=== PATIENT | female | born 1950 | race Caucasian/White ===

== ENCOUNTER 2016-07-03 | Inpatient (IN) | payer MEDICARE, BC, MEDICAID ==
[~2016-07-03] VITALS: Ht 162.6 cm; Wt 72.1 kg
[~2016-07-03] MED LIST: ACET160S PO; ALIS300T PO; ALPR0.5T PO; AMLO5TAB4 PO; BENZ1LOZ58 MM; DOCU-270 PO; ESCI20TA PO; FURO-144 PO; HEPA500013 SUBCUT; HYDR-552 PO; OLAN5TAB3 PO; ONDA4TAB5 IVP; PANT40TA2 PO; POTA20TA83 PO; TRAM50TA2 PO
[2016-07-05 07:45] VITALS: BP 144/66
--- NOTE | 2016-07-05 08:00 | NUR ---
Please see resident's previous account [id number] for all assessments and nurses notes. Originally admitted on 04/22/2015.
[2016-07-05] MEDS ORDERED: HYDROGEN PEROXIDE 480 ML BOTTLE TP PRN (08:38)
[2016-07-05] MEDS: POTASSIUM CHLORIDE 20 MEQ TAB.PRT.SR PO SCH (08:38)
[2016-07-05] MEDS: LIDOCAINE 5% (PATCH) 1 EA PATCH TP SCH (08:38)
[2016-07-05] MEDS ORDERED: ACETAMINOPHEN 650 MG/20 ML UDC- FOR SA PATIENTS ONLY PO PRN (08:38)
[2016-07-05] MEDS ORDERED: GUAIFENESIN/D-METHORPHAN HB 5 ML UDC PO PRN (08:38)
[2016-07-05] MEDS ORDERED: MENTHOL/CETYLPYRD (CEPACOL) 1 LOZ LOZENGE PO PRN (08:38)
[2016-07-05] MEDS: FUROSEMIDE 40 MG TABLET PO SCH (08:38)
[2016-07-05] MEDS ORDERED: IPRATROPIUM NEB FS 0.5 MG/2.5 ML AMPUL.NEB NEB PRN (08:38)
[2016-07-05] MEDS ORDERED: POLYETHYLENE GLYCOL 3350 17 GM POWD.PACK PO PRN (08:38)
[2016-07-05] MEDS ORDERED: TUBERCULIN,PURIF.PROT.DERIV. 5 TU/0.1 ML VIAL ID SCH (08:38)
[2016-07-05] MEDS ORDERED: NITROGLYCERIN 0.4 MG/TAB BOTTLE SL PRN (08:38)
[2016-07-05] MEDS ORDERED: ALBUTEROL FS 2.5 MG/3 ML VIAL.NEB NEB PRN (08:38)
[2016-07-05] MEDS: HYDROGEN PEROXIDE 480 ML BOTTLE TP SCH ×2 (09:00→21:48)
[2016-07-05] MEDS: LamoTRIgine 25 MG TABLET PO SCH (09:00)
[2016-07-05] MEDS: ALISKIREN HEMIFUMARATE 150 MG TABLET PO SCH (09:00)
[2016-07-05] MEDS: Z GUARD REMEDY 2 OZ OINT TP SCH ×2 (09:00→21:49)
[2016-07-05] MEDS: AMLODIPINE BESYLATE 5 MG TABLET PO SCH (09:00)
[2016-07-05] MEDS: SENNOSIDES 8.6 MG TABLET PO SCH (09:00)
[2016-07-05] MEDS: predniSONE 20 MG TABLET PO SCH (09:00)
[2016-07-05] MEDS: OLANZAPINE 2.5 MG TABLET PO SCH (09:00)
[2016-07-05] MEDS: NEOMY SULF/BACITRAC ZN/POLY 15 GM TUBE TP SCH ×2 (09:00→21:49)
--- NOTE | 2016-07-05 11:14 | NUR ---
Please see resident's previous account [id number] for Social Service assessments, evaluations and notes.
[2016-07-05] MEDS: ALBUTEROL FS 2.5 MG/3 ML VIAL.NEB NEB SCH ×2 (13:38→19:46)
[2016-07-05] MEDS: IPRATROPIUM NEB FS 0.5 MG/2.5 ML AMPUL.NEB NEB SCH ×2 (13:38→19:46)
[2016-07-05] MEDS: HYDROCODONE/APAP 5/325MG 1 EACH TABLET PO PRN (16:40)
[2016-07-05 19:53] VITALS: BP 130/74
[2016-07-05] MEDS: ZOLPIDEM TARTRATE 5 MG TABLET PO PRN (20:49)
[2016-07-05] MEDS: LORAZEPAM 0.5 MG TABLET PO PRN (20:49)
[2016-07-05] MEDS: TRAMADOL HCL 50 MG TABLET PO PRN (21:49)
[2016-07-06] MEDS: IPRATROPIUM NEB FS 0.5 MG/2.5 ML AMPUL.NEB NEB SCH ×4 (01:37→20:01)
[2016-07-06] MEDS: ALBUTEROL FS 2.5 MG/3 ML VIAL.NEB NEB SCH ×4 (01:37→20:01)
[2016-07-06] MEDS: PANTOPRAZOLE 40 MG/PACK PACK PO SCH (06:37)
[2016-07-06 07:58] VITALS: BP 127/74
[2016-07-06] MEDS: LIDOCAINE 5% (PATCH) 1 EA PATCH TP SCH ×2 (08:57→16:14)
[2016-07-06] MEDS: LamoTRIgine 25 MG TABLET PO SCH (09:02)
[2016-07-06] MEDS: predniSONE 20 MG TABLET PO SCH (09:03)
[2016-07-06] MEDS: SENNOSIDES 8.6 MG TABLET PO SCH (09:03)
[2016-07-06] MEDS: AMLODIPINE BESYLATE 5 MG TABLET PO SCH (09:03)
[2016-07-06] MEDS: ALISKIREN HEMIFUMARATE 150 MG TABLET PO SCH (09:04)
[2016-07-06] MEDS: NEOMY SULF/BACITRAC ZN/POLY 15 GM TUBE TP SCH (09:04)
[2016-07-06] MEDS: Z GUARD REMEDY 2 OZ OINT TP SCH ×2 (09:04→20:31)
[2016-07-06] MEDS: HYDROGEN PEROXIDE 480 ML BOTTLE TP SCH ×2 (09:04→20:31)
[2016-07-06] MEDS: OLANZAPINE 2.5 MG TABLET PO SCH (09:04)
[2016-07-06] MEDS: HYDROCODONE/APAP 5/325MG 1 EACH TABLET PO PRN ×3 (09:05→23:05)
[2016-07-06] MEDS: TRAMADOL HCL 50 MG TABLET PO PRN ×2 (12:12→21:16)
--- NOTE | 2016-07-06 15:44 | NUR ---
Resident spoke to social work lecturer and stated that she wanted to change code status to full code. Resident stated she wants maximum treatment and CPR if necessary. Resident signed Documentation of Preferred Intensity of Care and form was placed into the resident's chart. Charge nurse was informed.
[2016-07-06 20:00] VITALS: BP 140/75
[2016-07-06] MEDS: LORAZEPAM 0.5 MG TABLET PO PRN (20:31)
[2016-07-06] MEDS: ZOLPIDEM TARTRATE 5 MG TABLET PO PRN (21:17)
[2016-07-07] MEDS: IPRATROPIUM NEB FS 0.5 MG/2.5 ML AMPUL.NEB NEB SCH ×4 (02:12→19:50)
[2016-07-07] MEDS: ALBUTEROL FS 2.5 MG/3 ML VIAL.NEB NEB SCH ×4 (02:12→19:50)
[2016-07-07] MEDS: PANTOPRAZOLE 40 MG/PACK PACK PO SCH (05:23)
[2016-07-07] MEDS: TRAMADOL HCL 50 MG TABLET PO PRN ×3 (05:24→20:33)
[2016-07-07 07:57] VITALS: BP 147/77
[2016-07-07] MEDS: POTASSIUM CHLORIDE 20 MEQ TAB.PRT.SR PO SCH (08:02)
[2016-07-07] MEDS: predniSONE 20 MG TABLET PO SCH (08:02)
[2016-07-07] MEDS: LamoTRIgine 25 MG TABLET PO SCH (08:02)
[2016-07-07] MEDS: FUROSEMIDE 40 MG TABLET PO SCH (08:03)
[2016-07-07] MEDS: AMLODIPINE BESYLATE 5 MG TABLET PO SCH (08:03)
[2016-07-07] MEDS: ALISKIREN HEMIFUMARATE 150 MG TABLET PO SCH (08:04)
[2016-07-07] MEDS: OLANZAPINE 2.5 MG TABLET PO SCH (08:04)
[2016-07-07] MEDS: SENNOSIDES 8.6 MG TABLET PO SCH (08:04)
[2016-07-07] MEDS: HYDROGEN PEROXIDE 480 ML BOTTLE TP SCH ×2 (08:05→21:54)
[2016-07-07] MEDS: Z GUARD REMEDY 2 OZ OINT TP SCH ×2 (08:06→21:54)
[2016-07-07] MEDS: HYDROCODONE/APAP 5/325MG 1 EACH TABLET PO PRN ×3 (08:55→23:57)
--- NOTE | 2016-07-07 11:52 | NUR ---
Left a message to NARENDRA Sanchez regarding monthly trach change.
[2016-07-07] MEDS: LIDOCAINE 5% (PATCH) 1 EA PATCH TP SCH (17:35)
[2016-07-07] MEDS: LORAZEPAM 0.5 MG TABLET PO PRN (18:32)
[2016-07-07 20:15] VITALS: BP 130/91
--- NOTE | 2016-07-07 20:41 | NUR ---
Pt seen by Savi Nunez WINTERIZER,order psyche consult (Dr. Marino),she said she's will contact Dr. Marino.Pt aware of new order.
[2016-07-07] MEDS: ZOLPIDEM TARTRATE 5 MG TABLET PO PRN (21:54)
[2016-07-08] MEDS: ALBUTEROL FS 2.5 MG/3 ML VIAL.NEB NEB SCH ×4 (01:54→19:31)
[2016-07-08] MEDS: IPRATROPIUM NEB FS 0.5 MG/2.5 ML AMPUL.NEB NEB SCH ×4 (01:54→19:31)
[2016-07-08] MEDS: TRAMADOL HCL 50 MG TABLET PO PRN ×3 (02:48→21:45)
[2016-07-08] MEDS: PANTOPRAZOLE 40 MG/PACK PACK PO SCH (06:33)
[2016-07-08 07:52] VITALS: BP 130/74
[2016-07-08] MEDS: ALISKIREN HEMIFUMARATE 150 MG TABLET PO SCH (09:28)
[2016-07-08] MEDS: LamoTRIgine 25 MG TABLET PO SCH (09:28)
[2016-07-08] MEDS: SENNOSIDES 8.6 MG TABLET PO SCH (09:28)
[2016-07-08] MEDS: OLANZAPINE 2.5 MG TABLET PO SCH (09:28)
[2016-07-08] MEDS: AMLODIPINE BESYLATE 5 MG TABLET PO SCH (09:28)
[2016-07-08] MEDS: predniSONE 20 MG TABLET PO SCH (09:28)
[2016-07-08] MEDS: Z GUARD REMEDY 2 OZ OINT TP SCH ×2 (09:29→21:43)
[2016-07-08] MEDS: HYDROGEN PEROXIDE 480 ML BOTTLE TP SCH ×2 (09:29→21:42)
[2016-07-08] MEDS: HYDROCODONE/APAP 5/325MG 1 EACH TABLET PO PRN ×2 (09:30→15:26)
[2016-07-08] MEDS: LIDOCAINE 5% (PATCH) 1 EA PATCH TP SCH (16:56)
[2016-07-08 19:44] VITALS: BP 127/76
[2016-07-08] MEDS: LORAZEPAM 0.5 MG TABLET PO PRN (20:11)
[2016-07-08] MEDS: ZOLPIDEM TARTRATE 5 MG TABLET PO PRN (20:59)
[2016-07-09] MEDS: HYDROCODONE/APAP 5/325MG 1 EACH TABLET PO PRN ×4 (01:05→23:23)
[2016-07-09] MEDS: ALBUTEROL FS 2.5 MG/3 ML VIAL.NEB NEB SCH ×4 (02:07→19:28)
[2016-07-09] MEDS: IPRATROPIUM NEB FS 0.5 MG/2.5 ML AMPUL.NEB NEB SCH ×4 (02:07→19:28)
[2016-07-09] MEDS: PANTOPRAZOLE 40 MG/PACK PACK PO SCH (05:59)
[2016-07-09 07:57] VITALS: BP 152/80
[2016-07-09] MEDS: POTASSIUM CHLORIDE 20 MEQ TAB.PRT.SR PO SCH (09:12)
[2016-07-09] MEDS: FUROSEMIDE 40 MG TABLET PO SCH (09:12)
[2016-07-09] MEDS: predniSONE 20 MG TABLET PO SCH (09:13)
[2016-07-09] MEDS: ALISKIREN HEMIFUMARATE 150 MG TABLET PO SCH (09:13)
[2016-07-09] MEDS: SENNOSIDES 8.6 MG TABLET PO SCH (09:13)
[2016-07-09] MEDS: OLANZAPINE 2.5 MG TABLET PO SCH (09:13)
[2016-07-09] MEDS: AMLODIPINE BESYLATE 5 MG TABLET PO SCH (09:13)
[2016-07-09] MEDS: Z GUARD REMEDY 2 OZ OINT TP SCH ×2 (09:13→21:36)
[2016-07-09] MEDS: LamoTRIgine 25 MG TABLET PO SCH (09:13)
[2016-07-09] MEDS: HYDROGEN PEROXIDE 480 ML BOTTLE TP SCH ×2 (09:13→21:36)
[2016-07-09] MEDS: TRAMADOL HCL 50 MG TABLET PO PRN ×2 (11:58→21:37)
[2016-07-09] MEDS: LIDOCAINE 5% (PATCH) 1 EA PATCH TP SCH (16:49)
[2016-07-09 19:54] VITALS: BP 138/74
[2016-07-09] MEDS: LORAZEPAM 0.5 MG TABLET PO PRN (20:23)
[2016-07-09] MEDS: ZOLPIDEM TARTRATE 5 MG TABLET PO PRN (20:59)
[2016-07-10] MEDS: IPRATROPIUM NEB FS 0.5 MG/2.5 ML AMPUL.NEB NEB SCH ×4 (01:54→19:27)
[2016-07-10] MEDS: ALBUTEROL FS 2.5 MG/3 ML VIAL.NEB NEB SCH ×4 (01:54→19:27)
[2016-07-10] MEDS: PANTOPRAZOLE 40 MG/PACK PACK PO SCH (05:27)
[2016-07-10] MEDS: HYDROCODONE/APAP 5/325MG 1 EACH TABLET PO PRN ×3 (08:00→22:52)
--- NOTE | 2016-07-10 08:02 | NUR ---
RT PATIENT RECEIVED TRACHED ON COOL AEROSOL VIA TRACH MASK WENDY WELL. RESP TX'S GIVEN ORDERED WENDY WELL. TRACH SECURE AND IN PROPER POSITION. SX'D WITH MOD AMT PALE SEMITHICK SECRETIONS. B/S DIM. MONTHLY SCHEDULED TRACH CHANGE DONE WENDY WELL. PATIENT IN NO DISTRESS OR SOB AT THIS TIME. BACK UP TRACH AND AMBU BAG AT [facility]. CONTINUE CURRENT PLAN OF RESP CARE.
[2016-07-10 08:05] VITALS: BP 160/80
[2016-07-10] MEDS: LamoTRIgine 25 MG TABLET PO SCH (08:16)
[2016-07-10] MEDS: AMLODIPINE BESYLATE 5 MG TABLET PO SCH (08:16)
[2016-07-10] MEDS: SENNOSIDES 8.6 MG TABLET PO SCH (08:16)
[2016-07-10] MEDS: ALISKIREN HEMIFUMARATE 150 MG TABLET PO SCH (08:16)
[2016-07-10] MEDS: OLANZAPINE 2.5 MG TABLET PO SCH (08:16)
[2016-07-10] MEDS: predniSONE 20 MG TABLET PO SCH (08:16)
[2016-07-10] MEDS: HYDROGEN PEROXIDE 480 ML BOTTLE TP SCH ×2 (09:37→21:01)
[2016-07-10] MEDS: Z GUARD REMEDY 2 OZ OINT TP SCH ×2 (09:38→21:02)
[2016-07-10] MEDS: TRAMADOL HCL 50 MG TABLET PO PRN (12:04)
[2016-07-10] MEDS: LIDOCAINE 5% (PATCH) 1 EA PATCH TP SCH (17:09)
[2016-07-10] MEDS: LORAZEPAM 0.5 MG TABLET PO PRN ×2 (17:50→21:02)
[2016-07-10 20:00] VITALS: BP 128/78
[2016-07-10] MEDS: ZOLPIDEM TARTRATE 5 MG TABLET PO PRN (22:53)
[2016-07-11] MEDS: IPRATROPIUM NEB FS 0.5 MG/2.5 ML AMPUL.NEB NEB SCH ×4 (01:28→19:40)
[2016-07-11] MEDS: ALBUTEROL FS 2.5 MG/3 ML VIAL.NEB NEB SCH ×4 (01:28→19:40)
[2016-07-11] MEDS: PANTOPRAZOLE 40 MG/PACK PACK PO SCH (05:47)
[2016-07-11 08:07] VITALS: BP 141/89
--- NOTE | 2016-07-11 08:21 | NUR ---
RT PATIENT RECEIVED TRACHED ON COOL AEROSOL VIA TRACH MASK WENDY WELL. RESP TX'S GIVEN ORDERED WENDY WELL. TRACH SECURE AND IN PROPER POSITION. SX'D WITH MOD AMT PALE SEMITHICK SECRETIONS. B/S DIM. PATIENT IN NO DISTRESS OR SOB AT THIS TIME. BACK UP TRACH AND AMBU BAG AT [facility]. CONTINUE CURRENT PLAN OF RESP CARE.
[2016-07-11] MEDS: POTASSIUM CHLORIDE 20 MEQ TAB.PRT.SR PO SCH (08:52)
[2016-07-11] MEDS: FUROSEMIDE 40 MG TABLET PO SCH (08:53)
[2016-07-11] MEDS: LamoTRIgine 25 MG TABLET PO SCH (08:55)
[2016-07-11] MEDS: predniSONE 20 MG TABLET PO SCH (08:56)
[2016-07-11] MEDS: SENNOSIDES 8.6 MG TABLET PO SCH (08:56)
[2016-07-11] MEDS: AMLODIPINE BESYLATE 5 MG TABLET PO SCH (08:56)
[2016-07-11] MEDS: ALISKIREN HEMIFUMARATE 150 MG TABLET PO SCH (08:57)
[2016-07-11] MEDS: Z GUARD REMEDY 2 OZ OINT TP SCH ×2 (09:00→20:34)
[2016-07-11] MEDS: HYDROGEN PEROXIDE 480 ML BOTTLE TP SCH ×2 (09:00→20:34)
[2016-07-11] MEDS: OLANZAPINE 2.5 MG TABLET PO SCH (09:01)
[2016-07-11] MEDS: HYDROCODONE/APAP 5/325MG 1 EACH TABLET PO PRN ×3 (09:06→22:42)
[2016-07-11] MEDS: TRAMADOL HCL 50 MG TABLET PO PRN ×2 (14:10→21:13)
--- NOTE | 2016-07-11 16:11 | NUR ---
sent message to Dr. Marino asking when he can come and see the resident, as she is reporting that her current meds are making her nervous. Awaiting response.
--- NOTE | 2016-07-11 16:28 | NUR ---
Pt verbalized that Zyprexa and Lamictal make her nervous and she does not want to take them anymore. She requested for psychiatrist to see her to re-evaluate her medications. Notified social work manager Maude. She left a message for Dr. Marino.
[2016-07-11] MEDS: LIDOCAINE 5% (PATCH) 1 EA PATCH TP SCH (17:00)
[2016-07-11 20:21] VITALS: BP 131/84
[2016-07-11] MEDS: LORAZEPAM 0.5 MG TABLET PO PRN (20:34)
[2016-07-11] MEDS: ZOLPIDEM TARTRATE 5 MG TABLET PO PRN (21:13)
[2016-07-12] MEDS: IPRATROPIUM NEB FS 0.5 MG/2.5 ML AMPUL.NEB NEB SCH ×4 (01:01→19:30)
[2016-07-12] MEDS: ALBUTEROL FS 2.5 MG/3 ML VIAL.NEB NEB SCH ×4 (01:01→19:30)
--- NOTE | 2016-07-12 01:50 | NUR ---
Dr. Aldridge (assistant professor nurse education) came to see SW and stated that he was prepared to see the resident but resident refused to be seen today as it is her birthday. Dr. Aldridge stated that he will come again tomorrow to see resident. Addendum: 07/12/16 at 1405 by JEAN CARLOS LEBRON Note is for 1:50PM
[2016-07-12] MEDS: PANTOPRAZOLE 40 MG/PACK PACK PO SCH (05:45)
[2016-07-12 08:12] VITALS: BP 147/76
[2016-07-12] MEDS: Z GUARD REMEDY 2 OZ OINT TP SCH ×2 (09:00→21:05)
[2016-07-12] MEDS: HYDROGEN PEROXIDE 480 ML BOTTLE TP SCH ×2 (09:00→21:05)
[2016-07-12] MEDS: LamoTRIgine 25 MG TABLET PO SCH (09:29)
[2016-07-12] MEDS: AMLODIPINE BESYLATE 5 MG TABLET PO SCH (09:29)
[2016-07-12] MEDS: ALISKIREN HEMIFUMARATE 150 MG TABLET PO SCH (09:31)
[2016-07-12] MEDS: OLANZAPINE 2.5 MG TABLET PO SCH (09:32)
[2016-07-12] MEDS: SENNOSIDES 8.6 MG TABLET PO SCH (09:32)
[2016-07-12] MEDS: predniSONE 20 MG TABLET PO SCH (09:32)
[2016-07-12] MEDS: HYDROCODONE/APAP 5/325MG 1 EACH TABLET PO PRN ×2 (09:41→16:30)
--- NOTE | 2016-07-12 10:57 | NUR ---
Pt's left great toe is swollen, appears to have an ingrown toenail. Notified director social service Maude to have qa lead see pt.
--- NOTE | 2016-07-12 11:01 | NUR ---
SW informed by charge nurse that resident's left big toe is swollen. SW faxed employment training specialist referral to wound center so that Dr. Howard can come and see the patient. SW will follow up.
--- NOTE | 2016-07-12 11:03 | NUR ---
Called Dr. Marino cell phone and left vmail message indicating that resident is requesting to see him due to her medications making her more anxious. left contact information and asked for a call back to see when he can come and see resident. SW will follow up.
[2016-07-12] MEDS: TRAMADOL HCL 50 MG TABLET PO PRN (13:14)
[2016-07-12] MEDS: LIDOCAINE 5% (PATCH) 1 EA PATCH TP SCH (17:00)
--- NOTE | 2016-07-12 18:00 | NUR ---
Pt was seen by Dr. Marino. Received order to decrease Zyprexa to 1.25 mg po daily. Pt aware.
[2016-07-12 20:37] VITALS: BP 161/74
[2016-07-12] MEDS: LORAZEPAM 0.5 MG TABLET PO PRN (21:03)
[2016-07-12] MEDS: ZOLPIDEM TARTRATE 5 MG TABLET PO PRN (21:04)
[2016-07-13] MEDS: HYDROCODONE/APAP 5/325MG 1 EACH TABLET PO PRN ×4 (00:42→21:01)
[2016-07-13] MEDS: ALBUTEROL FS 2.5 MG/3 ML VIAL.NEB NEB SCH ×5 (01:10→20:09)
[2016-07-13] MEDS: IPRATROPIUM NEB FS 0.5 MG/2.5 ML AMPUL.NEB NEB SCH ×5 (01:10→20:09)
[2016-07-13] MEDS: PANTOPRAZOLE 40 MG/PACK PACK PO SCH (05:23)
[2016-07-13 07:33] VITALS: BP 130/73
[2016-07-13] MEDS: SENNOSIDES 8.6 MG TABLET PO SCH (09:28)
[2016-07-13] MEDS: POTASSIUM CHLORIDE 20 MEQ TAB.PRT.SR PO SCH (09:28)
[2016-07-13] MEDS: FUROSEMIDE 40 MG TABLET PO SCH (09:28)
[2016-07-13] MEDS: LamoTRIgine 25 MG TABLET PO SCH (09:28)
[2016-07-13] MEDS: AMLODIPINE BESYLATE 5 MG TABLET PO SCH (09:28)
[2016-07-13] MEDS: ALISKIREN HEMIFUMARATE 150 MG TABLET PO SCH (09:28)
[2016-07-13] MEDS: OLANZAPINE 2.5 MG TABLET PO SCH (09:28)
[2016-07-13] MEDS: predniSONE 20 MG TABLET PO SCH (09:28)
[2016-07-13] MEDS: Z GUARD REMEDY 2 OZ OINT TP SCH ×2 (09:29→21:03)
[2016-07-13] MEDS: HYDROGEN PEROXIDE 480 ML BOTTLE TP SCH ×2 (09:29→21:03)
[2016-07-13] MEDS: TRAMADOL HCL 50 MG TABLET PO PRN (12:04)
--- NOTE | 2016-07-13 12:30 | NUR ---
Dr. Gill, ENT came to do monthly trach change, assisted by RT. Patient tolerated procedure well.
--- NOTE | 2016-07-13 13:07 | NUR ---
RT NOTE: PATIENT IS ANXIOUS AND STATES THAT TRACH WAS NOT CHANGED 3 DAYS AGO. CHANGED TRACH PER PATIENT'S REQUEST. TOLERATED TRACH CHANGE WELL. NO BLEEDING NOTED. TRACH CARE WAS DONE. PATIENT IS NOW RESTING COMFORTABLY. CHARGE NURSE(JUAN LUIS) AWARE.
[2016-07-13] MEDS: LIDOCAINE 5% (PATCH) 1 EA PATCH TP SCH (17:00)
[2016-07-13 19:51] VITALS: BP 141/58
[2016-07-14] MEDS: ZOLPIDEM TARTRATE 5 MG TABLET PO PRN ×2 (00:18→22:19)
[2016-07-14] MEDS: LORAZEPAM 0.5 MG TABLET PO PRN ×2 (00:19→20:37)
[2016-07-14] MEDS: IPRATROPIUM NEB FS 0.5 MG/2.5 ML AMPUL.NEB NEB SCH ×4 (01:13→19:49)
[2016-07-14] MEDS: ALBUTEROL FS 2.5 MG/3 ML VIAL.NEB NEB SCH ×4 (01:13→19:49)
[2016-07-14] MEDS: PANTOPRAZOLE 40 MG/PACK PACK PO SCH (05:28)
[2016-07-14 07:46] VITALS: BP 147/78
[2016-07-14] MEDS: LamoTRIgine 25 MG TABLET PO SCH (09:50)
[2016-07-14] MEDS: SENNOSIDES 8.6 MG TABLET PO SCH (09:51)
[2016-07-14] MEDS: OLANZAPINE 2.5 MG TABLET PO SCH (09:51)
[2016-07-14] MEDS: HYDROGEN PEROXIDE 480 ML BOTTLE TP SCH ×2 (09:51→21:00)
[2016-07-14] MEDS: predniSONE 20 MG TABLET PO SCH (09:51)
[2016-07-14] MEDS: ALISKIREN HEMIFUMARATE 150 MG TABLET PO SCH (09:51)
[2016-07-14] MEDS: NEOMY SULF/BACITRAC ZN/POLY 15 GM TUBE TP SCH (09:51)
[2016-07-14] MEDS: AMLODIPINE BESYLATE 5 MG TABLET PO SCH (09:51)
[2016-07-14] MEDS: Z GUARD REMEDY 2 OZ OINT TP SCH ×2 (09:52→21:00)
[2016-07-14] MEDS: HYDROCODONE/APAP 5/325MG 1 EACH TABLET PO PRN ×3 (12:48→23:28)
[2016-07-14] MEDS: TRAMADOL HCL 50 MG TABLET PO PRN ×2 (14:18→21:03)
[2016-07-14] MEDS: LIDOCAINE 5% (PATCH) 1 EA PATCH TP SCH (16:56)
--- NOTE | 2016-07-14 17:02 | NUR ---
Risco 5/325 mg given at 0950 for lower back pain, then resident complained of back pain 8/10 pain scale at 1700. Risco 5/325 mg given at 1700.
[2016-07-14 19:58] VITALS: BP 141/81
[2016-07-15] MEDS: IPRATROPIUM NEB FS 0.5 MG/2.5 ML AMPUL.NEB NEB SCH ×4 (01:28→19:52)
[2016-07-15] MEDS: ALBUTEROL FS 2.5 MG/3 ML VIAL.NEB NEB SCH ×4 (01:28→19:52)
[2016-07-15] MEDS: PANTOPRAZOLE 40 MG/PACK PACK PO SCH (05:51)
[2016-07-15 07:46] VITALS: BP 127/59
--- NOTE | 2016-07-15 07:50 | NUR ---
RT PATIENT RECEIVED TRACHED ON COOL AEROSOL VIA TRACH MASK WENDY WELL. RESP TX'S GIVEN ORDERED WENDY WELL. TRACH SECURE AND IN PROPER POSITION. SX'D WITH SMALL AMT PALE SEMITHICK SECRETIONS. INNER CANNULA CHANGED PER PATIENT REQUEST. B/S DIM. PATIENT IN NO DISTRESS OR SOB AT THIS TIME. BACK UP TRACH AND AMBU BAG AT [facility]. CONTINUE CURRENT PLAN OF RESP CARE.
[2016-07-15] MEDS: POTASSIUM CHLORIDE 20 MEQ TAB.PRT.SR PO SCH (08:38)
[2016-07-15] MEDS: FUROSEMIDE 40 MG TABLET PO SCH (08:38)
[2016-07-15] MEDS: LamoTRIgine 25 MG TABLET PO SCH (09:58)
[2016-07-15] MEDS: OLANZAPINE 2.5 MG TABLET PO SCH (09:59)
[2016-07-15] MEDS: HYDROGEN PEROXIDE 480 ML BOTTLE TP SCH ×2 (09:59→21:44)
[2016-07-15] MEDS: Z GUARD REMEDY 2 OZ OINT TP SCH ×2 (09:59→21:44)
[2016-07-15] MEDS: ALISKIREN HEMIFUMARATE 150 MG TABLET PO SCH (09:59)
[2016-07-15] MEDS: AMLODIPINE BESYLATE 5 MG TABLET PO SCH (09:59)
[2016-07-15] MEDS: SENNOSIDES 8.6 MG TABLET PO SCH (09:59)
[2016-07-15] MEDS: NEOMY SULF/BACITRAC ZN/POLY 15 GM TUBE TP SCH (09:59)
[2016-07-15] MEDS: predniSONE 20 MG TABLET PO SCH (09:59)
[2016-07-15] MEDS: HYDROCODONE/APAP 5/325MG 1 EACH TABLET PO PRN ×2 (10:52→17:27)
[2016-07-15] MEDS: TRAMADOL HCL 50 MG TABLET PO PRN ×2 (13:30→21:43)
--- NOTE | 2016-07-15 14:15 | NUR ---
INTERDISCIPLINARY TEAM CONFERENCE (IDT) was held today. Resident's dtr lives in [place] and is unable to attend. Dr. Yen and the interdisciplinary team reviewed the current plan of care in detail. New orders were reviewed. No changes were noted and resident remains stable.
[2016-07-15] MEDS: LIDOCAINE 5% (PATCH) 1 EA PATCH TP SCH (16:13)
[2016-07-15 19:53] VITALS: BP 120/70
[2016-07-15] MEDS: ZOLPIDEM TARTRATE 5 MG TABLET PO PRN (20:59)
[2016-07-16] MEDS: IPRATROPIUM NEB FS 0.5 MG/2.5 ML AMPUL.NEB NEB SCH ×4 (02:22→19:19)
[2016-07-16] MEDS: ALBUTEROL FS 2.5 MG/3 ML VIAL.NEB NEB SCH ×4 (02:22→19:19)
[2016-07-16] MEDS: PANTOPRAZOLE 40 MG/PACK PACK PO SCH (06:14)
[2016-07-16 07:42] VITALS: BP 137/81
[2016-07-16] MEDS: predniSONE 20 MG TABLET PO SCH (09:46)
[2016-07-16] MEDS: LamoTRIgine 25 MG TABLET PO SCH (09:46)
[2016-07-16] MEDS: ALISKIREN HEMIFUMARATE 150 MG TABLET PO SCH (09:46)
[2016-07-16] MEDS: OLANZAPINE 2.5 MG TABLET PO SCH (09:46)
[2016-07-16] MEDS: SENNOSIDES 8.6 MG TABLET PO SCH (09:46)
[2016-07-16] MEDS: AMLODIPINE BESYLATE 5 MG TABLET PO SCH (09:46)
[2016-07-16] MEDS: HYDROGEN PEROXIDE 480 ML BOTTLE TP SCH ×2 (09:47→20:33)
[2016-07-16] MEDS: Z GUARD REMEDY 2 OZ OINT TP SCH ×2 (09:47→20:34)
[2016-07-16] MEDS: NEOMY SULF/BACITRAC ZN/POLY 15 GM TUBE TP SCH (09:47)
[2016-07-16] MEDS: HYDROCODONE/APAP 5/325MG 1 EACH TABLET PO PRN ×2 (10:23→16:35)
[2016-07-16] MEDS: TRAMADOL HCL 50 MG TABLET PO PRN ×2 (12:40→21:13)
[2016-07-16] MEDS: LIDOCAINE 5% (PATCH) 1 EA PATCH TP SCH (16:15)
[2016-07-16 19:41] VITALS: BP 132/70
[2016-07-16] MEDS: LORAZEPAM 0.5 MG TABLET PO PRN (20:34)
[2016-07-16] MEDS: ZOLPIDEM TARTRATE 5 MG TABLET PO PRN (21:13)
[2016-07-17] MEDS: HYDROCODONE/APAP 5/325MG 1 EACH TABLET PO PRN ×4 (00:13→22:35)
[2016-07-17] MEDS: IPRATROPIUM NEB FS 0.5 MG/2.5 ML AMPUL.NEB NEB SCH ×4 (01:19→19:08)
[2016-07-17] MEDS: ALBUTEROL FS 2.5 MG/3 ML VIAL.NEB NEB SCH ×4 (01:19→19:08)
[2016-07-17] MEDS: PANTOPRAZOLE 40 MG/PACK PACK PO SCH (05:22)
[2016-07-17 08:22] VITALS: BP 136/87
[2016-07-17] MEDS: POTASSIUM CHLORIDE 20 MEQ TAB.PRT.SR PO SCH (08:38)
[2016-07-17] MEDS: FUROSEMIDE 40 MG TABLET PO SCH (08:38)
[2016-07-17] MEDS: SENNOSIDES 8.6 MG TABLET PO SCH (09:00)
[2016-07-17] MEDS: Z GUARD REMEDY 2 OZ OINT TP SCH ×2 (09:00→20:26)
[2016-07-17] MEDS: LamoTRIgine 25 MG TABLET PO SCH (09:00)
[2016-07-17] MEDS: HYDROGEN PEROXIDE 480 ML BOTTLE TP SCH ×2 (09:00→20:26)
[2016-07-17] MEDS: OLANZAPINE 2.5 MG TABLET PO SCH (09:00)
[2016-07-17] MEDS: ALISKIREN HEMIFUMARATE 150 MG TABLET PO SCH (09:00)
[2016-07-17] MEDS: predniSONE 20 MG TABLET PO SCH (09:00)
[2016-07-17] MEDS: AMLODIPINE BESYLATE 5 MG TABLET PO SCH (09:00)
[2016-07-17] MEDS: NEOMY SULF/BACITRAC ZN/POLY 15 GM TUBE TP SCH (09:00)
[2016-07-17] MEDS: TRAMADOL HCL 50 MG TABLET PO PRN ×2 (12:14→21:00)
[2016-07-17] MEDS: LIDOCAINE 5% (PATCH) 1 EA PATCH TP SCH (16:21)
[2016-07-17 19:54] VITALS: BP 136/70
[2016-07-17] MEDS: LORAZEPAM 0.5 MG TABLET PO PRN (20:26)
[2016-07-17] MEDS: ZOLPIDEM TARTRATE 5 MG TABLET PO PRN (21:00)
[2016-07-18] MEDS: IPRATROPIUM NEB FS 0.5 MG/2.5 ML AMPUL.NEB NEB SCH ×4 (00:38→19:37)
[2016-07-18] MEDS: ALBUTEROL FS 2.5 MG/3 ML VIAL.NEB NEB SCH ×4 (00:38→19:37)
[2016-07-18] MEDS: PANTOPRAZOLE 40 MG/PACK PACK PO SCH (05:36)
[2016-07-18 07:45] VITALS: BP 141/76
--- NOTE | 2016-07-18 09:27 | NUR ---
Resident refused to be seen by Dr. Margoth BURGOS and stated that she is feeling sick and wants to reschedule the cleaning. SW will call dentist's office to reschedule for a later time.
[2016-07-18] MEDS: AMLODIPINE BESYLATE 5 MG TABLET PO SCH (09:29)
[2016-07-18] MEDS: predniSONE 20 MG TABLET PO SCH (09:37)
[2016-07-18] MEDS: OLANZAPINE 2.5 MG TABLET PO SCH (09:37)
[2016-07-18] MEDS: SENNOSIDES 8.6 MG TABLET PO SCH (09:37)
[2016-07-18] MEDS: ALISKIREN HEMIFUMARATE 150 MG TABLET PO SCH (09:37)
[2016-07-18] MEDS: HYDROCODONE/APAP 5/325MG 1 EACH TABLET PO PRN ×3 (09:37→23:36)
[2016-07-18] MEDS: LamoTRIgine 25 MG TABLET PO SCH (09:37)
[2016-07-18] MEDS: HYDROGEN PEROXIDE 480 ML BOTTLE TP SCH ×2 (09:38→20:39)
[2016-07-18] MEDS: NEOMY SULF/BACITRAC ZN/POLY 15 GM TUBE TP SCH (09:38)
[2016-07-18] MEDS: Z GUARD REMEDY 2 OZ OINT TP SCH ×2 (09:39→20:39)
[2016-07-18] MEDS: TRAMADOL HCL 50 MG TABLET PO PRN ×2 (12:03→21:42)
[2016-07-18] MEDS: LIDOCAINE 5% (PATCH) 1 EA PATCH TP SCH (16:20)
[2016-07-18 20:06] VITALS: BP 127/72
[2016-07-18] MEDS: LORAZEPAM 0.5 MG TABLET PO PRN (20:39)
[2016-07-18] MEDS: ZOLPIDEM TARTRATE 5 MG TABLET PO PRN (21:42)
[2016-07-19] MEDS: IPRATROPIUM NEB FS 0.5 MG/2.5 ML AMPUL.NEB NEB SCH ×4 (01:30→19:30)
[2016-07-19] MEDS: ALBUTEROL FS 2.5 MG/3 ML VIAL.NEB NEB SCH ×4 (01:30→19:30)
[2016-07-19] MEDS: PANTOPRAZOLE 40 MG/PACK PACK PO SCH (05:30)
[2016-07-19 08:09] VITALS: BP_SYST 103; BP_SYST 149; BP_DIAS 50; BP_DIAS 79
[2016-07-19] MEDS: NEOMY SULF/BACITRAC ZN/POLY 15 GM TUBE TP SCH (09:00)
[2016-07-19] MEDS: Z GUARD REMEDY 2 OZ OINT TP SCH ×2 (09:00→21:14)
[2016-07-19] MEDS: HYDROGEN PEROXIDE 480 ML BOTTLE TP SCH ×2 (09:00→21:14)
[2016-07-19] MEDS: AMLODIPINE BESYLATE 5 MG TABLET PO SCH (09:03)
[2016-07-19] MEDS: ALISKIREN HEMIFUMARATE 150 MG TABLET PO SCH (09:06)
[2016-07-19] MEDS: OLANZAPINE 2.5 MG TABLET PO SCH (09:06)
[2016-07-19] MEDS: predniSONE 20 MG TABLET PO SCH (09:06)
[2016-07-19] MEDS: POTASSIUM CHLORIDE 20 MEQ TAB.PRT.SR PO SCH (09:06)
[2016-07-19] MEDS: SENNOSIDES 8.6 MG TABLET PO SCH (09:06)
[2016-07-19] MEDS: LamoTRIgine 25 MG TABLET PO SCH (09:06)
[2016-07-19] MEDS: FUROSEMIDE 40 MG TABLET PO SCH (09:06)
[2016-07-19] MEDS: HYDROCODONE/APAP 5/325MG 1 EACH TABLET PO PRN ×3 (10:11→23:10)
[2016-07-19] MEDS: TRAMADOL HCL 50 MG TABLET PO PRN ×2 (12:51→21:15)
--- NOTE | 2016-07-19 16:00 | NUR ---
furniture lumber production worker introduced self to resident and her daughter Francine (who is visiting from [place]). furniture lumber production worker identified her role in the unit and in discharge planning. SW had a discussion with resident and her daughter about resident's discharge plans once she is ready to be decannulated. Resident stated that she was still unsure if she wanted to go live with her daughter in [place] or with her friends and stated that that is a conversation that she was going to have with her daughter. Daughter asked manager social responsibility questions pertaining to placements and manager social responsibility discussed fci facilities with her. SW stated that transition to a fci facility can help resident adapt once she no longer has the trach. Resident and daughter stated that they will think about it and let the manager social responsibility know if they have any questions.
[2016-07-19] MEDS: LIDOCAINE 5% (PATCH) 1 EA PATCH TP SCH (16:46)
[2016-07-19 19:43] VITALS: BP 149/87
[2016-07-19] MEDS: ZOLPIDEM TARTRATE 5 MG TABLET PO PRN (20:56)
[2016-07-19] MEDS: LORAZEPAM 0.5 MG TABLET PO PRN (20:56)
[2016-07-20] MEDS: IPRATROPIUM NEB FS 0.5 MG/2.5 ML AMPUL.NEB NEB SCH ×4 (00:41→19:30)
[2016-07-20] MEDS: ALBUTEROL FS 2.5 MG/3 ML VIAL.NEB NEB SCH ×4 (00:41→19:30)
[2016-07-20] MEDS: PANTOPRAZOLE 40 MG/PACK PACK PO SCH (05:34)
[2016-07-20] MEDS: TRAMADOL HCL 50 MG TABLET PO PRN ×2 (05:54→21:23)
[2016-07-20 07:43] VITALS: BP_SYST 133; BP_SYST 155; BP_DIAS 65; BP_DIAS 77
[2016-07-20] MEDS: predniSONE 20 MG TABLET PO SCH (09:17)
[2016-07-20] MEDS: ALISKIREN HEMIFUMARATE 150 MG TABLET PO SCH (09:17)
[2016-07-20] MEDS: SENNOSIDES 8.6 MG TABLET PO SCH (09:17)
[2016-07-20] MEDS: HYDROGEN PEROXIDE 480 ML BOTTLE TP SCH ×2 (09:17→20:26)
[2016-07-20] MEDS: OLANZAPINE 2.5 MG TABLET PO SCH (09:17)
[2016-07-20] MEDS: LamoTRIgine 25 MG TABLET PO SCH (09:17)
[2016-07-20] MEDS: AMLODIPINE BESYLATE 5 MG TABLET PO SCH (09:17)
[2016-07-20] MEDS: NEOMY SULF/BACITRAC ZN/POLY 15 GM TUBE TP SCH (09:18)
[2016-07-20] MEDS: Z GUARD REMEDY 2 OZ OINT TP SCH ×2 (09:18→20:26)
[2016-07-20] MEDS: HYDROCODONE/APAP 5/325MG 1 EACH TABLET PO PRN ×3 (09:24→22:59)
[2016-07-20] MEDS: LIDOCAINE 5% (PATCH) 1 EA PATCH TP SCH (17:28)
[2016-07-20 19:52] VITALS: BP 143/82
[2016-07-20] MEDS: LORAZEPAM 0.5 MG TABLET PO PRN (20:26)
[2016-07-20] MEDS: ZOLPIDEM TARTRATE 5 MG TABLET PO PRN (20:26)
[2016-07-21] MEDS: ALBUTEROL FS 2.5 MG/3 ML VIAL.NEB NEB SCH ×4 (01:53→19:44)
[2016-07-21] MEDS: IPRATROPIUM NEB FS 0.5 MG/2.5 ML AMPUL.NEB NEB SCH ×4 (01:53→19:44)
[2016-07-21] MEDS: PANTOPRAZOLE 40 MG/PACK PACK PO SCH (05:13)
[2016-07-21 07:42] VITALS: BP 127/73
[2016-07-21] MEDS: POTASSIUM CHLORIDE 20 MEQ TAB.PRT.SR PO SCH (08:38)
[2016-07-21] MEDS: FUROSEMIDE 40 MG TABLET PO SCH (08:38)
[2016-07-21] MEDS: OLANZAPINE 2.5 MG TABLET PO SCH (09:00)
[2016-07-21] MEDS: LamoTRIgine 25 MG TABLET PO SCH (09:00)
[2016-07-21] MEDS: Z GUARD REMEDY 2 OZ OINT TP SCH ×2 (09:00→20:46)
[2016-07-21] MEDS: predniSONE 20 MG TABLET PO SCH (09:00)
[2016-07-21] MEDS: ALISKIREN HEMIFUMARATE 150 MG TABLET PO SCH (09:00)
[2016-07-21] MEDS: SENNOSIDES 8.6 MG TABLET PO SCH (09:00)
[2016-07-21] MEDS: NEOMY SULF/BACITRAC ZN/POLY 15 GM TUBE TP SCH (09:00)
[2016-07-21] MEDS: HYDROGEN PEROXIDE 480 ML BOTTLE TP SCH ×2 (09:00→20:46)
[2016-07-21] MEDS: AMLODIPINE BESYLATE 5 MG TABLET PO SCH (09:00)
[2016-07-21] MEDS: HYDROCODONE/APAP 5/325MG 1 EACH TABLET PO PRN ×2 (10:48→19:18)
[2016-07-21] MEDS: TRAMADOL HCL 50 MG TABLET PO PRN (15:34)
--- NOTE | 2016-07-21 16:00 | NUR ---
Seen and examined by Savi Nunez NP, no new order given at this time. Resident verbalized to Savi Nunez that she would like to see the oncologist. Left a message to Dr. Morton, spoke with Jayla to relay patient's message wanting to speak to MD regarding her concern about lung CA. Awiting for MD to call back.
[2016-07-21] MEDS: LIDOCAINE 5% (PATCH) 1 EA PATCH TP SCH (16:35)
[2016-07-21 19:52] VITALS: BP 124/77
[2016-07-21] MEDS: LORAZEPAM 0.5 MG TABLET PO PRN (20:46)
[2016-07-21] MEDS: ZOLPIDEM TARTRATE 5 MG TABLET PO PRN (20:46)
[2016-07-22] MEDS: IPRATROPIUM NEB FS 0.5 MG/2.5 ML AMPUL.NEB NEB SCH ×4 (01:00→20:10)
[2016-07-22] MEDS: ALBUTEROL FS 2.5 MG/3 ML VIAL.NEB NEB SCH ×4 (01:00→20:10)
[2016-07-22] MEDS: PANTOPRAZOLE 40 MG/PACK PACK PO SCH (05:19)
[2016-07-22] MEDS: TRAMADOL HCL 50 MG TABLET PO PRN ×2 (06:32→16:14)
[2016-07-22 07:39] VITALS: BP 139/74
[2016-07-22] MEDS: LamoTRIgine 25 MG TABLET PO SCH (09:55)
[2016-07-22] MEDS: SENNOSIDES 8.6 MG TABLET PO SCH (09:56)
[2016-07-22] MEDS: Z GUARD REMEDY 2 OZ OINT TP SCH ×2 (09:56→20:32)
[2016-07-22] MEDS: AMLODIPINE BESYLATE 5 MG TABLET PO SCH (09:56)
[2016-07-22] MEDS: HYDROGEN PEROXIDE 480 ML BOTTLE TP SCH ×2 (09:56→20:32)
[2016-07-22] MEDS: predniSONE 20 MG TABLET PO SCH (09:56)
[2016-07-22] MEDS: ALISKIREN HEMIFUMARATE 150 MG TABLET PO SCH (09:56)
[2016-07-22] MEDS: OLANZAPINE 2.5 MG TABLET PO SCH (09:56)
[2016-07-22] MEDS: NEOMY SULF/BACITRAC ZN/POLY 15 GM TUBE TP SCH (09:56)
[2016-07-22] MEDS: HYDROCODONE/APAP 5/325MG 1 EACH TABLET PO PRN ×2 (12:17→18:27)
[2016-07-22] MEDS: LIDOCAINE 5% (PATCH) 1 EA PATCH TP SCH (16:22)
[2016-07-22 19:53] VITALS: BP 129/77
[2016-07-22] MEDS: LORAZEPAM 0.5 MG TABLET PO PRN (20:43)
[2016-07-22] MEDS: ZOLPIDEM TARTRATE 5 MG TABLET PO PRN (21:23)
[2016-07-23] MEDS: ALBUTEROL FS 2.5 MG/3 ML VIAL.NEB NEB SCH ×4 (01:11→20:02)
[2016-07-23] MEDS: IPRATROPIUM NEB FS 0.5 MG/2.5 ML AMPUL.NEB NEB SCH ×4 (01:11→20:02)
[2016-07-23] MEDS: TRAMADOL HCL 50 MG TABLET PO PRN ×3 (01:22→20:15)
[2016-07-23] MEDS: PANTOPRAZOLE 40 MG/PACK PACK PO SCH (05:10)
[2016-07-23 07:56] VITALS: BP 134/70
[2016-07-23] MEDS: POTASSIUM CHLORIDE 20 MEQ TAB.PRT.SR PO SCH (08:38)
[2016-07-23] MEDS: FUROSEMIDE 40 MG TABLET PO SCH (08:38)
[2016-07-23] MEDS: HYDROGEN PEROXIDE 480 ML BOTTLE TP SCH ×2 (09:00→20:30)
[2016-07-23] MEDS: NEOMY SULF/BACITRAC ZN/POLY 15 GM TUBE TP SCH (09:00)
[2016-07-23] MEDS: LamoTRIgine 25 MG TABLET PO SCH (09:00)
[2016-07-23] MEDS: AMLODIPINE BESYLATE 5 MG TABLET PO SCH (09:00)
[2016-07-23] MEDS: OLANZAPINE 2.5 MG TABLET PO SCH (09:00)
[2016-07-23] MEDS: SENNOSIDES 8.6 MG TABLET PO SCH (09:00)
[2016-07-23] MEDS: predniSONE 20 MG TABLET PO SCH (09:00)
[2016-07-23] MEDS: ALISKIREN HEMIFUMARATE 150 MG TABLET PO SCH (09:00)
[2016-07-23] MEDS: Z GUARD REMEDY 2 OZ OINT TP SCH ×2 (09:00→20:30)
[2016-07-23] MEDS: HYDROCODONE/APAP 5/325MG 1 EACH TABLET PO PRN ×2 (10:07→16:28)
[2016-07-23] MEDS: LIDOCAINE 5% (PATCH) 1 EA PATCH TP SCH (16:28)
[2016-07-23 20:05] VITALS: BP 136/68
[2016-07-23] MEDS: ZOLPIDEM TARTRATE 5 MG TABLET PO PRN (21:21)
[2016-07-23] MEDS: LORAZEPAM 0.5 MG TABLET PO PRN (21:21)
[2016-07-24] MEDS: IPRATROPIUM NEB FS 0.5 MG/2.5 ML AMPUL.NEB NEB SCH ×4 (02:27→20:04)
[2016-07-24] MEDS: ALBUTEROL FS 2.5 MG/3 ML VIAL.NEB NEB SCH ×4 (02:27→20:04)
[2016-07-24] MEDS: PANTOPRAZOLE 40 MG/PACK PACK PO SCH (05:18)
[2016-07-24 07:45] VITALS: BP 154/86
[2016-07-24] MEDS: predniSONE 20 MG TABLET PO SCH (08:46)
[2016-07-24] MEDS: LamoTRIgine 25 MG TABLET PO SCH (08:46)
[2016-07-24] MEDS: AMLODIPINE BESYLATE 5 MG TABLET PO SCH (08:46)
[2016-07-24] MEDS: ALISKIREN HEMIFUMARATE 150 MG TABLET PO SCH (08:47)
[2016-07-24] MEDS: SENNOSIDES 8.6 MG TABLET PO SCH (08:47)
[2016-07-24] MEDS: OLANZAPINE 2.5 MG TABLET PO SCH (08:47)
[2016-07-24] MEDS: HYDROGEN PEROXIDE 480 ML BOTTLE TP SCH ×2 (09:00→20:37)
[2016-07-24] MEDS: NEOMY SULF/BACITRAC ZN/POLY 15 GM TUBE TP SCH (09:00)
[2016-07-24] MEDS: Z GUARD REMEDY 2 OZ OINT TP SCH ×2 (09:00→20:37)
[2016-07-24] MEDS: HYDROCODONE/APAP 5/325MG 1 EACH TABLET PO PRN ×2 (09:22→16:33)
[2016-07-24] MEDS: TRAMADOL HCL 50 MG TABLET PO PRN ×2 (13:08→20:57)
[2016-07-24] MEDS: LIDOCAINE 5% (PATCH) 1 EA PATCH TP SCH (16:32)
[2016-07-24 20:30] VITALS: BP 136/85
[2016-07-24] MEDS: LORAZEPAM 0.5 MG TABLET PO PRN (20:37)
[2016-07-24] MEDS: ZOLPIDEM TARTRATE 5 MG TABLET PO PRN (20:37)
[2016-07-25] MEDS: IPRATROPIUM NEB FS 0.5 MG/2.5 ML AMPUL.NEB NEB SCH ×4 (01:45→20:16)
[2016-07-25] MEDS: ALBUTEROL FS 2.5 MG/3 ML VIAL.NEB NEB SCH ×4 (01:45→20:16)
[2016-07-25] MEDS: PANTOPRAZOLE 40 MG/PACK PACK PO SCH (05:42)
[2016-07-25 07:39] VITALS: BP 152/84
[2016-07-25] MEDS: POTASSIUM CHLORIDE 20 MEQ TAB.PRT.SR PO SCH (08:47)
[2016-07-25] MEDS: SENNOSIDES 8.6 MG TABLET PO SCH (08:48)
[2016-07-25] MEDS: ALISKIREN HEMIFUMARATE 150 MG TABLET PO SCH (08:48)
[2016-07-25] MEDS: FUROSEMIDE 40 MG TABLET PO SCH (08:48)
[2016-07-25] MEDS: OLANZAPINE 2.5 MG TABLET PO SCH (08:48)
[2016-07-25] MEDS: predniSONE 20 MG TABLET PO SCH (08:48)
[2016-07-25] MEDS: LamoTRIgine 25 MG TABLET PO SCH (08:48)
[2016-07-25] MEDS: AMLODIPINE BESYLATE 5 MG TABLET PO SCH (08:49)
[2016-07-25] MEDS: HYDROGEN PEROXIDE 480 ML BOTTLE TP SCH ×2 (08:50→20:32)
[2016-07-25] MEDS: NEOMY SULF/BACITRAC ZN/POLY 15 GM TUBE TP SCH ×2 (08:50→14:29)
[2016-07-25] MEDS: Z GUARD REMEDY 2 OZ OINT TP SCH ×2 (08:50→20:32)
[2016-07-25] MEDS: HYDROCODONE/APAP 5/325MG 1 EACH TABLET PO PRN ×3 (08:53→23:21)
[2016-07-25] MEDS ORDERED: LIDOCAINE /MPF 1% VIAL 5 ML VIAL IJ ONE (10:30)
--- NOTE | 2016-07-25 11:42 | NUR ---
Seen by Dr. Howard, did left great toe partial nail avulsion. Patient tolerated well, continue with ATB ointment to the L great toe nail daily x 7days. resident made aware. All orders noted and carried out.
--- NOTE | 2016-07-25 11:56 | NUR ---
Seen and examined by Dr. Yen, no new order given at this time. Resident verbalized that she wants to be seen by oncologist. Dr. Morton notified and will see patient, did not specify the date and time she will visit patient.
[2016-07-25] MEDS: TRAMADOL HCL 50 MG TABLET PO PRN ×2 (12:10→21:08)
[2016-07-25] MEDS: LIDOCAINE 5% (PATCH) 1 EA PATCH TP SCH (16:55)
--- NOTE | 2016-07-25 17:20 | NUR ---
Seen by Dr. Tompkins , she gave an order for CMP on 07/26/[address] of abdomen with and without contrast in Am.
[2016-07-25] MEDS: ZOLPIDEM TARTRATE 5 MG TABLET PO PRN (20:32)
[2016-07-25] MEDS: LORAZEPAM 0.5 MG TABLET PO PRN (20:32)
[2016-07-25 21:06] VITALS: BP 166/89
[2016-07-26] MEDS: IPRATROPIUM NEB FS 0.5 MG/2.5 ML AMPUL.NEB NEB SCH ×4 (02:25→19:51)
[2016-07-26] MEDS: ALBUTEROL FS 2.5 MG/3 ML VIAL.NEB NEB SCH ×4 (02:25→19:51)
[2016-07-26] MEDS: PANTOPRAZOLE 40 MG/PACK PACK PO SCH (05:50)
[2016-07-26 08:03] VITALS: BP 145/79
[2016-07-26 08:11] LABS: ALBUMIN 3.2 g/dL (3.4-5.0); BILIRUBIN,TOTAL 0.4 mg/dL (0.2-1.0); CALCIUM, SERUM 9.4 mg/dL (8.5-10.1); CREATININE 2.2 mg/dL (0.6-1.3); POTASSIUM 4.2 mmol/L (3.5-5.1); TOTAL PROTEIN, SERUM 7.5 g/dL (6.4-8.2)
[2016-07-26 08:38] LABS: BASOPHILS # (AUTO) 0.1 /CMM (0.0-0.2); BASOPHILS % (AUTO) 0.4 % (0.0-2.0); EOSINOPHILS # (AUTO) 0.3 /CMM (0.0-0.7); EOSINOPHILS % (AUTO) 1.4 % (0.0-6.0); HEMATOCRIT 34 % (33-45); LYMPHOCYTES # (AUTO) 3.3 /CMM (0.8-4.8); MEAN CORPUSCULAR HEMOGLOBIN 24 PG (26.0-33.0); MEAN CORPUSCULAR HGB CONC 32 g/dl (31.0-36.0); MEAN CORPUSCULAR VOLUME 75 fL (82-100); MONOCYTES # (AUTO) 1.4 /CMM (0.1-1.30); MONOCYTES % (AUTO) 7.7 % (2.0-12.0); NEUTROPHILS # (AUTO) 13.3 /CMM (1.8-8.9); NEUTROPHILS % (AUTO) 72.5 % (43.0-81.0); PLATELET COUNT (AUTO) 363 /CMM (150-450); RDW COEFFICIENT OF VARIATION 18.7 (11.5-15.0); RED BLOOD CELL COUNT(AUTO) 4.57 MIL/uL (4.0-5.2); WHITE BLOOD COUNT (AUTO) 18.3 K/uL (4.3-11.0)
[2016-07-26] MEDS: Z GUARD REMEDY 2 OZ OINT TP SCH ×2 (09:00→20:33)
[2016-07-26] MEDS: LamoTRIgine 25 MG TABLET PO SCH (09:00)
[2016-07-26] MEDS: OLANZAPINE 2.5 MG TABLET PO SCH (09:00)
[2016-07-26] MEDS: HYDROGEN PEROXIDE 480 ML BOTTLE TP SCH ×2 (09:00→20:33)
[2016-07-26] MEDS: SENNOSIDES 8.6 MG TABLET PO SCH (09:00)
[2016-07-26] MEDS: AMLODIPINE BESYLATE 5 MG TABLET PO SCH (09:00)
[2016-07-26] MEDS: ALISKIREN HEMIFUMARATE 150 MG TABLET PO SCH (09:00)
[2016-07-26] MEDS: predniSONE 20 MG TABLET PO SCH (09:00)
--- NOTE | 2016-07-26 09:23 | NUR ---
Called Radiology and spoke with Tristan to find out what time they will car pick up driver the pt for CT scan of abdomen and pelvis. Pt's Cr 2.2. According to Tristan, they will not be able to inject the contrast with a Cr of 2.2. Called Dr. Tompkins's office and left message with Mary Kay.
--- NOTE | 2016-07-26 10:00 | NUR ---
Dr. Tompkins ordered to cancel the CT scan of abdomen and pelvis with contrast. She said to do CT abdomen and pelvis without contrast. Notified pt.
[2016-07-26] MEDS: HYDROCODONE/APAP 5/325MG 1 EACH TABLET PO PRN ×2 (10:16→16:26)
[2016-07-26] MEDS: TRAMADOL HCL 50 MG TABLET PO PRN ×2 (12:27→21:27)
--- NOTE | 2016-07-26 14:28 | NUR ---
Seen by JRAEK Nunez. Pt's WBC 18.3. JAREK Nunez said it could be because pt is on Prednisone but she still wants to check if pt has any infection. Pt said she feels a bit congested. Pt afebrile. Received order to do CXR and UA today, CBC on 07/28/16. Left eye noted with redness. According to JAREK Nunez, it could have been caused by sneezing and it will go away. Pt aware of orders. Addendum: 07/26/16 at 1754 by SARAVANAN VAUGHN RN JAREK Nunez aware of CBC and BMP results.
[2016-07-26 16:21] LABS: APPEARANCE,URINE CLOUDY (CLEAR); BILIRUBIN,URINE NEGATIVE (NEGATIVE); BLOOD, URINE 1+ Ery/uL (NEGATIVE); COLOR,URINE YELLOW (YELLOW); KETONES,URINE NEGATIVE (NEGATIVE); LEUKOCYTE ESTERASE ,URINE 3+ (NEGATIVE); NITRITE, URINE NEGATIVE (NEGATIVE); PROTEIN,URINE NEGATIVE (NEGATIVE); UGLUCOSE NEGATIVE (NEGATIVE); UROBILINOGEN,URINE 0.2 EU/dL (0.2)
[2016-07-26] MEDS: LIDOCAINE 5% (PATCH) 1 EA PATCH TP SCH (16:32)
[2016-07-26 16:52] LABS: BACTERIA,URINE 2+ /HPF (None Seen); SQUAMOUS EPITHELIAL CELL,UR Few /HPF (None Seen); WBC,URINE 51-80 /HPF (0-3)
--- NOTE | 2016-07-26 16:59 | NUR ---
Relayed UA result to JAREK Nunez. She said to wait for urine culture result. No new order at this time.
[2016-07-26 19:47] VITALS: BP 139/79
[2016-07-26] MEDS: LORAZEPAM 0.5 MG TABLET PO PRN (20:33)
[2016-07-26] MEDS: ZOLPIDEM TARTRATE 5 MG TABLET PO PRN (20:33)
[2016-07-27] MEDS: HYDROCODONE/APAP 5/325MG 1 EACH TABLET PO PRN ×3 (00:14→22:13)
[2016-07-27] MEDS: ALBUTEROL FS 2.5 MG/3 ML VIAL.NEB NEB SCH ×4 (00:51→20:06)
[2016-07-27] MEDS: IPRATROPIUM NEB FS 0.5 MG/2.5 ML AMPUL.NEB NEB SCH ×4 (00:51→20:06)
[2016-07-27] MEDS: PANTOPRAZOLE 40 MG/PACK PACK PO SCH (06:04)
[2016-07-27 08:11] VITALS: BP 124/69
[2016-07-27] MEDS: ALISKIREN HEMIFUMARATE 150 MG TABLET PO SCH (09:23)
[2016-07-27] MEDS: predniSONE 20 MG TABLET PO SCH (09:23)
[2016-07-27] MEDS: Z GUARD REMEDY 2 OZ OINT TP SCH ×2 (09:23→20:49)
[2016-07-27] MEDS: LamoTRIgine 25 MG TABLET PO SCH (09:23)
[2016-07-27] MEDS: OLANZAPINE 2.5 MG TABLET PO SCH (09:23)
[2016-07-27] MEDS: FUROSEMIDE 40 MG TABLET PO SCH (09:23)
[2016-07-27] MEDS: POTASSIUM CHLORIDE 20 MEQ TAB.PRT.SR PO SCH (09:23)
[2016-07-27] MEDS: SENNOSIDES 8.6 MG TABLET PO SCH (09:23)
[2016-07-27] MEDS: HYDROGEN PEROXIDE 480 ML BOTTLE TP SCH ×2 (09:23→20:49)
[2016-07-27] MEDS: NEOMY SULF/BACITRAC ZN/POLY 15 GM TUBE TP SCH (09:23)
[2016-07-27] MEDS: AMLODIPINE BESYLATE 5 MG TABLET PO SCH (09:23)
--- NOTE | 2016-07-27 10:35 | NUR ---
Resident is requesting this nurse to speak with her daughter, Dr. Francine Hook . Placed a call to Dr. Escamilla but no response, left a message to return the call. Inform Mrs. Hook that will refer her to Dr. Morton if she wants to know some information regarding her medical condition especially pertaining to her lung CA. Resident verbalized understanding.
[2016-07-27] MEDS: TRAMADOL HCL 50 MG TABLET PO PRN ×2 (11:44→20:50)
--- NOTE | 2016-07-27 16:07 | NUR ---
Followed-up CT scan result with Radiology Department, according to staff it has not been read yet. Resident made aware.
[2016-07-27] MEDS: LIDOCAINE 5% (PATCH) 1 EA PATCH TP SCH (17:31)
[2016-07-27 19:55] VITALS: BP 136/81
[2016-07-27] MEDS: LORAZEPAM 0.5 MG TABLET PO PRN (20:50)
[2016-07-27] MEDS: ZOLPIDEM TARTRATE 5 MG TABLET PO PRN (20:51)
[2016-07-28] MEDS: IPRATROPIUM NEB FS 0.5 MG/2.5 ML AMPUL.NEB NEB SCH ×4 (01:06→19:53)
[2016-07-28] MEDS: ALBUTEROL FS 2.5 MG/3 ML VIAL.NEB NEB SCH ×4 (01:06→19:53)
[2016-07-28] MEDS: PANTOPRAZOLE 40 MG/PACK PACK PO SCH (05:51)
[2016-07-28 07:53] LABS: BASOPHILS % (AUTO) 0.2 % (0.0-2.0); EOSINOPHILS # (AUTO) 0.2 /CMM (0.0-0.7); EOSINOPHILS % (AUTO) 1.1 % (0.0-6.0); HEMATOCRIT 34 % (33-45); HEMOGLOBIN 10.8 g/dL (11.5-14.8); LYMPHOCYTES # (AUTO) 3.6 /CMM (0.8-4.8); MEAN CORPUSCULAR HEMOGLOBIN 24 PG (26.0-33.0); MEAN CORPUSCULAR HGB CONC 32 g/dl (31.0-36.0); MEAN CORPUSCULAR VOLUME 76 fL (82-100); MONOCYTES # (AUTO) 1.1 /CMM (0.1-1.30); MONOCYTES % (AUTO) 7.2 % (2.0-12.0); NEUTROPHILS # (AUTO) 10.7 /CMM (1.8-8.9); NEUTROPHILS % (AUTO) 68.5 % (43.0-81.0); PLATELET COUNT (AUTO) 432 /CMM (150-450); RDW COEFFICIENT OF VARIATION 18.5 (11.5-15.0); RED BLOOD CELL COUNT(AUTO) 4.42 MIL/uL (4.0-5.2); WHITE BLOOD COUNT (AUTO) 15.6 K/uL (4.3-11.0)
[2016-07-28] MEDS: LamoTRIgine 25 MG TABLET PO SCH (08:23)
[2016-07-28] MEDS: AMLODIPINE BESYLATE 5 MG TABLET PO SCH (08:23)
[2016-07-28] MEDS: predniSONE 20 MG TABLET PO SCH (08:23)
[2016-07-28] MEDS: Z GUARD REMEDY 2 OZ OINT TP SCH ×2 (08:24→21:43)
[2016-07-28] MEDS: ALISKIREN HEMIFUMARATE 150 MG TABLET PO SCH (08:24)
[2016-07-28] MEDS: OLANZAPINE 2.5 MG TABLET PO SCH (08:24)
[2016-07-28] MEDS: SENNOSIDES 8.6 MG TABLET PO SCH (08:24)
[2016-07-28] MEDS: NEOMY SULF/BACITRAC ZN/POLY 15 GM TUBE TP SCH (08:24)
[2016-07-28] MEDS: HYDROGEN PEROXIDE 480 ML BOTTLE TP SCH ×2 (08:24→21:43)
[2016-07-28] MEDS: HYDROCODONE/APAP 5/325MG 1 EACH TABLET PO PRN ×2 (08:26→15:29)
[2016-07-28 10:55] VITALS: BP 149/92
--- NOTE | 2016-07-28 11:00 | NUR ---
SW spoke with resident, as resident has been stating to her that she has high blood pressure and is concerned. SW provided support to resident while explaining to resident ways in which anxiety can contribute to high blood pressure. Resident stated that she worries because she always looks at the monitor and that the numbers always come out too high. SW informed resident that she is not a doctor but can relay her concerns to charge nurse. SW discussed anxiety and ways in which she can practice relaxation. die try out worker informed charge nurse of resident's concerns and she will address them with the doctor.
[2016-07-28] MEDS: TRAMADOL HCL 50 MG TABLET PO PRN ×2 (12:03→21:44)
--- NOTE | 2016-07-28 16:01 | NUR ---
Seen and examined by Savi Mcnulty NP , resident asked if she has seen the result of the CT scan, according to Savi no masses from what she can see, she also put patient on ATB Levaquin x 3 days for UTI. WBC 15. 6., Savi also reviewed current B/P medications, B/P has been running high which could be from patient's increase anxiety. New order given for Metoprolol 25 mg. daily and repeat CBC on 08/01/16. Orders noted and carried out.
[2016-07-28] MEDS ORDERED: LEVOFLOXACIN (500MG) 500 MG TABLET PO ONE (17:00)
[2016-07-28] MEDS: LIDOCAINE 5% (PATCH) 1 EA PATCH TP SCH (17:55)
[2016-07-28 20:28] VITALS: BP 124/76
[2016-07-28] MEDS: LORAZEPAM 0.5 MG TABLET PO PRN (20:35)
[2016-07-28] MEDS: ZOLPIDEM TARTRATE 5 MG TABLET PO PRN (22:22)
[2016-07-29] MEDS: HYDROCODONE/APAP 5/325MG 1 EACH TABLET PO PRN ×4 (00:11→21:08)
[2016-07-29] MEDS: IPRATROPIUM NEB FS 0.5 MG/2.5 ML AMPUL.NEB NEB SCH ×4 (00:54→19:42)
[2016-07-29] MEDS: ALBUTEROL FS 2.5 MG/3 ML VIAL.NEB NEB SCH ×4 (00:54→19:42)
[2016-07-29] MEDS: TRAMADOL HCL 50 MG TABLET PO PRN ×2 (05:13→12:07)
[2016-07-29] MEDS: PANTOPRAZOLE 40 MG/PACK PACK PO SCH (05:24)
[2016-07-29 08:06] VITALS: BP 138/80
[2016-07-29] MEDS: FUROSEMIDE 40 MG TABLET PO SCH (08:38)
[2016-07-29] MEDS: POTASSIUM CHLORIDE 20 MEQ TAB.PRT.SR PO SCH (08:38)
[2016-07-29] MEDS: METOPROLOL SUCCINATE 25 MG TAB.SR.24H PO SCH (09:00)
--- NOTE | 2016-07-29 09:20 | NUR ---
Placed a call to Dr. Soraya Mcqueen's office regarding renal consult ordered by Dr. Yen. Awaiting for MD to call back.
[2016-07-29] MEDS: SENNOSIDES 8.6 MG TABLET PO SCH (09:38)
[2016-07-29] MEDS: LamoTRIgine 25 MG TABLET PO SCH (09:38)
[2016-07-29] MEDS: predniSONE 20 MG TABLET PO SCH (09:38)
[2016-07-29] MEDS: AMLODIPINE BESYLATE 5 MG TABLET PO SCH (09:38)
[2016-07-29] MEDS: NEOMY SULF/BACITRAC ZN/POLY 15 GM TUBE TP SCH (09:39)
[2016-07-29] MEDS: ALISKIREN HEMIFUMARATE 150 MG TABLET PO SCH (09:39)
[2016-07-29] MEDS: OLANZAPINE 2.5 MG TABLET PO SCH (09:39)
[2016-07-29] MEDS: HYDROGEN PEROXIDE 480 ML BOTTLE TP SCH ×2 (09:39→20:26)
[2016-07-29] MEDS: Z GUARD REMEDY 2 OZ OINT TP SCH ×2 (09:39→20:26)
--- NOTE | 2016-07-29 10:28 | NUR ---
Place a call to Dr. Morton's office, spoke with Mary Kay informing that CT scan of the pelvis and abdomen without contrast is available for her review. Per Mary Kay, she will notify .
--- NOTE | 2016-07-29 12:00 | NUR ---
Dr Ammon Eisenberg came in for Dr. Soraya Mcqueen regarding renal consult. He stated that he will review her labs and will order labs if needed.
--- NOTE | 2016-07-29 16:30 | NUR ---
Dr Chris came to see and examined resident new order given to do CT of the chest. Resident is anxious to know when CT will be done. Explained to resident the process when ordering CT scan. A new account is requested and as soon as new account is available the order will be entered in the new account. CT can be done either today or tomorrow depending on the load CT department receives. After 5 minutes resident once again came to this nurse asking when the CT will be done. She also called Savi Nunez NP and community mental health social worker with the same question. Assured resident that she will be inform of the progress. Appreciated the info.
[2016-07-29] MEDS: LIDOCAINE 5% (PATCH) 1 EA PATCH TP SCH (17:00)
[2016-07-29] MEDS: LEVOFLOXACIN (250MG) 250 MG TABLET PO SCH (19:00)
[2016-07-29 19:48] VITALS: BP 120/77
[2016-07-29] MEDS: LORAZEPAM 0.5 MG TABLET PO PRN (22:03)
[2016-07-29] MEDS: ZOLPIDEM TARTRATE 5 MG TABLET PO PRN (22:04)
[2016-07-30] MEDS: ALBUTEROL FS 2.5 MG/3 ML VIAL.NEB NEB SCH ×4 (01:57→19:41)
[2016-07-30] MEDS: IPRATROPIUM NEB FS 0.5 MG/2.5 ML AMPUL.NEB NEB SCH ×4 (01:57→19:41)
[2016-07-30] MEDS: PANTOPRAZOLE 40 MG/PACK PACK PO SCH (05:40)
[2016-07-30 07:18] LABS: BASOPHILS # (AUTO) 0.1 /CMM (0.0-0.2); BASOPHILS % (AUTO) 0.4 % (0.0-2.0); EOSINOPHILS # (AUTO) 0.2 /CMM (0.0-0.7); EOSINOPHILS % (AUTO) 1.3 % (0.0-6.0); HEMATOCRIT 35 % (33-45); HEMOGLOBIN 11.4 g/dL (11.5-14.8); LYMPHOCYTES # (AUTO) 3.7 /CMM (0.8-4.8); LYMPHOCYTES % (AUTO) 24.6 % (20.0-44.0); MEAN CORPUSCULAR HEMOGLOBIN 25 PG (26.0-33.0); MEAN CORPUSCULAR HGB CONC 33 g/dl (31.0-36.0); MEAN CORPUSCULAR VOLUME 76 fL (82-100); MONOCYTES # (AUTO) 0.9 /CMM (0.1-1.30); MONOCYTES % (AUTO) 6.3 % (2.0-12.0); NEUTROPHILS # (AUTO) 10.2 /CMM (1.8-8.9); NEUTROPHILS % (AUTO) 67.4 % (43.0-81.0); PLATELET COUNT (AUTO) 424 /CMM (150-450); RDW COEFFICIENT OF VARIATION 18.5 (11.5-15.0); RED BLOOD CELL COUNT(AUTO) 4.56 MIL/uL (4.0-5.2); WHITE BLOOD COUNT (AUTO) 15.2 K/uL (4.3-11.0)
[2016-07-30 07:32] VITALS: BP 142/76
[2016-07-30 07:57] LABS: CALCIUM, SERUM 9.1 mg/dL (8.5-10.1); CREATININE 2.3 mg/dL (0.6-1.3); MAGNESIUM 1.8 mg/dL (1.8-2.4); PHOSPHORUS 3.3 mg/dL (2.5-4.9); POTASSIUM 4.1 mmol/L (3.5-5.1)
[2016-07-30] MEDS: predniSONE 20 MG TABLET PO SCH (09:55)
[2016-07-30] MEDS: LamoTRIgine 25 MG TABLET PO SCH (09:55)
[2016-07-30] MEDS: AMLODIPINE BESYLATE 5 MG TABLET PO SCH (09:55)
[2016-07-30] MEDS: SENNOSIDES 8.6 MG TABLET PO SCH (09:56)
[2016-07-30] MEDS: HYDROGEN PEROXIDE 480 ML BOTTLE TP SCH ×2 (09:57→20:19)
[2016-07-30] MEDS: Z GUARD REMEDY 2 OZ OINT TP SCH ×2 (09:57→20:19)
[2016-07-30] MEDS: OLANZAPINE 2.5 MG TABLET PO SCH (09:57)
[2016-07-30] MEDS: METOPROLOL SUCCINATE 25 MG TAB.SR.24H PO SCH (09:57)
[2016-07-30] MEDS: NEOMY SULF/BACITRAC ZN/POLY 15 GM TUBE TP SCH (09:57)
[2016-07-30] MEDS: HYDROCODONE/APAP 5/325MG 1 EACH TABLET PO PRN ×2 (12:20→18:59)
[2016-07-30] MEDS: TRAMADOL HCL 50 MG TABLET PO PRN ×2 (15:52→21:53)
--- NOTE | 2016-07-30 17:00 | NUR ---
Resident left and returned back from CT scan via wheelchair accompanied by voice intercept technician. condition stable. Spoke with Dr. Morton earlier today. Notified that CT was not done yesterday but it will be done today. Result might not be available soon unless it is ordered stat. She stated it is routine fine, no need to order stat.
[2016-07-30] MEDS: LIDOCAINE 5% (PATCH) 1 EA PATCH TP SCH (17:28)
[2016-07-30] MEDS: LEVOFLOXACIN (250MG) 250 MG TABLET PO SCH (17:28)
[2016-07-30 19:56] VITALS: BP 150/78
[2016-07-30] MEDS: LORAZEPAM 0.5 MG TABLET PO PRN (21:04)
[2016-07-30] MEDS: ZOLPIDEM TARTRATE 5 MG TABLET PO PRN (21:54)
[2016-07-31] MEDS: HYDROCODONE/APAP 5/325MG 1 EACH TABLET PO PRN ×3 (01:54→22:34)
[2016-07-31] MEDS: ALBUTEROL FS 2.5 MG/3 ML VIAL.NEB NEB SCH ×4 (02:09→19:36)
[2016-07-31] MEDS: IPRATROPIUM NEB FS 0.5 MG/2.5 ML AMPUL.NEB NEB SCH ×4 (02:09→19:36)
[2016-07-31] MEDS: PANTOPRAZOLE 40 MG/PACK PACK PO SCH (05:07)
[2016-07-31 08:21] VITALS: BP 189/89
[2016-07-31] MEDS: HYDROGEN PEROXIDE 480 ML BOTTLE TP SCH ×2 (09:00→20:28)
[2016-07-31] MEDS: Z GUARD REMEDY 2 OZ OINT TP SCH ×2 (09:00→20:28)
[2016-07-31] MEDS: predniSONE 20 MG TABLET PO SCH (09:00)
[2016-07-31] MEDS: AMLODIPINE BESYLATE 5 MG TABLET PO SCH (09:00)
[2016-07-31] MEDS: METOPROLOL SUCCINATE 25 MG TAB.SR.24H PO SCH (09:00)
[2016-07-31] MEDS: OLANZAPINE 2.5 MG TABLET PO SCH (09:00)
[2016-07-31] MEDS: SENNOSIDES 8.6 MG TABLET PO SCH (09:00)
[2016-07-31] MEDS: LamoTRIgine 25 MG TABLET PO SCH (09:00)
[2016-07-31] MEDS: NEOMY SULF/BACITRAC ZN/POLY 15 GM TUBE TP SCH (09:00)
--- NOTE | 2016-07-31 09:00 | NUR ---
Informed Dr. Eisenberg that labs he ordered yesterday, CBC, BMP, mg and Phos available for his review, he stated that he will check in [employer]. No other order given.
[2016-07-31] MEDS: TRAMADOL HCL 50 MG TABLET PO PRN ×2 (11:58→21:13)
[2016-07-31] MEDS: LIDOCAINE 5% (PATCH) 1 EA PATCH TP SCH (16:41)
[2016-07-31 19:51] VITALS: BP 117/87
[2016-07-31] MEDS: LORAZEPAM 0.5 MG TABLET PO PRN (20:28)
[2016-07-31] MEDS: ZOLPIDEM TARTRATE 5 MG TABLET PO PRN (21:14)
[2016-08-01] MEDS: ALBUTEROL FS 2.5 MG/3 ML VIAL.NEB NEB SCH ×4 (01:04→19:34)
[2016-08-01] MEDS: IPRATROPIUM NEB FS 0.5 MG/2.5 ML AMPUL.NEB NEB SCH ×4 (01:04→19:34)
[2016-08-01] MEDS: PANTOPRAZOLE 40 MG/PACK PACK PO SCH (06:12)
[2016-08-01 06:48] LABS: BASOPHILS % (AUTO) 0.2 % (0.0-2.0); EOSINOPHILS # (AUTO) 0.1 /CMM (0.0-0.7); EOSINOPHILS % (AUTO) 0.9 % (0.0-6.0); HEMATOCRIT 34 % (33-45); HEMOGLOBIN 10.8 g/dL (11.5-14.8); LYMPHOCYTES # (AUTO) 3.4 /CMM (0.8-4.8); LYMPHOCYTES % (AUTO) 21.4 % (20.0-44.0); MEAN CORPUSCULAR HEMOGLOBIN 24 PG (26.0-33.0); MEAN CORPUSCULAR HGB CONC 32 g/dl (31.0-36.0); MEAN CORPUSCULAR VOLUME 76 fL (82-100); MONOCYTES # (AUTO) 0.9 /CMM (0.1-1.30); MONOCYTES % (AUTO) 5.9 % (2.0-12.0); NEUTROPHILS # (AUTO) 11.3 /CMM (1.8-8.9); NEUTROPHILS % (AUTO) 71.6 % (43.0-81.0); PLATELET COUNT (AUTO) 412 /CMM (150-450); RED BLOOD CELL COUNT(AUTO) 4.47 MIL/uL (4.0-5.2); WHITE BLOOD COUNT (AUTO) 15.8 K/uL (4.3-11.0)
[2016-08-01 07:29] LABS: CALCIUM, SERUM 9.2 mg/dL (8.5-10.1); CREATININE 2.2 mg/dL (0.6-1.3); MAGNESIUM 1.9 mg/dL (1.8-2.4); PHOSPHORUS 3.4 mg/dL (2.5-4.9); POTASSIUM 3.9 mmol/L (3.5-5.1)
[2016-08-01 07:45] VITALS: BP 161/81
[2016-08-01] MEDS: HYDROCODONE/APAP 5/325MG 1 EACH TABLET PO PRN ×4 (07:50→22:34)
[2016-08-01] MEDS: AMLODIPINE BESYLATE 5 MG TABLET PO SCH (08:13)
[2016-08-01] MEDS: LamoTRIgine 25 MG TABLET PO SCH (08:13)
[2016-08-01] MEDS: predniSONE 20 MG TABLET PO SCH (08:13)
[2016-08-01] MEDS: SENNOSIDES 8.6 MG TABLET PO SCH (08:13)
[2016-08-01] MEDS: OLANZAPINE 2.5 MG TABLET PO SCH (08:14)
[2016-08-01] MEDS: METOPROLOL SUCCINATE 25 MG TAB.SR.24H PO SCH (08:14)
--- NOTE | 2016-08-01 10:30 | NUR ---
Seen by Dr. Yen. He read result of pt's CT scan of the abdomen. Dr. Yen discussed it with pt. No new order. Addendum: 08/01/16 at 1115 by SARAVANAN VAUGHN RN Dr. Yen also aware of CBC Chem 7 results.
--- NOTE | 2016-08-01 11:55 | NUR ---
Received order from Dr. Soraya Mcqueen to do urine creatinine, urine eosinophil, random urine sodium. Addendum: 08/01/16 at 1730 by SARAVANAN VAUGHN RN Pt aware of new orders.
--- NOTE | 2016-08-01 12:07 | NUR ---
Reassessment for [place] was entered at 0850, noted effective.
--- NOTE | 2016-08-01 14:00 | NUR ---
Notified Dr. Tompkins that result of pt's CT scan of chest is now available.
[2016-08-01] MEDS: NEOMY SULF/BACITRAC ZN/POLY 15 GM TUBE TP SCH (17:00)
[2016-08-01] MEDS: Z GUARD REMEDY 2 OZ OINT TP SCH ×2 (17:00→20:27)
[2016-08-01] MEDS: HYDROGEN PEROXIDE 480 ML BOTTLE TP SCH ×2 (17:00→20:27)
[2016-08-01] MEDS: LIDOCAINE 5% (PATCH) 1 EA PATCH TP SCH (17:16)
[2016-08-01 18:01] LABS: CREATININE, URINE 38.9 MG/DL (30.0-125.0)
[2016-08-01 20:03] VITALS: BP 169/90
[2016-08-01] MEDS: LORAZEPAM 0.5 MG TABLET PO PRN (20:27)
[2016-08-01] MEDS: ZOLPIDEM TARTRATE 5 MG TABLET PO PRN (21:13)
[2016-08-01] MEDS: TRAMADOL HCL 50 MG TABLET PO PRN (21:13)
[2016-08-01 21:25] VITALS: BP 145/69
[2016-08-02] MEDS: IPRATROPIUM NEB FS 0.5 MG/2.5 ML AMPUL.NEB NEB SCH ×4 (01:48→19:30)
[2016-08-02] MEDS: ALBUTEROL FS 2.5 MG/3 ML VIAL.NEB NEB SCH ×4 (01:48→19:30)
[2016-08-02] MEDS: PANTOPRAZOLE 40 MG/PACK PACK PO SCH (06:17)
[2016-08-02 07:45] VITALS: BP 166/82
[2016-08-02] MEDS: POTASSIUM CHLORIDE 20 MEQ TAB.PRT.SR PO SCH (08:12)
[2016-08-02] MEDS: FUROSEMIDE 40 MG TABLET PO SCH (08:12)
[2016-08-02] MEDS: LamoTRIgine 25 MG TABLET PO SCH (08:12)
[2016-08-02] MEDS: METOPROLOL SUCCINATE 25 MG TAB.SR.24H PO SCH (08:13)
[2016-08-02] MEDS: SENNOSIDES 8.6 MG TABLET PO SCH (08:13)
[2016-08-02] MEDS: AMLODIPINE BESYLATE 5 MG TABLET PO SCH (08:13)
[2016-08-02] MEDS: ALISKIREN HEMIFUMARATE 150 MG TABLET PO SCH (08:13)
[2016-08-02] MEDS: predniSONE 20 MG TABLET PO SCH (08:13)
[2016-08-02] MEDS: OLANZAPINE 2.5 MG TABLET PO SCH (08:14)
[2016-08-02] MEDS: HYDROGEN PEROXIDE 480 ML BOTTLE TP SCH ×2 (08:14→20:23)
[2016-08-02] MEDS: NEOMY SULF/BACITRAC ZN/POLY 15 GM TUBE TP SCH (08:14)
[2016-08-02] MEDS: HYDROCODONE/APAP 5/325MG 1 EACH TABLET PO PRN ×3 (08:15→23:04)
[2016-08-02] MEDS: Z GUARD REMEDY 2 OZ OINT TP SCH ×2 (10:00→20:23)
[2016-08-02] MEDS: TRAMADOL HCL 50 MG TABLET PO PRN ×2 (12:17→20:24)
[2016-08-02] MEDS: LIDOCAINE 5% (PATCH) 1 EA PATCH TP SCH (17:14)
--- NOTE | 2016-08-02 19:12 | NUR ---
Seen by Dr. Palacios. Received order to increase Norvasc to 10 mg po daily due to pt's SBP ranging from 140-150s. Pt aware.
[2016-08-02] MEDS: ZOLPIDEM TARTRATE 5 MG TABLET PO PRN (20:24)
[2016-08-02] MEDS: LORAZEPAM 0.5 MG TABLET PO PRN (20:24)
[2016-08-02 21:31] VITALS: BP 158/69
[2016-08-03] MEDS: ALBUTEROL FS 2.5 MG/3 ML VIAL.NEB NEB SCH ×4 (01:57→19:46)
[2016-08-03] MEDS: IPRATROPIUM NEB FS 0.5 MG/2.5 ML AMPUL.NEB NEB SCH ×4 (01:57→19:46)
[2016-08-03] MEDS: PANTOPRAZOLE 40 MG/PACK PACK PO SCH (05:56)
[2016-08-03 07:45] VITALS: BP 162/88
[2016-08-03] MEDS: HYDROCODONE/APAP 5/325MG 1 EACH TABLET PO PRN ×3 (09:00→23:02)
[2016-08-03] MEDS: SENNOSIDES 8.6 MG TABLET PO SCH (09:11)
[2016-08-03] MEDS: predniSONE 20 MG TABLET PO SCH (09:11)
[2016-08-03] MEDS: LamoTRIgine 25 MG TABLET PO SCH (09:11)
[2016-08-03] MEDS: AMLODIPINE BESYLATE 10 MG TABLET PO SCH (09:11)
[2016-08-03] MEDS: METOPROLOL SUCCINATE 25 MG TAB.SR.24H PO SCH (09:11)
[2016-08-03] MEDS: OLANZAPINE 2.5 MG TABLET PO SCH (09:11)
[2016-08-03] MEDS: ALISKIREN HEMIFUMARATE 150 MG TABLET PO SCH (09:11)
[2016-08-03] MEDS: HYDROGEN PEROXIDE 480 ML BOTTLE TP SCH ×2 (09:33→20:43)
[2016-08-03] MEDS: Z GUARD REMEDY 2 OZ OINT TP SCH ×2 (09:33→20:43)
[2016-08-03] MEDS: TRAMADOL HCL 50 MG TABLET PO PRN ×2 (12:00→20:44)
[2016-08-03] MEDS: LIDOCAINE 5% (PATCH) 1 EA PATCH TP SCH (16:50)
[2016-08-03 20:19] VITALS: BP 129/66
[2016-08-03] MEDS: LORAZEPAM 0.5 MG TABLET PO PRN (20:44)
[2016-08-03] MEDS: ZOLPIDEM TARTRATE 5 MG TABLET PO PRN (20:45)
[2016-08-04] MEDS: ALBUTEROL FS 2.5 MG/3 ML VIAL.NEB NEB SCH ×4 (01:51→19:48)
[2016-08-04] MEDS: IPRATROPIUM NEB FS 0.5 MG/2.5 ML AMPUL.NEB NEB SCH ×4 (01:51→19:48)
[2016-08-04] MEDS: PANTOPRAZOLE 40 MG/PACK PACK PO SCH (05:40)
[2016-08-04 07:48] VITALS: BP 147/76
[2016-08-04] MEDS: ALISKIREN HEMIFUMARATE 150 MG TABLET PO SCH (09:00)
[2016-08-04] MEDS: HYDROGEN PEROXIDE 480 ML BOTTLE TP SCH ×2 (09:00→21:16)
[2016-08-04] MEDS: SENNOSIDES 8.6 MG TABLET PO SCH (09:00)
[2016-08-04] MEDS: Z GUARD REMEDY 2 OZ OINT TP SCH ×2 (09:00→21:16)
[2016-08-04] MEDS: predniSONE 20 MG TABLET PO SCH (09:00)
[2016-08-04] MEDS: AMLODIPINE BESYLATE 10 MG TABLET PO SCH (09:00)
[2016-08-04] MEDS: POTASSIUM CHLORIDE 20 MEQ TAB.PRT.SR PO SCH (09:00)
[2016-08-04] MEDS: METOPROLOL SUCCINATE 25 MG TAB.SR.24H PO SCH (09:00)
[2016-08-04] MEDS: FUROSEMIDE 40 MG TABLET PO SCH (09:00)
[2016-08-04] MEDS: HYDROCODONE/APAP 5/325MG 1 EACH TABLET PO PRN ×5 (09:00→22:49)
[2016-08-04] MEDS: OLANZAPINE 2.5 MG TABLET PO SCH (09:00)
[2016-08-04] MEDS: LamoTRIgine 25 MG TABLET PO SCH (09:00)
[2016-08-04] MEDS: TRAMADOL HCL 50 MG TABLET PO PRN ×3 (12:23→21:32)
--- NOTE | 2016-08-04 13:00 | NUR ---
Pt was seen by JAREK Nunez. Pt verbalized she wants to change her diet from soft to regular. Received order from JAREK Nunez to have speech therapist evaluate pt.
[2016-08-04] MEDS: LIDOCAINE 5% (PATCH) 1 EA PATCH TP SCH (16:13)
[2016-08-04 19:47] VITALS: BP 138/81
[2016-08-04] MEDS: ZOLPIDEM TARTRATE 5 MG TABLET PO PRN (21:03)
[2016-08-05] MEDS: IPRATROPIUM NEB FS 0.5 MG/2.5 ML AMPUL.NEB NEB SCH ×4 (02:08→19:57)
[2016-08-05] MEDS: ALBUTEROL FS 2.5 MG/3 ML VIAL.NEB NEB SCH ×4 (02:08→19:57)
[2016-08-05] MEDS: PANTOPRAZOLE 40 MG/PACK PACK PO SCH (05:37)
[2016-08-05 07:59] VITALS: BP 156/100
[2016-08-05] MEDS: AMLODIPINE BESYLATE 10 MG TABLET PO SCH (08:32)
[2016-08-05] MEDS: LamoTRIgine 25 MG TABLET PO SCH (08:32)
[2016-08-05] MEDS: predniSONE 20 MG TABLET PO SCH (08:33)
[2016-08-05] MEDS: ALISKIREN HEMIFUMARATE 150 MG TABLET PO SCH (08:34)
[2016-08-05] MEDS: SENNOSIDES 8.6 MG TABLET PO SCH (08:34)
[2016-08-05] MEDS: METOPROLOL SUCCINATE 25 MG TAB.SR.24H PO SCH (08:35)
[2016-08-05] MEDS: OLANZAPINE 2.5 MG TABLET PO SCH (08:36)
[2016-08-05] MEDS: HYDROGEN PEROXIDE 480 ML BOTTLE TP SCH ×2 (08:37→21:18)
[2016-08-05] MEDS: Z GUARD REMEDY 2 OZ OINT TP SCH ×2 (08:37→21:18)
[2016-08-05] MEDS: HYDROCODONE/APAP 5/325MG 1 EACH TABLET PO PRN ×3 (08:49→21:56)
[2016-08-05] MEDS: TRAMADOL HCL 50 MG TABLET PO PRN (11:30)
[2016-08-05] MEDS: LIDOCAINE 5% (PATCH) 1 EA PATCH TP SCH (17:00)
[2016-08-05 20:03] VITALS: BP 127/73
[2016-08-05] MEDS: ZOLPIDEM TARTRATE 5 MG TABLET PO PRN (21:17)
[2016-08-05] MEDS: LORAZEPAM 0.5 MG TABLET PO PRN (21:17)
[2016-08-06] MEDS: IPRATROPIUM NEB FS 0.5 MG/2.5 ML AMPUL.NEB NEB SCH ×4 (01:26→20:25)
[2016-08-06] MEDS: ALBUTEROL FS 2.5 MG/3 ML VIAL.NEB NEB SCH ×4 (01:27→20:25)
[2016-08-06] MEDS: PANTOPRAZOLE 40 MG/PACK PACK PO SCH (05:58)
[2016-08-06 08:00] VITALS: BP 144/87
[2016-08-06] MEDS: Z GUARD REMEDY 2 OZ OINT TP SCH ×2 (09:00→21:00)
[2016-08-06] MEDS: FUROSEMIDE 40 MG TABLET PO SCH (09:21)
[2016-08-06] MEDS: LamoTRIgine 25 MG TABLET PO SCH (09:21)
[2016-08-06] MEDS: SENNOSIDES 8.6 MG TABLET PO SCH (09:21)
[2016-08-06] MEDS: predniSONE 20 MG TABLET PO SCH (09:21)
[2016-08-06] MEDS: ALISKIREN HEMIFUMARATE 150 MG TABLET PO SCH (09:21)
[2016-08-06] MEDS: AMLODIPINE BESYLATE 10 MG TABLET PO SCH (09:21)
[2016-08-06] MEDS: POTASSIUM CHLORIDE 20 MEQ TAB.PRT.SR PO SCH (09:21)
[2016-08-06] MEDS: OLANZAPINE 2.5 MG TABLET PO SCH (09:22)
[2016-08-06] MEDS: HYDROCODONE/APAP 5/325MG 1 EACH TABLET PO PRN ×3 (09:22→23:29)
[2016-08-06] MEDS: METOPROLOL SUCCINATE 25 MG TAB.SR.24H PO SCH (09:22)
[2016-08-06] MEDS: TRAMADOL HCL 50 MG TABLET PO PRN ×2 (11:23→22:40)
[2016-08-06] MEDS: LORAZEPAM 0.5 MG TABLET PO PRN ×2 (13:54→20:18)
[2016-08-06] MEDS: HYDROGEN PEROXIDE 480 ML BOTTLE TP SCH ×2 (17:03→21:00)
[2016-08-06] MEDS: LIDOCAINE 5% (PATCH) 1 EA PATCH TP SCH (17:03)
[2016-08-06 19:43] VITALS: BP 138/81
[2016-08-06] MEDS: ZOLPIDEM TARTRATE 5 MG TABLET PO PRN (22:59)
[2016-08-07] MEDS: ALBUTEROL FS 2.5 MG/3 ML VIAL.NEB NEB SCH ×4 (02:09→20:09)
[2016-08-07] MEDS: IPRATROPIUM NEB FS 0.5 MG/2.5 ML AMPUL.NEB NEB SCH ×4 (02:09→20:09)
[2016-08-07] MEDS: PANTOPRAZOLE 40 MG/PACK PACK PO SCH (06:00)
[2016-08-07 07:45] VITALS: BP 127/66
[2016-08-07] MEDS: METOPROLOL SUCCINATE 25 MG TAB.SR.24H PO SCH (09:00)
[2016-08-07] MEDS: predniSONE 20 MG TABLET PO SCH (09:00)
[2016-08-07] MEDS: LamoTRIgine 25 MG TABLET PO SCH (09:00)
[2016-08-07] MEDS: HYDROGEN PEROXIDE 480 ML BOTTLE TP SCH ×2 (09:00→21:31)
[2016-08-07] MEDS: AMLODIPINE BESYLATE 10 MG TABLET PO SCH (09:00)
[2016-08-07] MEDS: OLANZAPINE 2.5 MG TABLET PO SCH (09:00)
[2016-08-07] MEDS: ALISKIREN HEMIFUMARATE 150 MG TABLET PO SCH (09:00)
[2016-08-07] MEDS: Z GUARD REMEDY 2 OZ OINT TP SCH ×2 (09:00→21:31)
[2016-08-07] MEDS: SENNOSIDES 8.6 MG TABLET PO SCH (09:00)
[2016-08-07] MEDS: HYDROCODONE/APAP 5/325MG 1 EACH TABLET PO PRN ×2 (10:03→16:03)
[2016-08-07] MEDS: TRAMADOL HCL 50 MG TABLET PO PRN ×2 (11:51→21:42)
[2016-08-07] MEDS: LIDOCAINE 5% (PATCH) 1 EA PATCH TP SCH (16:27)
[2016-08-07 19:44] VITALS: BP 143/78
[2016-08-07] MEDS: ZOLPIDEM TARTRATE 5 MG TABLET PO PRN (21:32)
[2016-08-07] MEDS: LORAZEPAM 0.5 MG TABLET PO PRN (21:32)
[2016-08-08] MEDS: IPRATROPIUM NEB FS 0.5 MG/2.5 ML AMPUL.NEB NEB SCH ×4 (01:05→20:14)
[2016-08-08] MEDS: ALBUTEROL FS 2.5 MG/3 ML VIAL.NEB NEB SCH ×4 (01:06→20:14)
[2016-08-08] MEDS: PANTOPRAZOLE 40 MG/PACK PACK PO SCH (05:41)
[2016-08-08 07:41] VITALS: BP 148/85
[2016-08-08] MEDS: FUROSEMIDE 40 MG TABLET PO SCH (09:40)
[2016-08-08] MEDS: POTASSIUM CHLORIDE 20 MEQ TAB.PRT.SR PO SCH (09:40)
[2016-08-08] MEDS: predniSONE 20 MG TABLET PO SCH (09:40)
[2016-08-08] MEDS: AMLODIPINE BESYLATE 10 MG TABLET PO SCH (09:40)
[2016-08-08] MEDS: SENNOSIDES 8.6 MG TABLET PO SCH (09:40)
[2016-08-08] MEDS: ALISKIREN HEMIFUMARATE 150 MG TABLET PO SCH (09:40)
[2016-08-08] MEDS: LamoTRIgine 25 MG TABLET PO SCH (09:40)
[2016-08-08] MEDS: OLANZAPINE 2.5 MG TABLET PO SCH (09:41)
[2016-08-08] MEDS: METOPROLOL SUCCINATE 25 MG TAB.SR.24H PO SCH (09:41)
[2016-08-08] MEDS: HYDROCODONE/APAP 5/325MG 1 EACH TABLET PO PRN (09:51)
[2016-08-08] MEDS: TRAMADOL HCL 50 MG TABLET PO PRN (11:57)
[2016-08-08] MEDS: LORAZEPAM 0.5 MG TABLET PO PRN ×3 (12:51→21:58)
[2016-08-08] MEDS: Z GUARD REMEDY 2 OZ OINT TP SCH ×2 (16:00→21:57)
[2016-08-08] MEDS: HYDROGEN PEROXIDE 480 ML BOTTLE TP SCH ×2 (16:00→21:57)
[2016-08-08] MEDS: LIDOCAINE 5% (PATCH) 1 EA PATCH TP SCH (17:00)
[2016-08-08 19:52] VITALS: BP 146/81
[2016-08-08] MEDS: ZOLPIDEM TARTRATE 5 MG TABLET PO PRN (21:58)
[2016-08-09] MEDS: TRAMADOL HCL 50 MG TABLET PO PRN ×3 (00:19→23:09)
[2016-08-09] MEDS: ALBUTEROL FS 2.5 MG/3 ML VIAL.NEB NEB SCH ×4 (02:00→20:12)
[2016-08-09] MEDS: IPRATROPIUM NEB FS 0.5 MG/2.5 ML AMPUL.NEB NEB SCH ×4 (02:23→20:12)
[2016-08-09] MEDS: PANTOPRAZOLE 40 MG/PACK PACK PO SCH (05:24)
[2016-08-09 07:57] VITALS: BP 135/79
[2016-08-09] MEDS: LamoTRIgine 25 MG TABLET PO SCH (08:30)
[2016-08-09] MEDS: predniSONE 20 MG TABLET PO SCH (08:31)
[2016-08-09] MEDS: METOPROLOL SUCCINATE 25 MG TAB.SR.24H PO SCH (08:31)
[2016-08-09] MEDS: SENNOSIDES 8.6 MG TABLET PO SCH (08:31)
[2016-08-09] MEDS: AMLODIPINE BESYLATE 10 MG TABLET PO SCH (08:31)
[2016-08-09] MEDS: OLANZAPINE 2.5 MG TABLET PO SCH (08:31)
[2016-08-09] MEDS: ALISKIREN HEMIFUMARATE 150 MG TABLET PO SCH (08:31)
[2016-08-09] MEDS: Z GUARD REMEDY 2 OZ OINT TP SCH ×2 (10:30→21:47)
[2016-08-09] MEDS: HYDROGEN PEROXIDE 480 ML BOTTLE TP SCH ×2 (10:30→21:47)
--- NOTE | 2016-08-09 12:28 | NUR ---
Spoke to resident about applying for [facility] nursing facility/Acute hospital (/AH) Waiver. Stated that it is good to have waiver in preparation for discharge, even if it is months down the line. Explained to resident that /AH waiver can help pay for fpc care or an assisted living. Assured resident that applying for waiver does not mean that she will be discharged from sub-acute. Per resident, okay to apply in order to see if she will qualify. Left informational packet to resident.
[2016-08-09] MEDS: HYDROCODONE/APAP 5/325MG 1 EACH TABLET PO PRN (16:18)
[2016-08-09] MEDS: LIDOCAINE 5% (PATCH) 1 EA PATCH TP SCH (17:23)
[2016-08-09 19:47] VITALS: BP 143/89
[2016-08-09] MEDS: LORAZEPAM 0.5 MG TABLET PO PRN (21:48)
[2016-08-09] MEDS: ZOLPIDEM TARTRATE 5 MG TABLET PO PRN (21:48)
[2016-08-10] MEDS: ALBUTEROL FS 2.5 MG/3 ML VIAL.NEB NEB SCH ×4 (01:22→20:04)
[2016-08-10] MEDS: IPRATROPIUM NEB FS 0.5 MG/2.5 ML AMPUL.NEB NEB SCH ×4 (01:22→20:04)
[2016-08-10] MEDS: PANTOPRAZOLE 40 MG/PACK PACK PO SCH (05:44)
[2016-08-10 07:47] VITALS: BP 146/84
[2016-08-10] MEDS: SENNOSIDES 8.6 MG TABLET PO SCH (09:15)
[2016-08-10] MEDS: AMLODIPINE BESYLATE 10 MG TABLET PO SCH (09:15)
[2016-08-10] MEDS: FUROSEMIDE 40 MG TABLET PO SCH (09:15)
[2016-08-10] MEDS: LamoTRIgine 25 MG TABLET PO SCH (09:15)
[2016-08-10] MEDS: ALISKIREN HEMIFUMARATE 150 MG TABLET PO SCH (09:15)
[2016-08-10] MEDS: POTASSIUM CHLORIDE 20 MEQ TAB.PRT.SR PO SCH (09:15)
[2016-08-10] MEDS: predniSONE 20 MG TABLET PO SCH (09:15)
[2016-08-10] MEDS: METOPROLOL SUCCINATE 25 MG TAB.SR.24H PO SCH (09:16)
[2016-08-10] MEDS: Z GUARD REMEDY 2 OZ OINT TP SCH ×2 (09:16→20:40)
[2016-08-10] MEDS: OLANZAPINE 2.5 MG TABLET PO SCH (09:16)
[2016-08-10] MEDS: HYDROGEN PEROXIDE 480 ML BOTTLE TP SCH ×2 (09:16→20:39)
[2016-08-10] MEDS: HYDROCODONE/APAP 5/325MG 1 EACH TABLET PO PRN ×2 (09:17→16:03)
[2016-08-10] MEDS: TRAMADOL HCL 50 MG TABLET PO PRN ×2 (12:00→20:41)
--- NOTE | 2016-08-10 15:18 | NUR ---
Called Dr. Gill's office spoke to Celina and informing her regarding monthly trach change which is due on August 13, 2016 Per Celina she will relay the message to Dr. Gill. Endorsed accordingly.
[2016-08-10] MEDS: LIDOCAINE 5% (PATCH) 1 EA PATCH TP SCH (17:58)
[2016-08-10 19:52] VITALS: BP 140/83
[2016-08-10] MEDS: hydrALAZINE HCL 25 MG TABLET GT SCH (20:39)
[2016-08-10] MEDS: LORAZEPAM 0.5 MG TABLET PO PRN (20:40)
[2016-08-10] MEDS: ZOLPIDEM TARTRATE 5 MG TABLET PO PRN (21:35)
[2016-08-11] MEDS: ALBUTEROL FS 2.5 MG/3 ML VIAL.NEB NEB SCH ×4 (01:55→19:58)
[2016-08-11] MEDS: IPRATROPIUM NEB FS 0.5 MG/2.5 ML AMPUL.NEB NEB SCH ×4 (01:55→19:58)
[2016-08-11] MEDS: hydrALAZINE HCL 25 MG TABLET GT SCH ×2 (08:00→20:17)
[2016-08-11 08:14] VITALS: BP 130/73
[2016-08-11] MEDS: LamoTRIgine 25 MG TABLET PO SCH (09:39)
[2016-08-11] MEDS: ALISKIREN HEMIFUMARATE 150 MG TABLET PO SCH (09:39)
[2016-08-11] MEDS: predniSONE 20 MG TABLET PO SCH (09:39)
[2016-08-11] MEDS: SENNOSIDES 8.6 MG TABLET PO SCH (09:39)
[2016-08-11] MEDS: METOPROLOL SUCCINATE 25 MG TAB.SR.24H PO SCH (09:46)
[2016-08-11] MEDS: OLANZAPINE 2.5 MG TABLET PO SCH (09:46)
[2016-08-11] MEDS: Z GUARD REMEDY 2 OZ OINT TP SCH ×2 (09:47→20:17)
[2016-08-11] MEDS: HYDROGEN PEROXIDE 480 ML BOTTLE TP SCH ×2 (09:47→20:17)
[2016-08-11] MEDS: HYDROCODONE/APAP 5/325MG 1 EACH TABLET PO PRN ×2 (09:55→21:33)
--- NOTE | 2016-08-11 12:00 | NUR ---
Dr. Demario Gill came, changed monthly tracheostomy tube, patient tolerated well. No bleeding noted from site. No sign and symptoms of complications noted. Will continue to monitor
[2016-08-11] MEDS: TRAMADOL HCL 50 MG TABLET PO PRN (12:01)
--- NOTE | 2016-08-11 15:05 | NUR ---
Seen and examined by JAREK Nunez with new order to D/C Potassium Chloride 20meq tab PO every other day noted and carried out.
[2016-08-11] MEDS: LIDOCAINE 5% (PATCH) 1 EA PATCH TP SCH (16:23)
[2016-08-11 19:50] VITALS: BP 137/74
[2016-08-11] MEDS: LORAZEPAM 0.5 MG TABLET PO PRN (20:36)
[2016-08-11] MEDS: ZOLPIDEM TARTRATE 5 MG TABLET PO PRN (23:03)
[2016-08-12] MEDS: ALBUTEROL FS 2.5 MG/3 ML VIAL.NEB NEB SCH ×4 (01:30→20:12)
[2016-08-12] MEDS: IPRATROPIUM NEB FS 0.5 MG/2.5 ML AMPUL.NEB NEB SCH ×4 (01:30→20:12)
[2016-08-12] MEDS: TRAMADOL HCL 50 MG TABLET PO PRN ×3 (02:56→21:24)
[2016-08-12 07:57] VITALS: BP 136/77
[2016-08-12] MEDS: hydrALAZINE HCL 25 MG TABLET GT SCH ×2 (08:00→20:34)
[2016-08-12] MEDS: predniSONE 20 MG TABLET PO SCH (09:19)
[2016-08-12] MEDS: SENNOSIDES 8.6 MG TABLET PO SCH (09:19)
[2016-08-12] MEDS: OLANZAPINE 2.5 MG TABLET PO SCH (09:19)
[2016-08-12] MEDS: ALISKIREN HEMIFUMARATE 150 MG TABLET PO SCH (09:19)
[2016-08-12] MEDS: METOPROLOL SUCCINATE 25 MG TAB.SR.24H PO SCH (09:19)
[2016-08-12] MEDS: LamoTRIgine 25 MG TABLET PO SCH (09:19)
[2016-08-12] MEDS: HYDROGEN PEROXIDE 480 ML BOTTLE TP SCH ×2 (09:20→20:34)
[2016-08-12] MEDS: Z GUARD REMEDY 2 OZ OINT TP SCH ×2 (09:21→20:34)
[2016-08-12] MEDS: HYDROCODONE/APAP 5/325MG 1 EACH TABLET PO PRN ×2 (09:33→15:42)
--- NOTE | 2016-08-12 14:11 | NUR ---
IDT meeting held, reviewed current medication and treatment orders. Resident invited by SSD but did not attend. It was mentioned that resident being followed by babcock tester and oncologist. Blood pressure medications reviewed by Dr. Mcqueen, babcock tester on 08/10, changes have been made.
[2016-08-12] MEDS: LIDOCAINE 5% (PATCH) 1 EA PATCH TP SCH (17:00)
--- NOTE | 2016-08-12 18:08 | NUR ---
Resident inform this nurse that she does not want to take the medications that Ned Rosenbaum, psychiatrist ordered. Resident claims that dose should have been reduced in half. Informed resident that there are no changes in her antipsychotic medications lately other than the order written on 07/12/16 from which Zyprexa dose was cut in half. She insist that she has the right to refuse her medications despite explanations that this medication helps her calm down. Two minutes later she bangs the table again insisting that she will not take her medication, however she wants to keep her Ativan and Ambien. Endorsed to incoming nurse.
[2016-08-12 19:37] VITALS: BP 124/71
[2016-08-12] MEDS: LORAZEPAM 0.5 MG TABLET PO PRN (20:35)
[2016-08-12] MEDS: ZOLPIDEM TARTRATE 5 MG TABLET PO PRN (20:35)
[2016-08-13] MEDS: HYDROCODONE/APAP 5/325MG 1 EACH TABLET PO PRN ×2 (00:10→21:03)
[2016-08-13] MEDS: IPRATROPIUM NEB FS 0.5 MG/2.5 ML AMPUL.NEB NEB SCH ×4 (00:38→19:51)
[2016-08-13] MEDS: ALBUTEROL FS 2.5 MG/3 ML VIAL.NEB NEB SCH ×4 (00:38→19:51)
[2016-08-13 07:48] VITALS: BP 155/79
[2016-08-13] MEDS: hydrALAZINE HCL 25 MG TABLET GT SCH ×2 (08:22→20:31)
[2016-08-13] MEDS: LamoTRIgine 25 MG TABLET PO SCH (08:22)
[2016-08-13] MEDS: OLANZAPINE 2.5 MG TABLET PO SCH (08:22)
[2016-08-13] MEDS: predniSONE 20 MG TABLET PO SCH (08:22)
[2016-08-13] MEDS: ALISKIREN HEMIFUMARATE 150 MG TABLET PO SCH (08:22)
[2016-08-13] MEDS: SENNOSIDES 8.6 MG TABLET PO SCH (08:22)
[2016-08-13] MEDS: METOPROLOL SUCCINATE 25 MG TAB.SR.24H PO SCH (08:22)
[2016-08-13] MEDS: Z GUARD REMEDY 2 OZ OINT TP SCH ×2 (11:00→20:32)
[2016-08-13] MEDS: HYDROGEN PEROXIDE 480 ML BOTTLE TP SCH ×2 (11:00→20:31)
[2016-08-13] MEDS: TRAMADOL HCL 50 MG TABLET PO PRN ×2 (12:31→23:24)
[2016-08-13] MEDS: LORAZEPAM 0.5 MG TABLET PO PRN ×2 (15:51→21:30)
[2016-08-13] MEDS: LIDOCAINE 5% (PATCH) 1 EA PATCH TP SCH (16:55)
--- NOTE | 2016-08-13 16:59 | NUR ---
Dr Marino notified of patient's refusal to take her psyche medications claiming that it increases her HR and it makes her more anxious. MD stated that he will see patient on Monday. Resident made aware.
[2016-08-13 19:46] VITALS: BP 127/71
[2016-08-13] MEDS: ZOLPIDEM TARTRATE 5 MG TABLET PO PRN (20:32)
[2016-08-14] MEDS: ALBUTEROL FS 2.5 MG/3 ML VIAL.NEB NEB SCH ×4 (01:40→19:26)
[2016-08-14] MEDS: IPRATROPIUM NEB FS 0.5 MG/2.5 ML AMPUL.NEB NEB SCH ×4 (01:40→19:26)
[2016-08-14] MEDS: hydrALAZINE HCL 25 MG TABLET GT SCH ×2 (08:00→20:00)
[2016-08-14 08:12] VITALS: BP 142/61
[2016-08-14] MEDS: HYDROCODONE/APAP 5/325MG 1 EACH TABLET PO PRN (09:00)
[2016-08-14] MEDS: LamoTRIgine 25 MG TABLET PO SCH (09:38)
[2016-08-14] MEDS: predniSONE 20 MG TABLET PO SCH (09:38)
[2016-08-14] MEDS: SENNOSIDES 8.6 MG TABLET PO SCH (09:39)
[2016-08-14] MEDS: METOPROLOL SUCCINATE 25 MG TAB.SR.24H PO SCH (09:39)
[2016-08-14] MEDS: OLANZAPINE 2.5 MG TABLET PO SCH (09:39)
[2016-08-14] MEDS: ALISKIREN HEMIFUMARATE 150 MG TABLET PO SCH (09:39)
[2016-08-14] MEDS: HYDROGEN PEROXIDE 480 ML BOTTLE TP SCH ×2 (09:39→21:25)
[2016-08-14] MEDS: Z GUARD REMEDY 2 OZ OINT TP SCH ×2 (09:39→21:25)
[2016-08-14] MEDS: TRAMADOL HCL 50 MG TABLET PO PRN ×3 (12:07→23:08)
[2016-08-14] MEDS: LIDOCAINE 5% (PATCH) 1 EA PATCH TP SCH (17:41)
[2016-08-14] MEDS: LORAZEPAM 0.5 MG TABLET PO PRN ×2 (17:42→21:25)
[2016-08-14 19:44] VITALS: BP 156/81
[2016-08-14] MEDS: ZOLPIDEM TARTRATE 5 MG TABLET PO PRN (21:25)
[2016-08-15] MEDS: ALBUTEROL FS 2.5 MG/3 ML VIAL.NEB NEB SCH ×4 (01:34→19:41)
[2016-08-15] MEDS: IPRATROPIUM NEB FS 0.5 MG/2.5 ML AMPUL.NEB NEB SCH ×4 (01:34→19:41)
[2016-08-15 07:54] VITALS: BP 113/67
[2016-08-15] MEDS: hydrALAZINE HCL 25 MG TABLET GT SCH ×2 (07:57→20:00)
[2016-08-15] MEDS: HYDROCODONE/APAP 5/325MG 1 EACH TABLET PO PRN ×2 (08:00→17:33)
[2016-08-15] MEDS: SENNOSIDES 8.6 MG TABLET PO SCH (08:00)
[2016-08-15] MEDS: predniSONE 20 MG TABLET PO SCH (08:00)
[2016-08-15] MEDS: METOPROLOL SUCCINATE 25 MG TAB.SR.24H PO SCH (08:00)
[2016-08-15] MEDS: ALISKIREN HEMIFUMARATE 150 MG TABLET PO SCH (08:00)
[2016-08-15] MEDS: LamoTRIgine 25 MG TABLET PO SCH (08:00)
[2016-08-15] MEDS: OLANZAPINE 2.5 MG TABLET PO SCH (08:00)
[2016-08-15 08:49] LABS: CALCIUM, SERUM 9.2 mg/dL (8.5-10.1); CREATININE 1.9 mg/dL (0.6-1.3); POTASSIUM 4.6 mmol/L (3.5-5.1)
[2016-08-15] MEDS: TRAMADOL HCL 50 MG TABLET PO PRN ×2 (11:36→21:19)
[2016-08-15] MEDS: HYDROGEN PEROXIDE 480 ML BOTTLE TP SCH ×2 (15:00→21:04)
[2016-08-15] MEDS: Z GUARD REMEDY 2 OZ OINT TP SCH ×2 (15:00→21:05)
[2016-08-15] MEDS: LIDOCAINE 5% (PATCH) 1 EA PATCH TP SCH (17:32)
[2016-08-15 20:05] VITALS: BP 122/69
[2016-08-15] MEDS: ZOLPIDEM TARTRATE 5 MG TABLET PO PRN (21:05)
[2016-08-15] MEDS: LORAZEPAM 0.5 MG TABLET PO PRN (21:05)
[2016-08-16] MEDS: IPRATROPIUM NEB FS 0.5 MG/2.5 ML AMPUL.NEB NEB SCH ×4 (01:34→20:03)
[2016-08-16] MEDS: ALBUTEROL FS 2.5 MG/3 ML VIAL.NEB NEB SCH ×4 (01:34→20:03)
[2016-08-16 08:11] VITALS: BP 164/79
[2016-08-16] MEDS: HYDROCODONE/APAP 5/325MG 1 EACH TABLET PO PRN ×3 (08:21→16:01)
[2016-08-16] MEDS: LamoTRIgine 25 MG TABLET PO SCH (08:36)
[2016-08-16] MEDS: predniSONE 20 MG TABLET PO SCH (08:36)
[2016-08-16] MEDS: SENNOSIDES 8.6 MG TABLET PO SCH (08:36)
[2016-08-16] MEDS: ALISKIREN HEMIFUMARATE 150 MG TABLET PO SCH (08:36)
[2016-08-16] MEDS: METOPROLOL SUCCINATE 25 MG TAB.SR.24H PO SCH (08:36)
[2016-08-16] MEDS: hydrALAZINE HCL 25 MG TABLET GT SCH ×2 (08:36→20:00)
[2016-08-16] MEDS: OLANZAPINE 2.5 MG TABLET PO SCH (08:36)
[2016-08-16] MEDS: HYDROGEN PEROXIDE 480 ML BOTTLE TP SCH ×2 (11:00→21:18)
[2016-08-16] MEDS: Z GUARD REMEDY 2 OZ OINT TP SCH ×2 (11:00→21:14)
--- NOTE | 2016-08-16 11:12 | NUR ---
Late entry for 08/15/[address] Mcqueen. She is aware of lab results. No new order. Pt was also seen by JAREK Nunez. Pt verbalized that she wants her trach to be eventually removed. JAREK Nunez told her that she has to stay longer on the PMV, then she has to be red capped. Pt said she will let her know when she is ready.
[2016-08-16] MEDS: TRAMADOL HCL 50 MG TABLET PO PRN ×2 (12:00→21:46)
--- NOTE | 2016-08-16 12:30 | NUR ---
Notified Dr. Marino that resident has been refusing to take her psych meds and reminded him to come see patient. He acknowledged and stated that he will come and see resident but did not specify when. Charge nurse informed.
[2016-08-16] MEDS: LIDOCAINE 5% (PATCH) 1 EA PATCH TP SCH (17:05)
[2016-08-16 20:04] VITALS: BP_SYST 120; BP_SYST 144; BP_DIAS 74; BP_DIAS 91
[2016-08-16] MEDS: ZOLPIDEM TARTRATE 5 MG TABLET PO PRN (21:14)
[2016-08-16] MEDS: LORAZEPAM 0.5 MG TABLET PO PRN (21:14)
[2016-08-17] MEDS: IPRATROPIUM NEB FS 0.5 MG/2.5 ML AMPUL.NEB NEB SCH ×4 (01:01→20:09)
[2016-08-17] MEDS: ALBUTEROL FS 2.5 MG/3 ML VIAL.NEB NEB SCH ×4 (01:01→20:09)
[2016-08-17 08:18] VITALS: BP 140/78
[2016-08-17] MEDS: ALISKIREN HEMIFUMARATE 150 MG TABLET PO SCH (08:29)
[2016-08-17] MEDS: predniSONE 20 MG TABLET PO SCH (08:29)
[2016-08-17] MEDS: hydrALAZINE HCL 25 MG TABLET GT SCH ×2 (08:29→20:41)
[2016-08-17] MEDS: METOPROLOL SUCCINATE 25 MG TAB.SR.24H PO SCH (08:29)
[2016-08-17] MEDS: SENNOSIDES 8.6 MG TABLET PO SCH (08:29)
[2016-08-17] MEDS: OLANZAPINE 2.5 MG TABLET PO SCH (08:29)
[2016-08-17] MEDS: LamoTRIgine 25 MG TABLET PO SCH (08:29)
[2016-08-17] MEDS: HYDROCODONE/APAP 5/325MG 1 EACH TABLET PO PRN ×3 (09:00→22:37)
[2016-08-17] MEDS: Z GUARD REMEDY 2 OZ OINT TP SCH ×2 (09:39→20:41)
[2016-08-17] MEDS: HYDROGEN PEROXIDE 480 ML BOTTLE TP SCH ×2 (09:39→20:41)
[2016-08-17] MEDS: TRAMADOL HCL 50 MG TABLET PO PRN (12:38)
[2016-08-17] MEDS: LIDOCAINE 5% (PATCH) 1 EA PATCH TP SCH (17:44)
[2016-08-17 20:07] VITALS: BP 136/75
[2016-08-17] MEDS: ZOLPIDEM TARTRATE 5 MG TABLET PO PRN (20:41)
[2016-08-18] MEDS: ALBUTEROL FS 2.5 MG/3 ML VIAL.NEB NEB SCH ×4 (00:51→19:55)
[2016-08-18] MEDS: IPRATROPIUM NEB FS 0.5 MG/2.5 ML AMPUL.NEB NEB SCH ×4 (00:51→19:55)
[2016-08-18] MEDS: TRAMADOL HCL 50 MG TABLET PO PRN ×2 (01:27→11:53)
[2016-08-18] MEDS: hydrALAZINE HCL 25 MG TABLET GT SCH ×2 (08:38→20:38)
[2016-08-18] MEDS: predniSONE 20 MG TABLET PO SCH (08:39)
[2016-08-18] MEDS: ALISKIREN HEMIFUMARATE 150 MG TABLET PO SCH (08:39)
[2016-08-18] MEDS: SENNOSIDES 8.6 MG TABLET PO SCH (08:39)
[2016-08-18] MEDS: LamoTRIgine 25 MG TABLET PO SCH (08:39)
[2016-08-18] MEDS: METOPROLOL SUCCINATE 25 MG TAB.SR.24H PO SCH (08:40)
[2016-08-18] MEDS: Z GUARD REMEDY 2 OZ OINT TP SCH ×2 (08:42→20:38)
[2016-08-18] MEDS: OLANZAPINE 2.5 MG TABLET PO SCH (08:42)
[2016-08-18] MEDS: HYDROGEN PEROXIDE 480 ML BOTTLE TP SCH ×2 (08:42→20:38)
[2016-08-18] MEDS: HYDROCODONE/APAP 5/325MG 1 EACH TABLET PO PRN ×3 (08:43→22:00)
--- NOTE | 2016-08-18 16:09 | NUR ---
Seen and examined by Savi Nunez NP no new order given. Reported to Savi that resident is refusing to take her psyche medications. She explained to resident that psyche meds cannot be discontinued abruptly. She told Savi that she becomes more nervous and anxious when she is on those medications. Savi said to continually offer the medication.
[2016-08-18] MEDS: LIDOCAINE 5% (PATCH) 1 EA PATCH TP SCH (17:00)
[2016-08-18 19:43] VITALS: BP 134/78
[2016-08-18] MEDS: LORAZEPAM 0.5 MG TABLET PO PRN (20:38)
[2016-08-18] MEDS: ZOLPIDEM TARTRATE 5 MG TABLET PO PRN (23:42)
[2016-08-19] MEDS: TRAMADOL HCL 50 MG TABLET PO PRN ×3 (00:16→23:29)
[2016-08-19] MEDS: ALBUTEROL FS 2.5 MG/3 ML VIAL.NEB NEB SCH ×4 (01:27→20:02)
[2016-08-19] MEDS: IPRATROPIUM NEB FS 0.5 MG/2.5 ML AMPUL.NEB NEB SCH ×4 (01:27→20:02)
[2016-08-19 07:34] VITALS: BP 145/78
[2016-08-19] MEDS: SENNOSIDES 8.6 MG TABLET PO SCH (08:13)
[2016-08-19] MEDS: hydrALAZINE HCL 25 MG TABLET GT SCH ×2 (08:13→20:05)
[2016-08-19] MEDS: predniSONE 20 MG TABLET PO SCH (08:13)
[2016-08-19] MEDS: LamoTRIgine 25 MG TABLET PO SCH (08:13)
[2016-08-19] MEDS: ALISKIREN HEMIFUMARATE 150 MG TABLET PO SCH (08:14)
[2016-08-19] MEDS: METOPROLOL SUCCINATE 25 MG TAB.SR.24H PO SCH (08:14)
[2016-08-19] MEDS: Z GUARD REMEDY 2 OZ OINT TP SCH ×2 (08:15→20:06)
[2016-08-19] MEDS: HYDROGEN PEROXIDE 480 ML BOTTLE TP SCH ×2 (08:15→20:06)
[2016-08-19] MEDS: OLANZAPINE 2.5 MG TABLET PO SCH (08:15)
[2016-08-19] MEDS: HYDROCODONE/APAP 5/325MG 1 EACH TABLET PO PRN ×3 (08:23→21:01)
--- NOTE | 2016-08-19 12:44 | NUR ---
Seen by Dr. Marino, psychiatrist and talked to resident regarding refusal of psychiatric medications, according to MD, resident did not want to take Zyprexia and will continue Lamictal. MD did not adjust the dose of Lamictal according MD, resident does not want to increase or decrease the dose.
[2016-08-19] MEDS: LIDOCAINE 5% (PATCH) 1 EA PATCH TP SCH (17:55)
[2016-08-19 19:42] VITALS: BP 154/79
[2016-08-19] MEDS: ZOLPIDEM TARTRATE 5 MG TABLET PO PRN (21:00)
[2016-08-19] MEDS: LORAZEPAM 0.5 MG TABLET PO PRN (21:00)
[2016-08-20] MEDS: IPRATROPIUM NEB FS 0.5 MG/2.5 ML AMPUL.NEB NEB SCH ×4 (01:54→19:52)
[2016-08-20] MEDS: ALBUTEROL FS 2.5 MG/3 ML VIAL.NEB NEB SCH ×4 (01:54→19:52)
[2016-08-20 07:50] VITALS: BP 136/79
[2016-08-20] MEDS: hydrALAZINE HCL 25 MG TABLET GT SCH ×2 (08:00→19:56)
[2016-08-20] MEDS: predniSONE 20 MG TABLET PO SCH (09:02)
[2016-08-20] MEDS: ALISKIREN HEMIFUMARATE 150 MG TABLET PO SCH (09:02)
[2016-08-20] MEDS: METOPROLOL SUCCINATE 25 MG TAB.SR.24H PO SCH (09:02)
[2016-08-20] MEDS: HYDROGEN PEROXIDE 480 ML BOTTLE TP SCH ×2 (09:02→20:22)
[2016-08-20] MEDS: LamoTRIgine 25 MG TABLET PO SCH (09:02)
[2016-08-20] MEDS: SENNOSIDES 8.6 MG TABLET PO SCH (09:02)
[2016-08-20] MEDS: HYDROCODONE/APAP 5/325MG 1 EACH TABLET PO PRN ×2 (09:03→15:51)
[2016-08-20] MEDS: Z GUARD REMEDY 2 OZ OINT TP SCH ×2 (09:03→20:22)
[2016-08-20] MEDS: TRAMADOL HCL 50 MG TABLET PO PRN ×2 (12:05→19:57)
[2016-08-20] MEDS: LIDOCAINE 5% (PATCH) 1 EA PATCH TP SCH (17:40)
[2016-08-20 20:10] VITALS: BP 124/84
[2016-08-20] MEDS: LORAZEPAM 0.5 MG TABLET PO PRN (20:46)
[2016-08-20] MEDS: ZOLPIDEM TARTRATE 5 MG TABLET PO PRN (21:37)
[2016-08-21] MEDS: IPRATROPIUM NEB FS 0.5 MG/2.5 ML AMPUL.NEB NEB SCH ×4 (01:10→19:34)
[2016-08-21] MEDS: ALBUTEROL FS 2.5 MG/3 ML VIAL.NEB NEB SCH ×4 (01:10→19:34)
[2016-08-21] MEDS: HYDROCODONE/APAP 5/325MG 1 EACH TABLET PO PRN ×3 (04:20→23:30)
[2016-08-21 07:47] VITALS: BP 126/67
[2016-08-21] MEDS: hydrALAZINE HCL 25 MG TABLET GT SCH ×2 (08:00→20:08)
[2016-08-21] MEDS: ALISKIREN HEMIFUMARATE 150 MG TABLET PO SCH (09:21)
[2016-08-21] MEDS: SENNOSIDES 8.6 MG TABLET PO SCH (09:21)
[2016-08-21] MEDS: predniSONE 20 MG TABLET PO SCH (09:21)
[2016-08-21] MEDS: LamoTRIgine 25 MG TABLET PO SCH (09:21)
[2016-08-21] MEDS: METOPROLOL SUCCINATE 25 MG TAB.SR.24H PO SCH (09:22)
[2016-08-21] MEDS: HYDROGEN PEROXIDE 480 ML BOTTLE TP SCH ×2 (09:22→20:09)
[2016-08-21] MEDS: Z GUARD REMEDY 2 OZ OINT TP SCH ×2 (09:22→20:09)
[2016-08-21] MEDS: TRAMADOL HCL 50 MG TABLET PO PRN (09:23)
[2016-08-21] MEDS: LIDOCAINE 5% (PATCH) 1 EA PATCH TP SCH (17:06)
[2016-08-21 19:40] VITALS: BP 139/76
[2016-08-21] MEDS: LORAZEPAM 0.5 MG TABLET PO PRN (21:10)
[2016-08-21] MEDS: ZOLPIDEM TARTRATE 5 MG TABLET PO PRN (21:47)
[2016-08-22] MEDS: IPRATROPIUM NEB FS 0.5 MG/2.5 ML AMPUL.NEB NEB SCH ×4 (01:25→19:27)
[2016-08-22] MEDS: ALBUTEROL FS 2.5 MG/3 ML VIAL.NEB NEB SCH ×4 (01:25→19:27)
[2016-08-22] MEDS: TRAMADOL HCL 50 MG TABLET PO PRN ×2 (02:04→13:39)
[2016-08-22] MEDS ORDERED: LORAZEPAM 1 MG TABLET PO PRN (02:30)
[2016-08-22] MEDS ORDERED: LORAZEPAM 1 MG TABLET PO ONE (02:30)
[2016-08-22] MEDS ORDERED: LORAZEPAM 0.5 MG TABLET PO ONE (02:30)
[2016-08-22 07:14] LABS: CALCIUM, SERUM 9.1 mg/dL (8.5-10.1); POTASSIUM 4.7 mmol/L (3.5-5.1)
[2016-08-22 07:31] VITALS: BP 152/81
[2016-08-22] MEDS: hydrALAZINE HCL 25 MG TABLET GT SCH ×2 (08:00→20:29)
[2016-08-22] MEDS: SENNOSIDES 8.6 MG TABLET PO SCH (09:16)
[2016-08-22] MEDS: LamoTRIgine 25 MG TABLET PO SCH (09:16)
[2016-08-22] MEDS: predniSONE 20 MG TABLET PO SCH (09:16)
[2016-08-22] MEDS: HYDROGEN PEROXIDE 480 ML BOTTLE TP SCH ×2 (09:17→20:29)
[2016-08-22] MEDS: Z GUARD REMEDY 2 OZ OINT TP SCH ×2 (09:17→20:29)
[2016-08-22] MEDS: ALISKIREN HEMIFUMARATE 150 MG TABLET PO SCH (09:17)
[2016-08-22] MEDS: METOPROLOL SUCCINATE 25 MG TAB.SR.24H PO SCH (09:17)
[2016-08-22] MEDS: HYDROCODONE/APAP 5/325MG 1 EACH TABLET PO PRN ×2 (10:30→21:27)
--- NOTE | 2016-08-22 16:00 | NUR ---
According to salma Mendez, he pulled out 2 tablets of Ativan 0.5 mg from the Pyxis for the one time order of Ativan 1 mg last night. Ativan 1 mg tablet was not taken from the Pyxis. He also said that cnc set up operator charge nurse from registry overrode the Ativan 0.5 mg order to be able to take the 2nd tablet from the same order.
[2016-08-22] MEDS: LIDOCAINE 5% (PATCH) 1 EA PATCH TP SCH (17:55)
--- NOTE | 2016-08-22 18:25 | NUR ---
Seen by JAREK Nunez. Relayed lab results to her. No new order.
[2016-08-22 19:44] VITALS: BP 125/80
[2016-08-22] MEDS: ZOLPIDEM TARTRATE 5 MG TABLET PO PRN (20:29)
[2016-08-22] MEDS: LORAZEPAM 0.5 MG TABLET PO PRN (20:29)
[2016-08-23] MEDS: TRAMADOL HCL 50 MG TABLET PO PRN ×3 (00:04→23:58)
[2016-08-23] MEDS: IPRATROPIUM NEB FS 0.5 MG/2.5 ML AMPUL.NEB NEB SCH ×4 (01:23→20:11)
[2016-08-23] MEDS: ALBUTEROL FS 2.5 MG/3 ML VIAL.NEB NEB SCH ×4 (01:23→20:11)
[2016-08-23 07:43] VITALS: BP 160/84
[2016-08-23] MEDS: HYDROCODONE/APAP 5/325MG 1 EACH TABLET PO PRN ×2 (07:54→21:26)
[2016-08-23] MEDS: ALISKIREN HEMIFUMARATE 150 MG TABLET PO SCH (07:54)
[2016-08-23] MEDS: hydrALAZINE HCL 25 MG TABLET GT SCH ×2 (07:55→20:05)
[2016-08-23] MEDS: METOPROLOL SUCCINATE 25 MG TAB.SR.24H PO SCH (07:55)
[2016-08-23] MEDS: predniSONE 20 MG TABLET PO SCH (07:55)
[2016-08-23] MEDS: LamoTRIgine 25 MG TABLET PO SCH (07:56)
[2016-08-23] MEDS: Z GUARD REMEDY 2 OZ OINT TP SCH ×2 (08:01→20:05)
[2016-08-23] MEDS: HYDROGEN PEROXIDE 480 ML BOTTLE TP SCH ×2 (08:03→20:05)
[2016-08-23] MEDS: SENNOSIDES 8.6 MG TABLET PO SCH (08:04)
--- NOTE | 2016-08-23 10:07 | NUR ---
Seen by Dr Yen with no new order.
[2016-08-23] MEDS: LIDOCAINE 5% (PATCH) 1 EA PATCH TP SCH (16:46)
[2016-08-23 20:02] VITALS: BP 151/81
[2016-08-23] MEDS: LORAZEPAM 0.5 MG TABLET PO PRN (20:37)
[2016-08-23] MEDS: ZOLPIDEM TARTRATE 5 MG TABLET PO PRN (20:37)
[2016-08-24] MEDS: IPRATROPIUM NEB FS 0.5 MG/2.5 ML AMPUL.NEB NEB SCH ×4 (01:14→19:56)
[2016-08-24] MEDS: ALBUTEROL FS 2.5 MG/3 ML VIAL.NEB NEB SCH ×4 (01:14→19:56)
[2016-08-24 07:50] VITALS: BP 152/86
[2016-08-24] MEDS: hydrALAZINE HCL 25 MG TABLET GT SCH ×2 (07:52→20:38)
[2016-08-24] MEDS: HYDROCODONE/APAP 5/325MG 1 EACH TABLET PO PRN ×2 (07:53→20:54)
[2016-08-24] MEDS: ALISKIREN HEMIFUMARATE 150 MG TABLET PO SCH (08:03)
[2016-08-24] MEDS: predniSONE 20 MG TABLET PO SCH (08:03)
[2016-08-24] MEDS: SENNOSIDES 8.6 MG TABLET PO SCH (08:03)
[2016-08-24] MEDS: LamoTRIgine 25 MG TABLET PO SCH (08:03)
[2016-08-24] MEDS: METOPROLOL SUCCINATE 25 MG TAB.SR.24H PO SCH (08:04)
--- NOTE | 2016-08-24 08:30 | NUR ---
Informed by charge nurse that resident was asking if her friend can bring his pet dog to visit her. SW informed her that if it is not a therapy dog, it cannot come to the hospital as we don't know if it has fleas, etc. BERNARDINO spoke to Henna, hospital volunteer, that knows the person that brings the therapy dog on . She stated that she will make a note the next time he comes to go and see resident in her room.
[2016-08-24] MEDS: Z GUARD REMEDY 2 OZ OINT TP SCH ×2 (09:00→20:38)
[2016-08-24] MEDS: HYDROGEN PEROXIDE 480 ML BOTTLE TP SCH ×2 (09:00→20:38)
--- NOTE | 2016-08-24 09:33 | NUR ---
Social Service section of [facility] (2nd Quarter) was completed. Resident is alert and was able to answer all questions asked. Resident has a trach and is alert and oriented x4. She is able to make decisions on her behalf. She has a three month discharge plan and would eventually like to be discharged to her friend's home.
--- NOTE | 2016-08-24 09:37 | NUR ---
Seen and examined by Dr Soraya Mcqueen, dry house worker, reviewed current medications and labs, with new order given. Resident informed of new order and agreed with the changes.
[2016-08-24] MEDS: ERGOCALCIFEROL (VITAMIN D 2) 50,000 UNIT CAPSULE PO SCH (10:00)
[2016-08-24 11:18] LABS: CALCITRIOL VIT D,1, 25 DIHYDRO 14.9 pg/mL (19.9-79.3)
[2016-08-24] MEDS: TRAMADOL HCL 50 MG TABLET PO PRN (12:58)
[2016-08-24] MEDS: LIDOCAINE 5% (PATCH) 1 EA PATCH TP SCH (16:57)
[2016-08-24 20:21] VITALS: BP 156/88
[2016-08-24] MEDS: LORAZEPAM 0.5 MG TABLET PO PRN (20:38)
[2016-08-24] MEDS: ZOLPIDEM TARTRATE 5 MG TABLET PO PRN (20:38)
[2016-08-25] MEDS: ALBUTEROL FS 2.5 MG/3 ML VIAL.NEB NEB SCH ×4 (02:16→20:10)
[2016-08-25] MEDS: IPRATROPIUM NEB FS 0.5 MG/2.5 ML AMPUL.NEB NEB SCH ×4 (02:16→20:10)
[2016-08-25 07:37] VITALS: BP 168/96
[2016-08-25] MEDS: predniSONE 20 MG TABLET PO SCH (08:15)
[2016-08-25] MEDS: hydrALAZINE HCL 25 MG TABLET GT SCH ×2 (08:15→20:07)
[2016-08-25] MEDS: ALISKIREN HEMIFUMARATE 150 MG TABLET PO SCH (08:15)
[2016-08-25] MEDS: SENNOSIDES 8.6 MG TABLET PO SCH (08:15)
[2016-08-25] MEDS: METOPROLOL SUCCINATE 25 MG TAB.SR.24H PO SCH (08:15)
[2016-08-25] MEDS: LamoTRIgine 25 MG TABLET PO SCH (08:15)
[2016-08-25] MEDS: HYDROGEN PEROXIDE 480 ML BOTTLE TP SCH ×2 (09:00→20:07)
[2016-08-25] MEDS: Z GUARD REMEDY 2 OZ OINT TP SCH ×2 (09:00→20:07)
[2016-08-25] MEDS: ONDANSETRON 4 MG TAB.RAPDIS PO PRN (11:28)
[2016-08-25] MEDS: HYDROCODONE/APAP 5/325MG 1 EACH TABLET PO PRN ×2 (11:28→20:08)
--- NOTE | 2016-08-25 13:30 | NUR ---
Seen by Savi Nunez FITTING SUPERVISOR with order for UA due to abdominal discomfort order noted and carried out.Resident abdomen soft non-distended (+) bowel sounds on all quadrants,no N/V.Resident made aware.
[2016-08-25] MEDS: TRAMADOL HCL 50 MG TABLET PO PRN (14:22)
[2016-08-25] MEDS: LIDOCAINE 5% (PATCH) 1 EA PATCH TP SCH (17:36)
[2016-08-25 18:06] LABS: BILIRUBIN,URINE NEGATIVE (NEGATIVE); BLOOD, URINE NEGATIVE Ery/uL (NEGATIVE); COLOR,URINE YELLOW (YELLOW); KETONES,URINE NEGATIVE (NEGATIVE); LEUKOCYTE ESTERASE ,URINE 1+ (NEGATIVE); NITRITE, URINE NEGATIVE (NEGATIVE); PH,URINE 5.5 (5.0-8.0); PROTEIN,URINE NEGATIVE (NEGATIVE); UGLUCOSE NEGATIVE (NEGATIVE); UROBILINOGEN,URINE 0.2 EU/dL (0.2)
[2016-08-25 18:07] LABS: APPEARANCE,URINE SLIGHTLY HAZY (CLEAR)
[2016-08-25 18:15] LABS: RBC,URINE 0-2 /HPF (0-2)
[2016-08-25 18:16] LABS: BACTERIA,URINE Few /HPF (None Seen); SQUAMOUS EPITHELIAL CELL,UR Few /HPF (None Seen)
--- NOTE | 2016-08-25 18:59 | NUR ---
Relayed UA result to JAREK Nunez.
[2016-08-25 20:11] VITALS: BP 121/71
[2016-08-25] MEDS: LORAZEPAM 0.5 MG TABLET PO PRN (20:22)
--- NOTE | 2016-08-25 20:37 | NUR ---
DIRECTOR OF EARLY CHILDHOOD EDUCATION Savi Nunez aware of UA result ,wait for the culture.
[2016-08-25] MEDS: ZOLPIDEM TARTRATE 5 MG TABLET PO PRN (21:27)
[2016-08-26] MEDS: IPRATROPIUM NEB FS 0.5 MG/2.5 ML AMPUL.NEB NEB SCH ×4 (01:15→20:07)
[2016-08-26] MEDS: ALBUTEROL FS 2.5 MG/3 ML VIAL.NEB NEB SCH ×4 (01:16→20:07)
[2016-08-26] MEDS: TRAMADOL HCL 50 MG TABLET PO PRN ×2 (01:58→12:39)
[2016-08-26 07:45] VITALS: BP 137/76
[2016-08-26] MEDS: predniSONE 20 MG TABLET PO SCH (08:06)
[2016-08-26] MEDS: hydrALAZINE HCL 25 MG TABLET GT SCH ×2 (08:06→20:25)
[2016-08-26] MEDS: LamoTRIgine 25 MG TABLET PO SCH (08:06)
[2016-08-26] MEDS: METOPROLOL SUCCINATE 25 MG TAB.SR.24H PO SCH (08:06)
[2016-08-26] MEDS: SENNOSIDES 8.6 MG TABLET PO SCH (08:06)
[2016-08-26] MEDS: ALISKIREN HEMIFUMARATE 150 MG TABLET PO SCH (08:06)
[2016-08-26] MEDS: HYDROCODONE/APAP 5/325MG 1 EACH TABLET PO PRN ×2 (08:07→20:11)
[2016-08-26] MEDS: Z GUARD REMEDY 2 OZ OINT TP SCH ×2 (08:07→20:25)
[2016-08-26] MEDS: HYDROGEN PEROXIDE 480 ML BOTTLE TP SCH ×2 (08:07→20:25)
[2016-08-26] MEDS: ONDANSETRON 4 MG TAB.RAPDIS PO PRN (10:03)
--- NOTE | 2016-08-26 10:55 | NUR ---
Seen and examined by Dr. Palacios, NNO given.
--- NOTE | 2016-08-26 11:40 | NUR ---
Resident complaining of abdominal pain. According to her, she was given Zofran yesterday and it helped with the pain. She denies any chest pain. Resident given Zofran for her complain which is effective.
[2016-08-26] MEDS: LIDOCAINE 5% (PATCH) 1 EA PATCH TP SCH (16:52)
[2016-08-26 20:06] VITALS: BP 120/70
[2016-08-26] MEDS: ZOLPIDEM TARTRATE 5 MG TABLET PO PRN (21:02)
[2016-08-27] MEDS: ALBUTEROL FS 2.5 MG/3 ML VIAL.NEB NEB SCH ×4 (02:21→18:58)
[2016-08-27] MEDS: IPRATROPIUM NEB FS 0.5 MG/2.5 ML AMPUL.NEB NEB SCH ×4 (02:21→18:58)
[2016-08-27 08:03] VITALS: BP 131/80
[2016-08-27] MEDS: METOPROLOL SUCCINATE 25 MG TAB.SR.24H PO SCH (08:22)
[2016-08-27] MEDS: ALISKIREN HEMIFUMARATE 150 MG TABLET PO SCH (08:22)
[2016-08-27] MEDS: hydrALAZINE HCL 25 MG TABLET GT SCH ×2 (08:22→20:10)
[2016-08-27] MEDS: SENNOSIDES 8.6 MG TABLET PO SCH (08:22)
[2016-08-27] MEDS: Z GUARD REMEDY 2 OZ OINT TP SCH ×2 (08:22→20:10)
[2016-08-27] MEDS: LamoTRIgine 25 MG TABLET PO SCH (08:22)
[2016-08-27] MEDS: predniSONE 20 MG TABLET PO SCH (08:22)
[2016-08-27] MEDS: HYDROGEN PEROXIDE 480 ML BOTTLE TP SCH ×2 (08:22→20:10)
[2016-08-27] MEDS: HYDROCODONE/APAP 5/325MG 1 EACH TABLET PO PRN ×2 (08:23→20:22)
[2016-08-27] MEDS: ONDANSETRON 4 MG TAB.RAPDIS PO PRN (15:58)
[2016-08-27] MEDS: LIDOCAINE 5% (PATCH) 1 EA PATCH TP SCH (16:42)
[2016-08-27] MEDS: TRAMADOL HCL 50 MG TABLET PO PRN (18:05)
[2016-08-27 20:07] VITALS: BP 125/75
[2016-08-27] MEDS: LORAZEPAM 0.5 MG TABLET PO PRN (20:11)
[2016-08-27] MEDS: ZOLPIDEM TARTRATE 5 MG TABLET PO PRN (21:36)
[2016-08-28] MEDS: ALBUTEROL FS 2.5 MG/3 ML VIAL.NEB NEB SCH ×4 (01:36→19:41)
[2016-08-28] MEDS: IPRATROPIUM NEB FS 0.5 MG/2.5 ML AMPUL.NEB NEB SCH ×4 (01:36→19:41)
[2016-08-28 08:05] VITALS: BP 134/74
[2016-08-28] MEDS: Z GUARD REMEDY 2 OZ OINT TP SCH ×2 (09:00→20:08)
[2016-08-28] MEDS: ALISKIREN HEMIFUMARATE 150 MG TABLET PO SCH (09:00)
[2016-08-28] MEDS: SENNOSIDES 8.6 MG TABLET PO SCH (09:00)
[2016-08-28] MEDS: predniSONE 20 MG TABLET PO SCH (09:00)
[2016-08-28] MEDS: METOPROLOL SUCCINATE 25 MG TAB.SR.24H PO SCH (09:00)
[2016-08-28] MEDS: LamoTRIgine 25 MG TABLET PO SCH (09:00)
[2016-08-28] MEDS: hydrALAZINE HCL 25 MG TABLET GT SCH ×2 (09:00→20:07)
[2016-08-28] MEDS: HYDROGEN PEROXIDE 480 ML BOTTLE TP SCH ×2 (09:00→20:08)
[2016-08-28] MEDS: HYDROCODONE/APAP 5/325MG 1 EACH TABLET PO PRN ×2 (11:41→20:30)
[2016-08-28] MEDS: TRAMADOL HCL 50 MG TABLET PO PRN (14:16)
[2016-08-28] MEDS: ONDANSETRON 4 MG TAB.RAPDIS PO PRN ×3 (16:15→17:44)
--- NOTE | 2016-08-28 17:23 | NUR ---
Resident refusing Lamictal. She claims that she does not feel good. Explored what she meant by not feeling good. She stated that she has abdominal pain which is relieved by PRN pain medication. Later on she stated that a nurse made a comment to her " I heard that you are going home soon", she asked this nurse if this is true. Informed resident that there is a discharge planning in which the social service is working on. She stated that she is not ready and she is not feeling well. Informed her that V/S are within normal limits in which there is no significant physical symptoms that would warrant a transfer to acute hospital. Explained to resident that her medication (Lamictal) cannot be discontinued abruptly and may develop withdrawal symptoms if she continue to refuse. She insist that it causes her to be more anxious and increases her HR. According to Mrs. Hook there is a plan for her to go home in 90 days. She will stay with her friend Daylin in [place]. Therefore, encouraged her to plan ahead, set a goal and to look forward living with her friend. She insist she is not ready and constantly focusing her inability to go back to the community. Reminded resident that she had come a long way. She is now using the restroom for bowel and bladder elimination. She can independently feed herself, minimal assistance in bathing, ambulating with supervision only. She admits that she does not want to stay and be in the type of environment forever, but she is fearful of the future. Verbalized understanding but still refuses to take her medications. Endorsed to incoming shift to notify attending MD, social service and psychiatrist in AM.
[2016-08-28] MEDS: LIDOCAINE 5% (PATCH) 1 EA PATCH TP SCH (17:43)
[2016-08-28 20:10] VITALS: BP 124/79
[2016-08-28] MEDS: LORAZEPAM 0.5 MG TABLET PO PRN (21:09)
[2016-08-28] MEDS: ZOLPIDEM TARTRATE 5 MG TABLET PO PRN (21:20)
[2016-08-29] MEDS: IPRATROPIUM NEB FS 0.5 MG/2.5 ML AMPUL.NEB NEB SCH ×4 (02:23→19:20)
[2016-08-29] MEDS: ALBUTEROL FS 2.5 MG/3 ML VIAL.NEB NEB SCH ×4 (02:23→19:20)
[2016-08-29] MEDS: TRAMADOL HCL 50 MG TABLET PO PRN ×2 (03:31→12:07)
[2016-08-29 07:45] VITALS: BP 140/77
--- NOTE | 2016-08-29 08:20 | NUR ---
Spoke with resident about her concerns about being discharged. She stated that staff was asking her about her discharge plans and she stated she became worried because she felt like she was being kicked out of the hospital. Assured resident that she was not being kicked out and stated that resident herself had mentioned her discharge plan to other staff members. Stated to resident that she gave herself a three month discharge plan but that she needs to feel physically and emotionally ready when the time comes. She stated she was not there yet and social work faculty member reported to her that this was fine. Resident more calm now, as social work faculty member discussed the process and assistance that she will receive in terms of discharge planning.
[2016-08-29 08:23] LABS: POTASSIUM 3.9 mmol/L (3.5-5.1)
[2016-08-29] MEDS: ALISKIREN HEMIFUMARATE 150 MG TABLET PO SCH (08:25)
[2016-08-29] MEDS: predniSONE 20 MG TABLET PO SCH (08:26)
[2016-08-29] MEDS: METOPROLOL SUCCINATE 25 MG TAB.SR.24H PO SCH (08:26)
[2016-08-29] MEDS: Z GUARD REMEDY 2 OZ OINT TP SCH ×2 (08:27→20:48)
[2016-08-29] MEDS: HYDROGEN PEROXIDE 480 ML BOTTLE TP SCH ×2 (08:27→20:48)
[2016-08-29] MEDS: hydrALAZINE HCL 25 MG TABLET GT SCH ×2 (08:27→20:48)
[2016-08-29] MEDS: HYDROCODONE/APAP 5/325MG 1 EACH TABLET PO PRN ×2 (08:27→21:10)
[2016-08-29] MEDS: LamoTRIgine 25 MG TABLET PO SCH (08:28)
[2016-08-29] MEDS: SENNOSIDES 8.6 MG TABLET PO SCH (08:29)
--- NOTE | 2016-08-29 08:30 | NUR ---
Informed Dr. Marino that resident has been refusing her Lamictal and states that the medication makes her heart race faster. Inquired if he can come and see her but did not receive a response. SW will follow up.
--- NOTE | 2016-08-29 09:30 | NUR ---
Notified family welfare social work professor Maude that pt has been refusing Lamictal, if she can have Dr. Marino see the pt.
--- NOTE | 2016-08-29 10:12 | NUR ---
Seen by Dr. Mcqueen. Relayed BMP result to her. Received order to resume Lasix 40 mg po every other day. Asked her if she wanted to also resume pt's Potassium Chloride. She said no but to recheck BMP on Monday08/31/16.
--- NOTE | 2016-08-29 10:21 | NUR ---
Notified social media analyst Maude that according to endorsement, pt verbalized feeling worried about being discharged. Maude said she already talked with the pt about it this morning.
[2016-08-29] MEDS: FUROSEMIDE 40 MG TABLET PO SCH (12:33)
--- NOTE | 2016-08-29 13:45 | NUR ---
Seen by SALESFORCE ADMINISTRATOR Savi Nunez. Received order to apply Econazole 1% cream to the rashes on the abdominal area BID for 2 weeks. Pt aware. Pt denied itching on the area.
[2016-08-29] MEDS: ECONAZOLE NITRATE 15 GM TUBE TP SCH (16:39)
[2016-08-29] MEDS: LIDOCAINE 5% (PATCH) 1 EA PATCH TP SCH (16:39)
[2016-08-29] MEDS: LORAZEPAM 0.5 MG TABLET PO PRN (17:26)
--- NOTE | 2016-08-29 19:30 | NUR ---
RN NOTES Seen and examined by Dr. Marino and discussed about issues with her medication. Pt verbalized Lamictal makes her heart race and she no longer wishes to take medication. Dr. Marino discussed to use of Zoloft and risks and benefits. Pt agreed to take this medication instead of Lamictal. Received new order noted and carried out.
[2016-08-29 20:00] VITALS: BP 132/74
[2016-08-29 21:09] LABS: APPEARANCE,URINE CLEAR (CLEAR); BILIRUBIN,URINE NEGATIVE (NEGATIVE); BLOOD, URINE NEGATIVE Ery/uL (NEGATIVE); COLOR,URINE YELLOW (YELLOW); KETONES,URINE NEGATIVE (NEGATIVE); LEUKOCYTE ESTERASE ,URINE 1+ (NEGATIVE); NITRITE, URINE NEGATIVE (NEGATIVE); PH,URINE 5.5 (5.0-8.0); PROTEIN,URINE NEGATIVE (NEGATIVE); UGLUCOSE NEGATIVE (NEGATIVE); UROBILINOGEN,URINE 0.2 EU/dL (0.2)
[2016-08-29 21:48] LABS: BACTERIA,URINE Rare /HPF (None Seen); RBC,URINE 0-2 /HPF (0-2); SQUAMOUS EPITHELIAL CELL,UR Few /HPF (None Seen)
[2016-08-30] MEDS: ALBUTEROL FS 2.5 MG/3 ML VIAL.NEB NEB SCH ×4 (01:20→19:15)
[2016-08-30] MEDS: IPRATROPIUM NEB FS 0.5 MG/2.5 ML AMPUL.NEB NEB SCH ×4 (01:20→19:15)
[2016-08-30] MEDS: TRAMADOL HCL 50 MG TABLET PO PRN ×2 (05:09→14:23)
[2016-08-30 07:48] VITALS: BP 126/72
[2016-08-30] MEDS: METOPROLOL SUCCINATE 25 MG TAB.SR.24H PO SCH (08:12)
[2016-08-30] MEDS: predniSONE 20 MG TABLET PO SCH (08:13)
[2016-08-30] MEDS: ALISKIREN HEMIFUMARATE 150 MG TABLET PO SCH (08:13)
[2016-08-30] MEDS: hydrALAZINE HCL 25 MG TABLET GT SCH ×2 (08:13→20:53)
[2016-08-30] MEDS: SERTRALINE HCL 25 MG TABLET PO SCH (08:13)
[2016-08-30] MEDS: SENNOSIDES 8.6 MG TABLET PO SCH (08:13)
[2016-08-30] MEDS: HYDROGEN PEROXIDE 480 ML BOTTLE TP SCH ×2 (08:14→20:53)
[2016-08-30] MEDS: ECONAZOLE NITRATE 15 GM TUBE TP SCH ×2 (08:14→16:54)
[2016-08-30] MEDS: Z GUARD REMEDY 2 OZ OINT TP SCH ×2 (08:14→20:53)
[2016-08-30] MEDS: HYDROCODONE/APAP 5/325MG 1 EACH TABLET PO PRN ×2 (08:18→21:21)
--- NOTE | 2016-08-30 09:40 | NUR ---
Seen by Dr. Yen. Pt told Dr. Yen she feels lightheaded and Dr. Yen told her to lie down in bed. No new orders. Addendum: 08/30/16 at 1737 by SARAVANAN VAUGHN RN Dr. Yen aware of UA result. No new order.
--- NOTE | 2016-08-30 10:30 | NUR ---
Pt verbalized she feels dizzy/lightheaded. BP 112/67 HR 91, afebrile. Pt asked for her CHAIN SPLITTER because she wanted to be cleaned. Charge nurse asked her if she would feel fine being moved around when getting cleaned and she said yes. Pt said she wants to be cleaned in the bathroom and then go to sit in the activity room. Charge nurse advised her to stay in bed since she said she feels dizzy and if she wants, the CHAIN SPLITTER can give her a bed bath instead of her walking to the bathroom. Pt refused to be given a bed bath and insisted on walking to the bathroom. Pt got up quickly to use the bathroom, put on her slippers and walked to the bathroom, she said she will not fall. CHAIN SPLITTER Demario walked with her to the bathroom and back to bed. Charge nurse emphasized to pt that she should not be walking around if she feels dizzy to prevent any falls/injuries.
--- NOTE | 2016-08-30 13:25 | NUR ---
Pt complaining of stomachache. Abdomen soft and pt had a bowel movement today. She pointed to her abdominal area that bulges when she coughs. Notified Dr. Szymanski. He said it is a hernia and no new orders. Notified pt of what Dr. Szymanski said. Pt also said she does not feel dizzy anymore and wanted to be cleaned by the MIDDLE SCHOOL PRINCIPAL in the bathroom. When MIDDLE SCHOOL PRINCIPAL came to clean her, she said she feels dizzy. Pt again refused to be cleaned in bed. Pt told charge nurse to notify Dr. Yen of her hernia. Addendum: 08/30/16 at 1409 by SARAVANAN VAUGHN RN Also notified Dr. Szymanski that pt was complaining of dizziness/lightheadedness earlier, vital signs stable.
--- NOTE | 2016-08-30 13:50 | NUR ---
Notified Dr. Yen of pt's complaint of pain in the abdominal area that bulges when she coughs. Charge nurse explained what a hernia is to her since pt was feeling anxious about it. Dr. Yen said it sounds like a central hernia and no orders are necessary. Informed pt.
--- NOTE | 2016-08-30 15:58 | NUR ---
Resident briefly talked to the SW about the fears that she has in being discharged. She was able to explore these fears with licensed master social worker and stated that she would like to meet with SW on a regular basis in order to begin talking more about her feelings and what to expect once discharged. Resident asked SW to check in with her tomorrow.
[2016-08-30] MEDS: LIDOCAINE 5% (PATCH) 1 EA PATCH TP SCH (16:54)
[2016-08-30 20:23] VITALS: BP 130/73
[2016-08-30] MEDS: LORAZEPAM 0.5 MG TABLET PO PRN (20:53)
[2016-08-30] MEDS: ZOLPIDEM TARTRATE 5 MG TABLET PO PRN (20:54)
[2016-08-31] MEDS: ALBUTEROL FS 2.5 MG/3 ML VIAL.NEB NEB SCH ×4 (00:54→19:50)
[2016-08-31] MEDS: IPRATROPIUM NEB FS 0.5 MG/2.5 ML AMPUL.NEB NEB SCH ×4 (00:54→19:50)
[2016-08-31 06:51] LABS: CALCIUM, SERUM 9.4 mg/dL (8.5-10.1); CREATININE 2.1 mg/dL (0.6-1.3); POTASSIUM 4.2 mmol/L (3.5-5.1)
[2016-08-31] MEDS: hydrALAZINE HCL 25 MG TABLET GT SCH (08:26)
[2016-08-31] MEDS: ALISKIREN HEMIFUMARATE 150 MG TABLET PO SCH (08:26)
[2016-08-31] MEDS: SENNOSIDES 8.6 MG TABLET PO SCH (08:26)
[2016-08-31] MEDS: predniSONE 20 MG TABLET PO SCH (08:26)
[2016-08-31] MEDS: FUROSEMIDE 40 MG TABLET PO SCH (08:26)
[2016-08-31] MEDS: METOPROLOL SUCCINATE 25 MG TAB.SR.24H PO SCH (08:27)
[2016-08-31] MEDS: SERTRALINE HCL 25 MG TABLET PO SCH (08:27)
[2016-08-31] MEDS: HYDROCODONE/APAP 5/325MG 1 EACH TABLET PO PRN ×2 (08:27→21:09)
[2016-08-31] MEDS: ECONAZOLE NITRATE 15 GM TUBE TP SCH ×2 (09:00→17:00)
[2016-08-31] MEDS: ERGOCALCIFEROL (VITAMIN D 2) 50,000 UNIT CAPSULE PO SCH (10:00)
--- NOTE | 2016-08-31 14:05 | NUR ---
Seen by Dr Palacios with no new order.
[2016-08-31] MEDS: LORAZEPAM 0.5 MG TABLET PO PRN ×2 (14:06→20:45)
--- NOTE | 2016-08-31 15:15 | NUR ---
SW came to speak to resident. However, resident's friend showed up and resident stated to socially responsible investment adviser to please come back later or tomorrow.
--- NOTE | 2016-08-31 16:50 | NUR ---
Order for Prednisone clarified noted and carried out.
[2016-08-31] MEDS: Z GUARD REMEDY 2 OZ OINT TP SCH ×2 (16:53→20:44)
[2016-08-31] MEDS: LIDOCAINE 5% (PATCH) 1 EA PATCH TP SCH (16:53)
[2016-08-31] MEDS: HYDROGEN PEROXIDE 480 ML BOTTLE TP SCH ×2 (16:53→20:44)
[2016-08-31] MEDS: TRAMADOL HCL 50 MG TABLET PO PRN (16:54)
--- NOTE | 2016-08-31 17:30 | NUR ---
Seen by Savi Nunez NP with no new order.
[2016-08-31 19:57] VITALS: BP 146/77
[2016-08-31] MEDS: ZOLPIDEM TARTRATE 5 MG TABLET PO PRN (20:44)
[2016-08-31] MEDS: hydrALAZINE HCL 25 MG TABLET PO SCH (20:44)
[2016-09-01] MEDS: IPRATROPIUM NEB FS 0.5 MG/2.5 ML AMPUL.NEB NEB SCH ×4 (01:30→19:13)
[2016-09-01] MEDS: ALBUTEROL FS 2.5 MG/3 ML VIAL.NEB NEB SCH ×4 (01:30→19:13)
[2016-09-01 07:25] VITALS: BP 158/80
--- NOTE | 2016-09-01 08:05 | NUR ---
Patient was seen by community resource consultant Dr. Cam Howard on 08/31/2016.
[2016-09-01] MEDS: predniSONE 20 MG TABLET PO SCH (08:07)
[2016-09-01] MEDS: SENNOSIDES 8.6 MG TABLET PO SCH (08:07)
[2016-09-01] MEDS: hydrALAZINE HCL 25 MG TABLET PO SCH ×2 (08:07→20:33)
[2016-09-01] MEDS: ALISKIREN HEMIFUMARATE 150 MG TABLET PO SCH (08:07)
[2016-09-01] MEDS: SERTRALINE HCL 25 MG TABLET PO SCH (08:07)
[2016-09-01] MEDS: METOPROLOL SUCCINATE 25 MG TAB.SR.24H PO SCH (08:07)
[2016-09-01] MEDS: HYDROCODONE/APAP 5/325MG 1 EACH TABLET PO PRN ×2 (08:09→20:34)
[2016-09-01] MEDS: ECONAZOLE NITRATE 15 GM TUBE TP SCH ×2 (09:00→17:00)
[2016-09-01] MEDS: HYDROGEN PEROXIDE 480 ML BOTTLE TP SCH ×2 (09:00→20:33)
[2016-09-01] MEDS: Z GUARD REMEDY 2 OZ OINT TP SCH ×2 (09:00→20:33)
[2016-09-01] MEDS: TRAMADOL HCL 50 MG TABLET PO PRN (13:44)
--- NOTE | 2016-09-01 15:54 | NUR ---
Resident visiting with friend and unable to speak with resident. Will try again at a later time.
[2016-09-01] MEDS: LORAZEPAM 0.5 MG TABLET PO PRN (16:07)
[2016-09-01] MEDS: LIDOCAINE 5% (PATCH) 1 EA PATCH TP SCH (17:00)
[2016-09-01 19:42] VITALS: BP 130/86
[2016-09-01] MEDS: ZOLPIDEM TARTRATE 5 MG TABLET PO PRN (21:32)
--- NOTE | 2016-09-01 23:20 | NUR ---
Upon returning from the bathroom, Patient stated her trach is out. Called respiratory to re insert the trach. Patient currently stable with no complain of distress or discomfort. trach in place and secure, charge nurse aware. will monitor.
[2016-09-02] MEDS: IPRATROPIUM NEB FS 0.5 MG/2.5 ML AMPUL.NEB NEB SCH ×4 (01:23→19:44)
[2016-09-02] MEDS: ALBUTEROL FS 2.5 MG/3 ML VIAL.NEB NEB SCH ×4 (01:23→19:44)
[2016-09-02] MEDS: LORAZEPAM 0.5 MG TABLET PO PRN (01:36)
[2016-09-02] MEDS: HYDROCODONE/APAP 5/325MG 1 EACH TABLET PO PRN (07:55)
[2016-09-02] MEDS: METOPROLOL SUCCINATE 25 MG TAB.SR.24H PO SCH (08:04)
[2016-09-02] MEDS: predniSONE 20 MG TABLET PO SCH (08:04)
[2016-09-02] MEDS: SENNOSIDES 8.6 MG TABLET PO SCH (08:04)
[2016-09-02] MEDS: ALISKIREN HEMIFUMARATE 150 MG TABLET PO SCH (08:04)
[2016-09-02] MEDS: hydrALAZINE HCL 25 MG TABLET PO SCH ×2 (08:04→20:15)
[2016-09-02] MEDS: FUROSEMIDE 40 MG TABLET PO SCH (08:04)
[2016-09-02] MEDS: Z GUARD REMEDY 2 OZ OINT TP SCH ×2 (08:05→20:15)
[2016-09-02] MEDS: HYDROGEN PEROXIDE 480 ML BOTTLE TP SCH ×2 (08:05→20:15)
[2016-09-02] MEDS: SERTRALINE HCL 25 MG TABLET PO SCH (08:05)
[2016-09-02] MEDS: ECONAZOLE NITRATE 15 GM TUBE TP SCH ×2 (08:05→17:14)
[2016-09-02 08:10] VITALS: BP 149/90
--- NOTE | 2016-09-02 11:30 | NUR ---
Left a message to Dr. Gill's office regarding monthly trach change.
[2016-09-02] MEDS: TRAMADOL HCL 50 MG TABLET PO PRN (12:51)
--- NOTE | 2016-09-02 14:14 | NUR ---
IDT meeting held, IDT team reviewed current medications, treatment, labs and new orders. It was mentioned in the meeting that resident very anxious about the possibility of discharge. SSD will speak with resident. New order given to discontinue Robitussin due to non usage. Orders noted and carried out.
--- NOTE | 2016-09-02 16:03 | NUR ---
Spoke to resident and assisted her in creating a daily goal checklist. Stated that she will feel it will help her to keep track of her goals and feel ready for discharge.
[2016-09-02] MEDS ORDERED: GUAIFENESIN/D-METHORPHAN HB 5 ML UDC PO PRN (16:30)
[2016-09-02] MEDS: LIDOCAINE 5% (PATCH) 1 EA PATCH TP SCH (17:14)
[2016-09-02 20:28] VITALS: BP 136/87
[2016-09-03] MEDS: IPRATROPIUM NEB FS 0.5 MG/2.5 ML AMPUL.NEB NEB SCH ×4 (02:01→19:33)
[2016-09-03] MEDS: ALBUTEROL FS 2.5 MG/3 ML VIAL.NEB NEB SCH ×4 (02:01→19:33)
[2016-09-03 07:47] VITALS: BP 148/83
[2016-09-03] MEDS: predniSONE 20 MG TABLET PO SCH (09:34)
[2016-09-03] MEDS: hydrALAZINE HCL 25 MG TABLET PO SCH ×2 (09:34→20:26)
[2016-09-03] MEDS: ECONAZOLE NITRATE 15 GM TUBE TP SCH ×2 (09:35→17:51)
[2016-09-03] MEDS: SENNOSIDES 8.6 MG TABLET PO SCH (09:35)
[2016-09-03] MEDS: Z GUARD REMEDY 2 OZ OINT TP SCH ×2 (09:35→21:34)
[2016-09-03] MEDS: ALISKIREN HEMIFUMARATE 150 MG TABLET PO SCH (09:35)
[2016-09-03] MEDS: METOPROLOL SUCCINATE 25 MG TAB.SR.24H PO SCH (09:35)
[2016-09-03] MEDS: SERTRALINE HCL 25 MG TABLET PO SCH (09:35)
[2016-09-03] MEDS: HYDROGEN PEROXIDE 480 ML BOTTLE TP SCH ×2 (09:35→21:35)
[2016-09-03] MEDS: HYDROCODONE/APAP 5/325MG 1 EACH TABLET PO PRN ×2 (09:36→21:33)
--- NOTE | 2016-09-03 11:40 | NUR ---
Seen by Dr. Howard, automotive engineer from which resident complain to him that her L great toe hurts. Dr. Howard explained that he may have cut the nail too short but will order triple ATB to be applied X 7 days. Order noted and carried out.
[2016-09-03] MEDS: TRAMADOL HCL 50 MG TABLET PO PRN ×2 (12:16→23:57)
[2016-09-03] MEDS: LIDOCAINE 5% (PATCH) 1 EA PATCH TP SCH (17:51)
[2016-09-03 19:59] VITALS: BP 120/77
[2016-09-03] MEDS: LORAZEPAM 0.5 MG TABLET PO PRN (20:23)
[2016-09-03] MEDS: NEOMY SULF/BACITRAC ZN/POLY 15 GM TUBE TP SCH (21:34)
[2016-09-03] MEDS: ZOLPIDEM TARTRATE 5 MG TABLET PO PRN (22:20)
[2016-09-04] MEDS: IPRATROPIUM NEB FS 0.5 MG/2.5 ML AMPUL.NEB NEB SCH ×4 (01:39→19:23)
[2016-09-04] MEDS: ALBUTEROL FS 2.5 MG/3 ML VIAL.NEB NEB SCH ×4 (01:39→19:23)
[2016-09-04 08:13] VITALS: BP 133/69
[2016-09-04] MEDS: FUROSEMIDE 40 MG TABLET PO SCH (08:27)
[2016-09-04] MEDS: predniSONE 20 MG TABLET PO SCH (08:27)
[2016-09-04] MEDS: ALISKIREN HEMIFUMARATE 150 MG TABLET PO SCH (08:27)
[2016-09-04] MEDS: hydrALAZINE HCL 25 MG TABLET PO SCH ×2 (08:27→21:22)
[2016-09-04] MEDS: SERTRALINE HCL 25 MG TABLET PO SCH (08:27)
[2016-09-04] MEDS: SENNOSIDES 8.6 MG TABLET PO SCH (08:27)
[2016-09-04] MEDS: METOPROLOL SUCCINATE 25 MG TAB.SR.24H PO SCH (08:29)
[2016-09-04] MEDS: ECONAZOLE NITRATE 15 GM TUBE TP SCH ×2 (09:00→16:44)
[2016-09-04] MEDS: Z GUARD REMEDY 2 OZ OINT TP SCH ×2 (09:00→21:22)
[2016-09-04] MEDS: NEOMY SULF/BACITRAC ZN/POLY 15 GM TUBE TP SCH ×2 (09:00→21:22)
[2016-09-04] MEDS: HYDROGEN PEROXIDE 480 ML BOTTLE TP SCH ×2 (09:00→21:22)
[2016-09-04] MEDS: TRAMADOL HCL 50 MG TABLET PO PRN ×2 (15:00→21:44)
[2016-09-04] MEDS: LIDOCAINE 5% (PATCH) 1 EA PATCH TP SCH (16:24)
[2016-09-04 19:35] VITALS: BP 141/76
[2016-09-04] MEDS: ZOLPIDEM TARTRATE 5 MG TABLET PO PRN (21:22)
[2016-09-04] MEDS: LORAZEPAM 0.5 MG TABLET PO PRN (21:22)
[2016-09-05] MEDS: IPRATROPIUM NEB FS 0.5 MG/2.5 ML AMPUL.NEB NEB SCH ×4 (02:03→20:20)
[2016-09-05] MEDS: ALBUTEROL FS 2.5 MG/3 ML VIAL.NEB NEB SCH ×4 (02:03→20:20)
[2016-09-05 07:44] VITALS: BP 144/85
[2016-09-05] MEDS: METOPROLOL SUCCINATE 25 MG TAB.SR.24H PO SCH (08:18)
[2016-09-05] MEDS: ALISKIREN HEMIFUMARATE 150 MG TABLET PO SCH (08:18)
[2016-09-05] MEDS: hydrALAZINE HCL 25 MG TABLET PO SCH ×2 (08:18→20:31)
[2016-09-05] MEDS: SERTRALINE HCL 25 MG TABLET PO SCH (08:18)
[2016-09-05] MEDS: SENNOSIDES 8.6 MG TABLET PO SCH (08:18)
[2016-09-05] MEDS: predniSONE 20 MG TABLET PO SCH (08:18)
[2016-09-05] MEDS: HYDROCODONE/APAP 5/325MG 1 EACH TABLET PO PRN (08:19)
[2016-09-05] MEDS: TRAMADOL HCL 50 MG TABLET PO PRN ×2 (12:35→21:41)
[2016-09-05] MEDS: Z GUARD REMEDY 2 OZ OINT TP SCH ×2 (16:00→20:31)
[2016-09-05] MEDS: ECONAZOLE NITRATE 15 GM TUBE TP SCH ×2 (16:00→17:00)
[2016-09-05] MEDS: HYDROGEN PEROXIDE 480 ML BOTTLE TP SCH ×2 (16:00→20:31)
[2016-09-05] MEDS: NEOMY SULF/BACITRAC ZN/POLY 15 GM TUBE TP SCH ×2 (16:00→20:31)
[2016-09-05] MEDS: LIDOCAINE 5% (PATCH) 1 EA PATCH TP SCH (17:00)
[2016-09-05 20:05] VITALS: BP 145/88
[2016-09-05] MEDS: ZOLPIDEM TARTRATE 5 MG TABLET PO PRN (20:31)
[2016-09-05] MEDS: LORAZEPAM 0.5 MG TABLET PO PRN (20:31)
[2016-09-06] MEDS: HYDROCODONE/APAP 5/325MG 1 EACH TABLET PO PRN ×2 (00:10→08:06)
[2016-09-06] MEDS: IPRATROPIUM NEB FS 0.5 MG/2.5 ML AMPUL.NEB NEB SCH ×4 (01:17→20:07)
[2016-09-06] MEDS: ALBUTEROL FS 2.5 MG/3 ML VIAL.NEB NEB SCH ×4 (01:17→20:07)
[2016-09-06] MEDS: SENNOSIDES 8.6 MG TABLET PO SCH (08:04)
[2016-09-06] MEDS: predniSONE 20 MG TABLET PO SCH (08:04)
[2016-09-06] MEDS: hydrALAZINE HCL 25 MG TABLET PO SCH ×2 (08:04→21:03)
[2016-09-06] MEDS: FUROSEMIDE 40 MG TABLET PO SCH (08:04)
[2016-09-06] MEDS: METOPROLOL SUCCINATE 25 MG TAB.SR.24H PO SCH (08:04)
[2016-09-06] MEDS: ALISKIREN HEMIFUMARATE 150 MG TABLET PO SCH (08:04)
[2016-09-06] MEDS: SERTRALINE HCL 25 MG TABLET PO SCH (08:05)
--- NOTE | 2016-09-06 09:30 | NUR ---
Seen by Dr Yen with no new order.
[2016-09-06 12:23] VITALS: BP 156/60
[2016-09-06] MEDS: TRAMADOL HCL 50 MG TABLET PO PRN ×2 (12:40→23:38)
--- NOTE | 2016-09-06 15:08 | NUR ---
Talked with resident about her anxiety and positive coping mechanisms. Also helped her identify negative thought processes contributing to her anxiety related to discharge.
[2016-09-06] MEDS: Z GUARD REMEDY 2 OZ OINT TP SCH ×2 (15:30→21:04)
[2016-09-06] MEDS: NEOMY SULF/BACITRAC ZN/POLY 15 GM TUBE TP SCH ×2 (15:30→21:04)
[2016-09-06] MEDS: HYDROGEN PEROXIDE 480 ML BOTTLE TP SCH ×2 (15:30→21:04)
[2016-09-06] MEDS: ECONAZOLE NITRATE 15 GM TUBE TP SCH ×2 (15:30→17:50)
[2016-09-06] MEDS: LIDOCAINE 5% (PATCH) 1 EA PATCH TP SCH (17:50)
[2016-09-06 20:04] VITALS: BP 130/77
[2016-09-06] MEDS: LORAZEPAM 0.5 MG TABLET PO PRN (21:04)
[2016-09-06] MEDS: ZOLPIDEM TARTRATE 5 MG TABLET PO PRN (21:04)
[2016-09-07] MEDS: IPRATROPIUM NEB FS 0.5 MG/2.5 ML AMPUL.NEB NEB SCH ×4 (01:51→20:09)
[2016-09-07] MEDS: ALBUTEROL FS 2.5 MG/3 ML VIAL.NEB NEB SCH ×4 (01:51→20:09)
[2016-09-07 07:51] VITALS: BP 114/76
[2016-09-07] MEDS: predniSONE 20 MG TABLET PO SCH (08:06)
[2016-09-07] MEDS: METOPROLOL SUCCINATE 25 MG TAB.SR.24H PO SCH (08:06)
[2016-09-07] MEDS: SERTRALINE HCL 25 MG TABLET PO SCH (08:06)
[2016-09-07] MEDS: hydrALAZINE HCL 25 MG TABLET PO SCH ×2 (08:06→20:20)
[2016-09-07] MEDS: SENNOSIDES 8.6 MG TABLET PO SCH (08:06)
[2016-09-07] MEDS: ALISKIREN HEMIFUMARATE 150 MG TABLET PO SCH (08:06)
[2016-09-07] MEDS: Z GUARD REMEDY 2 OZ OINT TP SCH ×2 (08:07→20:24)
[2016-09-07] MEDS: ECONAZOLE NITRATE 15 GM TUBE TP SCH ×2 (08:07→17:00)
[2016-09-07] MEDS: HYDROGEN PEROXIDE 480 ML BOTTLE TP SCH ×2 (08:07→20:24)
[2016-09-07] MEDS: NEOMY SULF/BACITRAC ZN/POLY 15 GM TUBE TP SCH ×2 (08:07→20:24)
[2016-09-07] MEDS: HYDROCODONE/APAP 5/325MG 1 EACH TABLET PO PRN ×2 (08:09→21:20)
[2016-09-07] MEDS: ERGOCALCIFEROL (VITAMIN D 2) 50,000 UNIT CAPSULE PO SCH (10:00)
[2016-09-07] MEDS: TRAMADOL HCL 50 MG TABLET PO PRN (12:29)
[2016-09-07] MEDS: LIDOCAINE 5% (PATCH) 1 EA PATCH TP SCH (17:00)
[2016-09-07 19:35] VITALS: BP 119/67
[2016-09-07] MEDS: ZOLPIDEM TARTRATE 5 MG TABLET PO PRN (20:21)
[2016-09-07] MEDS: ONDANSETRON 4 MG TAB.RAPDIS PO PRN (20:21)
[2016-09-07] MEDS: LORAZEPAM 0.5 MG TABLET PO PRN (20:21)
[2016-09-08] MEDS: IPRATROPIUM NEB FS 0.5 MG/2.5 ML AMPUL.NEB NEB SCH ×4 (01:22→20:04)
[2016-09-08] MEDS: ALBUTEROL FS 2.5 MG/3 ML VIAL.NEB NEB SCH ×4 (01:22→20:04)
[2016-09-08] MEDS: TRAMADOL HCL 50 MG TABLET PO PRN ×2 (02:20→11:35)
[2016-09-08 07:59] VITALS: BP 129/73
[2016-09-08] MEDS: FUROSEMIDE 40 MG TABLET PO SCH (08:15)
[2016-09-08] MEDS: ALISKIREN HEMIFUMARATE 150 MG TABLET PO SCH (08:15)
[2016-09-08] MEDS: predniSONE 20 MG TABLET PO SCH (08:15)
[2016-09-08] MEDS: SENNOSIDES 8.6 MG TABLET PO SCH (08:15)
[2016-09-08] MEDS: hydrALAZINE HCL 25 MG TABLET PO SCH ×2 (08:15→20:41)
[2016-09-08] MEDS: HYDROGEN PEROXIDE 480 ML BOTTLE TP SCH ×2 (08:16→21:57)
[2016-09-08] MEDS: SERTRALINE HCL 25 MG TABLET PO SCH (08:16)
[2016-09-08] MEDS: METOPROLOL SUCCINATE 25 MG TAB.SR.24H PO SCH (08:16)
[2016-09-08] MEDS: NEOMY SULF/BACITRAC ZN/POLY 15 GM TUBE TP SCH ×2 (08:17→21:57)
[2016-09-08] MEDS: Z GUARD REMEDY 2 OZ OINT TP SCH ×2 (08:17→21:57)
[2016-09-08] MEDS: ECONAZOLE NITRATE 15 GM TUBE TP SCH ×2 (08:17→16:33)
[2016-09-08] MEDS: HYDROCODONE/APAP 5/325MG 1 EACH TABLET PO PRN ×2 (08:18→21:56)
[2016-09-08] MEDS: ONDANSETRON 4 MG TAB.RAPDIS PO PRN (12:18)
[2016-09-08] MEDS: LORAZEPAM 0.5 MG TABLET PO PRN ×2 (12:18→20:39)
[2016-09-08] MEDS: LIDOCAINE 5% (PATCH) 1 EA PATCH TP SCH (16:31)
[2016-09-08 20:24] VITALS: BP 124/71
[2016-09-08] MEDS: ZOLPIDEM TARTRATE 5 MG TABLET PO PRN (22:56)
[2016-09-09] MEDS: TRAMADOL HCL 50 MG TABLET PO PRN ×2 (00:31→13:23)
[2016-09-09] MEDS: ALBUTEROL FS 2.5 MG/3 ML VIAL.NEB NEB SCH ×4 (00:49→20:04)
[2016-09-09] MEDS: IPRATROPIUM NEB FS 0.5 MG/2.5 ML AMPUL.NEB NEB SCH ×4 (00:49→20:04)
[2016-09-09 07:45] VITALS: BP 121/65
--- NOTE | 2016-09-09 08:23 | NUR ---
Sent a message to Dr. Mairno regarding resident's refusal of taking Zoloft. Resident had stated that it makes her feel "weird," cloudy/foggy, and nervous. Awaiting response from Dr. Marino. Addendum: 09/09/16 at 1041 [address]OS LEBRON [address] Marino confirmed that he received the message and will come and see the resident.
[2016-09-09] MEDS: hydrALAZINE HCL 25 MG TABLET PO SCH ×2 (08:38→20:31)
[2016-09-09] MEDS: predniSONE 20 MG TABLET PO SCH (08:39)
[2016-09-09] MEDS: ALISKIREN HEMIFUMARATE 150 MG TABLET PO SCH (08:39)
[2016-09-09] MEDS: SENNOSIDES 8.6 MG TABLET PO SCH (08:39)
[2016-09-09] MEDS: METOPROLOL SUCCINATE 25 MG TAB.SR.24H PO SCH (08:39)
[2016-09-09] MEDS: NEOMY SULF/BACITRAC ZN/POLY 15 GM TUBE TP SCH ×2 (08:40→20:31)
[2016-09-09] MEDS: Z GUARD REMEDY 2 OZ OINT TP SCH ×2 (08:40→20:31)
[2016-09-09] MEDS: HYDROGEN PEROXIDE 480 ML BOTTLE TP SCH ×2 (08:40→20:31)
[2016-09-09] MEDS: ECONAZOLE NITRATE 15 GM TUBE TP SCH ×2 (08:40→17:58)
[2016-09-09] MEDS: SERTRALINE HCL 25 MG TABLET PO SCH (08:40)
[2016-09-09] MEDS: HYDROCODONE/APAP 5/325MG 1 EACH TABLET PO PRN ×2 (12:04→19:47)
[2016-09-09] MEDS: LIDOCAINE 5% (PATCH) 1 EA PATCH TP SCH (17:58)
--- NOTE | 2016-09-09 18:15 | NUR ---
Seen and examined by Dr. Palacios no new order given at this time, but he was notified that resident is refusing her medication Zoloft. Dr. Marino saw her which he discontinue the medication.
[2016-09-09 19:35] VITALS: BP 127/77
[2016-09-09] MEDS: LORAZEPAM 0.5 MG TABLET PO PRN (20:44)
[2016-09-09] MEDS: ZOLPIDEM TARTRATE 5 MG TABLET PO PRN (21:15)
[2016-09-10] MEDS: ALBUTEROL FS 2.5 MG/3 ML VIAL.NEB NEB SCH ×4 (01:56→19:30)
[2016-09-10] MEDS: IPRATROPIUM NEB FS 0.5 MG/2.5 ML AMPUL.NEB NEB SCH ×4 (01:56→19:30)
[2016-09-10 07:32] VITALS: BP 133/80
[2016-09-10] MEDS: ALISKIREN HEMIFUMARATE 150 MG TABLET PO SCH (08:38)
[2016-09-10] MEDS: METOPROLOL SUCCINATE 25 MG TAB.SR.24H PO SCH (08:38)
[2016-09-10] MEDS: FUROSEMIDE 40 MG TABLET PO SCH (08:38)
[2016-09-10] MEDS: hydrALAZINE HCL 25 MG TABLET PO SCH ×2 (08:38→20:34)
[2016-09-10] MEDS: predniSONE 20 MG TABLET PO SCH (08:38)
[2016-09-10] MEDS: SENNOSIDES 8.6 MG TABLET PO SCH (08:38)
[2016-09-10] MEDS: NEOMY SULF/BACITRAC ZN/POLY 15 GM TUBE TP SCH (09:00)
[2016-09-10] MEDS: ECONAZOLE NITRATE 15 GM TUBE TP SCH ×2 (09:00→17:08)
[2016-09-10] MEDS: HYDROGEN PEROXIDE 480 ML BOTTLE TP SCH ×2 (09:00→20:34)
[2016-09-10] MEDS: Z GUARD REMEDY 2 OZ OINT TP SCH ×2 (09:00→20:34)
[2016-09-10] MEDS: HYDROCODONE/APAP 5/325MG 1 EACH TABLET PO PRN ×2 (09:03→19:26)
[2016-09-10] MEDS: TRAMADOL HCL 50 MG TABLET PO PRN ×2 (11:56→23:59)
[2016-09-10] MEDS: LIDOCAINE 5% (PATCH) 1 EA PATCH TP SCH (17:08)
[2016-09-10 19:44] VITALS: BP 149/75
[2016-09-10] MEDS: LORAZEPAM 0.5 MG TABLET PO PRN (21:19)
[2016-09-10] MEDS: ZOLPIDEM TARTRATE 5 MG TABLET PO PRN (22:36)
[2016-09-11] MEDS: ALBUTEROL FS 2.5 MG/3 ML VIAL.NEB NEB SCH ×4 (01:30→19:15)
[2016-09-11] MEDS: IPRATROPIUM NEB FS 0.5 MG/2.5 ML AMPUL.NEB NEB SCH ×4 (01:30→19:15)
[2016-09-11] MEDS: METOPROLOL SUCCINATE 25 MG TAB.SR.24H PO SCH (08:12)
[2016-09-11] MEDS: ALISKIREN HEMIFUMARATE 150 MG TABLET PO SCH (08:12)
[2016-09-11] MEDS: predniSONE 20 MG TABLET PO SCH (08:12)
[2016-09-11] MEDS: hydrALAZINE HCL 25 MG TABLET PO SCH ×2 (08:12→20:32)
[2016-09-11] MEDS: SENNOSIDES 8.6 MG TABLET PO SCH (08:12)
[2016-09-11] MEDS: HYDROGEN PEROXIDE 480 ML BOTTLE TP SCH ×2 (08:13→20:32)
[2016-09-11] MEDS: ECONAZOLE NITRATE 15 GM TUBE TP SCH ×2 (08:13→17:00)
[2016-09-11] MEDS: Z GUARD REMEDY 2 OZ OINT TP SCH ×2 (08:13→20:32)
[2016-09-11 08:19] VITALS: BP 131/73
[2016-09-11] MEDS: HYDROCODONE/APAP 5/325MG 1 EACH TABLET PO PRN ×2 (11:19→20:55)
[2016-09-11] MEDS: TRAMADOL HCL 50 MG TABLET PO PRN (12:45)
[2016-09-11] MEDS: LIDOCAINE 5% (PATCH) 1 EA PATCH TP SCH (17:00)
[2016-09-11 19:42] VITALS: BP 147/79
[2016-09-11] MEDS: LORAZEPAM 0.5 MG TABLET PO PRN (20:33)
[2016-09-11] MEDS: ZOLPIDEM TARTRATE 5 MG TABLET PO PRN (23:13)
[2016-09-12] MEDS: ALBUTEROL FS 2.5 MG/3 ML VIAL.NEB NEB SCH ×4 (01:02→19:37)
[2016-09-12] MEDS: IPRATROPIUM NEB FS 0.5 MG/2.5 ML AMPUL.NEB NEB SCH ×4 (01:02→19:37)
[2016-09-12 07:45] VITALS: BP 148/78
[2016-09-12] MEDS: HYDROCODONE/APAP 5/325MG 1 EACH TABLET PO PRN ×4 (08:10→20:54)
[2016-09-12] MEDS: ECONAZOLE NITRATE 15 GM TUBE TP SCH (09:00)
[2016-09-12] MEDS: Z GUARD REMEDY 2 OZ OINT TP SCH ×2 (09:00→20:53)
[2016-09-12] MEDS: HYDROGEN PEROXIDE 480 ML BOTTLE TP SCH ×2 (09:00→20:53)
[2016-09-12] MEDS: hydrALAZINE HCL 25 MG TABLET PO SCH ×2 (09:23→20:53)
[2016-09-12] MEDS: predniSONE 20 MG TABLET PO SCH (09:23)
[2016-09-12] MEDS: FUROSEMIDE 40 MG TABLET PO SCH (09:23)
[2016-09-12] MEDS: METOPROLOL SUCCINATE 25 MG TAB.SR.24H PO SCH (09:24)
[2016-09-12] MEDS: SENNOSIDES 8.6 MG TABLET PO SCH (09:24)
[2016-09-12] MEDS: ALISKIREN HEMIFUMARATE 150 MG TABLET PO SCH (09:24)
--- NOTE | 2016-09-12 09:25 | NUR ---
Dental cleaning was completed by Dr. Margoth BURGOS.
[2016-09-12] MEDS: TRAMADOL HCL 50 MG TABLET PO PRN (12:13)
[2016-09-12] MEDS: LIDOCAINE 5% (PATCH) 1 EA PATCH TP SCH (17:53)
[2016-09-12 19:52] VITALS: BP 128/75
[2016-09-12] MEDS: LORAZEPAM 0.5 MG TABLET PO PRN (20:53)
[2016-09-12] MEDS: ZOLPIDEM TARTRATE 5 MG TABLET PO PRN (20:54)
[2016-09-13] MEDS: ALBUTEROL FS 2.5 MG/3 ML VIAL.NEB NEB SCH ×4 (02:22→19:30)
[2016-09-13] MEDS: IPRATROPIUM NEB FS 0.5 MG/2.5 ML AMPUL.NEB NEB SCH ×4 (02:22→19:30)
[2016-09-13 07:45] VITALS: BP_SYST 126; BP_SYST 139; BP_DIAS 73; BP_DIAS 80
[2016-09-13] MEDS: Z GUARD REMEDY 2 OZ OINT TP SCH ×2 (09:50→20:35)
[2016-09-13] MEDS: ALISKIREN HEMIFUMARATE 150 MG TABLET PO SCH (09:50)
[2016-09-13] MEDS: SENNOSIDES 8.6 MG TABLET PO SCH (09:50)
[2016-09-13] MEDS: hydrALAZINE HCL 25 MG TABLET PO SCH ×2 (09:50→20:34)
[2016-09-13] MEDS: predniSONE 20 MG TABLET PO SCH (09:50)
[2016-09-13] MEDS: METOPROLOL SUCCINATE 25 MG TAB.SR.24H PO SCH (09:50)
[2016-09-13] MEDS: HYDROGEN PEROXIDE 480 ML BOTTLE TP SCH ×2 (09:50→20:35)
[2016-09-13] MEDS: HYDROCODONE/APAP 5/325MG 1 EACH TABLET PO PRN (10:08)
[2016-09-13] MEDS: LORAZEPAM 0.5 MG TABLET PO PRN ×2 (14:43→21:23)
[2016-09-13] MEDS: LIDOCAINE 5% (PATCH) 1 EA PATCH TP SCH (16:02)
[2016-09-13 20:06] VITALS: BP 124/68
[2016-09-13] MEDS: TRAMADOL HCL 50 MG TABLET PO PRN (23:08)
[2016-09-14] MEDS: ALBUTEROL FS 2.5 MG/3 ML VIAL.NEB NEB SCH ×4 (01:30→20:16)
[2016-09-14] MEDS: IPRATROPIUM NEB FS 0.5 MG/2.5 ML AMPUL.NEB NEB SCH ×4 (01:30→20:15)
[2016-09-14 07:37] VITALS: BP 149/82
[2016-09-14] MEDS: ALISKIREN HEMIFUMARATE 150 MG TABLET PO SCH (08:17)
[2016-09-14] MEDS: predniSONE 20 MG TABLET PO SCH (08:17)
[2016-09-14] MEDS: hydrALAZINE HCL 25 MG TABLET PO SCH ×2 (08:17→20:40)
[2016-09-14] MEDS: FUROSEMIDE 40 MG TABLET PO SCH (08:17)
[2016-09-14] MEDS: SENNOSIDES 8.6 MG TABLET PO SCH (08:17)
[2016-09-14] MEDS: HYDROGEN PEROXIDE 480 ML BOTTLE TP SCH ×2 (08:17→20:40)
[2016-09-14] MEDS: METOPROLOL SUCCINATE 25 MG TAB.SR.24H PO SCH (08:17)
[2016-09-14] MEDS: Z GUARD REMEDY 2 OZ OINT TP SCH ×2 (08:18→20:40)
[2016-09-14] MEDS: HYDROCODONE/APAP 5/325MG 1 EACH TABLET PO PRN ×2 (08:18→20:41)
[2016-09-14] MEDS: ERGOCALCIFEROL (VITAMIN D 2) 50,000 UNIT CAPSULE PO SCH (10:00)
[2016-09-14] MEDS: TRAMADOL HCL 50 MG TABLET PO PRN (13:13)
[2016-09-14] MEDS: LIDOCAINE 5% (PATCH) 1 EA PATCH TP SCH (16:05)
[2016-09-14 19:55] VITALS: BP 136/73
[2016-09-14] MEDS: ZOLPIDEM TARTRATE 5 MG TABLET PO PRN (20:41)
[2016-09-14] MEDS: LORAZEPAM 0.5 MG TABLET PO PRN (20:41)
[2016-09-15] MEDS: TRAMADOL HCL 50 MG TABLET PO PRN ×2 (01:22→14:22)
[2016-09-15] MEDS: ALBUTEROL FS 2.5 MG/3 ML VIAL.NEB NEB SCH ×4 (02:13→20:04)
[2016-09-15] MEDS: IPRATROPIUM NEB FS 0.5 MG/2.5 ML AMPUL.NEB NEB SCH ×4 (02:13→20:04)
[2016-09-15 08:13] VITALS: BP 118/69
[2016-09-15] MEDS: ALISKIREN HEMIFUMARATE 150 MG TABLET PO SCH (09:28)
[2016-09-15] MEDS: HYDROGEN PEROXIDE 480 ML BOTTLE TP SCH ×2 (09:28→21:00)
[2016-09-15] MEDS: predniSONE 20 MG TABLET PO SCH (09:28)
[2016-09-15] MEDS: SENNOSIDES 8.6 MG TABLET PO SCH (09:28)
[2016-09-15] MEDS: METOPROLOL SUCCINATE 25 MG TAB.SR.24H PO SCH (09:28)
[2016-09-15] MEDS: hydrALAZINE HCL 25 MG TABLET PO SCH ×2 (09:28→20:26)
[2016-09-15] MEDS: Z GUARD REMEDY 2 OZ OINT TP SCH ×2 (09:29→21:00)
[2016-09-15] MEDS: HYDROCODONE/APAP 5/325MG 1 EACH TABLET PO PRN ×2 (10:18→21:21)
[2016-09-15] MEDS: LIDOCAINE 5% (PATCH) 1 EA PATCH TP SCH (16:36)
[2016-09-15] MEDS: ONDANSETRON 4 MG TAB.RAPDIS PO PRN (18:13)
[2016-09-15] MEDS: LORAZEPAM 0.5 MG TABLET PO PRN (20:26)
[2016-09-16] MEDS: ZOLPIDEM TARTRATE 5 MG TABLET PO PRN ×2 (00:29→20:37)
[2016-09-16] MEDS: ALBUTEROL FS 2.5 MG/3 ML VIAL.NEB NEB SCH ×4 (02:11→19:48)
[2016-09-16] MEDS: IPRATROPIUM NEB FS 0.5 MG/2.5 ML AMPUL.NEB NEB SCH ×4 (02:11→19:48)
[2016-09-16 08:01] VITALS: BP 139/64
[2016-09-16] MEDS: ALISKIREN HEMIFUMARATE 150 MG TABLET PO SCH (09:00)
[2016-09-16] MEDS: hydrALAZINE HCL 25 MG TABLET PO SCH ×2 (09:00→20:36)
[2016-09-16] MEDS: predniSONE 20 MG TABLET PO SCH (09:00)
[2016-09-16] MEDS: FUROSEMIDE 40 MG TABLET PO SCH (09:00)
[2016-09-16] MEDS: SENNOSIDES 8.6 MG TABLET PO SCH (09:00)
[2016-09-16] MEDS: Z GUARD REMEDY 2 OZ OINT TP SCH ×2 (09:01→20:36)
[2016-09-16] MEDS: METOPROLOL SUCCINATE 25 MG TAB.SR.24H PO SCH (09:01)
[2016-09-16] MEDS: HYDROGEN PEROXIDE 480 ML BOTTLE TP SCH ×2 (09:01→20:36)
[2016-09-16] MEDS: HYDROCODONE/APAP 5/325MG 1 EACH TABLET PO PRN ×2 (09:21→21:35)
[2016-09-16] MEDS: TRAMADOL HCL 50 MG TABLET PO PRN (12:02)
[2016-09-16] MEDS: LIDOCAINE 5% (PATCH) 1 EA PATCH TP SCH (16:54)
--- NOTE | 2016-09-16 18:00 | NUR ---
Resident heard banging the table asking to go to the bathroom. Went into the patient's room informing her that when staff cannot immediately come to attend her needs, she can go to the restroom alone. She stated she cannot go to the bathroom alone and cannot disconnect herself from O2. Inform her that she is capable of removing the trach mask over her head. Observed her demonstrate removing trach mask from cool aerosol and ambulate to the bathroom without difficulty with steady gait. Reminded resident to always wash hands after using the bathroom. Resident needs assistance putting back her trach mask, so staff did this task for her. She asked this nurse, "Are you kicking me out here?". Explained that we are not kicking her out but eventually the goal is for her to go to a lower level of care like staying with her friends and family or to a jail. Patient insisted that she is not ready. Reiterated that discharge is not anywhere soon but will take a process to get there. SSD is talking to her regularly regarding discharge plan. Subacute is a temporary placement and admitted that she wanted to stay with her friends but she should have her trach removed first. Further explained to Mrs. Hook that in order to remove the trach the doctor will make sure she is tolerating PMV then trach capping for long time. Resident set a goal for herself which she said she will keep. Endorsed to incoming shift supervise toileting use and assist only as needed to promote independence.
[2016-09-16 19:46] VITALS: BP 137/77
[2016-09-16] MEDS: LORAZEPAM 0.5 MG TABLET PO PRN (20:37)
[2016-09-17] MEDS: ALBUTEROL FS 2.5 MG/3 ML VIAL.NEB NEB SCH ×4 (00:33→19:37)
[2016-09-17] MEDS: IPRATROPIUM NEB FS 0.5 MG/2.5 ML AMPUL.NEB NEB SCH ×4 (00:33→19:37)
[2016-09-17] MEDS: TRAMADOL HCL 50 MG TABLET PO PRN ×2 (00:50→12:02)
[2016-09-17 08:01] VITALS: BP 101/64
[2016-09-17] MEDS: SENNOSIDES 8.6 MG TABLET PO SCH (09:00)
[2016-09-17] MEDS: ALISKIREN HEMIFUMARATE 150 MG TABLET PO SCH (09:00)
[2016-09-17] MEDS: METOPROLOL SUCCINATE 25 MG TAB.SR.24H PO SCH (09:00)
[2016-09-17] MEDS: predniSONE 20 MG TABLET PO SCH (09:00)
[2016-09-17] MEDS: HYDROGEN PEROXIDE 480 ML BOTTLE TP SCH ×2 (09:00→20:34)
[2016-09-17] MEDS: hydrALAZINE HCL 25 MG TABLET PO SCH ×2 (09:00→20:34)
[2016-09-17] MEDS: Z GUARD REMEDY 2 OZ OINT TP SCH ×2 (09:00→20:35)
[2016-09-17] MEDS: HYDROCODONE/APAP 5/325MG 1 EACH TABLET PO PRN ×2 (10:06→21:11)
[2016-09-17] MEDS: LIDOCAINE 5% (PATCH) 1 EA PATCH TP SCH (16:07)
[2016-09-17] MEDS: ONDANSETRON 4 MG TAB.RAPDIS PO PRN (16:45)
--- NOTE | 2016-09-17 17:00 | NUR ---
Resident continue to use the bathroom independently with supervision and assistance only to put her O2 back. She felt a sense of independence and pride that she accomplished a goal and able to overcome her fear. Will continue to encourage resident to do as much independence as possible based on her ability.
[2016-09-17 19:42] VITALS: BP 129/64
[2016-09-17] MEDS: LORAZEPAM 0.5 MG TABLET PO PRN (20:35)
[2016-09-17] MEDS: ZOLPIDEM TARTRATE 5 MG TABLET PO PRN (22:24)
[2016-09-18] MEDS: IPRATROPIUM NEB FS 0.5 MG/2.5 ML AMPUL.NEB NEB SCH ×4 (01:37→19:35)
[2016-09-18] MEDS: ALBUTEROL FS 2.5 MG/3 ML VIAL.NEB NEB SCH ×4 (01:37→19:35)
--- NOTE | 2016-09-18 07:11 | NUR ---
Patient ambulate going to the bathroom with supervision throughout the night and able to remove trach collar and ask primary nurse to put it back on. No sign of distress or discomfort during ambulation.
[2016-09-18 07:46] VITALS: BP 136/86
[2016-09-18] MEDS: HYDROCODONE/APAP 5/325MG 1 EACH TABLET PO PRN ×2 (08:30→21:20)
[2016-09-18] MEDS: HYDROGEN PEROXIDE 480 ML BOTTLE TP SCH ×2 (09:00→20:53)
[2016-09-18] MEDS: Z GUARD REMEDY 2 OZ OINT TP SCH ×2 (09:00→20:53)
[2016-09-18] MEDS: FUROSEMIDE 40 MG TABLET PO SCH (09:04)
[2016-09-18] MEDS: hydrALAZINE HCL 25 MG TABLET PO SCH ×2 (09:04→20:53)
[2016-09-18] MEDS: SENNOSIDES 8.6 MG TABLET PO SCH (09:04)
[2016-09-18] MEDS: predniSONE 20 MG TABLET PO SCH (09:04)
[2016-09-18] MEDS: METOPROLOL SUCCINATE 25 MG TAB.SR.24H PO SCH (09:05)
[2016-09-18] MEDS: ALISKIREN HEMIFUMARATE 150 MG TABLET PO SCH (09:05)
[2016-09-18] MEDS: TRAMADOL HCL 50 MG TABLET PO PRN ×2 (11:56→23:19)
[2016-09-18] MEDS: LIDOCAINE 5% (PATCH) 1 EA PATCH TP SCH (17:36)
[2016-09-18] MEDS: ZOLPIDEM TARTRATE 5 MG TABLET PO PRN (20:54)
[2016-09-18] MEDS: LORAZEPAM 0.5 MG TABLET PO PRN (20:54)
[2016-09-18 21:33] VITALS: BP 122/70
[2016-09-19] MEDS: ALBUTEROL FS 2.5 MG/3 ML VIAL.NEB NEB SCH ×4 (00:41→19:38)
[2016-09-19] MEDS: IPRATROPIUM NEB FS 0.5 MG/2.5 ML AMPUL.NEB NEB SCH ×4 (00:41→19:38)
[2016-09-19 07:25] LABS: CALCIUM, SERUM 8.9 mg/dL (8.5-10.1); CREATININE 2.3 mg/dL (0.6-1.3); POTASSIUM 4.1 mmol/L (3.5-5.1)
[2016-09-19 07:46] VITALS: BP 121/73
[2016-09-19] MEDS: hydrALAZINE HCL 25 MG TABLET PO SCH ×2 (09:43→21:15)
[2016-09-19] MEDS: predniSONE 20 MG TABLET PO SCH (09:43)
[2016-09-19] MEDS: METOPROLOL SUCCINATE 25 MG TAB.SR.24H PO SCH (09:44)
[2016-09-19] MEDS: HYDROGEN PEROXIDE 480 ML BOTTLE TP SCH ×2 (09:44→21:15)
[2016-09-19] MEDS: Z GUARD REMEDY 2 OZ OINT TP SCH ×2 (09:44→21:15)
[2016-09-19] MEDS: SENNOSIDES 8.6 MG TABLET PO SCH (09:44)
[2016-09-19] MEDS: ALISKIREN HEMIFUMARATE 150 MG TABLET PO SCH (09:44)
[2016-09-19] MEDS: HYDROCODONE/APAP 5/325MG 1 EACH TABLET PO PRN ×2 (09:46→21:26)
[2016-09-19] MEDS: TRAMADOL HCL 50 MG TABLET PO PRN (12:11)
--- NOTE | 2016-09-19 14:25 | NUR ---
Seen by Dr. Mcqueen today. She saw pt's BMP result, BUN 43 Cr 2.3. Received order to DC Lasix and do BMP again on 09/26/16. Notified pt.
[2016-09-19] MEDS: LIDOCAINE 5% (PATCH) 1 EA PATCH TP SCH (16:15)
[2016-09-19] MEDS: ONDANSETRON 4 MG TAB.RAPDIS PO PRN (18:16)
[2016-09-19 19:55] VITALS: BP 125/70
[2016-09-19] MEDS: LORAZEPAM 0.5 MG TABLET PO PRN (21:15)
[2016-09-19] MEDS: ZOLPIDEM TARTRATE 5 MG TABLET PO PRN (21:15)
[2016-09-20] MEDS: ALBUTEROL FS 2.5 MG/3 ML VIAL.NEB NEB SCH ×4 (01:13→20:15)
[2016-09-20] MEDS: IPRATROPIUM NEB FS 0.5 MG/2.5 ML AMPUL.NEB NEB SCH ×4 (01:13→20:15)
[2016-09-20 07:48] VITALS: BP 138/77
[2016-09-20] MEDS: hydrALAZINE HCL 25 MG TABLET PO SCH ×2 (08:40→21:00)
[2016-09-20] MEDS: ALISKIREN HEMIFUMARATE 150 MG TABLET PO SCH (08:41)
[2016-09-20] MEDS: METOPROLOL SUCCINATE 25 MG TAB.SR.24H PO SCH (08:41)
[2016-09-20] MEDS: predniSONE 20 MG TABLET PO SCH (08:41)
[2016-09-20] MEDS: SENNOSIDES 8.6 MG TABLET PO SCH (08:41)
[2016-09-20] MEDS: HYDROCODONE/APAP 5/325MG 1 EACH TABLET PO PRN ×2 (08:42→21:27)
[2016-09-20] MEDS: Z GUARD REMEDY 2 OZ OINT TP SCH ×2 (10:30→21:14)
[2016-09-20] MEDS: HYDROGEN PEROXIDE 480 ML BOTTLE TP SCH ×2 (10:30→21:14)
[2016-09-20] MEDS: TRAMADOL HCL 50 MG TABLET PO PRN (12:25)
--- NOTE | 2016-09-20 15:11 | NUR ---
Spoke to resident to alleviate fears about discharge plan.
--- NOTE | 2016-09-20 15:35 | NUR ---
Pt ambulating to her own bathroom with a steady gait, staff assists her when placing the trach mask back on. Pt able to remove the trach mask on her own. Pt is using the PMV according to her planned number of hours of PMV use per day. Dr. Yen aware.
[2016-09-20] MEDS: LIDOCAINE 5% (PATCH) 1 EA PATCH TP SCH (17:42)
[2016-09-20 19:50] VITALS: BP 135/70
[2016-09-20] MEDS: ZOLPIDEM TARTRATE 5 MG TABLET PO PRN (21:14)
[2016-09-20] MEDS: LORAZEPAM 0.5 MG TABLET PO PRN (21:14)
[2016-09-21] MEDS: TRAMADOL HCL 50 MG TABLET PO PRN ×2 (01:22→11:46)
[2016-09-21] MEDS: IPRATROPIUM NEB FS 0.5 MG/2.5 ML AMPUL.NEB NEB SCH ×5 (01:28→19:49)
[2016-09-21] MEDS: ALBUTEROL FS 2.5 MG/3 ML VIAL.NEB NEB SCH ×5 (01:29→19:49)
[2016-09-21 07:57] VITALS: BP 142/78
[2016-09-21] MEDS: METOPROLOL SUCCINATE 25 MG TAB.SR.24H PO SCH (08:23)
[2016-09-21] MEDS: HYDROGEN PEROXIDE 480 ML BOTTLE TP SCH ×2 (08:23→20:39)
[2016-09-21] MEDS: ALISKIREN HEMIFUMARATE 150 MG TABLET PO SCH (08:23)
[2016-09-21] MEDS: SENNOSIDES 8.6 MG TABLET PO SCH (08:23)
[2016-09-21] MEDS: hydrALAZINE HCL 25 MG TABLET PO SCH ×2 (08:23→20:39)
[2016-09-21] MEDS: predniSONE 20 MG TABLET PO SCH (08:23)
[2016-09-21] MEDS: Z GUARD REMEDY 2 OZ OINT TP SCH ×2 (08:24→20:39)
[2016-09-21] MEDS: HYDROCODONE/APAP 5/325MG 1 EACH TABLET PO PRN ×2 (08:38→21:12)
[2016-09-21] MEDS: ERGOCALCIFEROL (VITAMIN D 2) 50,000 UNIT CAPSULE PO SCH (10:00)
[2016-09-21] MEDS: LIDOCAINE 5% (PATCH) 1 EA PATCH TP SCH (17:38)
[2016-09-21 20:00] VITALS: BP 129/73
[2016-09-21] MEDS: ZOLPIDEM TARTRATE 5 MG TABLET PO PRN (20:40)
[2016-09-21] MEDS: LORAZEPAM 0.5 MG TABLET PO PRN (20:40)
[2016-09-22] MEDS: TRAMADOL HCL 50 MG TABLET PO PRN ×2 (01:58→12:22)
[2016-09-22] MEDS: ALBUTEROL FS 2.5 MG/3 ML VIAL.NEB NEB SCH ×4 (02:12→20:18)
[2016-09-22] MEDS: IPRATROPIUM NEB FS 0.5 MG/2.5 ML AMPUL.NEB NEB SCH ×4 (02:12→20:18)
[2016-09-22 07:45] VITALS: BP 140/75
[2016-09-22] MEDS: hydrALAZINE HCL 25 MG TABLET PO SCH ×2 (09:45→20:34)
[2016-09-22] MEDS: ALISKIREN HEMIFUMARATE 150 MG TABLET PO SCH (09:45)
[2016-09-22] MEDS: HYDROGEN PEROXIDE 480 ML BOTTLE TP SCH ×2 (09:45→20:34)
[2016-09-22] MEDS: predniSONE 20 MG TABLET PO SCH (09:45)
[2016-09-22] MEDS: Z GUARD REMEDY 2 OZ OINT TP SCH ×2 (09:45→20:34)
[2016-09-22] MEDS: SENNOSIDES 8.6 MG TABLET PO SCH (09:45)
[2016-09-22] MEDS: METOPROLOL SUCCINATE 25 MG TAB.SR.24H PO SCH (09:45)
[2016-09-22] MEDS: HYDROCODONE/APAP 5/325MG 1 EACH TABLET PO PRN ×2 (09:46→22:13)
--- NOTE | 2016-09-22 16:00 | NUR ---
Met with resident to alleviate concerns about discharge plan.
[2016-09-22] MEDS: LIDOCAINE 5% (PATCH) 1 EA PATCH TP SCH (16:10)
--- NOTE | 2016-09-22 16:23 | NUR ---
RT NOTE: PT. DID NOT TAKE 1330 TX UNTIL GIVEN AROUND 1530 PER HER REQUEST. NO ADVERSE REACTION OR DISTRESS NOTED T/O SHIFT REMAIN ON COOL AEROSOL.
[2016-09-22 19:41] VITALS: BP 127/69
[2016-09-22] MEDS: LORAZEPAM 0.5 MG TABLET PO PRN (20:35)
[2016-09-22] MEDS: ZOLPIDEM TARTRATE 5 MG TABLET PO PRN (23:52)
[2016-09-23] MEDS: TRAMADOL HCL 50 MG TABLET PO PRN ×2 (00:32→12:32)
[2016-09-23] MEDS: ALBUTEROL FS 2.5 MG/3 ML VIAL.NEB NEB SCH ×4 (00:56→19:21)
[2016-09-23] MEDS: IPRATROPIUM NEB FS 0.5 MG/2.5 ML AMPUL.NEB NEB SCH ×4 (00:56→19:21)
[2016-09-23 07:59] VITALS: BP 137/84
[2016-09-23] MEDS: ALISKIREN HEMIFUMARATE 150 MG TABLET PO SCH (09:19)
[2016-09-23] MEDS: hydrALAZINE HCL 25 MG TABLET PO SCH ×2 (09:19→20:39)
[2016-09-23] MEDS: METOPROLOL SUCCINATE 25 MG TAB.SR.24H PO SCH (09:19)
[2016-09-23] MEDS: predniSONE 20 MG TABLET PO SCH (09:19)
[2016-09-23] MEDS: SENNOSIDES 8.6 MG TABLET PO SCH (09:19)
[2016-09-23] MEDS: HYDROGEN PEROXIDE 480 ML BOTTLE TP SCH ×2 (09:20→20:40)
[2016-09-23] MEDS: Z GUARD REMEDY 2 OZ OINT TP SCH ×2 (09:20→20:40)
[2016-09-23] MEDS: HYDROCODONE/APAP 5/325MG 1 EACH TABLET PO PRN ×2 (09:29→20:59)
[2016-09-23] MEDS: LIDOCAINE 5% (PATCH) 1 EA PATCH TP SCH (16:31)
[2016-09-23 19:52] VITALS: BP 141/89
[2016-09-23] MEDS: ZOLPIDEM TARTRATE 5 MG TABLET PO PRN (20:40)
[2016-09-23] MEDS: LORAZEPAM 0.5 MG TABLET PO PRN (20:40)
[2016-09-24] MEDS: TRAMADOL HCL 50 MG TABLET PO PRN ×2 (00:48→11:27)
[2016-09-24] MEDS: ALBUTEROL FS 2.5 MG/3 ML VIAL.NEB NEB SCH ×4 (01:51→19:58)
[2016-09-24] MEDS: IPRATROPIUM NEB FS 0.5 MG/2.5 ML AMPUL.NEB NEB SCH ×4 (01:51→19:58)
[2016-09-24] MEDS: SENNOSIDES 8.6 MG TABLET PO SCH (09:44)
[2016-09-24] MEDS: predniSONE 20 MG TABLET PO SCH (09:44)
[2016-09-24] MEDS: hydrALAZINE HCL 25 MG TABLET PO SCH ×2 (09:44→20:34)
[2016-09-24] MEDS: ALISKIREN HEMIFUMARATE 150 MG TABLET PO SCH (09:44)
[2016-09-24] MEDS: Z GUARD REMEDY 2 OZ OINT TP SCH ×2 (09:45→20:34)
[2016-09-24] MEDS: HYDROGEN PEROXIDE 480 ML BOTTLE TP SCH ×2 (09:45→20:34)
[2016-09-24] MEDS: METOPROLOL SUCCINATE 25 MG TAB.SR.24H PO SCH (09:45)
[2016-09-24] MEDS: HYDROCODONE/APAP 5/325MG 1 EACH TABLET PO PRN ×2 (09:46→21:49)
[2016-09-24] MEDS: LIDOCAINE 5% (PATCH) 1 EA PATCH TP SCH (16:39)
[2016-09-24 20:00] VITALS: BP 127/65
[2016-09-24] MEDS: LORAZEPAM 0.5 MG TABLET PO PRN (20:33)
[2016-09-24] MEDS: ZOLPIDEM TARTRATE 5 MG TABLET PO PRN (23:00)
[2016-09-25] MEDS: IPRATROPIUM NEB FS 0.5 MG/2.5 ML AMPUL.NEB NEB SCH ×4 (02:02→19:37)
[2016-09-25] MEDS: ALBUTEROL FS 2.5 MG/3 ML VIAL.NEB NEB SCH ×4 (02:02→19:37)
[2016-09-25 07:58] VITALS: BP 127/82
[2016-09-25] MEDS: HYDROCODONE/APAP 5/325MG 1 EACH TABLET PO PRN (08:15)
[2016-09-25] MEDS: hydrALAZINE HCL 25 MG TABLET PO SCH ×2 (08:55→21:18)
[2016-09-25] MEDS: ALISKIREN HEMIFUMARATE 150 MG TABLET PO SCH (08:55)
[2016-09-25] MEDS: METOPROLOL SUCCINATE 25 MG TAB.SR.24H PO SCH (08:55)
[2016-09-25] MEDS: predniSONE 20 MG TABLET PO SCH (08:55)
[2016-09-25] MEDS: SENNOSIDES 8.6 MG TABLET PO SCH (08:55)
[2016-09-25] MEDS: HYDROGEN PEROXIDE 480 ML BOTTLE TP SCH ×2 (09:00→21:18)
[2016-09-25] MEDS: Z GUARD REMEDY 2 OZ OINT TP SCH ×2 (09:00→21:18)
[2016-09-25] MEDS: TRAMADOL HCL 50 MG TABLET PO PRN ×2 (13:17→21:49)
[2016-09-25] MEDS: LIDOCAINE 5% (PATCH) 1 EA PATCH TP SCH (17:32)
[2016-09-25 20:01] VITALS: BP_SYST 144; BP_SYST 92; BP_DIAS 56; BP_DIAS 79
[2016-09-25] MEDS: LORAZEPAM 0.5 MG TABLET PO PRN (21:18)
[2016-09-25] MEDS: ZOLPIDEM TARTRATE 5 MG TABLET PO PRN (21:19)
[2016-09-26] MEDS: IPRATROPIUM NEB FS 0.5 MG/2.5 ML AMPUL.NEB NEB SCH ×4 (01:03→20:18)
[2016-09-26] MEDS: ALBUTEROL FS 2.5 MG/3 ML VIAL.NEB NEB SCH ×4 (01:03→20:18)
[2016-09-26 07:05] LABS: CALCIUM, SERUM 8.7 mg/dL (8.5-10.1); CREATININE 1.8 mg/dL (0.6-1.3); POTASSIUM 4.1 mmol/L (3.5-5.1)
[2016-09-26] MEDS: predniSONE 20 MG TABLET PO SCH (08:05)
[2016-09-26] MEDS: SENNOSIDES 8.6 MG TABLET PO SCH (08:05)
[2016-09-26] MEDS: hydrALAZINE HCL 25 MG TABLET PO SCH ×2 (08:05→20:51)
[2016-09-26] MEDS: ALISKIREN HEMIFUMARATE 150 MG TABLET PO SCH (08:05)
[2016-09-26] MEDS: METOPROLOL SUCCINATE 25 MG TAB.SR.24H PO SCH (08:05)
[2016-09-26 08:26] VITALS: BP 145/85
[2016-09-26] MEDS: Z GUARD REMEDY 2 OZ OINT TP SCH ×2 (10:15→20:52)
[2016-09-26] MEDS: HYDROGEN PEROXIDE 480 ML BOTTLE TP SCH ×2 (10:15→20:51)
[2016-09-26] MEDS: TRAMADOL HCL 50 MG TABLET PO PRN (12:36)
--- NOTE | 2016-09-26 14:17 | NUR ---
TRACH CARE DONE WITH NO PROBLEM. INNER TRACH CANNULA CHANGED.
--- NOTE | 2016-09-26 15:40 | NUR ---
Called the in-home operations branch ([phone]) to follow up on the status of resident's NF/AH waiver application. was forwarded to the voicemail of Junie Vazquez and left contact information for call back. BERNARDINO will follow up. Addendum: 09/28/16 at 1439 by JEAN CARLOS LEBRON re-faxed waiver to [phone]
[2016-09-26] MEDS: LIDOCAINE 5% (PATCH) 1 EA PATCH TP SCH (17:33)
--- NOTE | 2016-09-26 19:06 | NUR ---
Seen by PULP MIXER Savi Nunez. Relayed BMP result to her. No new order.
[2016-09-26 19:45] VITALS: BP 147/71
[2016-09-26] MEDS: LORAZEPAM 0.5 MG TABLET PO PRN (20:52)
[2016-09-26] MEDS: ZOLPIDEM TARTRATE 5 MG TABLET PO PRN (20:52)
[2016-09-27] MEDS: IPRATROPIUM NEB FS 0.5 MG/2.5 ML AMPUL.NEB NEB SCH ×4 (00:33→19:30)
[2016-09-27] MEDS: ALBUTEROL FS 2.5 MG/3 ML VIAL.NEB NEB SCH ×4 (00:33→19:30)
[2016-09-27 08:00] VITALS: BP 140/83
[2016-09-27] MEDS: HYDROCODONE/APAP 5/325MG 1 EACH TABLET PO PRN ×2 (08:00→08:21)
[2016-09-27] MEDS: predniSONE 20 MG TABLET PO SCH (08:20)
[2016-09-27] MEDS: ALISKIREN HEMIFUMARATE 150 MG TABLET PO SCH (08:20)
[2016-09-27] MEDS: hydrALAZINE HCL 25 MG TABLET PO SCH ×2 (08:20→20:53)
[2016-09-27] MEDS: SENNOSIDES 8.6 MG TABLET PO SCH (08:20)
[2016-09-27] MEDS: METOPROLOL SUCCINATE 25 MG TAB.SR.24H PO SCH (08:21)
--- NOTE | 2016-09-27 09:00 | NUR ---
Seen and examined by Dr Yen with no new order
[2016-09-27] MEDS: Z GUARD REMEDY 2 OZ OINT TP SCH ×2 (10:30→20:53)
[2016-09-27] MEDS: HYDROGEN PEROXIDE 480 ML BOTTLE TP SCH ×2 (10:30→20:53)
[2016-09-27] MEDS: TRAMADOL HCL 50 MG TABLET PO PRN (12:29)
--- NOTE | 2016-09-27 16:04 | NUR ---
Met with resident to alleviate concerns about discharge plan.
[2016-09-27] MEDS: LIDOCAINE 5% (PATCH) 1 EA PATCH TP SCH (16:39)
[2016-09-27] MEDS: ONDANSETRON 4 MG TAB.RAPDIS PO PRN (18:47)
[2016-09-27 19:52] VITALS: BP 142/66
[2016-09-27] MEDS: LORAZEPAM 0.5 MG TABLET PO PRN (20:53)
[2016-09-27] MEDS: ZOLPIDEM TARTRATE 5 MG TABLET PO PRN (20:53)
[2016-09-28] MEDS: TRAMADOL HCL 50 MG TABLET PO PRN ×3 (00:13→23:59)
[2016-09-28] MEDS: IPRATROPIUM NEB FS 0.5 MG/2.5 ML AMPUL.NEB NEB SCH ×4 (02:28→19:47)
[2016-09-28] MEDS: ALBUTEROL FS 2.5 MG/3 ML VIAL.NEB NEB SCH ×4 (02:28→19:47)
[2016-09-28 08:04] VITALS: BP 153/86
[2016-09-28] MEDS: predniSONE 20 MG TABLET PO SCH (08:16)
[2016-09-28] MEDS: ALISKIREN HEMIFUMARATE 150 MG TABLET PO SCH (08:16)
[2016-09-28] MEDS: hydrALAZINE HCL 25 MG TABLET PO SCH ×2 (08:16→20:37)
[2016-09-28] MEDS: SENNOSIDES 8.6 MG TABLET PO SCH (08:16)
[2016-09-28] MEDS: Z GUARD REMEDY 2 OZ OINT TP SCH ×2 (08:17→20:37)
[2016-09-28] MEDS: HYDROGEN PEROXIDE 480 ML BOTTLE TP SCH ×2 (08:17→20:37)
[2016-09-28] MEDS: METOPROLOL SUCCINATE 25 MG TAB.SR.24H PO SCH (08:17)
[2016-09-28] MEDS: HYDROCODONE/APAP 5/325MG 1 EACH TABLET PO PRN ×2 (08:18→21:30)
[2016-09-28] MEDS: ERGOCALCIFEROL (VITAMIN D 2) 50,000 UNIT CAPSULE PO SCH (10:32)
[2016-09-28] MEDS: LIDOCAINE 5% (PATCH) 1 EA PATCH TP SCH (17:54)
[2016-09-28 20:00] VITALS: BP 145/83
[2016-09-28] MEDS: ZOLPIDEM TARTRATE 5 MG TABLET PO PRN (20:37)
[2016-09-28] MEDS: LORAZEPAM 0.5 MG TABLET PO PRN (20:37)
[2016-09-29] MEDS: IPRATROPIUM NEB FS 0.5 MG/2.5 ML AMPUL.NEB NEB SCH ×4 (00:51→20:08)
[2016-09-29] MEDS: ALBUTEROL FS 2.5 MG/3 ML VIAL.NEB NEB SCH ×4 (00:51→20:08)
[2016-09-29 07:00] LABS: BASOPHILS % (AUTO) 0.3 % (0.0-2.0); EOSINOPHILS # (AUTO) 0.1 /CMM (0.0-0.7); EOSINOPHILS % (AUTO) 0.9 % (0.0-6.0); HEMATOCRIT 36 % (33-45); HEMOGLOBIN 11.9 g/dL (11.5-14.8); LYMPHOCYTES # (AUTO) 3.4 /CMM (0.8-4.8); MEAN CORPUSCULAR HEMOGLOBIN 26 PG (26.0-33.0); MEAN CORPUSCULAR HGB CONC 33 g/dl (31.0-36.0); MEAN CORPUSCULAR VOLUME 80 fL (82-100); MONOCYTES # (AUTO) 0.8 /CMM (0.1-1.30); MONOCYTES % (AUTO) 6.5 % (2.0-12.0); NEUTROPHILS # (AUTO) 7.5 /CMM (1.8-8.9); NEUTROPHILS % (AUTO) 63.3 % (43.0-81.0); PLATELET COUNT (AUTO) 259 /CMM (150-450); RDW COEFFICIENT OF VARIATION 17.8 (11.5-15.0); RED BLOOD CELL COUNT(AUTO) 4.51 MIL/uL (4.0-5.2); WHITE BLOOD COUNT (AUTO) 11.8 K/uL (4.3-11.0)
[2016-09-29 07:40] VITALS: BP 128/75
[2016-09-29] MEDS: SENNOSIDES 8.6 MG TABLET PO SCH (09:00)
[2016-09-29] MEDS: HYDROGEN PEROXIDE 480 ML BOTTLE TP SCH ×2 (09:00→20:34)
[2016-09-29] MEDS: predniSONE 20 MG TABLET PO SCH (09:00)
[2016-09-29] MEDS: ALISKIREN HEMIFUMARATE 150 MG TABLET PO SCH (09:00)
[2016-09-29] MEDS: hydrALAZINE HCL 25 MG TABLET PO SCH ×2 (09:00→20:34)
[2016-09-29] MEDS: METOPROLOL SUCCINATE 25 MG TAB.SR.24H PO SCH (09:00)
[2016-09-29] MEDS: Z GUARD REMEDY 2 OZ OINT TP SCH ×2 (09:00→20:34)
[2016-09-29] MEDS: HYDROCODONE/APAP 5/325MG 1 EACH TABLET PO PRN ×2 (10:16→21:00)
[2016-09-29] MEDS: TRAMADOL HCL 50 MG TABLET PO PRN (12:31)
--- NOTE | 2016-09-29 12:31 | NUR ---
CBC result relayed to Dr. Palacios. No new order.
[2016-09-29] MEDS: LIDOCAINE 5% (PATCH) 1 EA PATCH TP SCH (16:07)
[2016-09-29 19:43] VITALS: BP 124/71
[2016-09-29] MEDS: ZOLPIDEM TARTRATE 5 MG TABLET PO PRN (20:34)
[2016-09-29] MEDS: LORAZEPAM 0.5 MG TABLET PO PRN (20:34)
[2016-09-30] MEDS: ALBUTEROL FS 2.5 MG/3 ML VIAL.NEB NEB SCH ×4 (01:36→20:08)
[2016-09-30] MEDS: IPRATROPIUM NEB FS 0.5 MG/2.5 ML AMPUL.NEB NEB SCH ×4 (01:36→20:08)
[2016-09-30] MEDS: TRAMADOL HCL 50 MG TABLET PO PRN ×2 (03:04→12:37)
[2016-09-30 07:34] VITALS: BP 156/81
[2016-09-30] MEDS: HYDROCODONE/APAP 5/325MG 1 EACH TABLET PO PRN ×3 (09:10→21:10)
[2016-09-30] MEDS: hydrALAZINE HCL 25 MG TABLET PO SCH ×2 (09:16→20:28)
[2016-09-30] MEDS: HYDROGEN PEROXIDE 480 ML BOTTLE TP SCH ×2 (09:17→20:28)
[2016-09-30] MEDS: METOPROLOL SUCCINATE 25 MG TAB.SR.24H PO SCH (09:17)
[2016-09-30] MEDS: ALISKIREN HEMIFUMARATE 150 MG TABLET PO SCH (09:17)
[2016-09-30] MEDS: SENNOSIDES 8.6 MG TABLET PO SCH (09:17)
[2016-09-30] MEDS: Z GUARD REMEDY 2 OZ OINT TP SCH ×2 (09:17→20:28)
[2016-09-30] MEDS: predniSONE 20 MG TABLET PO SCH (09:17)
[2016-09-30] MEDS: LIDOCAINE 5% (PATCH) 1 EA PATCH TP SCH (16:30)
[2016-09-30 19:36] VITALS: BP 141/70
[2016-09-30] MEDS: LORAZEPAM 0.5 MG TABLET PO PRN (20:29)
[2016-09-30] MEDS: ZOLPIDEM TARTRATE 5 MG TABLET PO PRN (20:29)
[2016-10-01] MEDS: IPRATROPIUM NEB FS 0.5 MG/2.5 ML AMPUL.NEB NEB SCH ×4 (00:36→19:59)
[2016-10-01] MEDS: ALBUTEROL FS 2.5 MG/3 ML VIAL.NEB NEB SCH ×4 (00:37→19:59)
[2016-10-01] MEDS: predniSONE 20 MG TABLET PO SCH (09:50)
[2016-10-01] MEDS: SENNOSIDES 8.6 MG TABLET PO SCH (09:50)
[2016-10-01] MEDS: ALISKIREN HEMIFUMARATE 150 MG TABLET PO SCH (09:50)
[2016-10-01] MEDS: hydrALAZINE HCL 25 MG TABLET PO SCH ×2 (09:50→20:04)
[2016-10-01] MEDS: METOPROLOL SUCCINATE 25 MG TAB.SR.24H PO SCH (09:51)
[2016-10-01] MEDS: HYDROGEN PEROXIDE 480 ML BOTTLE TP SCH ×2 (09:51→20:04)
[2016-10-01] MEDS: Z GUARD REMEDY 2 OZ OINT TP SCH ×2 (09:51→20:04)
[2016-10-01] MEDS: HYDROCODONE/APAP 5/325MG 1 EACH TABLET PO PRN ×2 (09:52→21:09)
[2016-10-01] MEDS: TRAMADOL HCL 50 MG TABLET PO PRN (12:10)
[2016-10-01] MEDS: LIDOCAINE 5% (PATCH) 1 EA PATCH TP SCH (17:51)
[2016-10-01 19:57] VITALS: BP 136/72
[2016-10-01] MEDS: LORAZEPAM 0.5 MG TABLET PO PRN (20:36)
[2016-10-01] MEDS: ZOLPIDEM TARTRATE 5 MG TABLET PO PRN (21:09)
[2016-10-02] MEDS: TRAMADOL HCL 50 MG TABLET PO PRN ×2 (00:38→12:30)
[2016-10-02] MEDS: ALBUTEROL FS 2.5 MG/3 ML VIAL.NEB NEB SCH ×4 (02:21→20:15)
[2016-10-02] MEDS: IPRATROPIUM NEB FS 0.5 MG/2.5 ML AMPUL.NEB NEB SCH ×4 (02:21→20:15)
[2016-10-02 07:35] VITALS: BP 130/71
[2016-10-02] MEDS: METOPROLOL SUCCINATE 25 MG TAB.SR.24H PO SCH (09:33)
[2016-10-02] MEDS: Z GUARD REMEDY 2 OZ OINT TP SCH ×2 (09:33→20:35)
[2016-10-02] MEDS: predniSONE 20 MG TABLET PO SCH (09:33)
[2016-10-02] MEDS: ALISKIREN HEMIFUMARATE 150 MG TABLET PO SCH (09:33)
[2016-10-02] MEDS: SENNOSIDES 8.6 MG TABLET PO SCH (09:33)
[2016-10-02] MEDS: HYDROGEN PEROXIDE 480 ML BOTTLE TP SCH ×2 (09:33→20:35)
[2016-10-02] MEDS: hydrALAZINE HCL 25 MG TABLET PO SCH ×2 (09:33→20:34)
[2016-10-02] MEDS: HYDROCODONE/APAP 5/325MG 1 EACH TABLET PO PRN ×2 (09:34→21:33)
[2016-10-02] MEDS: LIDOCAINE 5% (PATCH) 1 EA PATCH TP SCH (16:57)
[2016-10-02 19:42] VITALS: BP 129/71
[2016-10-02] MEDS: LORAZEPAM 0.5 MG TABLET PO PRN (20:28)
[2016-10-02] MEDS: ZOLPIDEM TARTRATE 5 MG TABLET PO PRN (20:28)
[2016-10-03] MEDS: TRAMADOL HCL 50 MG TABLET PO PRN ×2 (01:16→12:49)
[2016-10-03] MEDS: ALBUTEROL FS 2.5 MG/3 ML VIAL.NEB NEB SCH ×4 (01:25→20:10)
[2016-10-03] MEDS: IPRATROPIUM NEB FS 0.5 MG/2.5 ML AMPUL.NEB NEB SCH ×4 (01:25→20:10)
[2016-10-03 08:06] VITALS: BP 154/85
[2016-10-03] MEDS: predniSONE 20 MG TABLET PO SCH (09:51)
[2016-10-03] MEDS: hydrALAZINE HCL 25 MG TABLET PO SCH ×2 (09:51→20:29)
[2016-10-03] MEDS: ALISKIREN HEMIFUMARATE 150 MG TABLET PO SCH (09:52)
[2016-10-03] MEDS: HYDROGEN PEROXIDE 480 ML BOTTLE TP SCH ×2 (09:52→20:29)
[2016-10-03] MEDS: SENNOSIDES 8.6 MG TABLET PO SCH (09:52)
[2016-10-03] MEDS: Z GUARD REMEDY 2 OZ OINT TP SCH ×2 (09:52→20:29)
[2016-10-03] MEDS: METOPROLOL SUCCINATE 25 MG TAB.SR.24H PO SCH (09:52)
[2016-10-03] MEDS: LIDOCAINE 5% (PATCH) 1 EA PATCH TP SCH (17:00)
--- NOTE | 2016-10-03 18:09 | NUR ---
Seen by JAREK Nunez. Pt verbalized that she sometimes experiences lower back pain, she is thinking it is caused by her previous fracture. JAREK Nunez explained to her that she is not ordering more pain medications for her to keep her kidneys from getting damaged. JAREK Hou told her she will order physical therapy to see her, maybe they can give her exercises for her lower back pain. Pt agreed.
[2016-10-03 19:43] VITALS: BP 152/71
[2016-10-03] MEDS: LORAZEPAM 0.5 MG TABLET PO PRN (21:07)
[2016-10-03] MEDS: ZOLPIDEM TARTRATE 5 MG TABLET PO PRN (21:07)
[2016-10-03] MEDS: HYDROCODONE/APAP 5/325MG 1 EACH TABLET PO PRN (21:07)
[2016-10-04] MEDS: TRAMADOL HCL 50 MG TABLET PO PRN ×2 (00:01→13:01)
[2016-10-04] MEDS: IPRATROPIUM NEB FS 0.5 MG/2.5 ML AMPUL.NEB NEB SCH ×4 (02:15→19:30)
[2016-10-04] MEDS: ALBUTEROL FS 2.5 MG/3 ML VIAL.NEB NEB SCH ×4 (02:15→19:30)
[2016-10-04 08:06] VITALS: BP 112/78
[2016-10-04] MEDS: HYDROCODONE/APAP 5/325MG 1 EACH TABLET PO PRN (09:00)
[2016-10-04] MEDS: Z GUARD REMEDY 2 OZ OINT TP SCH ×2 (10:00→20:28)
[2016-10-04] MEDS: predniSONE 20 MG TABLET PO SCH (10:00)
[2016-10-04] MEDS: hydrALAZINE HCL 25 MG TABLET PO SCH ×2 (10:00→20:23)
[2016-10-04] MEDS: METOPROLOL SUCCINATE 25 MG TAB.SR.24H PO SCH (10:00)
[2016-10-04] MEDS: ALISKIREN HEMIFUMARATE 150 MG TABLET PO SCH (10:00)
[2016-10-04] MEDS: HYDROGEN PEROXIDE 480 ML BOTTLE TP SCH ×2 (10:00→20:28)
[2016-10-04] MEDS: SENNOSIDES 8.6 MG TABLET PO SCH (10:00)
--- NOTE | 2016-10-04 10:05 | NUR ---
Seen and examined by Dr Yen with no new order
[2016-10-04] MEDS: LIDOCAINE 5% (PATCH) 1 EA PATCH TP SCH (17:48)
[2016-10-04 20:04] VITALS: BP 124/78
[2016-10-04] MEDS: ZOLPIDEM TARTRATE 5 MG TABLET PO PRN (20:22)
[2016-10-04] MEDS: LORAZEPAM 0.5 MG TABLET PO PRN (20:22)
[2016-10-05] MEDS: IPRATROPIUM NEB FS 0.5 MG/2.5 ML AMPUL.NEB NEB SCH ×4 (02:22→19:25)
[2016-10-05] MEDS: ALBUTEROL FS 2.5 MG/3 ML VIAL.NEB NEB SCH ×4 (02:22→19:25)
[2016-10-05 08:10] VITALS: BP 121/71
[2016-10-05] MEDS: ALISKIREN HEMIFUMARATE 150 MG TABLET PO SCH (09:22)
[2016-10-05] MEDS: hydrALAZINE HCL 25 MG TABLET PO SCH ×2 (09:22→21:21)
[2016-10-05] MEDS: predniSONE 20 MG TABLET PO SCH (09:22)
[2016-10-05] MEDS: SENNOSIDES 8.6 MG TABLET PO SCH (09:22)
[2016-10-05] MEDS: METOPROLOL SUCCINATE 25 MG TAB.SR.24H PO SCH (09:23)
[2016-10-05] MEDS: Z GUARD REMEDY 2 OZ OINT TP SCH ×2 (09:23→21:23)
[2016-10-05] MEDS: HYDROGEN PEROXIDE 480 ML BOTTLE TP SCH ×2 (09:23→21:21)
[2016-10-05] MEDS: HYDROCODONE/APAP 5/325MG 1 EACH TABLET PO PRN ×2 (09:25→21:22)
[2016-10-05] MEDS: ERGOCALCIFEROL (VITAMIN D 2) 50,000 UNIT CAPSULE PO SCH (10:00)
[2016-10-05] MEDS: LIDOCAINE 5% (PATCH) 1 EA PATCH TP SCH (17:16)
--- NOTE | 2016-10-05 18:49 | NUR ---
Obtain an order from Dr. Palacios for anti-diarrhea medication, Imodium because patient claims that she has gone 5x and is watery. Orders noted and carried out.
[2016-10-05] MEDS ORDERED: LOPERAMIDE HCL (2 MG CAP) 2 MG CAPSULE PO PRN (19:00)
[2016-10-05] MEDS ORDERED: LOPERAMIDE HCL (2 MG CAP) 2 MG CAPSULE PO ONE (19:00)
[2016-10-05 20:03] VITALS: BP 133/76
[2016-10-05] MEDS: LORAZEPAM 0.5 MG TABLET PO PRN (20:16)
[2016-10-05] MEDS: ZOLPIDEM TARTRATE 5 MG TABLET PO PRN (20:37)
[2016-10-05] MEDS: TRAMADOL HCL 50 MG TABLET PO PRN (23:09)
[2016-10-06] MEDS: ALBUTEROL FS 2.5 MG/3 ML VIAL.NEB NEB SCH ×5 (01:35→19:27)
[2016-10-06] MEDS: IPRATROPIUM NEB FS 0.5 MG/2.5 ML AMPUL.NEB NEB SCH ×5 (01:35→19:27)
[2016-10-06 07:46] VITALS: BP 141/80
[2016-10-06] MEDS: hydrALAZINE HCL 25 MG TABLET PO SCH ×2 (09:49→21:13)
[2016-10-06] MEDS: ALISKIREN HEMIFUMARATE 150 MG TABLET PO SCH (09:51)
[2016-10-06] MEDS: predniSONE 20 MG TABLET PO SCH (09:51)
[2016-10-06] MEDS: HYDROGEN PEROXIDE 480 ML BOTTLE TP SCH ×2 (09:51→21:14)
[2016-10-06] MEDS: Z GUARD REMEDY 2 OZ OINT TP SCH ×2 (09:51→21:14)
[2016-10-06] MEDS: METOPROLOL SUCCINATE 25 MG TAB.SR.24H PO SCH (09:51)
[2016-10-06] MEDS: SENNOSIDES 8.6 MG TABLET PO SCH (09:51)
[2016-10-06] MEDS: HYDROCODONE/APAP 5/325MG 1 EACH TABLET PO PRN ×2 (09:52→22:03)
[2016-10-06] MEDS: LIDOCAINE 5% (PATCH) 1 EA PATCH TP SCH (17:38)
[2016-10-06 20:00] VITALS: BP 127/76
[2016-10-06] MEDS: ZOLPIDEM TARTRATE 5 MG TABLET PO PRN (21:14)
[2016-10-06] MEDS: LORAZEPAM 0.5 MG TABLET PO PRN (21:30)
[2016-10-07] MEDS: ALBUTEROL FS 2.5 MG/3 ML VIAL.NEB NEB SCH ×4 (01:39→19:59)
[2016-10-07] MEDS: IPRATROPIUM NEB FS 0.5 MG/2.5 ML AMPUL.NEB NEB SCH ×4 (01:39→19:59)
[2016-10-07 02:31] VITALS: BP 139/76
[2016-10-07 07:47] VITALS: BP 153/80
[2016-10-07] MEDS: hydrALAZINE HCL 25 MG TABLET PO SCH ×2 (08:25→20:50)
[2016-10-07] MEDS: HYDROCODONE/APAP 5/325MG 1 EACH TABLET PO PRN ×3 (08:25→21:46)
[2016-10-07] MEDS: SENNOSIDES 8.6 MG TABLET PO SCH (08:25)
[2016-10-07] MEDS: ALISKIREN HEMIFUMARATE 150 MG TABLET PO SCH (08:25)
[2016-10-07] MEDS: predniSONE 20 MG TABLET PO SCH (08:25)
[2016-10-07] MEDS: METOPROLOL SUCCINATE 25 MG TAB.SR.24H PO SCH (08:26)
[2016-10-07] MEDS: Z GUARD REMEDY 2 OZ OINT TP SCH ×2 (10:30→20:50)
[2016-10-07] MEDS: HYDROGEN PEROXIDE 480 ML BOTTLE TP SCH ×2 (10:30→20:50)
[2016-10-07] MEDS: LIDOCAINE 5% (PATCH) 1 EA PATCH TP SCH (17:00)
[2016-10-07 19:30] VITALS: BP 133/75
[2016-10-07] MEDS: LORAZEPAM 0.5 MG TABLET PO PRN (20:05)
[2016-10-07] MEDS: ZOLPIDEM TARTRATE 5 MG TABLET PO PRN (20:51)
[2016-10-07] MEDS: TRAMADOL HCL 50 MG TABLET PO PRN (23:38)
[2016-10-08] MEDS: IPRATROPIUM NEB FS 0.5 MG/2.5 ML AMPUL.NEB NEB SCH ×4 (01:56→19:52)
[2016-10-08] MEDS: ALBUTEROL FS 2.5 MG/3 ML VIAL.NEB NEB SCH ×4 (01:56→19:52)
[2016-10-08 07:53] VITALS: BP 147/80
[2016-10-08] MEDS: predniSONE 20 MG TABLET PO SCH (08:51)
[2016-10-08] MEDS: SENNOSIDES 8.6 MG TABLET PO SCH (08:51)
[2016-10-08] MEDS: hydrALAZINE HCL 25 MG TABLET PO SCH ×2 (08:51→20:02)
[2016-10-08] MEDS: HYDROCODONE/APAP 5/325MG 1 EACH TABLET PO PRN ×2 (08:51→20:03)
[2016-10-08] MEDS: ALISKIREN HEMIFUMARATE 150 MG TABLET PO SCH (08:51)
[2016-10-08] MEDS: METOPROLOL SUCCINATE 25 MG TAB.SR.24H PO SCH (08:52)
[2016-10-08] MEDS: Z GUARD REMEDY 2 OZ OINT TP SCH ×2 (10:45→20:03)
[2016-10-08] MEDS: HYDROGEN PEROXIDE 480 ML BOTTLE TP SCH ×2 (10:45→20:03)
[2016-10-08] MEDS: LIDOCAINE 5% (PATCH) 1 EA PATCH TP SCH (16:57)
[2016-10-08 19:47] VITALS: BP 148/85
[2016-10-08] MEDS: ZOLPIDEM TARTRATE 5 MG TABLET PO PRN (20:35)
[2016-10-08] MEDS: LORAZEPAM 0.5 MG TABLET PO PRN (21:08)
[2016-10-09] MEDS: ALBUTEROL FS 2.5 MG/3 ML VIAL.NEB NEB SCH ×5 (01:52→19:56)
[2016-10-09] MEDS: IPRATROPIUM NEB FS 0.5 MG/2.5 ML AMPUL.NEB NEB SCH ×5 (01:52→19:56)
[2016-10-09 07:33] VITALS: BP 154/75
[2016-10-09] MEDS: predniSONE 20 MG TABLET PO SCH (09:29)
[2016-10-09] MEDS: hydrALAZINE HCL 25 MG TABLET PO SCH ×2 (09:29→20:01)
[2016-10-09] MEDS: ALISKIREN HEMIFUMARATE 150 MG TABLET PO SCH (09:29)
[2016-10-09] MEDS: METOPROLOL SUCCINATE 25 MG TAB.SR.24H PO SCH (09:29)
[2016-10-09] MEDS: SENNOSIDES 8.6 MG TABLET PO SCH (09:29)
[2016-10-09] MEDS: HYDROCODONE/APAP 5/325MG 1 EACH TABLET PO PRN ×2 (09:30→21:22)
[2016-10-09] MEDS: Z GUARD REMEDY 2 OZ OINT TP SCH ×2 (09:30→20:01)
[2016-10-09] MEDS: HYDROGEN PEROXIDE 480 ML BOTTLE TP SCH ×2 (09:30→20:01)
[2016-10-09] MEDS: LIDOCAINE 5% (PATCH) 1 EA PATCH TP SCH (17:34)
[2016-10-09 20:10] VITALS: BP 164/92
[2016-10-09] MEDS: LORAZEPAM 0.5 MG TABLET PO PRN (20:39)
[2016-10-09] MEDS: ZOLPIDEM TARTRATE 5 MG TABLET PO PRN (21:22)
[2016-10-10] MEDS: IPRATROPIUM NEB FS 0.5 MG/2.5 ML AMPUL.NEB NEB SCH ×4 (00:49→19:32)
[2016-10-10] MEDS: ALBUTEROL FS 2.5 MG/3 ML VIAL.NEB NEB SCH ×4 (00:50→19:32)
[2016-10-10] MEDS: TRAMADOL HCL 50 MG TABLET PO PRN (01:23)
[2016-10-10 07:36] LABS: CALCIUM, SERUM 8.8 mg/dL (8.5-10.1); CREATININE 1.9 mg/dL (0.6-1.3); POTASSIUM 3.9 mmol/L (3.5-5.1)
[2016-10-10 08:19] VITALS: BP 132/71
[2016-10-10] MEDS: METOPROLOL SUCCINATE 25 MG TAB.SR.24H PO SCH (09:33)
[2016-10-10] MEDS: Z GUARD REMEDY 2 OZ OINT TP SCH ×2 (09:33→21:30)
[2016-10-10] MEDS: HYDROGEN PEROXIDE 480 ML BOTTLE TP SCH ×2 (09:33→21:30)
[2016-10-10] MEDS: ALISKIREN HEMIFUMARATE 150 MG TABLET PO SCH (09:33)
[2016-10-10] MEDS: SENNOSIDES 8.6 MG TABLET PO SCH (09:33)
[2016-10-10] MEDS: predniSONE 20 MG TABLET PO SCH (09:33)
[2016-10-10] MEDS: hydrALAZINE HCL 25 MG TABLET PO SCH ×2 (09:33→20:57)
[2016-10-10] MEDS: HYDROCODONE/APAP 5/325MG 1 EACH TABLET PO PRN ×2 (10:00→21:30)
[2016-10-10] MEDS: LIDOCAINE 5% (PATCH) 1 EA PATCH TP SCH (17:51)
[2016-10-10 20:23] VITALS: BP 147/80
[2016-10-10] MEDS: LORAZEPAM 0.5 MG TABLET PO PRN ×2 (20:30→20:59)
[2016-10-10] MEDS: ZOLPIDEM TARTRATE 5 MG TABLET PO PRN (20:58)
[2016-10-11] MEDS: ALBUTEROL FS 2.5 MG/3 ML VIAL.NEB NEB SCH ×4 (01:41→19:40)
[2016-10-11] MEDS: IPRATROPIUM NEB FS 0.5 MG/2.5 ML AMPUL.NEB NEB SCH ×4 (01:41→19:40)
[2016-10-11 07:47] VITALS: BP 127/71
[2016-10-11] MEDS: hydrALAZINE HCL 25 MG TABLET PO SCH ×2 (08:59→20:26)
[2016-10-11] MEDS: predniSONE 20 MG TABLET PO SCH (08:59)
[2016-10-11] MEDS: ALISKIREN HEMIFUMARATE 150 MG TABLET PO SCH (09:00)
[2016-10-11] MEDS: SENNOSIDES 8.6 MG TABLET PO SCH (09:00)
[2016-10-11] MEDS: HYDROGEN PEROXIDE 480 ML BOTTLE TP SCH ×2 (09:00→20:26)
[2016-10-11] MEDS: METOPROLOL SUCCINATE 25 MG TAB.SR.24H PO SCH (09:00)
[2016-10-11] MEDS: Z GUARD REMEDY 2 OZ OINT TP SCH ×2 (09:00→20:26)
[2016-10-11] MEDS: HYDROCODONE/APAP 5/325MG 1 EACH TABLET PO PRN ×2 (09:59→20:26)
--- NOTE | 2016-10-11 10:00 | NUR ---
Seen by Dr. Yen. No new order.
--- NOTE | 2016-10-11 10:30 | NUR ---
Seen by Dr. Palacios. No new order.
--- NOTE | 2016-10-11 12:00 | NUR ---
Pt complained of pain in the upper abdomen extending to the back especially when she is coughing. She said the pain started yesterday when she was doing the exercises with the RNA. Pt was seen earlier by Dr. Yen and Dr. Palacios, but she did not mention anything to them nor to the charge nurse. According to NAVJOT Richardson, pt wanted to continue doing the exercises even when she complained of pain. NAVJOT Richardson told her he will stop doing the exercises with her, but pt continued doing them, NAVJOT Richardson emphasized to her that they have to stop the exercises. Charge nurse advised pt that if she has any pain while doing the exercises, she should not force herself to do them. Pt currently sitting in the activity room. Charge nurse asked pt to go back to her room so charge nurse can take a look at her abdomen and back, but pt refused. Charge nurse explained to her that she has to provide her with some privacy, pt still refused so charge nurse closed the door of the activity room and examined the pt's abdomen and back. No redness, no swelling noted on the areas. Pt wanted to know if an x-ray should be done. Notified Dr. Yen and received order to do CXR. Notified pt.
[2016-10-11] MEDS: LIDOCAINE 5% (PATCH) 1 EA PATCH TP SCH (17:17)
[2016-10-11 20:04] VITALS: BP 129/78
[2016-10-11] MEDS: LORAZEPAM 0.5 MG TABLET PO PRN (20:26)
[2016-10-11] MEDS: ZOLPIDEM TARTRATE 5 MG TABLET PO PRN ×2 (20:27→21:37)
[2016-10-12] MEDS: IPRATROPIUM NEB FS 0.5 MG/2.5 ML AMPUL.NEB NEB SCH ×4 (00:47→20:07)
[2016-10-12] MEDS: ALBUTEROL FS 2.5 MG/3 ML VIAL.NEB NEB SCH ×4 (00:47→20:07)
[2016-10-12 07:51] VITALS: BP 130/89
[2016-10-12] MEDS: predniSONE 20 MG TABLET PO SCH (09:35)
[2016-10-12] MEDS: hydrALAZINE HCL 25 MG TABLET PO SCH ×2 (09:35→20:48)
[2016-10-12] MEDS: METOPROLOL SUCCINATE 25 MG TAB.SR.24H PO SCH (09:36)
[2016-10-12] MEDS: ALISKIREN HEMIFUMARATE 150 MG TABLET PO SCH (09:36)
[2016-10-12] MEDS: Z GUARD REMEDY 2 OZ OINT TP SCH ×2 (09:36→20:48)
[2016-10-12] MEDS: HYDROGEN PEROXIDE 480 ML BOTTLE TP SCH ×2 (09:36→20:48)
[2016-10-12] MEDS: SENNOSIDES 8.6 MG TABLET PO SCH (09:36)
[2016-10-12] MEDS: TRAMADOL HCL 50 MG TABLET PO PRN (15:04)
[2016-10-12] MEDS: LIDOCAINE 5% (PATCH) 1 EA PATCH TP SCH (17:54)
[2016-10-12] MEDS: HYDROCODONE/APAP 5/325MG 1 EACH TABLET PO PRN (19:28)
--- NOTE | 2016-10-12 19:48 | NUR ---
Dr. Gill came and did monthly trach care changed no bleeding noted no s/sx of complications noted. Pt. tolerated well. Will continue to endorse.
[2016-10-12 20:19] VITALS: BP 146/80
[2016-10-12] MEDS: LORAZEPAM 0.5 MG TABLET PO PRN (20:48)
[2016-10-12] MEDS: ZOLPIDEM TARTRATE 5 MG TABLET PO PRN (20:48)
[2016-10-13] MEDS: IPRATROPIUM NEB FS 0.5 MG/2.5 ML AMPUL.NEB NEB SCH ×4 (02:02→19:26)
[2016-10-13] MEDS: ALBUTEROL FS 2.5 MG/3 ML VIAL.NEB NEB SCH ×4 (02:02→19:26)
[2016-10-13 08:00] VITALS: BP 147/83
[2016-10-13] MEDS: Z GUARD REMEDY 2 OZ OINT TP SCH ×2 (09:40→20:30)
[2016-10-13] MEDS: METOPROLOL SUCCINATE 25 MG TAB.SR.24H PO SCH (09:40)
[2016-10-13] MEDS: ALISKIREN HEMIFUMARATE 150 MG TABLET PO SCH (09:40)
[2016-10-13] MEDS: predniSONE 20 MG TABLET PO SCH (09:40)
[2016-10-13] MEDS: SENNOSIDES 8.6 MG TABLET PO SCH (09:40)
[2016-10-13] MEDS: hydrALAZINE HCL 25 MG TABLET PO SCH ×2 (09:40→20:30)
[2016-10-13] MEDS: HYDROGEN PEROXIDE 480 ML BOTTLE TP SCH ×2 (09:40→20:30)
[2016-10-13] MEDS: HYDROCODONE/APAP 5/325MG 1 EACH TABLET PO PRN ×2 (09:42→16:08)
[2016-10-13] MEDS: TRAMADOL HCL 50 MG TABLET PO PRN ×2 (12:14→20:31)
[2016-10-13] MEDS: LIDOCAINE 5% (PATCH) 1 EA PATCH TP SCH (17:27)
--- NOTE | 2016-10-13 18:58 | NUR ---
Pt complaining of lower back pain. Per patient, pain is caused by gentle back exercise/ stretching. Patient given pain medicine PRN earlier which patient stated that it was effective. Pt seen and examined by OPTICAL STORE MANAGER Savi Nunez. Savi offered cold compress to patient but she refused. Order obtained to hold gentle back exercise until Monday. Order noted and carried out. Pt aware.
[2016-10-13 21:23] VITALS: BP 138/82
[2016-10-13] MEDS: LORAZEPAM 0.5 MG TABLET PO PRN (21:26)
[2016-10-13] MEDS: ZOLPIDEM TARTRATE 5 MG TABLET PO PRN (21:26)
[2016-10-14] MEDS: ALBUTEROL FS 2.5 MG/3 ML VIAL.NEB NEB SCH ×4 (00:57→19:33)
[2016-10-14] MEDS: IPRATROPIUM NEB FS 0.5 MG/2.5 ML AMPUL.NEB NEB SCH ×4 (00:57→19:33)
[2016-10-14 07:56] VITALS: BP 120/62
[2016-10-14] MEDS: predniSONE 20 MG TABLET PO SCH (09:37)
[2016-10-14] MEDS: SENNOSIDES 8.6 MG TABLET PO SCH (09:37)
[2016-10-14] MEDS: ALISKIREN HEMIFUMARATE 150 MG TABLET PO SCH (09:37)
[2016-10-14] MEDS: METOPROLOL SUCCINATE 25 MG TAB.SR.24H PO SCH (09:37)
[2016-10-14] MEDS: HYDROGEN PEROXIDE 480 ML BOTTLE TP SCH ×2 (09:37→20:25)
[2016-10-14] MEDS: hydrALAZINE HCL 25 MG TABLET PO SCH ×2 (09:37→20:25)
[2016-10-14] MEDS: Z GUARD REMEDY 2 OZ OINT TP SCH ×2 (09:37→20:25)
[2016-10-14] MEDS: HYDROCODONE/APAP 5/325MG 1 EACH TABLET PO PRN ×2 (09:40→19:58)
--- NOTE | 2016-10-14 14:03 | NUR ---
IDT meeting was held. Dr. Yen ordered to check Vitamin D level on 10/17/16 per pharmacist's recommendation.
[2016-10-14] MEDS: TRAMADOL HCL 50 MG TABLET PO PRN (14:11)
[2016-10-14] MEDS: LIDOCAINE 5% (PATCH) 1 EA PATCH TP SCH (17:00)
[2016-10-14 21:07] VITALS: BP 123/70
[2016-10-14] MEDS: LORAZEPAM 0.5 MG TABLET PO PRN (21:07)
[2016-10-14] MEDS: ZOLPIDEM TARTRATE 5 MG TABLET PO PRN (21:07)
[2016-10-15] MEDS: IPRATROPIUM NEB FS 0.5 MG/2.5 ML AMPUL.NEB NEB SCH ×4 (02:04→20:29)
[2016-10-15] MEDS: ALBUTEROL FS 2.5 MG/3 ML VIAL.NEB NEB SCH ×4 (02:04→20:29)
[2016-10-15 08:00] VITALS: BP 153/86
[2016-10-15] MEDS: predniSONE 20 MG TABLET PO SCH (08:07)
[2016-10-15] MEDS: SENNOSIDES 8.6 MG TABLET PO SCH (08:07)
[2016-10-15] MEDS: hydrALAZINE HCL 25 MG TABLET PO SCH ×2 (08:07→20:00)
[2016-10-15] MEDS: METOPROLOL SUCCINATE 25 MG TAB.SR.24H PO SCH (08:07)
[2016-10-15] MEDS: ALISKIREN HEMIFUMARATE 150 MG TABLET PO SCH (08:07)
[2016-10-15] MEDS: HYDROCODONE/APAP 5/325MG 1 EACH TABLET PO PRN ×2 (08:10→20:01)
[2016-10-15] MEDS: HYDROGEN PEROXIDE 480 ML BOTTLE TP SCH ×2 (08:15→20:00)
[2016-10-15] MEDS: Z GUARD REMEDY 2 OZ OINT TP SCH ×2 (08:15→20:01)
[2016-10-15] MEDS: LIDOCAINE 5% (PATCH) 1 EA PATCH TP SCH (17:17)
[2016-10-15 19:47] VITALS: BP 148/83
[2016-10-15] MEDS: ZOLPIDEM TARTRATE 5 MG TABLET PO PRN (21:05)
[2016-10-15] MEDS: TRAMADOL HCL 50 MG TABLET PO PRN (23:46)
[2016-10-16] MEDS: IPRATROPIUM NEB FS 0.5 MG/2.5 ML AMPUL.NEB NEB SCH ×4 (01:30→19:47)
[2016-10-16] MEDS: ALBUTEROL FS 2.5 MG/3 ML VIAL.NEB NEB SCH ×4 (01:30→19:47)
[2016-10-16 08:07] VITALS: BP 134/76
[2016-10-16] MEDS: HYDROCODONE/APAP 5/325MG 1 EACH TABLET PO PRN ×2 (09:00→21:16)
[2016-10-16] MEDS: predniSONE 20 MG TABLET PO SCH (09:37)
[2016-10-16] MEDS: METOPROLOL SUCCINATE 25 MG TAB.SR.24H PO SCH (09:37)
[2016-10-16] MEDS: hydrALAZINE HCL 25 MG TABLET PO SCH ×2 (09:37→20:50)
[2016-10-16] MEDS: SENNOSIDES 8.6 MG TABLET PO SCH (09:37)
[2016-10-16] MEDS: ALISKIREN HEMIFUMARATE 150 MG TABLET PO SCH (09:37)
[2016-10-16] MEDS: HYDROGEN PEROXIDE 480 ML BOTTLE TP SCH ×2 (09:38→20:50)
[2016-10-16] MEDS: Z GUARD REMEDY 2 OZ OINT TP SCH ×2 (09:38→20:50)
[2016-10-16] MEDS: LIDOCAINE 5% (PATCH) 1 EA PATCH TP SCH (17:41)
[2016-10-16 19:45] VITALS: BP 145/74
[2016-10-16] MEDS: ZOLPIDEM TARTRATE 5 MG TABLET PO PRN (20:51)
[2016-10-16] MEDS: LORAZEPAM 0.5 MG TABLET PO PRN (20:51)
[2016-10-17] MEDS: IPRATROPIUM NEB FS 0.5 MG/2.5 ML AMPUL.NEB NEB SCH ×4 (00:48→19:48)
[2016-10-17] MEDS: ALBUTEROL FS 2.5 MG/3 ML VIAL.NEB NEB SCH ×4 (00:48→19:48)
[2016-10-17 08:06] VITALS: BP 122/65
[2016-10-17] MEDS: hydrALAZINE HCL 25 MG TABLET PO SCH ×2 (08:14→21:10)
[2016-10-17] MEDS: predniSONE 20 MG TABLET PO SCH (08:14)
[2016-10-17] MEDS: METOPROLOL SUCCINATE 25 MG TAB.SR.24H PO SCH (08:14)
[2016-10-17] MEDS: ALISKIREN HEMIFUMARATE 150 MG TABLET PO SCH (08:14)
[2016-10-17] MEDS: SENNOSIDES 8.6 MG TABLET PO SCH (08:14)
[2016-10-17] MEDS: HYDROCODONE/APAP 5/325MG 1 EACH TABLET PO PRN ×2 (08:15→20:23)
[2016-10-17] MEDS: Z GUARD REMEDY 2 OZ OINT TP SCH ×2 (15:45→21:10)
[2016-10-17] MEDS: HYDROGEN PEROXIDE 480 ML BOTTLE TP SCH ×2 (15:45→21:10)
[2016-10-17] MEDS: LIDOCAINE 5% (PATCH) 1 EA PATCH TP SCH (16:32)
--- NOTE | 2016-10-17 18:49 | NUR ---
Pt asked charge nurse earlier to wash her PMV. Charge nurse washed the PMV and after a few minutes, pt said that she needs a new one because it was not working. Pt was speaking loud and clear with the PMV. Pt insisted that it is not working because she cannot breathe. Pt was eating and walking around without any SOB. Charge nurse took off the PMV and assessed the pt, gave her oxygen via trach mask since pt took off her trach mask and was walking around. O2 sat 92-95% HR 124. Charge nurse advised pt to sit down, calm down, and take deep breaths, since pt was getting upset because charge nurse did not change the PMV right away. Charge nurse explained to pt that since she was complaining that she cannot breathe, charge nurse has to assess her and make sure her airway is clear, she is getting her oxygen, and that she is able to breathe better first. When pt calmed down, HR 108, O2 sat 95-96, charge nurse replaced the pt's PMV with a new one. Pt was seen by HOUSEKEEPING CLEANER Savi Nunez and she is aware of pt's complaint regarding PMV and difficulty breathing.
[2016-10-17 19:41] VITALS: BP 136/83
[2016-10-17] MEDS: ZOLPIDEM TARTRATE 5 MG TABLET PO PRN (21:10)
[2016-10-17] MEDS: LORAZEPAM 0.5 MG TABLET PO PRN (21:10)
[2016-10-17] MEDS: TRAMADOL HCL 50 MG TABLET PO PRN (23:00)
[2016-10-18] MEDS: IPRATROPIUM NEB FS 0.5 MG/2.5 ML AMPUL.NEB NEB SCH ×4 (02:10→20:33)
[2016-10-18] MEDS: ALBUTEROL FS 2.5 MG/3 ML VIAL.NEB NEB SCH ×4 (02:10→20:33)
[2016-10-18] MEDS: METOPROLOL SUCCINATE 25 MG TAB.SR.24H PO SCH (08:12)
[2016-10-18] MEDS: ALISKIREN HEMIFUMARATE 150 MG TABLET PO SCH (08:12)
[2016-10-18] MEDS: SENNOSIDES 8.6 MG TABLET PO SCH (08:12)
[2016-10-18] MEDS: predniSONE 20 MG TABLET PO SCH (08:12)
[2016-10-18] MEDS: hydrALAZINE HCL 25 MG TABLET PO SCH ×2 (08:12→21:17)
[2016-10-18] MEDS: HYDROCODONE/APAP 5/325MG 1 EACH TABLET PO PRN (08:13)
[2016-10-18 08:21] VITALS: BP 127/70
[2016-10-18] MEDS: HYDROGEN PEROXIDE 480 ML BOTTLE TP SCH ×2 (10:15→21:17)
[2016-10-18] MEDS: Z GUARD REMEDY 2 OZ OINT TP SCH ×2 (10:15→21:17)
[2016-10-18] MEDS: LIDOCAINE 5% (PATCH) 1 EA PATCH TP SCH (17:00)
[2016-10-18 19:56] VITALS: BP 148/72
[2016-10-18] MEDS: TRAMADOL HCL 50 MG TABLET PO PRN (22:15)
[2016-10-19] MEDS: IPRATROPIUM NEB FS 0.5 MG/2.5 ML AMPUL.NEB NEB SCH ×4 (01:58→20:00)
[2016-10-19] MEDS: ALBUTEROL FS 2.5 MG/3 ML VIAL.NEB NEB SCH ×4 (01:58→20:00)
[2016-10-19] MEDS: HYDROCODONE/APAP 5/325MG 1 EACH TABLET PO PRN ×3 (04:20→20:03)
--- NOTE | 2016-10-19 04:22 | NUR ---
finger waver/notes c/o lower back pain after ambulating to the bathroom 02/09 , 1 norco tablet given as ordered per pt requested. safety precaution implemented and observed. kept her warm and comfortable at all times. will continue to monitor.
[2016-10-19 08:08] VITALS: BP 141/86
[2016-10-19] MEDS: predniSONE 20 MG TABLET PO SCH (09:25)
--- NOTE | 2016-10-19 09:25 | NUR ---
Was informed by resident that the back exercises that PT Alissa recommended are making her back hurt. SW spoke with Alissa from PT who stated that if they are causing discomfort to stop the exercises. Informed charge nurse, resident, and NAVJOT Richardson. Informed charge nurse that PT asked to discharge the order. Addendum: 10/19/16 at 0931 by JEAN CARLOS LEBRON Spoke with PT Alissa who stated that she spoke to charge nurse and dc'd the order.
[2016-10-19] MEDS: ALISKIREN HEMIFUMARATE 150 MG TABLET PO SCH (09:26)
[2016-10-19] MEDS: hydrALAZINE HCL 25 MG TABLET PO SCH ×2 (09:28→20:02)
[2016-10-19] MEDS: SENNOSIDES 8.6 MG TABLET PO SCH (09:29)
[2016-10-19] MEDS: METOPROLOL SUCCINATE 25 MG TAB.SR.24H PO SCH (09:29)
[2016-10-19] MEDS: TRAMADOL HCL 50 MG TABLET PO PRN (09:34)
[2016-10-19] MEDS: HYDROGEN PEROXIDE 480 ML BOTTLE TP SCH ×2 (09:35→20:02)
[2016-10-19] MEDS: Z GUARD REMEDY 2 OZ OINT TP SCH ×2 (09:35→20:02)
--- NOTE | 2016-10-19 10:00 | NUR ---
Notified Dr. Yen that resident does not want to do her back exercises and causing her more discomfort from doing so, PT aware and in agreement to dc back exercises per patient's request. Resident is ambulating daily 5x per week with RNA and independently ambulating to and from the bathroom without any complain of pain.
--- NOTE | 2016-10-19 14:18 | NUR ---
Called the Dept of health care services ([place] office- [phone]) to inquire about status of resident's NF/AH waiver and spoke to Ashu. Ashu stated that application is now in their system and SW inquired about how long it would take to hear back for a qualification evaluation. Ashu stated that there is currently a wait list and shortest waiting time can be 2 years to longest time of 4 years. Ashu stated that the resident will be placed on the wait list and that at least the ball is rolling on the resident's application. SW to inform the resident.
[2016-10-19] MEDS: LIDOCAINE 5% (PATCH) 1 EA PATCH TP SCH (17:23)
[2016-10-19 19:45] VITALS: BP 158/98
[2016-10-19] MEDS: LORAZEPAM 0.5 MG TABLET PO PRN (21:23)
[2016-10-19] MEDS: ZOLPIDEM TARTRATE 5 MG TABLET PO PRN (21:23)
[2016-10-20] MEDS: TRAMADOL HCL 50 MG TABLET PO PRN ×3 (00:39→18:51)
[2016-10-20] MEDS: IPRATROPIUM NEB FS 0.5 MG/2.5 ML AMPUL.NEB NEB SCH ×4 (01:47→20:01)
[2016-10-20] MEDS: ALBUTEROL FS 2.5 MG/3 ML VIAL.NEB NEB SCH ×4 (01:47→20:01)
[2016-10-20 07:33] VITALS: BP_SYST 135; BP_SYST 143; BP_DIAS 67; BP_DIAS 96
[2016-10-20] MEDS: hydrALAZINE HCL 25 MG TABLET PO SCH ×2 (09:05→21:08)
[2016-10-20] MEDS: ALISKIREN HEMIFUMARATE 150 MG TABLET PO SCH (09:05)
[2016-10-20] MEDS: predniSONE 20 MG TABLET PO SCH (09:05)
[2016-10-20] MEDS: SENNOSIDES 8.6 MG TABLET PO SCH (09:05)
[2016-10-20] MEDS: METOPROLOL SUCCINATE 25 MG TAB.SR.24H PO SCH (09:06)
[2016-10-20] MEDS: Z GUARD REMEDY 2 OZ OINT TP SCH ×2 (09:06→21:11)
[2016-10-20] MEDS: HYDROGEN PEROXIDE 480 ML BOTTLE TP SCH ×2 (09:06→21:11)
[2016-10-20] MEDS: HYDROCODONE/APAP 5/325MG 1 EACH TABLET PO PRN ×3 (09:07→23:36)
--- NOTE | 2016-10-20 11:00 | NUR ---
Pt complaining of lower back pain 04/11. Pt was given [place] 5/325mg at 9am after ambulating with RNA. Per pt, no pain/ discomfort noted/ felt during ambulation. Per pt, she has been having on and off lower back pain since last week. Pt also stated that walking or sitting for long periods of time does not aggravate or cause pain. Per pt, Welaka ineffective. Tramadol PRN given as well at 10am but pt still complained of pain. Dr. Palacios notified and order obtained for xray of lower back. Order noted and carried out. Pt notified of order.
--- NOTE | 2016-10-20 16:30 | NUR ---
Follow-up done with radiology dept regarding time of xray. Per radiology dept, they are busy at this time but will do xray for patient tonight. Pt notified. Per pt, pain still present on lower back but less pain noted. Continuing to give pt [place] and Tramadol PRN for pain as ordered.
[2016-10-20] MEDS: LIDOCAINE 5% (PATCH) 1 EA PATCH TP SCH (16:34)
--- NOTE | 2016-10-20 18:51 | NUR ---
Pt seen by JAREK Nunez with order for Tramadol 50mg PO q 12 hrs x 7 days routinely for lower back pain. Order noted and carried out. Patient notified. Addendum: 10/20/16 at 1906 by NESTOR WEBBER RN Order also obtained to increase [place] to 7.5/325mg q 6 hrs PRN severe pain
[2016-10-20 19:45] VITALS: BP 136/81
[2016-10-20] MEDS: TRAMADOL HCL 50 MG TABLET PO SCH (21:11)
[2016-10-20] MEDS: LORAZEPAM 0.5 MG TABLET PO PRN (21:12)
[2016-10-20] MEDS: ZOLPIDEM TARTRATE 5 MG TABLET PO PRN (21:12)
[2016-10-21] MEDS: IPRATROPIUM NEB FS 0.5 MG/2.5 ML AMPUL.NEB NEB SCH ×4 (01:24→20:04)
[2016-10-21] MEDS: ALBUTEROL FS 2.5 MG/3 ML VIAL.NEB NEB SCH ×4 (01:24→20:04)
[2016-10-21] MEDS: TRAMADOL HCL 50 MG TABLET PO PRN ×2 (04:12→13:52)
[2016-10-21 08:45] VITALS: BP 158/86
[2016-10-21] MEDS: METOPROLOL SUCCINATE 25 MG TAB.SR.24H PO SCH (08:49)
[2016-10-21] MEDS: predniSONE 20 MG TABLET PO SCH (08:50)
[2016-10-21] MEDS: hydrALAZINE HCL 25 MG TABLET PO SCH ×2 (08:50→20:08)
[2016-10-21] MEDS: SENNOSIDES 8.6 MG TABLET PO SCH (08:51)
[2016-10-21] MEDS: TRAMADOL HCL 50 MG TABLET PO SCH ×2 (08:51→20:09)
[2016-10-21] MEDS: HYDROCODONE/APAP 5/325MG 1 EACH TABLET PO PRN ×2 (08:51→21:24)
[2016-10-21] MEDS: HYDROGEN PEROXIDE 480 ML BOTTLE TP SCH ×2 (08:52→20:10)
[2016-10-21] MEDS: Z GUARD REMEDY 2 OZ OINT TP SCH ×2 (08:52→20:10)
[2016-10-21] MEDS: ALISKIREN HEMIFUMARATE 150 MG TABLET PO SCH (08:59)
--- NOTE | 2016-10-21 15:18 | NUR ---
Left a message to Dr. Palacios regarding result of the lumbar xray with moderate compression deformity of 5 vertebral body involving superior endplate no significant change as compared to previous CT. Resident up and ambulate to and from the bathroom, spend most of her time in the activity room watching TV, patient stated that she does not have pain during ambulation, but she has pain when sitting and laying in bed. Medicated with pain medication PRN.
[2016-10-21] MEDS: LIDOCAINE 5% (PATCH) 1 EA PATCH TP SCH (17:07)
[2016-10-21 19:54] VITALS: BP 142/77
[2016-10-21] MEDS: LORAZEPAM 0.5 MG TABLET PO PRN (20:52)
[2016-10-21] MEDS: ZOLPIDEM TARTRATE 5 MG TABLET PO PRN (20:52)
[2016-10-22] MEDS: IPRATROPIUM NEB FS 0.5 MG/2.5 ML AMPUL.NEB NEB SCH ×4 (01:26→19:47)
[2016-10-22] MEDS: ALBUTEROL FS 2.5 MG/3 ML VIAL.NEB NEB SCH ×4 (01:27→19:47)
[2016-10-22] MEDS: TRAMADOL HCL 50 MG TABLET PO PRN ×2 (04:14→15:51)
[2016-10-22 07:33] VITALS: BP 131/72
[2016-10-22] MEDS: HYDROCODONE/APAP 5/325MG 1 EACH TABLET PO PRN ×2 (07:50→23:44)
[2016-10-22] MEDS: hydrALAZINE HCL 25 MG TABLET PO SCH ×2 (09:00→20:43)
[2016-10-22] MEDS: HYDROGEN PEROXIDE 480 ML BOTTLE TP SCH ×2 (09:00→20:45)
[2016-10-22] MEDS: METOPROLOL SUCCINATE 25 MG TAB.SR.24H PO SCH (09:00)
[2016-10-22] MEDS: Z GUARD REMEDY 2 OZ OINT TP SCH ×2 (09:00→20:45)
[2016-10-22] MEDS: SENNOSIDES 8.6 MG TABLET PO SCH (09:00)
[2016-10-22] MEDS: predniSONE 20 MG TABLET PO SCH (09:00)
[2016-10-22] MEDS: ALISKIREN HEMIFUMARATE 150 MG TABLET PO SCH (09:00)
[2016-10-22] MEDS: TRAMADOL HCL 50 MG TABLET PO SCH ×2 (09:00→20:44)
--- NOTE | 2016-10-22 14:19 | NUR ---
Seen and examined by Dr. Palacios, reported result of lumbar spine xray. Resident up in chair in the activity room, she complain to the physician regarding her back pain. Dr. Palacios ordered to give Flexiril 10 mg Q 8 hours. notified that [place] 7.5/325 mg. is not in [facility] formulary, asked if he would like to increase it to 10/325mg. Dr. Palacios d/maikol [place] 7.5/325 mg. resumed [place] 5/325mg plus muscle relaxant for management of her back pain. Per pharmacy, Flexiril has drug interaction with Tramadol, order was changed to Baclofen instead.
[2016-10-22] MEDS: LIDOCAINE 5% (PATCH) 1 EA PATCH TP SCH (16:39)
[2016-10-22 19:37] VITALS: BP 133/63
[2016-10-22] MEDS: ZOLPIDEM TARTRATE 5 MG TABLET PO PRN (20:42)
[2016-10-22] MEDS: LORAZEPAM 0.5 MG TABLET PO PRN (20:43)
[2016-10-22] MEDS: BACLOFEN (10 MG) 10 MG TABLET PO SCH (20:43)
[2016-10-23] MEDS: ALBUTEROL FS 2.5 MG/3 ML VIAL.NEB NEB SCH ×4 (01:20→19:43)
[2016-10-23] MEDS: IPRATROPIUM NEB FS 0.5 MG/2.5 ML AMPUL.NEB NEB SCH ×4 (01:20→19:43)
[2016-10-23] MEDS: BACLOFEN (10 MG) 10 MG TABLET PO SCH ×3 (05:34→21:17)
[2016-10-23 08:28] VITALS: BP 139/84
[2016-10-23] MEDS: hydrALAZINE HCL 25 MG TABLET PO SCH ×2 (09:40→21:17)
[2016-10-23] MEDS: SENNOSIDES 8.6 MG TABLET PO SCH (09:41)
[2016-10-23] MEDS: predniSONE 20 MG TABLET PO SCH (09:41)
[2016-10-23] MEDS: ALISKIREN HEMIFUMARATE 150 MG TABLET PO SCH (09:41)
[2016-10-23] MEDS: METOPROLOL SUCCINATE 25 MG TAB.SR.24H PO SCH (09:42)
[2016-10-23] MEDS: Z GUARD REMEDY 2 OZ OINT TP SCH ×2 (09:43→21:18)
[2016-10-23] MEDS: HYDROGEN PEROXIDE 480 ML BOTTLE TP SCH ×2 (09:43→21:18)
[2016-10-23] MEDS: TRAMADOL HCL 50 MG TABLET PO SCH ×2 (09:43→21:18)
[2016-10-23] MEDS: LIDOCAINE 5% (PATCH) 1 EA PATCH TP SCH (17:08)
--- NOTE | 2016-10-23 17:43 | NUR ---
Resident PEDRO LUIS, in the activity but only stayed for about 2 hours. She was observed to be falling asleep in the activity room while watching TV. She was escorted back to her room to rest. noted to be very sleepy but stable. When asked if new medication Baclofen is helping, she stated "yes, a little bit". Allow patient to rest and frequent visual rounds rendered.
[2016-10-23 19:31] VITALS: BP 130/70
[2016-10-24] MEDS: ALBUTEROL FS 2.5 MG/3 ML VIAL.NEB NEB SCH ×4 (01:43→20:04)
[2016-10-24] MEDS: IPRATROPIUM NEB FS 0.5 MG/2.5 ML AMPUL.NEB NEB SCH ×4 (01:43→20:04)
[2016-10-24] MEDS: BACLOFEN (10 MG) 10 MG TABLET PO SCH ×3 (05:36→21:27)
[2016-10-24 07:15] LABS: CALCIUM, SERUM 9.4 mg/dL (8.5-10.1); CREATININE 1.8 mg/dL (0.6-1.3); PHOSPHORUS 3.7 mg/dL (2.5-4.9)
[2016-10-24] MEDS: METOPROLOL SUCCINATE 25 MG TAB.SR.24H PO SCH (08:08)
[2016-10-24] MEDS: ALISKIREN HEMIFUMARATE 150 MG TABLET PO SCH (08:08)
[2016-10-24] MEDS: predniSONE 20 MG TABLET PO SCH (08:08)
[2016-10-24] MEDS: hydrALAZINE HCL 25 MG TABLET PO SCH ×2 (08:08→21:27)
[2016-10-24] MEDS: SENNOSIDES 8.6 MG TABLET PO SCH (08:08)
[2016-10-24] MEDS: TRAMADOL HCL 50 MG TABLET PO SCH ×2 (08:09→21:27)
[2016-10-24 08:32] VITALS: BP 141/85
--- NOTE | 2016-10-24 09:18 | NUR ---
BERNARDINO was informed by nursing director that resident's medi-shantanu lapsed 09/30/2016 and therefore resident's daily bed rate is not being paid. tool crib manager stated that daughter has to send updated information regarding resident's finances to the [facility] office. SW was informed that [facility] office has been trying to reach resident's dtr to no success, as dtr often claims that she is busy and has her own veterinary practice. Resident's dtr has communicated with SW via text in the past so SW sent dtr text message stating if she can please contact [facility] business office and connect with [facility] office to send updated documents regarding resident's income. SW will follow up. Addendum: 10/24/16 at 1450 by JEAN CARLOS LEBRON BERNARDINO was contacted by resident's dtr via text message and stated that Sofie from the [facility] office had previously stated to her that she (Sofie) will contact [facility] person in charge of resident's case and will then call her back to notify her. However, dtr stated that she never received a call back nor an email from Sofie, as they were also previously communicating via email. She stated that she expects Sofie from [facility] to reply to her email so that they can set up a time to talk. tool crib manager was informed and stated that she will relay the messages to Raymond, watch supervisor, who has been trying to follow up with resident's daughter regarding this insurance/payment issue.
--- NOTE | 2016-10-24 09:20 | NUR ---
Pt was seen by Dr. Mcqueen. Relayed lab results to Dr. Mcqueen. No new order.
[2016-10-24] MEDS: HYDROCODONE/APAP 5/325MG 1 EACH TABLET PO PRN (12:44)
--- NOTE | 2016-10-24 13:52 | NUR ---
Seen by JAREK Nunez. Notified her that according to night charge nurse's endorsement, pt verbalized she has not been feeling well. Pt notified JAREK Nunez that her stomach hurts. JAREK Nunez examined her and said she has a lot of gas. JAREK Nunez ordered to give Mylanta 10 mL po q6 PRN for gas pain. Pt aware of it.
--- NOTE | 2016-10-24 14:02 | NUR ---
Received order from JAREK Nunez to do tap water enema and upper abdominal ultrasound if there is no improvement in pt's stomach pain.
--- NOTE | 2016-10-24 14:03 | NUR ---
Pharmacy recommended to change Mylanta to Maalox since Mylanta is not available. Notified SUPERVISOR COATING Savi Nunez.
[2016-10-24] MEDS: HYDROGEN PEROXIDE 480 ML BOTTLE TP SCH ×2 (14:30→21:27)
[2016-10-24] MEDS: Z GUARD REMEDY 2 OZ OINT TP SCH ×2 (14:30→21:27)
--- NOTE | 2016-10-24 15:02 | NUR ---
Charge nurse asked how pt is doing. Pt said she feels better and she had a bowel movement.
[2016-10-24] MEDS: LIDOCAINE 5% (PATCH) 1 EA PATCH TP SCH (16:42)
--- NOTE | 2016-10-24 17:03 | NUR ---
Charge nurse saw pt's trach mask on the pt's pillow, pt seemed asleep. Charge nurse placed the trach mask over pt's trach and pt woke up. Pt asked if her friend came and charge nurse said no. Pt said she is expecting her friend Minoo. Charge nurse asked if she wanted to call Minoo, if she has her friend's number. Pt nodded. Charge nurse tried to help her call Minoo. Pt said the number is [phone]... she repeated [phone] several times and when asked to say the phone number over again, pt just kept saying [phone] and then several different numbers that does not seem to make up a phone number. Charge nurse tried to dial the numbers that pt was saying but it just gave a busy tone. Charge nurse informed pt it was a busy tone. Charge nurse asked pt how she feels and pt said she is okay. After a few minutes since charge nurse stepped out of pt's room, pt was calling for help. Charge nurse went into the room and saw pt holding her eyeglasses and saying help. Charge nurse helped her put on the eyeglasses, but pt took it off and was giving it to her saying, "wear it." Charge nurse told her that it is her eyeglasses and helped her put it back on. Pt thanked charge nurse. Pt said thank you several times. Charge nurse asked pt if she remembers her name, and pt said "Johanna." TUNNEL ELASTIC OPERATOR LOCKSTITCHVictoria Spencer walked into the pt's room. Pt does not seem to remember the charge nurse's name and also the MOLD CHIPPER's name (Haven) who also walked into the room. Pt usually knows the staff's names and calls them by name whenever she sees them. Pt repeated "Johanna" several times, as well as the words "thank you." Charge nurse also noticed that pt has removed her trach mask several times which is unusual for the pt since she is always anxious about getting enough oxygen. Notified JAREK Nunez. Received orders to do CBC, UA, ABG. JAREK Nunez said that if WBC is high, do a CXR.
[2016-10-24 17:48] LABS: BASOPHILS # (AUTO) 0.1 /CMM (0.0-0.2); BASOPHILS % (AUTO) 0.3 % (0.0-2.0); EOSINOPHILS % (AUTO) 0.1 % (0.0-6.0); HEMATOCRIT 40 % (33-45); HEMOGLOBIN 12.9 g/dL (11.5-14.8); LYMPHOCYTES # (AUTO) 2.3 /CMM (0.8-4.8); LYMPHOCYTES % (AUTO) 13.9 % (20.0-44.0); MEAN CORPUSCULAR HEMOGLOBIN 27 PG (26.0-33.0); MEAN CORPUSCULAR HGB CONC 33 g/dl (31.0-36.0); MEAN CORPUSCULAR VOLUME 82 fL (82-100); MONOCYTES # (AUTO) 0.6 /CMM (0.1-1.30); MONOCYTES % (AUTO) 3.4 % (2.0-12.0); NEUTROPHILS # (AUTO) 13.8 /CMM (1.8-8.9); NEUTROPHILS % (AUTO) 82.3 % (43.0-81.0); PLATELET COUNT (AUTO) 316 /CMM (150-450); RED BLOOD CELL COUNT(AUTO) 4.85 MIL/uL (4.0-5.2); WHITE BLOOD COUNT (AUTO) 16.8 K/uL (4.3-11.0)
[2016-10-24 17:55] LABS: ABG BASE EXCESS -1.2 mmol/L; ABG OXYGEN SATURATION 98.2 % (92.0-98.5); ABG PH 7.428 (7.350-7.450); ABG PO2 124.2 mmHg (75.0-100.0); AaDO2 34.1 mmHg; COHb 1.1 % (0.5-1.5); MetHb 0.3 % (0.0-1.5); O2Hb 96.8 % (94.0-97.0); SITE, ABG Left Radial; VENT MODE, BG C/A 28% 5L
--- NOTE | 2016-10-24 18:00 | NUR ---
Called and left message to voice mail of patients' daughter Francine regarding change of condition of her mom. V/S 149/67, HR 90, RR 20, TEMP. 99.2.
--- NOTE | 2016-10-24 18:10 | NUR ---
According to RT Cramer, he relayed the ABG result to Dr. Yen. Relayed ABG and CBC results to JAREK Nunez. WBC 16. Addendum: 10/24/16 at 1829 by SARAVANAN VAUGHN RN WBC 16.8
--- NOTE | 2016-10-24 18:38 | NUR ---
Charge nurse came to see pt and asked her how she is doing. Pt smiled and said she is okay. Charge nurse asked her if she remembers her name now, and pt said the correct name of the charge nurse. Charge nurse asked her if she knows where she is and the pt replied she is in a hospital. However, when she was asked if she knows what is today's date, pt said "Monday" and was not able to say the date. Charge nurse reoriented her that it is MondayOctober 24. When asked if she knows the year, pt said "24" every time the charge nurse repeated the question. Charge nurse told her it is 2016. Pt nodded. Pt was able to say her daughters' names after repeating the question to her a few times, but was not able to say the correct place where her daughters currently live. Pt repeatedly waved her hand to the charge nurse and also repeatedly said "thank you."
--- NOTE | 2016-10-24 19:20 | NUR ---
Relayed CXR result to JAREK Nunez.
[2016-10-24 20:07] VITALS: BP 147/82
[2016-10-25] MEDS: ALBUTEROL FS 2.5 MG/3 ML VIAL.NEB NEB SCH ×4 (01:58→19:30)
[2016-10-25] MEDS: IPRATROPIUM NEB FS 0.5 MG/2.5 ML AMPUL.NEB NEB SCH ×4 (01:58→19:30)
[2016-10-25] MEDS: BACLOFEN (10 MG) 10 MG TABLET PO SCH (05:09)
[2016-10-25 08:04] VITALS: BP 151/52
[2016-10-25] MEDS: SENNOSIDES 8.6 MG TABLET PO SCH (08:28)
[2016-10-25] MEDS: predniSONE 20 MG TABLET PO SCH (08:28)
[2016-10-25] MEDS: ALISKIREN HEMIFUMARATE 150 MG TABLET PO SCH (08:28)
[2016-10-25] MEDS: hydrALAZINE HCL 25 MG TABLET PO SCH ×2 (08:28→20:41)
[2016-10-25] MEDS: METOPROLOL SUCCINATE 25 MG TAB.SR.24H PO SCH (08:28)
[2016-10-25] MEDS: TRAMADOL HCL 50 MG TABLET PO SCH ×2 (08:28→20:41)
--- NOTE | 2016-10-25 08:58 | NUR ---
Notified Dr. Szymanski that pt is confused, labs were done yesterday and WBC 16.8. Also notified him that according to night charge nurse's endorsement, pt verbalized that she has been feeling very tired since she started on Baclofen. Yesterday pt started getting confused. No new order.
--- NOTE | 2016-10-25 09:55 | NUR ---
Pt was seen by Dr. Yen. Notified him that pt has been confused. He said DYNAMIC ETCHING PROCESSOR Savi Nunez informed him about the pt's confusion. Pt was crying when Dr. Yen saw her. Pt was saying that somebody and for Dr. Yen not to lie to her. Pt has been crying a few minutes before Dr. Yen came to see her. She said she feels terrible because some people , she saw it on the news. She also said she could see people running around while pointing to the empty hallway. Charge nurse kept pt company. Charge nurse mentioned to Dr. Yen that pt said she felt very tired on Monday after she started on Baclofen, pt slept most of Monday according to endorsement, and yesterday pt started getting confused. Dr. Yen said he will review her medications. Dr. Yen ordered psych consult and DC Baclofen. Notified renal social worker Maude.
--- NOTE | 2016-10-25 09:57 | NUR ---
Informed by charge nurse Ruthann that there is an order for a psych consult, if possible to be done today. Notified Dr. Marino, resident's psychiatrist, for the STAT psychiatry consult. He stated that he understands and will try to come today. SW informed him that resident is altered (keeps repeating things, making statements that do not make sense, etc). Charge nurse informed.
--- NOTE | 2016-10-25 10:50 | NUR ---
Called pt's daughter Francine to update her regarding pt's confusion and new orders. Left message via voicemail.
--- NOTE | 2016-10-25 11:00 | NUR ---
Pt refused blood draw. She told the beading installer that she is going to hurt her. Charge nurse explained to her that Dr. Yen ordered the blood draw to check her for any infections, charge nurse offered to stay with her during blood draw to calm her down. Pt still refused. Pt seemed upset with any staff who comes to see her.
--- NOTE | 2016-10-25 11:35 | NUR ---
Notified Dr. Yen pt refused blood draw and that urine still has not been collected. Pt voiding in her diaper and not cooperative at this time.
--- NOTE | 2016-10-25 12:17 | NUR ---
Pt pushed her table twice, her lunch fell on the floor. Ordered another lunch tray.
--- NOTE | 2016-10-25 12:50 | NUR ---
SW added $78.00 to the patient's money envelope. Patient was unable to sign and therefore SW counted money in front her (the patient) and nursing clerk Sindhu Monaco as a witness. Resident stated that she wants to speak to her daughter Francine Hook. Informed by charge nurse that they have attempted to contact resident's daughter but have been unsuccessful. Texted dtr Francine stating there has been a change in mental status and to please call the subacute to receive a report.
[2016-10-25] MEDS: HYDROGEN PEROXIDE 480 ML BOTTLE TP SCH ×2 (15:00→20:41)
[2016-10-25] MEDS: Z GUARD REMEDY 2 OZ OINT TP SCH ×2 (15:00→20:42)
[2016-10-25] MEDS: HYDROCODONE/APAP 5/325MG 1 EACH TABLET PO PRN ×2 (16:30→23:32)
[2016-10-25] MEDS: LIDOCAINE 5% (PATCH) 1 EA PATCH TP SCH (16:30)
--- NOTE | 2016-10-25 18:30 | NUR ---
Pt's daughter called earlier and Dr. Marino came to see pt. Notified daughter that Dr. Marino is here to see her mother and charge nurse will call her back. Dr. Marino saw pt and explained to her that she is confused, he also convinced the pt to get her blood drawn to find out if she has an infection that could be causing her confusion. Dr. Marino ordered to give Zyprexa 1.25 mg po at bedtime for 7 days. Notified pt's daughter. Pt seems to realize that her "head is playing games" with her, according to her. She is saying that she knows she has not been herself and she was saying and doing things that she would not normally do.
[2016-10-25 18:48] LABS: APPEARANCE,URINE CLEAR (CLEAR); BILIRUBIN,URINE NEGATIVE (NEGATIVE); BLOOD, URINE NEGATIVE Ery/uL (NEGATIVE); COLOR,URINE YELLOW (YELLOW); KETONES,URINE NEGATIVE (NEGATIVE); LEUKOCYTE ESTERASE ,URINE NEGATIVE (NEGATIVE); NITRITE, URINE NEGATIVE (NEGATIVE); PROTEIN,URINE NEGATIVE (NEGATIVE); UGLUCOSE NEGATIVE (NEGATIVE); UROBILINOGEN,URINE 0.2 EU/dL (0.2)
--- NOTE | 2016-10-25 20:00 | NUR ---
RN NOTES Pt does not give consent for use of Zyprexa. Pt stated she will not take medication. Noted pt agitated and with paranoid thoughts of people talking about her. Explained and reassured people/staff is not talking about her but pt becomes more agitated and restless. Encouraged pt to stay calm and to try and get some rest. Pt stated she knows her medication Baclofen is making her feel and act weird. Explain to pt that medication has been discontinued and pt acknowledged explanation. Pt in bed laying down and appears to be calming down. Will continue to monitor.
[2016-10-25 20:05] VITALS: BP 150/74
--- NOTE | 2016-10-25 21:30 | NUR ---
RN NOTES Pt continues with confusion. Pt is getting out of bed wandering and asking staff why people are talking about her. Pt was brought back to room and placed back in bed several times. Pt up out of bed once more and went into room 268 following PERSONAL FINANCIAL PLANNER to ask why he is talking about her. Reoriented pt and reassured once again nobody is talking about her and walked her back to room and back in bed. Encouraged pt to use call light and ask for assistance. Pt agreed to stay in bed and agreed to use call light. Will continue to monitor.
[2016-10-25] MEDS: OLANZAPINE 2.5 MG TABLET PO SCH (22:00)
--- NOTE | 2016-10-25 22:00 | NUR ---
RN NOTES Pt still awake and is constantly banging on table. No c/o pain or discomfort. Pt asked to go to bathroom and then changes mind she does not have to go any more. Repeated requests to go to bathroom 3xs changing her mind stating she no longer has to go. Pt very confused. Pt oriented to reality. Will continue to monitor.
[2016-10-26] MEDS: ALBUTEROL FS 2.5 MG/3 ML VIAL.NEB NEB SCH ×4 (01:47→20:00)
[2016-10-26] MEDS: IPRATROPIUM NEB FS 0.5 MG/2.5 ML AMPUL.NEB NEB SCH ×4 (01:47→20:00)
[2016-10-26] MEDS: HYDROCODONE/APAP 5/325MG 1 EACH TABLET PO PRN ×2 (05:48→14:45)
[2016-10-26 07:49] VITALS: BP 156/86
[2016-10-26 08:11] LABS: BASOPHILS # (AUTO) 0.1 /CMM (0.0-0.2); BASOPHILS % (AUTO) 0.4 % (0.0-2.0); EOSINOPHILS # (AUTO) 0.1 /CMM (0.0-0.7); EOSINOPHILS % (AUTO) 0.9 % (0.0-6.0); HEMATOCRIT 42 % (33-45); HEMOGLOBIN 13.7 g/dL (11.5-14.8); LYMPHOCYTES # (AUTO) 3.1 /CMM (0.8-4.8); LYMPHOCYTES % (AUTO) 18.5 % (20.0-44.0); MEAN CORPUSCULAR HEMOGLOBIN 27 PG (26.0-33.0); MEAN CORPUSCULAR HGB CONC 33 g/dl (31.0-36.0); MEAN CORPUSCULAR VOLUME 82 fL (82-100); MONOCYTES # (AUTO) 1.3 /CMM (0.1-1.30); MONOCYTES % (AUTO) 7.9 % (2.0-12.0); NEUTROPHILS # (AUTO) 12.3 /CMM (1.8-8.9); NEUTROPHILS % (AUTO) 72.3 % (43.0-81.0); PLATELET COUNT (AUTO) 334 /CMM (150-450); RED BLOOD CELL COUNT(AUTO) 5.17 MIL/uL (4.0-5.2)
--- NOTE | 2016-10-26 08:45 | NUR ---
Informed Dr. Marino that resident is refusing her Zyprexa. He stated that there is nothing that we can do except to encourage her to be compliant with labs and medications. He noted that if she becomes agitated, we can use a one time order which does not require consent. However, he would like to keep the current order for a couple of days. Charge nurse Tania informed.
[2016-10-26] MEDS: hydrALAZINE HCL 25 MG TABLET PO SCH ×2 (09:12→21:25)
[2016-10-26] MEDS: predniSONE 20 MG TABLET PO SCH (09:13)
[2016-10-26] MEDS: METOPROLOL SUCCINATE 25 MG TAB.SR.24H PO SCH (09:14)
[2016-10-26] MEDS: ALISKIREN HEMIFUMARATE 150 MG TABLET PO SCH (09:14)
[2016-10-26] MEDS: SENNOSIDES 8.6 MG TABLET PO SCH (09:14)
[2016-10-26] MEDS: TRAMADOL HCL 50 MG TABLET PO SCH ×2 (09:16→21:26)
--- NOTE | 2016-10-26 15:03 | NUR ---
Resident up ambulate with RNA, stated she feels better. Stayed in activity room watching TV and interacting with staff. With episodes of confusion. Assisted to the bathroom for safety. According to resident, her back pain is better and admits she became confused with the new medication. Asked resident again if she will give the consent for Zyprexia, she said no. Resident refused to sign consent for Zyprexia, stated "I took that before" and shook her head.
[2016-10-26] MEDS: LIDOCAINE 5% (PATCH) 1 EA PATCH TP SCH (17:00)
[2016-10-26] MEDS: Z GUARD REMEDY 2 OZ OINT TP SCH ×2 (18:22→21:26)
[2016-10-26] MEDS: HYDROGEN PEROXIDE 480 ML BOTTLE TP SCH ×2 (18:22→21:26)
[2016-10-26] MEDS: TRAMADOL HCL 50 MG TABLET PO PRN (18:24)
[2016-10-26] MEDS: LORAZEPAM 0.5 MG TABLET PO PRN (20:36)
[2016-10-26] MEDS: ZOLPIDEM TARTRATE 5 MG TABLET PO PRN (21:27)
[2016-10-26] MEDS: OLANZAPINE 2.5 MG TABLET PO SCH (22:00)
[2016-10-26 22:23] VITALS: BP 129/72
[2016-10-27] MEDS: IPRATROPIUM NEB FS 0.5 MG/2.5 ML AMPUL.NEB NEB SCH ×4 (01:50→20:19)
[2016-10-27] MEDS: ALBUTEROL FS 2.5 MG/3 ML VIAL.NEB NEB SCH ×4 (01:50→20:19)
[2016-10-27] MEDS: TRAMADOL HCL 50 MG TABLET PO PRN (05:20)
--- NOTE | 2016-10-27 06:51 | NUR ---
Pt slept good last night,no episodes of agitation noted.Per patient her moods improved.Will continue to monitor.
[2016-10-27 08:00] VITALS: BP 141/76
[2016-10-27] MEDS: hydrALAZINE HCL 25 MG TABLET PO SCH ×2 (08:33→20:30)
[2016-10-27] MEDS: predniSONE 20 MG TABLET PO SCH (08:33)
[2016-10-27] MEDS: SENNOSIDES 8.6 MG TABLET PO SCH (08:33)
[2016-10-27] MEDS: ALISKIREN HEMIFUMARATE 150 MG TABLET PO SCH (08:33)
[2016-10-27] MEDS: METOPROLOL SUCCINATE 25 MG TAB.SR.24H PO SCH (08:34)
[2016-10-27] MEDS: TRAMADOL HCL 50 MG TABLET PO SCH (08:34)
--- NOTE | 2016-10-27 10:22 | NUR ---
Reported lab result CBC and urinalysis dated 10/26/16 to Jenniffer TILLEY with no new order. Resident afebrile and stated she feels much better today.
[2016-10-27] MEDS: Z GUARD REMEDY 2 OZ OINT TP SCH ×2 (11:00→20:30)
[2016-10-27] MEDS: HYDROGEN PEROXIDE 480 ML BOTTLE TP SCH ×2 (11:00→20:30)
--- NOTE | 2016-10-27 15:00 | NUR ---
Seen by Savi Nunez NP with no new order.
[2016-10-27] MEDS: HYDROCODONE/APAP 5/325MG 1 EACH TABLET PO PRN ×2 (15:27→22:02)
--- NOTE | 2016-10-27 15:30 | NUR ---
Spoke to resident today. She stated that she was thinking about terminating her daughter as DPOA. She stated that her daughter takes too long to get things done. In addition to this, she stated that they have not spoken and are in an argument. When asked to elaborate, she stated that she does not want to talk about it. She stated that her friend has copies of her latest tax return and can bring them in to her the next time that she visits.
[2016-10-27] MEDS: LIDOCAINE 5% (PATCH) 1 EA PATCH TP SCH (16:37)
[2016-10-27 19:27] VITALS: BP 129/87
[2016-10-27] MEDS: LORAZEPAM 0.5 MG TABLET PO PRN (20:31)
[2016-10-27] MEDS: ZOLPIDEM TARTRATE 5 MG TABLET PO PRN (20:31)
[2016-10-27] MEDS: OLANZAPINE 2.5 MG TABLET PO SCH (22:00)
[2016-10-28] MEDS: ALBUTEROL FS 2.5 MG/3 ML VIAL.NEB NEB SCH ×4 (02:03→20:13)
[2016-10-28] MEDS: IPRATROPIUM NEB FS 0.5 MG/2.5 ML AMPUL.NEB NEB SCH ×4 (02:03→20:13)
--- NOTE | 2016-10-28 06:33 | NUR ---
Pt in the good mood during the night,no agitation or change of behavior.Slept well.All needs attended.
[2016-10-28] MEDS: HYDROGEN PEROXIDE 480 ML BOTTLE TP SCH ×2 (09:00→20:51)
[2016-10-28] MEDS: Z GUARD REMEDY 2 OZ OINT TP SCH ×2 (09:00→20:51)
[2016-10-28] MEDS: hydrALAZINE HCL 25 MG TABLET PO SCH ×2 (09:27→20:51)
[2016-10-28] MEDS: predniSONE 20 MG TABLET PO SCH (09:27)
[2016-10-28] MEDS: SENNOSIDES 8.6 MG TABLET PO SCH (09:28)
[2016-10-28] MEDS: METOPROLOL SUCCINATE 25 MG TAB.SR.24H PO SCH (09:28)
[2016-10-28] MEDS: ALISKIREN HEMIFUMARATE 150 MG TABLET PO SCH (09:28)
[2016-10-28] MEDS: HYDROCODONE/APAP 5/325MG 1 EACH TABLET PO PRN ×2 (09:37→21:21)
--- NOTE | 2016-10-28 11:43 | NUR ---
Notified Dr. Marino, psychiatrist that patient did not sign consent and refusing to take medication. Resident claims she feels much better stated " Thanks God, I feel much better". She's OOB & ambulated to activity room with O2, with steady gait.
[2016-10-28] MEDS: CHOLECALCIFEROL 1,000 UNIT TABLET (VIT D3) PO SCH ×2 (12:00→12:25)
[2016-10-28 14:00] VITALS: BP 154/85
[2016-10-28] MEDS: TRAMADOL HCL 50 MG TABLET PO PRN (14:56)
[2016-10-28] MEDS: LIDOCAINE 5% (PATCH) 1 EA PATCH TP SCH (16:47)
[2016-10-28 19:26] VITALS: BP 143/86
[2016-10-28] MEDS: ZOLPIDEM TARTRATE 5 MG TABLET PO PRN (20:51)
[2016-10-28] MEDS: LORAZEPAM 0.5 MG TABLET PO PRN (20:51)
[2016-10-29] MEDS: IPRATROPIUM NEB FS 0.5 MG/2.5 ML AMPUL.NEB NEB SCH ×4 (01:48→19:28)
[2016-10-29] MEDS: ALBUTEROL FS 2.5 MG/3 ML VIAL.NEB NEB SCH ×4 (01:48→19:28)
[2016-10-29 08:00] VITALS: BP 146/91
[2016-10-29] MEDS: CHOLECALCIFEROL 1,000 UNIT TABLET (VIT D3) PO SCH (09:00)
[2016-10-29] MEDS: SENNOSIDES 8.6 MG TABLET PO SCH (09:15)
[2016-10-29] MEDS: ALISKIREN HEMIFUMARATE 150 MG TABLET PO SCH (09:15)
[2016-10-29] MEDS: predniSONE 20 MG TABLET PO SCH (09:15)
[2016-10-29] MEDS: hydrALAZINE HCL 25 MG TABLET PO SCH ×2 (09:15→20:38)
[2016-10-29] MEDS: HYDROGEN PEROXIDE 480 ML BOTTLE TP SCH ×2 (09:16→20:38)
[2016-10-29] MEDS: Z GUARD REMEDY 2 OZ OINT TP SCH ×2 (09:16→20:38)
[2016-10-29] MEDS: METOPROLOL SUCCINATE 25 MG TAB.SR.24H PO SCH (09:16)
[2016-10-29] MEDS: HYDROCODONE/APAP 5/325MG 1 EACH TABLET PO PRN ×2 (09:16→21:28)
[2016-10-29] MEDS: TRAMADOL HCL 50 MG TABLET PO PRN (12:15)
[2016-10-29] MEDS: ONDANSETRON 4 MG TAB.RAPDIS PO PRN (14:46)
[2016-10-29] MEDS: LIDOCAINE 5% (PATCH) 1 EA PATCH TP SCH (16:53)
[2016-10-29 19:40] VITALS: BP 132/81
[2016-10-29] MEDS: LORAZEPAM 0.5 MG TABLET PO PRN (22:45)
[2016-10-29] MEDS: ZOLPIDEM TARTRATE 5 MG TABLET PO PRN (22:45)
[2016-10-30] MEDS: IPRATROPIUM NEB FS 0.5 MG/2.5 ML AMPUL.NEB NEB SCH ×4 (01:05→19:30)
[2016-10-30] MEDS: ALBUTEROL FS 2.5 MG/3 ML VIAL.NEB NEB SCH ×4 (01:05→19:30)
[2016-10-30] MEDS: TRAMADOL HCL 50 MG TABLET PO PRN ×2 (01:30→15:56)
[2016-10-30 08:26] VITALS: BP 144/78
[2016-10-30] MEDS: HYDROGEN PEROXIDE 480 ML BOTTLE TP SCH ×2 (09:00→21:00)
[2016-10-30] MEDS: Z GUARD REMEDY 2 OZ OINT TP SCH ×2 (09:00→21:01)
[2016-10-30] MEDS: SENNOSIDES 8.6 MG TABLET PO SCH (09:00)
[2016-10-30] MEDS: METOPROLOL SUCCINATE 25 MG TAB.SR.24H PO SCH (09:00)
[2016-10-30] MEDS: predniSONE 20 MG TABLET PO SCH (09:00)
[2016-10-30] MEDS: CHOLECALCIFEROL 1,000 UNIT TABLET (VIT D3) PO SCH (09:00)
[2016-10-30] MEDS: hydrALAZINE HCL 25 MG TABLET PO SCH ×2 (09:00→21:00)
[2016-10-30] MEDS: ALISKIREN HEMIFUMARATE 150 MG TABLET PO SCH (09:00)
[2016-10-30] MEDS: HYDROCODONE/APAP 5/325MG 1 EACH TABLET PO PRN ×2 (09:22→21:29)
[2016-10-30] MEDS: LIDOCAINE 5% (PATCH) 1 EA PATCH TP SCH (17:19)
[2016-10-30 20:12] VITALS: BP 141/79
[2016-10-30] MEDS: LORAZEPAM 0.5 MG TABLET PO PRN (21:01)
[2016-10-30] MEDS: ZOLPIDEM TARTRATE 5 MG TABLET PO PRN (21:01)
[2016-10-31] MEDS: TRAMADOL HCL 50 MG TABLET PO PRN ×3 (00:34→23:53)
[2016-10-31] MEDS: IPRATROPIUM NEB FS 0.5 MG/2.5 ML AMPUL.NEB NEB SCH ×4 (02:06→19:52)
[2016-10-31] MEDS: ALBUTEROL FS 2.5 MG/3 ML VIAL.NEB NEB SCH ×4 (02:07→19:52)
[2016-10-31] MEDS: hydrALAZINE HCL 25 MG TABLET PO SCH ×2 (08:09→20:33)
[2016-10-31] MEDS: SENNOSIDES 8.6 MG TABLET PO SCH (08:09)
[2016-10-31] MEDS: predniSONE 20 MG TABLET PO SCH (08:09)
[2016-10-31] MEDS: ALISKIREN HEMIFUMARATE 150 MG TABLET PO SCH (08:09)
[2016-10-31] MEDS: METOPROLOL SUCCINATE 25 MG TAB.SR.24H PO SCH (08:10)
[2016-10-31] MEDS: CHOLECALCIFEROL 1,000 UNIT TABLET (VIT D3) PO SCH (08:10)
[2016-10-31] MEDS: HYDROCODONE/APAP 5/325MG 1 EACH TABLET PO PRN ×3 (08:11→22:35)
[2016-10-31 08:40] VITALS: BP 167/85
[2016-10-31] MEDS: Z GUARD REMEDY 2 OZ OINT TP SCH ×2 (11:00→20:33)
[2016-10-31] MEDS: HYDROGEN PEROXIDE 480 ML BOTTLE TP SCH ×2 (11:00→20:32)
--- NOTE | 2016-10-31 12:51 | NUR ---
Resident asked to speak to director social welfare. She stated that her daughter Francine Hook was no longer her DPOA and that she had her friend Cristopher mail her the legal paperwork. She stated that her friend Cristopher will bring a copy of that paperwork (along with 2016 income information per Sofie's request- [facility]) to the . SW had discussion about whether resident felt like she was ready to take over her financial responsibilities and she stated yes. She gave her personal cell phone number to give to farm supervisor and Sofie. Will provide them with the information.
[2016-10-31] MEDS: LIDOCAINE 5% (PATCH) 1 EA PATCH TP SCH (16:55)
[2016-10-31 20:21] VITALS: BP 141/85
[2016-10-31] MEDS: LORAZEPAM 0.5 MG TABLET PO PRN (20:34)
[2016-10-31] MEDS: ZOLPIDEM TARTRATE 5 MG TABLET PO PRN (20:55)
[2016-11-01] MEDS: ALBUTEROL FS 2.5 MG/3 ML VIAL.NEB NEB SCH ×4 (01:15→21:07)
[2016-11-01] MEDS: IPRATROPIUM NEB FS 0.5 MG/2.5 ML AMPUL.NEB NEB SCH ×4 (01:15→21:07)
[2016-11-01 07:49] VITALS: BP 145/73
[2016-11-01] MEDS: HYDROCODONE/APAP 5/325MG 1 EACH TABLET PO PRN ×2 (09:18→21:30)
[2016-11-01] MEDS: SENNOSIDES 8.6 MG TABLET PO SCH (09:19)
[2016-11-01] MEDS: hydrALAZINE HCL 25 MG TABLET PO SCH ×2 (09:19→21:09)
[2016-11-01] MEDS: predniSONE 20 MG TABLET PO SCH (09:19)
[2016-11-01] MEDS: ALISKIREN HEMIFUMARATE 150 MG TABLET PO SCH (09:19)
[2016-11-01] MEDS: Z GUARD REMEDY 2 OZ OINT TP SCH ×2 (09:20→21:10)
[2016-11-01] MEDS: HYDROGEN PEROXIDE 480 ML BOTTLE TP SCH ×2 (09:20→21:10)
[2016-11-01] MEDS: CHOLECALCIFEROL 1,000 UNIT TABLET (VIT D3) PO SCH (09:20)
[2016-11-01] MEDS: METOPROLOL SUCCINATE 25 MG TAB.SR.24H PO SCH (09:20)
--- NOTE | 2016-11-01 09:40 | NUR ---
Seen by Dr Yen with no new order.
[2016-11-01] MEDS: TRAMADOL HCL 50 MG TABLET PO PRN ×2 (12:08→23:49)
[2016-11-01] MEDS: ONDANSETRON 4 MG TAB.RAPDIS PO PRN (12:36)
--- NOTE | 2016-11-01 13:34 | NUR ---
Resident's friend Veronica Gibbs provided the social science manager with copies of resident's 2016 tax return and power of sports attorney revocation form that is signed by a notary. SW asked resident about the date of the revocation, as date is showing it was signed on December 12, 2015. Resident became agitated/upset and SW stated that she just wants to clarify the date since she has not provided a copy to her in the past. Resident stated that she had this form completed and held onto it for a little less than a year "since it has not been a problem before." Resident stated that she had her friend mail it out to her daughter yesterday. Resident placed a copy of the power of sports attorney revocation form in the resident's chart and notified clinical nursing assistant and charge nurse. BERNARDINO provided Sofie, [facility] appliance service representative, with a copy of resident's tax return as she needs income information for resident and resident agreed to provide this information. Addendum: 11/01/16 at 1351 by JEAN CARLOS LEBRON Sofie [facility] Rep stated that she will send income information to [facility] office. She also stated that resident's dtr emailed her back and notified her that she will no longer be taking care of resident's financials.
--- NOTE | 2016-11-01 15:00 | NUR ---
Order for code status changed from Full Code to DNR Jenniffer TILLEY made aware order noted and carried out.Resident request to be DNR and any emergency situation and information per resident to call only Soy and Daylin (friends) and resident doesn't want the daughter Francine to be the [facility] social work coordinator aware.
--- NOTE | 2016-11-01 15:02 | NUR ---
Resident disclosed she wants to change code status to DNR. SW had resident complete Documentation of Preferred Intensity of Care form. SW placed updated copy in the resident's chart. It was explained to the resident what a DNR status means and charge nurse Mica Toscano was present as a witness. Charge nurse will update it on the system. Resident also disclosed that she does not want her daughter Francine Hook to be contacted whatsoever and wants her friends Soy and Daylin Winters to be her contact persons ([phone]) in case of an emergency. SW will have admitting update resident's facesheet. Advanced healthcare directive contact will remain as Jaun Calhoun ([phone]) per resident's request and this is documented in resident's advanced healthcare directive.
[2016-11-01] MEDS: MAG HYDROX/AL HYDROX/SIMETH 30 ML UDC PO PRN (16:50)
[2016-11-01] MEDS: LIDOCAINE 5% (PATCH) 1 EA PATCH TP SCH (17:41)
--- NOTE | 2016-11-01 18:15 | NUR ---
Resident with c/o of dizziness and stomach ache,no chestpain,abdomen soft and non distended with positive bowel sounds on all quadrant.No nausea and vomiting noted. Reminded to move slowly and to stay in bed and to call for assistance when needed.Resident given maalox as ordered.Will continue to monitor.Will notify MD.
[2016-11-01 20:00] VITALS: BP 137/78
[2016-11-01] MEDS: ZOLPIDEM TARTRATE 5 MG TABLET PO PRN (21:10)
[2016-11-01] MEDS: LORAZEPAM 0.5 MG TABLET PO PRN (21:10)
[2016-11-02] MEDS: ALBUTEROL FS 2.5 MG/3 ML VIAL.NEB NEB SCH ×4 (01:46→19:56)
[2016-11-02] MEDS: IPRATROPIUM NEB FS 0.5 MG/2.5 ML AMPUL.NEB NEB SCH ×4 (01:46→19:56)
[2016-11-02] MEDS: HYDROCODONE/APAP 5/325MG 1 EACH TABLET PO PRN ×2 (07:59→21:26)
[2016-11-02 08:13] VITALS: BP_SYST 107; BP_SYST 130; BP_DIAS 52; BP_DIAS 70
[2016-11-02] MEDS: predniSONE 20 MG TABLET PO SCH (08:58)
[2016-11-02] MEDS: hydrALAZINE HCL 25 MG TABLET PO SCH ×2 (08:58→20:35)
[2016-11-02] MEDS: ALISKIREN HEMIFUMARATE 150 MG TABLET PO SCH (08:59)
[2016-11-02] MEDS: SENNOSIDES 8.6 MG TABLET PO SCH (08:59)
[2016-11-02] MEDS: CHOLECALCIFEROL 1,000 UNIT TABLET (VIT D3) PO SCH (09:00)
[2016-11-02] MEDS: Z GUARD REMEDY 2 OZ OINT TP SCH ×2 (09:00→20:35)
[2016-11-02] MEDS: METOPROLOL SUCCINATE 25 MG TAB.SR.24H PO SCH (09:00)
[2016-11-02] MEDS: HYDROGEN PEROXIDE 480 ML BOTTLE TP SCH ×2 (09:00→20:35)
[2016-11-02] MEDS: TRAMADOL HCL 50 MG TABLET PO PRN (12:04)
--- NOTE | 2016-11-02 12:10 | NUR ---
Resident attended family support group today and concerns related to care were explored. Resident was vocal and participated during the group meeting. She reported that she was happy about participating today.
[2016-11-02] MEDS: LIDOCAINE 5% (PATCH) 1 EA PATCH TP SCH (17:31)
--- NOTE | 2016-11-02 17:58 | NUR ---
Seen and examined by Savi Nunez NP for Dr. Yen, steam table associate, NNO given.
[2016-11-02 20:06] VITALS: BP 136/75
[2016-11-02] MEDS: LORAZEPAM 0.5 MG TABLET PO PRN (20:36)
[2016-11-02] MEDS: ZOLPIDEM TARTRATE 5 MG TABLET PO PRN (20:36)
[2016-11-03] MEDS: TRAMADOL HCL 50 MG TABLET PO PRN ×2 (00:54→12:07)
[2016-11-03] MEDS: ALBUTEROL FS 2.5 MG/3 ML VIAL.NEB NEB SCH ×4 (00:55→20:07)
[2016-11-03] MEDS: IPRATROPIUM NEB FS 0.5 MG/2.5 ML AMPUL.NEB NEB SCH ×4 (00:55→20:07)
[2016-11-03] MEDS: predniSONE 20 MG TABLET PO SCH (08:10)
[2016-11-03] MEDS: SENNOSIDES 8.6 MG TABLET PO SCH (08:10)
[2016-11-03] MEDS: hydrALAZINE HCL 25 MG TABLET PO SCH ×2 (08:10→20:56)
[2016-11-03] MEDS: ALISKIREN HEMIFUMARATE 150 MG TABLET PO SCH (08:10)
[2016-11-03] MEDS: CHOLECALCIFEROL 1,000 UNIT TABLET (VIT D3) PO SCH (08:11)
[2016-11-03] MEDS: METOPROLOL SUCCINATE 25 MG TAB.SR.24H PO SCH (08:11)
[2016-11-03] MEDS: HYDROCODONE/APAP 5/325MG 1 EACH TABLET PO PRN ×2 (08:11→21:41)
[2016-11-03] MEDS: HYDROGEN PEROXIDE 480 ML BOTTLE TP SCH ×2 (12:00→20:57)
[2016-11-03] MEDS: Z GUARD REMEDY 2 OZ OINT TP SCH ×2 (12:00→20:57)
[2016-11-03] MEDS: LIDOCAINE 5% (PATCH) 1 EA PATCH TP SCH (16:58)
--- NOTE | 2016-11-03 18:12 | NUR ---
Seen and examined by Dr. Palacios with NNO
[2016-11-03 19:43] VITALS: BP 129/72
[2016-11-03] MEDS: LORAZEPAM 0.5 MG TABLET PO PRN (20:56)
[2016-11-03] MEDS: ZOLPIDEM TARTRATE 5 MG TABLET PO PRN (20:56)
[2016-11-04] MEDS: IPRATROPIUM NEB FS 0.5 MG/2.5 ML AMPUL.NEB NEB SCH ×4 (01:24→19:46)
[2016-11-04] MEDS: ALBUTEROL FS 2.5 MG/3 ML VIAL.NEB NEB SCH ×4 (01:24→19:46)
[2016-11-04] MEDS: TRAMADOL HCL 50 MG TABLET PO PRN (01:32)
[2016-11-04 07:55] VITALS: BP 126/87
[2016-11-04 07:58] VITALS: BP 155/81
[2016-11-04] MEDS: predniSONE 20 MG TABLET PO SCH (08:52)
[2016-11-04] MEDS: hydrALAZINE HCL 25 MG TABLET PO SCH ×2 (08:52→20:33)
[2016-11-04] MEDS: SENNOSIDES 8.6 MG TABLET PO SCH (08:52)
[2016-11-04] MEDS: ALISKIREN HEMIFUMARATE 150 MG TABLET PO SCH (08:53)
[2016-11-04] MEDS: CHOLECALCIFEROL 1,000 UNIT TABLET (VIT D3) PO SCH (08:53)
[2016-11-04] MEDS: METOPROLOL SUCCINATE 25 MG TAB.SR.24H PO SCH (08:53)
[2016-11-04] MEDS: HYDROCODONE/APAP 5/325MG 1 EACH TABLET PO PRN ×2 (08:54→22:39)
[2016-11-04] MEDS: HYDROGEN PEROXIDE 480 ML BOTTLE TP SCH ×2 (12:03→20:33)
[2016-11-04] MEDS: Z GUARD REMEDY 2 OZ OINT TP SCH ×2 (12:03→20:33)
[2016-11-04] MEDS: LORAZEPAM 0.5 MG TABLET PO PRN ×2 (12:04→21:43)
--- NOTE | 2016-11-04 13:54 | NUR ---
IDT meeting held, reviewed new orders, medications and labs. New order to DC Imodium secondary to non-usage. Resident made aware.
[2016-11-04] MEDS: LIDOCAINE 5% (PATCH) 1 EA PATCH TP SCH (17:12)
[2016-11-04 19:36] VITALS: BP 140/78
[2016-11-04] MEDS: ZOLPIDEM TARTRATE 5 MG TABLET PO PRN (21:42)
[2016-11-05] MEDS: ALBUTEROL FS 2.5 MG/3 ML VIAL.NEB NEB SCH ×4 (00:55→19:11)
[2016-11-05] MEDS: IPRATROPIUM NEB FS 0.5 MG/2.5 ML AMPUL.NEB NEB SCH ×4 (00:55→19:11)
[2016-11-05 08:00] VITALS: BP 135/70
[2016-11-05] MEDS: hydrALAZINE HCL 25 MG TABLET PO SCH ×2 (08:13→21:13)
[2016-11-05] MEDS: CHOLECALCIFEROL 1,000 UNIT TABLET (VIT D3) PO SCH (08:13)
[2016-11-05] MEDS: METOPROLOL SUCCINATE 25 MG TAB.SR.24H PO SCH (08:13)
[2016-11-05] MEDS: predniSONE 20 MG TABLET PO SCH (08:13)
[2016-11-05] MEDS: ALISKIREN HEMIFUMARATE 150 MG TABLET PO SCH (08:13)
[2016-11-05] MEDS: SENNOSIDES 8.6 MG TABLET PO SCH (08:13)
[2016-11-05] MEDS: HYDROCODONE/APAP 5/325MG 1 EACH TABLET PO PRN ×2 (08:14→21:12)
[2016-11-05] MEDS: TRAMADOL HCL 50 MG TABLET PO PRN (12:13)
[2016-11-05] MEDS: Z GUARD REMEDY 2 OZ OINT TP SCH ×2 (17:21→21:00)
[2016-11-05] MEDS: HYDROGEN PEROXIDE 480 ML BOTTLE TP SCH ×2 (17:21→21:00)
[2016-11-05] MEDS: LIDOCAINE 5% (PATCH) 1 EA PATCH TP SCH (17:22)
[2016-11-05 19:33] VITALS: BP 129/74
[2016-11-05] MEDS: ZOLPIDEM TARTRATE 5 MG TABLET PO PRN (22:31)
[2016-11-06] MEDS: TRAMADOL HCL 50 MG TABLET PO PRN ×3 (00:32→13:01)
[2016-11-06] MEDS: IPRATROPIUM NEB FS 0.5 MG/2.5 ML AMPUL.NEB NEB SCH ×4 (01:17→19:27)
[2016-11-06] MEDS: ALBUTEROL FS 2.5 MG/3 ML VIAL.NEB NEB SCH ×4 (01:17→19:27)
[2016-11-06] MEDS: LORAZEPAM 0.5 MG TABLET PO PRN ×2 (02:04→21:15)
[2016-11-06] MEDS: HYDROCODONE/APAP 5/325MG 1 EACH TABLET PO PRN ×2 (08:30→21:53)
--- NOTE | 2016-11-06 08:30 | NUR ---
Patient complained of headache and sore throat. Further assessment made V/S noted BP123/72, Pulse 86, R 20 Temp 98.0 O2 saturation 100% no SOB noted, Repositioned for comfort, Provided with calm and quiet environment. Suctioned secretions and obtained whitish tracheal secretions in small amount no foul odor noted. Bowel sound present in all 4 quadrants had BM yesterday. HOB elevated for aspiration precautions. Patient complained of back pain on a scale of 0-10 and 10 is the worst pain imaginable. Patient rates 7/10 [place] was given as ordered and effective after one hour of administration. No complained of pain at this time. Dr. Yen is in notified finding assessment to patient with no new order given. Resident is made aware. Will continue to monitor.
[2016-11-06] MEDS: hydrALAZINE HCL 25 MG TABLET PO SCH ×2 (08:40→21:14)
[2016-11-06] MEDS: predniSONE 20 MG TABLET PO SCH (08:40)
[2016-11-06] MEDS: SENNOSIDES 8.6 MG TABLET PO SCH (08:40)
[2016-11-06] MEDS: ALISKIREN HEMIFUMARATE 150 MG TABLET PO SCH (08:40)
[2016-11-06] MEDS: METOPROLOL SUCCINATE 25 MG TAB.SR.24H PO SCH (08:41)
[2016-11-06] MEDS: CHOLECALCIFEROL 1,000 UNIT TABLET (VIT D3) PO SCH (08:41)
[2016-11-06] MEDS: HYDROGEN PEROXIDE 480 ML BOTTLE TP SCH ×2 (09:00→21:14)
[2016-11-06] MEDS: Z GUARD REMEDY 2 OZ OINT TP SCH ×2 (09:00→21:14)
[2016-11-06 13:25] VITALS: BP 98/60
[2016-11-06] MEDS: LIDOCAINE 5% (PATCH) 1 EA PATCH TP SCH (16:35)
[2016-11-06 20:15] VITALS: BP 140/62
[2016-11-06] MEDS: ZOLPIDEM TARTRATE 5 MG TABLET PO PRN (21:15)
[2016-11-07] MEDS: IPRATROPIUM NEB FS 0.5 MG/2.5 ML AMPUL.NEB NEB SCH ×4 (01:40→20:24)
[2016-11-07] MEDS: ALBUTEROL FS 2.5 MG/3 ML VIAL.NEB NEB SCH ×4 (01:40→20:25)
[2016-11-07 08:11] VITALS: BP 153/93
[2016-11-07] MEDS: ALISKIREN HEMIFUMARATE 150 MG TABLET PO SCH (08:54)
[2016-11-07] MEDS: SENNOSIDES 8.6 MG TABLET PO SCH (08:54)
[2016-11-07] MEDS: hydrALAZINE HCL 25 MG TABLET PO SCH ×2 (08:54→21:25)
[2016-11-07] MEDS: predniSONE 20 MG TABLET PO SCH (08:54)
[2016-11-07] MEDS: METOPROLOL SUCCINATE 25 MG TAB.SR.24H PO SCH (08:55)
[2016-11-07] MEDS: CHOLECALCIFEROL 1,000 UNIT TABLET (VIT D3) PO SCH (08:55)
[2016-11-07] MEDS: Z GUARD REMEDY 2 OZ OINT TP SCH ×2 (14:00→21:25)
[2016-11-07] MEDS: HYDROGEN PEROXIDE 480 ML BOTTLE TP SCH ×2 (14:00→21:25)
[2016-11-07] MEDS: LIDOCAINE 5% (PATCH) 1 EA PATCH TP SCH (17:00)
[2016-11-07 20:10] VITALS: BP 135/83
[2016-11-07] MEDS: ZOLPIDEM TARTRATE 5 MG TABLET PO PRN (21:26)
[2016-11-07] MEDS: LORAZEPAM 0.5 MG TABLET PO PRN (21:26)
[2016-11-07] MEDS: HYDROCODONE/APAP 5/325MG 1 EACH TABLET PO PRN (21:48)
[2016-11-08] MEDS: ALBUTEROL FS 2.5 MG/3 ML VIAL.NEB NEB SCH ×4 (02:23→20:05)
[2016-11-08] MEDS: IPRATROPIUM NEB FS 0.5 MG/2.5 ML AMPUL.NEB NEB SCH ×4 (02:23→20:05)
[2016-11-08 08:06] VITALS: BP 135/71
[2016-11-08] MEDS: ALISKIREN HEMIFUMARATE 150 MG TABLET PO SCH (08:13)
[2016-11-08] MEDS: hydrALAZINE HCL 25 MG TABLET PO SCH ×2 (08:13→21:16)
[2016-11-08] MEDS: SENNOSIDES 8.6 MG TABLET PO SCH (08:13)
[2016-11-08] MEDS: predniSONE 20 MG TABLET PO SCH (08:13)
[2016-11-08] MEDS: HYDROCODONE/APAP 5/325MG 1 EACH TABLET PO PRN ×2 (08:14→21:28)
[2016-11-08] MEDS: CHOLECALCIFEROL 1,000 UNIT TABLET (VIT D3) PO SCH (08:14)
[2016-11-08] MEDS: METOPROLOL SUCCINATE 25 MG TAB.SR.24H PO SCH (08:14)
--- NOTE | 2016-11-08 10:10 | NUR ---
Seen and examined by Dr Yen with no new order.
[2016-11-08] MEDS: HYDROGEN PEROXIDE 480 ML BOTTLE TP SCH ×2 (11:00→21:16)
[2016-11-08] MEDS: Z GUARD REMEDY 2 OZ OINT TP SCH ×2 (11:00→21:16)
[2016-11-08] MEDS: TRAMADOL HCL 50 MG TABLET PO PRN (13:15)
[2016-11-08] MEDS: LIDOCAINE 5% (PATCH) 1 EA PATCH TP SCH (16:59)
[2016-11-08 20:00] VITALS: BP 144/77
[2016-11-08] MEDS: LORAZEPAM 0.5 MG TABLET PO PRN (21:17)
[2016-11-08] MEDS: ZOLPIDEM TARTRATE 5 MG TABLET PO PRN (21:17)
[2016-11-09] MEDS: ALBUTEROL FS 2.5 MG/3 ML VIAL.NEB NEB SCH ×4 (01:30→20:05)
[2016-11-09] MEDS: IPRATROPIUM NEB FS 0.5 MG/2.5 ML AMPUL.NEB NEB SCH ×4 (01:30→20:04)
[2016-11-09 08:07] VITALS: BP 164/80
[2016-11-09] MEDS: SENNOSIDES 8.6 MG TABLET PO SCH (08:59)
[2016-11-09] MEDS: hydrALAZINE HCL 25 MG TABLET PO SCH ×2 (08:59→21:02)
[2016-11-09] MEDS: METOPROLOL SUCCINATE 25 MG TAB.SR.24H PO SCH (08:59)
[2016-11-09] MEDS: predniSONE 20 MG TABLET PO SCH (08:59)
[2016-11-09] MEDS: ALISKIREN HEMIFUMARATE 150 MG TABLET PO SCH (08:59)
[2016-11-09] MEDS: CHOLECALCIFEROL 1,000 UNIT TABLET (VIT D3) PO SCH (08:59)
[2016-11-09] MEDS: HYDROCODONE/APAP 5/325MG 1 EACH TABLET PO PRN ×2 (09:00→22:19)
--- NOTE | 2016-11-09 10:00 | NUR ---
Reminded Dr. Aldridge that resident wants her nails cut.
[2016-11-09] MEDS: TRAMADOL HCL 50 MG TABLET PO PRN ×2 (12:30→23:39)
[2016-11-09] MEDS: Z GUARD REMEDY 2 OZ OINT TP SCH ×2 (17:00→21:03)
[2016-11-09] MEDS: HYDROGEN PEROXIDE 480 ML BOTTLE TP SCH ×2 (17:00→21:03)
[2016-11-09] MEDS: LIDOCAINE 5% (PATCH) 1 EA PATCH TP SCH (17:47)
[2016-11-09] MEDS: LORAZEPAM 0.5 MG TABLET PO PRN (19:45)
[2016-11-09 20:12] VITALS: BP 145/68
[2016-11-09] MEDS: ZOLPIDEM TARTRATE 5 MG TABLET PO PRN (21:03)
[2016-11-10] MEDS: ALBUTEROL FS 2.5 MG/3 ML VIAL.NEB NEB SCH ×5 (01:30→20:01)
[2016-11-10] MEDS: IPRATROPIUM NEB FS 0.5 MG/2.5 ML AMPUL.NEB NEB SCH ×5 (01:30→20:01)
[2016-11-10 07:44] VITALS: BP 125/78
[2016-11-10] MEDS: CHOLECALCIFEROL 1,000 UNIT TABLET (VIT D3) PO SCH (08:30)
[2016-11-10] MEDS: ALISKIREN HEMIFUMARATE 150 MG TABLET PO SCH (08:30)
[2016-11-10] MEDS: predniSONE 20 MG TABLET PO SCH (08:30)
[2016-11-10] MEDS: SENNOSIDES 8.6 MG TABLET PO SCH (08:30)
[2016-11-10] MEDS: METOPROLOL SUCCINATE 25 MG TAB.SR.24H PO SCH (08:30)
[2016-11-10] MEDS: hydrALAZINE HCL 25 MG TABLET PO SCH ×2 (08:30→20:30)
[2016-11-10] MEDS: Z GUARD REMEDY 2 OZ OINT TP SCH ×2 (09:00→21:21)
--- NOTE | 2016-11-10 10:45 | NUR ---
Called Dr. Gill's office to remind him of monthly trach tube change. Left message with Janiya. According to Janiya, Dr. Gill is busy with surgeries the whole day.
[2016-11-10] MEDS: HYDROGEN PEROXIDE 480 ML BOTTLE TP SCH ×2 (11:00→21:21)
[2016-11-10] MEDS: LIDOCAINE 5% (PATCH) 1 EA PATCH TP SCH (16:47)
[2016-11-10] MEDS: LORAZEPAM 0.5 MG TABLET PO PRN (20:31)
[2016-11-10] MEDS: HYDROCODONE/APAP 5/325MG 1 EACH TABLET PO PRN (21:20)
[2016-11-10] MEDS: ZOLPIDEM TARTRATE 5 MG TABLET PO PRN (23:06)
[2016-11-11] MEDS: ALBUTEROL FS 2.5 MG/3 ML VIAL.NEB NEB SCH ×4 (01:11→19:53)
[2016-11-11] MEDS: IPRATROPIUM NEB FS 0.5 MG/2.5 ML AMPUL.NEB NEB SCH ×4 (01:11→19:53)
[2016-11-11 07:45] VITALS: BP 139/86
[2016-11-11] MEDS: METOPROLOL SUCCINATE 25 MG TAB.SR.24H PO SCH (09:08)
[2016-11-11] MEDS: hydrALAZINE HCL 25 MG TABLET PO SCH ×2 (09:08→20:44)
[2016-11-11] MEDS: predniSONE 20 MG TABLET PO SCH (09:08)
[2016-11-11] MEDS: ALISKIREN HEMIFUMARATE 150 MG TABLET PO SCH (09:08)
[2016-11-11] MEDS: SENNOSIDES 8.6 MG TABLET PO SCH (09:08)
[2016-11-11] MEDS: CHOLECALCIFEROL 1,000 UNIT TABLET (VIT D3) PO SCH (09:09)
[2016-11-11] MEDS: HYDROCODONE/APAP 5/325MG 1 EACH TABLET PO PRN ×2 (09:15→21:20)
[2016-11-11] MEDS: HYDROGEN PEROXIDE 480 ML BOTTLE TP SCH ×2 (12:20→20:44)
[2016-11-11] MEDS: Z GUARD REMEDY 2 OZ OINT TP SCH ×2 (12:20→20:44)
[2016-11-11] MEDS: LORAZEPAM 0.5 MG TABLET PO PRN ×2 (12:39→20:44)
[2016-11-11] MEDS: ONDANSETRON 4 MG TAB.RAPDIS PO PRN (14:16)
[2016-11-11] MEDS: LIDOCAINE 5% (PATCH) 1 EA PATCH TP SCH (17:00)
--- NOTE | 2016-11-11 17:53 | NUR ---
Resident noted with petechia on her L forearm, photo taken. Patient denies pain, will observe for any further changes. Resident in agreement.
[2016-11-11 19:55] VITALS: BP 130/71
[2016-11-11] MEDS: ZOLPIDEM TARTRATE 5 MG TABLET PO PRN (20:44)
[2016-11-11] MEDS: TRAMADOL HCL 50 MG TABLET PO PRN (23:02)
[2016-11-12] MEDS: IPRATROPIUM NEB FS 0.5 MG/2.5 ML AMPUL.NEB NEB SCH ×4 (01:33→19:54)
[2016-11-12] MEDS: ALBUTEROL FS 2.5 MG/3 ML VIAL.NEB NEB SCH ×4 (01:34→19:54)
[2016-11-12 07:42] VITALS: BP 141/78
[2016-11-12] MEDS: CHOLECALCIFEROL 1,000 UNIT TABLET (VIT D3) PO SCH (08:02)
[2016-11-12] MEDS: ALISKIREN HEMIFUMARATE 150 MG TABLET PO SCH (08:02)
[2016-11-12] MEDS: predniSONE 20 MG TABLET PO SCH (08:02)
[2016-11-12] MEDS: hydrALAZINE HCL 25 MG TABLET PO SCH ×2 (08:02→20:37)
[2016-11-12] MEDS: SENNOSIDES 8.6 MG TABLET PO SCH (08:02)
[2016-11-12] MEDS: METOPROLOL SUCCINATE 25 MG TAB.SR.24H PO SCH (08:02)
[2016-11-12] MEDS: HYDROCODONE/APAP 5/325MG 1 EACH TABLET PO PRN ×2 (08:03→21:15)
[2016-11-12] MEDS: Z GUARD REMEDY 2 OZ OINT TP SCH ×2 (17:28→21:00)
[2016-11-12] MEDS: LIDOCAINE 5% (PATCH) 1 EA PATCH TP SCH (17:28)
[2016-11-12] MEDS: HYDROGEN PEROXIDE 480 ML BOTTLE TP SCH ×2 (17:28→21:00)
[2016-11-12 19:22] VITALS: BP 110/60
[2016-11-12] MEDS: LORAZEPAM 0.5 MG TABLET PO PRN (20:39)
[2016-11-13] MEDS: ZOLPIDEM TARTRATE 5 MG TABLET PO PRN ×2 (00:04→20:45)
[2016-11-13] MEDS: TRAMADOL HCL 50 MG TABLET PO PRN ×2 (00:39→11:44)
[2016-11-13] MEDS: ALBUTEROL FS 2.5 MG/3 ML VIAL.NEB NEB SCH ×4 (01:27→19:30)
[2016-11-13] MEDS: IPRATROPIUM NEB FS 0.5 MG/2.5 ML AMPUL.NEB NEB SCH ×4 (01:27→19:30)
[2016-11-13 08:00] VITALS: BP 130/84
[2016-11-13] MEDS: Z GUARD REMEDY 2 OZ OINT TP SCH ×2 (08:27→20:24)
[2016-11-13] MEDS: METOPROLOL SUCCINATE 25 MG TAB.SR.24H PO SCH (08:27)
[2016-11-13] MEDS: predniSONE 20 MG TABLET PO SCH (08:27)
[2016-11-13] MEDS: ALISKIREN HEMIFUMARATE 150 MG TABLET PO SCH (08:27)
[2016-11-13] MEDS: CHOLECALCIFEROL 1,000 UNIT TABLET (VIT D3) PO SCH (08:27)
[2016-11-13] MEDS: SENNOSIDES 8.6 MG TABLET PO SCH (08:27)
[2016-11-13] MEDS: hydrALAZINE HCL 25 MG TABLET PO SCH ×2 (08:27→20:24)
[2016-11-13] MEDS: HYDROGEN PEROXIDE 480 ML BOTTLE TP SCH ×2 (08:27→20:24)
[2016-11-13] MEDS: HYDROCODONE/APAP 5/325MG 1 EACH TABLET PO PRN ×2 (08:28→21:23)
[2016-11-13] MEDS: LIDOCAINE 5% (PATCH) 1 EA PATCH TP SCH (17:00)
[2016-11-13 19:54] VITALS: BP 132/73
[2016-11-13] MEDS: LORAZEPAM 0.5 MG TABLET PO PRN (20:24)
[2016-11-14] MEDS: ALBUTEROL FS 2.5 MG/3 ML VIAL.NEB NEB SCH ×4 (02:10→20:28)
[2016-11-14] MEDS: IPRATROPIUM NEB FS 0.5 MG/2.5 ML AMPUL.NEB NEB SCH ×4 (02:10→20:28)
[2016-11-14 08:04] VITALS: BP 145/80
[2016-11-14] MEDS: hydrALAZINE HCL 25 MG TABLET PO SCH ×2 (08:34→20:34)
[2016-11-14] MEDS: predniSONE 20 MG TABLET PO SCH (08:34)
[2016-11-14] MEDS: ALISKIREN HEMIFUMARATE 150 MG TABLET PO SCH (08:35)
[2016-11-14] MEDS: HYDROGEN PEROXIDE 480 ML BOTTLE TP SCH ×2 (08:35→20:34)
[2016-11-14] MEDS: Z GUARD REMEDY 2 OZ OINT TP SCH ×2 (08:35→20:34)
[2016-11-14] MEDS: SENNOSIDES 8.6 MG TABLET PO SCH (08:35)
[2016-11-14] MEDS: METOPROLOL SUCCINATE 25 MG TAB.SR.24H PO SCH (08:35)
[2016-11-14] MEDS: CHOLECALCIFEROL 1,000 UNIT TABLET (VIT D3) PO SCH (08:35)
--- NOTE | 2016-11-14 11:10 | NUR ---
Called Dr. Gill's office. According to Soheila, Dr. Gill said he will come by this week to do the trach tube change. Notified pt.
[2016-11-14] MEDS: LIDOCAINE 5% (PATCH) 1 EA PATCH TP SCH (17:35)
[2016-11-14 20:31] VITALS: BP 130/71
[2016-11-14] MEDS: ZOLPIDEM TARTRATE 5 MG TABLET PO PRN (20:34)
[2016-11-14] MEDS: HYDROCODONE/APAP 5/325MG 1 EACH TABLET PO PRN ×2 (20:34→21:48)
[2016-11-14] MEDS: LORAZEPAM 0.5 MG TABLET PO PRN (20:34)
[2016-11-15] MEDS: ALBUTEROL FS 2.5 MG/3 ML VIAL.NEB NEB SCH ×4 (00:54→20:22)
[2016-11-15] MEDS: IPRATROPIUM NEB FS 0.5 MG/2.5 ML AMPUL.NEB NEB SCH ×4 (00:54→20:22)
[2016-11-15 08:23] VITALS: BP 144/81
[2016-11-15] MEDS: predniSONE 20 MG TABLET PO SCH (09:00)
[2016-11-15] MEDS: HYDROGEN PEROXIDE 480 ML BOTTLE TP SCH ×2 (09:00→20:53)
[2016-11-15] MEDS: CHOLECALCIFEROL 1,000 UNIT TABLET (VIT D3) PO SCH (09:00)
[2016-11-15] MEDS: Z GUARD REMEDY 2 OZ OINT TP SCH ×2 (09:00→20:53)
[2016-11-15] MEDS: METOPROLOL SUCCINATE 25 MG TAB.SR.24H PO SCH (09:00)
[2016-11-15] MEDS: ALISKIREN HEMIFUMARATE 150 MG TABLET PO SCH (09:00)
[2016-11-15] MEDS: hydrALAZINE HCL 25 MG TABLET PO SCH ×2 (09:00→20:53)
[2016-11-15] MEDS: SENNOSIDES 8.6 MG TABLET PO SCH (09:00)
--- NOTE | 2016-11-15 09:20 | NUR ---
Called Morgan at the wound center (ext [phone] fax: [phone]) to notify him that Dr. Aldridge has not seen the patient and patient is requiring nail trimming. He stated that he will remind Dr. Aldridge (motorman/woman) to see the patient.
[2016-11-15] MEDS ORDERED: LIDOCAINE HCL/PF 1% 30 ML SDV ONE (10:56)
[2016-11-15] MEDS: TRAMADOL HCL 50 MG TABLET PO PRN (13:00)
[2016-11-15] MEDS: LIDOCAINE 5% (PATCH) 1 EA PATCH TP SCH (17:38)
[2016-11-15 19:48] VITALS: BP 136/68
[2016-11-15] MEDS: LORAZEPAM 0.5 MG TABLET PO PRN (20:54)
[2016-11-15] MEDS: ZOLPIDEM TARTRATE 5 MG TABLET PO PRN (20:54)
[2016-11-15] MEDS: HYDROCODONE/APAP 5/325MG 1 EACH TABLET PO PRN (20:54)
[2016-11-16] MEDS: IPRATROPIUM NEB FS 0.5 MG/2.5 ML AMPUL.NEB NEB SCH ×4 (01:20→19:43)
[2016-11-16] MEDS: ALBUTEROL FS 2.5 MG/3 ML VIAL.NEB NEB SCH ×4 (01:20→19:43)
[2016-11-16] MEDS: ONDANSETRON 4 MG TAB.RAPDIS PO PRN (06:46)
[2016-11-16 07:49] VITALS: BP 150/78
[2016-11-16] MEDS: HYDROCODONE/APAP 5/325MG 1 EACH TABLET PO PRN ×2 (08:00→14:00)
[2016-11-16] MEDS: predniSONE 20 MG TABLET PO SCH (09:07)
[2016-11-16] MEDS: ALISKIREN HEMIFUMARATE 150 MG TABLET PO SCH (09:07)
[2016-11-16] MEDS: hydrALAZINE HCL 25 MG TABLET PO SCH ×2 (09:07→20:35)
[2016-11-16] MEDS: SENNOSIDES 8.6 MG TABLET PO SCH (09:07)
[2016-11-16] MEDS: HYDROGEN PEROXIDE 480 ML BOTTLE TP SCH ×2 (09:08→20:35)
[2016-11-16] MEDS: Z GUARD REMEDY 2 OZ OINT TP SCH ×2 (09:08→20:35)
[2016-11-16] MEDS: METOPROLOL SUCCINATE 25 MG TAB.SR.24H PO SCH (09:08)
[2016-11-16] MEDS: CHOLECALCIFEROL 1,000 UNIT TABLET (VIT D3) PO SCH (09:08)
--- NOTE | 2016-11-16 09:15 | NUR ---
Notified Dr. Yen that resident is not feeling well, complaining of low back pain and burning sensation upon urination. New order given to do CBC and UA and C/S. Orders noted and carried out. Resident informed.
[2016-11-16 10:13] LABS: EOSINOPHILS # (AUTO) 0.1 /CMM (0.0-0.7); EOSINOPHILS % (AUTO) 0.2 % (0.0-6.0); HEMATOCRIT 41 % (33-45); HEMOGLOBIN 13.4 g/dL (11.5-14.8); LYMPHOCYTES # (AUTO) 2.5 /CMM (0.8-4.8); LYMPHOCYTES % (AUTO) 8.4 % (20.0-44.0); MEAN CORPUSCULAR HEMOGLOBIN 27 PG (26.0-33.0); MEAN CORPUSCULAR HGB CONC 33 g/dl (31.0-36.0); MEAN CORPUSCULAR VOLUME 83 fL (82-100); MONOCYTES # (AUTO) 1.4 /CMM (0.1-1.30); MONOCYTES % (AUTO) 4.7 % (2.0-12.0); NEUTROPHILS # (AUTO) 26.2 /CMM (1.8-8.9); NEUTROPHILS % (AUTO) 86.7 % (43.0-81.0); PLATELET COUNT (AUTO) 365 /CMM (150-450); RDW COEFFICIENT OF VARIATION 16.2 (11.5-15.0); RED BLOOD CELL COUNT(AUTO) 4.94 MIL/uL (4.0-5.2)
[2016-11-16 10:21] LABS: WHITE BLOOD COUNT (AUTO) 30.2 K/uL (4.3-11.0)
[2016-11-16] MEDS: TRAMADOL HCL 50 MG TABLET PO PRN ×2 (10:36→19:28)
--- NOTE | 2016-11-16 10:51 | NUR ---
Reported to Dr. Yen result of CBC with WBC of 30.2 and urine specimen obtain was very dark oleg color. New order given for BCX2 and IV Merrem per pharmacy to dose.
[2016-11-16 11:01] LABS: BAND % (MANUAL) 1 % (0.0-5.0); EOSINOPHILS % (MANUAL) 1 % (0-4); LYMPHOCYTES % (MANUAL) 11 % (16-48); MONOCYTES % (MANUAL) 7 % (0-11.0); NEUTROPHILS % (MANUAL) 79 (42-76); REACTIVE LYMPHOCYTES 1 % (0-0)
[2016-11-16] MEDS: MEROPENEM 1 G in IV NS 0.9% 100 ML IV SCH (12:30)
--- NOTE | 2016-11-16 12:30 | NUR ---
IV heplock inserted in the L FA G #20 by ICU nurse. IV line patent with good blood return. Merrem started as ordered.
[2016-11-16 16:36] LABS: APPEARANCE,URINE CLOUDY (CLEAR); BILIRUBIN,URINE 1+ (NEGATIVE); BLOOD, URINE 3+ Ery/uL (NEGATIVE); COLOR,URINE BROWN (YELLOW); KETONES,URINE NEGATIVE (NEGATIVE); LEUKOCYTE ESTERASE ,URINE 2+ (NEGATIVE); NITRITE, URINE POSITIVE (NEGATIVE); PROTEIN,URINE 3+ mg/dl (NEGATIVE); UGLUCOSE NEGATIVE (NEGATIVE)
[2016-11-16 17:05] LABS: RBC,URINE TOO NUMEROUS TO COUN /HPF (0-2); WBC,URINE TOO NUMEROUS TO COUN /HPF (0-3)
[2016-11-16 17:06] LABS: BACTERIA,URINE Many /HPF (None Seen); SQUAMOUS EPITHELIAL CELL,UR Rare /HPF (None Seen)
[2016-11-16] MEDS: LIDOCAINE 5% (PATCH) 1 EA PATCH TP SCH (17:07)
--- NOTE | 2016-11-16 18:56 | NUR ---
Resident stayed in her room in the bed today due to not feeling well. According to patient she feels a little better after the first dose of IV ATB. Endorsed.
[2016-11-16 19:37] VITALS: BP 127/74
[2016-11-16] MEDS: LORAZEPAM 0.5 MG TABLET PO PRN (21:02)
[2016-11-16] MEDS: ZOLPIDEM TARTRATE 5 MG TABLET PO PRN (21:21)
[2016-11-17] MEDS: MEROPENEM 1 G in IV NS 0.9% 100 ML IV SCH ×3 (00:02→23:57)
[2016-11-17] MEDS: IPRATROPIUM NEB FS 0.5 MG/2.5 ML AMPUL.NEB NEB SCH ×4 (01:48→19:47)
[2016-11-17] MEDS: ALBUTEROL FS 2.5 MG/3 ML VIAL.NEB NEB SCH ×4 (01:48→19:48)
[2016-11-17] MEDS: HYDROCODONE/APAP 5/325MG 1 EACH TABLET PO PRN ×3 (04:43→22:18)
[2016-11-17 07:44] VITALS: BP 131/62
[2016-11-17] MEDS: ALISKIREN HEMIFUMARATE 150 MG TABLET PO SCH (09:00)
[2016-11-17] MEDS: Z GUARD REMEDY 2 OZ OINT TP SCH ×2 (09:00→21:06)
[2016-11-17] MEDS: HYDROGEN PEROXIDE 480 ML BOTTLE TP SCH ×2 (09:00→21:06)
[2016-11-17] MEDS: METOPROLOL SUCCINATE 25 MG TAB.SR.24H PO SCH (09:00)
[2016-11-17] MEDS: SENNOSIDES 8.6 MG TABLET PO SCH (09:00)
[2016-11-17] MEDS: CHOLECALCIFEROL 1,000 UNIT TABLET (VIT D3) PO SCH (09:00)
[2016-11-17] MEDS: predniSONE 20 MG TABLET PO SCH (09:00)
[2016-11-17] MEDS: hydrALAZINE HCL 25 MG TABLET PO SCH ×2 (10:02→21:06)
[2016-11-17] MEDS: TRAMADOL HCL 50 MG TABLET PO PRN (14:09)
--- NOTE | 2016-11-17 16:00 | NUR ---
Seen by BUNDLE CUTTER Savi Nunez. Relayed preliminary urine culture result to her. Urine culture showed gram negative rods >100,000 cfu/mL. Pt currently on Merrem.
[2016-11-17] MEDS: LIDOCAINE 5% (PATCH) 1 EA PATCH TP SCH (16:24)
[2016-11-17] MEDS: LORAZEPAM 0.5 MG TABLET PO PRN (20:12)
[2016-11-17 20:32] VITALS: BP 131/69
[2016-11-17] MEDS: ZOLPIDEM TARTRATE 5 MG TABLET PO PRN (21:07)
[2016-11-18] MEDS: ALBUTEROL FS 2.5 MG/3 ML VIAL.NEB NEB SCH ×4 (01:12→20:04)
[2016-11-18] MEDS: IPRATROPIUM NEB FS 0.5 MG/2.5 ML AMPUL.NEB NEB SCH ×4 (01:12→20:04)
[2016-11-18 08:07] VITALS: BP 128/68
[2016-11-18] MEDS: METOPROLOL SUCCINATE 25 MG TAB.SR.24H PO SCH (09:00)
[2016-11-18] MEDS: predniSONE 20 MG TABLET PO SCH (09:00)
[2016-11-18] MEDS: CHOLECALCIFEROL 1,000 UNIT TABLET (VIT D3) PO SCH (09:00)
[2016-11-18] MEDS: ALISKIREN HEMIFUMARATE 150 MG TABLET PO SCH (09:00)
[2016-11-18] MEDS: Z GUARD REMEDY 2 OZ OINT TP SCH ×2 (09:00→21:13)
[2016-11-18] MEDS: hydrALAZINE HCL 25 MG TABLET PO SCH ×2 (09:00→21:13)
[2016-11-18] MEDS: HYDROGEN PEROXIDE 480 ML BOTTLE TP SCH ×2 (09:00→21:13)
[2016-11-18] MEDS: SENNOSIDES 8.6 MG TABLET PO SCH (09:00)
[2016-11-18] MEDS: HYDROCODONE/APAP 5/325MG 1 EACH TABLET PO PRN ×2 (10:21→22:25)
--- NOTE | 2016-11-18 12:03 | NUR ---
Reported urine culture result to Dr. Yen, + for E. Coli, patient currently on Merrem 1 gram IV Q [address] Yen Merrem will cover the infection, no need to change current ATB. NNO given.
[2016-11-18] MEDS: MEROPENEM 1 G in IV NS 0.9% 100 ML IV SCH ×2 (12:30→23:31)
[2016-11-18] MEDS: TRAMADOL HCL 50 MG TABLET PO PRN (12:46)
[2016-11-18] MEDS: LIDOCAINE 5% (PATCH) 1 EA PATCH TP SCH (16:15)
[2016-11-18] MEDS: LORAZEPAM 0.5 MG TABLET PO PRN (19:56)
[2016-11-18 20:20] VITALS: BP 156/88
[2016-11-18] MEDS: ZOLPIDEM TARTRATE 5 MG TABLET PO PRN (21:16)
[2016-11-19] MEDS: IPRATROPIUM NEB FS 0.5 MG/2.5 ML AMPUL.NEB NEB SCH ×4 (01:29→19:49)
[2016-11-19] MEDS: ALBUTEROL FS 2.5 MG/3 ML VIAL.NEB NEB SCH ×4 (01:29→19:49)
[2016-11-19 07:40] VITALS: BP 161/78
[2016-11-19] MEDS: predniSONE 20 MG TABLET PO SCH (09:42)
[2016-11-19] MEDS: ALISKIREN HEMIFUMARATE 150 MG TABLET PO SCH (09:42)
[2016-11-19] MEDS: CHOLECALCIFEROL 1,000 UNIT TABLET (VIT D3) PO SCH (09:42)
[2016-11-19] MEDS: SENNOSIDES 8.6 MG TABLET PO SCH (09:42)
[2016-11-19] MEDS: METOPROLOL SUCCINATE 25 MG TAB.SR.24H PO SCH (09:42)
[2016-11-19] MEDS: hydrALAZINE HCL 25 MG TABLET PO SCH ×2 (09:42→21:17)
[2016-11-19] MEDS: Z GUARD REMEDY 2 OZ OINT TP SCH ×2 (09:43→21:17)
[2016-11-19] MEDS: HYDROGEN PEROXIDE 480 ML BOTTLE TP SCH ×2 (09:43→21:17)
[2016-11-19] MEDS: HYDROCODONE/APAP 5/325MG 1 EACH TABLET PO PRN (10:09)
[2016-11-19] MEDS: MEROPENEM 1 G in IV NS 0.9% 100 ML IV SCH ×2 (12:00→23:19)
[2016-11-19] MEDS: TRAMADOL HCL 50 MG TABLET PO PRN ×2 (14:23→23:38)
[2016-11-19] MEDS: LIDOCAINE 5% (PATCH) 1 EA PATCH TP SCH (16:40)
[2016-11-19 19:38] VITALS: BP 140/86
[2016-11-19] MEDS: LORAZEPAM 0.5 MG TABLET PO PRN (19:56)
[2016-11-19] MEDS: ZOLPIDEM TARTRATE 5 MG TABLET PO PRN (21:17)
[2016-11-20] MEDS: ALBUTEROL FS 2.5 MG/3 ML VIAL.NEB NEB SCH ×4 (01:29→19:39)
[2016-11-20] MEDS: IPRATROPIUM NEB FS 0.5 MG/2.5 ML AMPUL.NEB NEB SCH ×4 (01:29→19:39)
[2016-11-20 07:47] VITALS: BP 139/75
[2016-11-20] MEDS: predniSONE 20 MG TABLET PO SCH (08:33)
[2016-11-20] MEDS: METOPROLOL SUCCINATE 25 MG TAB.SR.24H PO SCH (08:34)
[2016-11-20] MEDS: CHOLECALCIFEROL 1,000 UNIT TABLET (VIT D3) PO SCH (08:35)
[2016-11-20] MEDS: hydrALAZINE HCL 25 MG TABLET PO SCH ×2 (08:35→20:15)
[2016-11-20] MEDS: ALISKIREN HEMIFUMARATE 150 MG TABLET PO SCH (08:36)
[2016-11-20] MEDS: SENNOSIDES 8.6 MG TABLET PO SCH (08:37)
[2016-11-20] MEDS: HYDROGEN PEROXIDE 480 ML BOTTLE TP SCH ×2 (08:39→20:14)
[2016-11-20] MEDS: Z GUARD REMEDY 2 OZ OINT TP SCH ×2 (08:39→20:14)
[2016-11-20] MEDS: HYDROCODONE/APAP 5/325MG 1 EACH TABLET PO PRN ×2 (08:43→21:08)
[2016-11-20] MEDS: MEROPENEM 1 G in IV NS 0.9% 100 ML IV SCH (12:03)
[2016-11-20] MEDS: TRAMADOL HCL 50 MG TABLET PO PRN (12:04)
[2016-11-20] MEDS: LIDOCAINE 5% (PATCH) 1 EA PATCH TP SCH (17:31)
[2016-11-20 20:04] VITALS: BP 149/91
[2016-11-20] MEDS: LORAZEPAM 0.5 MG TABLET PO PRN (20:14)
[2016-11-20] MEDS: ZOLPIDEM TARTRATE 5 MG TABLET PO PRN (21:07)
[2016-11-21] MEDS: TRAMADOL HCL 50 MG TABLET PO PRN ×3 (00:45→23:41)
[2016-11-21] MEDS: ALBUTEROL FS 2.5 MG/3 ML VIAL.NEB NEB SCH ×4 (01:04→20:23)
[2016-11-21] MEDS: IPRATROPIUM NEB FS 0.5 MG/2.5 ML AMPUL.NEB NEB SCH ×4 (01:04→20:23)
[2016-11-21] MEDS: METOPROLOL SUCCINATE 25 MG TAB.SR.24H PO SCH (08:51)
[2016-11-21] MEDS: ALISKIREN HEMIFUMARATE 150 MG TABLET PO SCH (08:51)
[2016-11-21] MEDS: hydrALAZINE HCL 25 MG TABLET PO SCH ×2 (08:51→20:31)
[2016-11-21] MEDS: predniSONE 20 MG TABLET PO SCH (08:52)
[2016-11-21] MEDS: HYDROGEN PEROXIDE 480 ML BOTTLE TP SCH ×2 (08:52→20:31)
[2016-11-21] MEDS: SENNOSIDES 8.6 MG TABLET PO SCH (08:52)
[2016-11-21] MEDS: CHOLECALCIFEROL 1,000 UNIT TABLET (VIT D3) PO SCH (08:52)
[2016-11-21] MEDS: Z GUARD REMEDY 2 OZ OINT TP SCH ×2 (08:53→20:31)
[2016-11-21 09:01] VITALS: BP 139/91
[2016-11-21] MEDS: HYDROCODONE/APAP 5/325MG 1 EACH TABLET PO PRN ×2 (09:11→20:32)
--- NOTE | 2016-11-21 11:04 | NUR ---
Social Service section of [facility] (2nd Quarter) was completed. Resident is alert and was able to answer all questions asked. Resident has a trach and is alert and oriented x4. She is able to make decisions on her behalf. She now has a three-six month discharge plan and would eventually like to be discharged to her friend's home.
[2016-11-21] MEDS: MEROPENEM 1 G in IV NS 0.9% 100 ML IV SCH ×3 (12:04)
--- NOTE | 2016-11-21 12:35 | NUR ---
Resident gave SW $82.[address] into her yellow envelope.
[2016-11-21] MEDS: LIDOCAINE 5% (PATCH) 1 EA PATCH TP SCH (16:59)
[2016-11-21] MEDS: ZOLPIDEM TARTRATE 5 MG TABLET PO PRN (20:32)
[2016-11-21] MEDS: LORAZEPAM 0.5 MG TABLET PO PRN (20:32)
[2016-11-22] MEDS: ALBUTEROL FS 2.5 MG/3 ML VIAL.NEB NEB SCH ×4 (01:30→20:04)
[2016-11-22] MEDS: IPRATROPIUM NEB FS 0.5 MG/2.5 ML AMPUL.NEB NEB SCH ×4 (01:30→20:04)
[2016-11-22 08:10] VITALS: BP 106/62
[2016-11-22] MEDS: hydrALAZINE HCL 25 MG TABLET PO SCH ×2 (08:45→20:42)
[2016-11-22] MEDS: ALISKIREN HEMIFUMARATE 150 MG TABLET PO SCH (08:46)
[2016-11-22] MEDS: METOPROLOL SUCCINATE 25 MG TAB.SR.24H PO SCH (08:46)
[2016-11-22] MEDS: predniSONE 20 MG TABLET PO SCH (08:46)
[2016-11-22] MEDS: CHOLECALCIFEROL 1,000 UNIT TABLET (VIT D3) PO SCH (08:46)
[2016-11-22] MEDS: SENNOSIDES 8.6 MG TABLET PO SCH (08:46)
[2016-11-22] MEDS: Z GUARD REMEDY 2 OZ OINT TP SCH ×2 (08:46→20:42)
[2016-11-22] MEDS: HYDROGEN PEROXIDE 480 ML BOTTLE TP SCH ×2 (08:46→20:42)
[2016-11-22] MEDS: HYDROCODONE/APAP 5/325MG 1 EACH TABLET PO PRN ×3 (08:48→20:43)
[2016-11-22] MEDS: MEROPENEM 1 G in IV NS 0.9% 100 ML IV SCH ×3 (12:00)
[2016-11-22] MEDS: TRAMADOL HCL 50 MG TABLET PO PRN (12:22)
[2016-11-22] MEDS: LIDOCAINE 5% (PATCH) 1 EA PATCH TP SCH (17:14)
[2016-11-22 19:30] VITALS: BP 157/91
[2016-11-22] MEDS: LORAZEPAM 0.5 MG TABLET PO PRN (20:43)
[2016-11-22] MEDS: ZOLPIDEM TARTRATE 5 MG TABLET PO PRN (20:43)
[2016-11-23] MEDS: MEROPENEM 1 G in IV NS 0.9% 100 ML IV SCH ×2
[2016-11-23] MEDS: IPRATROPIUM NEB FS 0.5 MG/2.5 ML AMPUL.NEB NEB SCH ×4 (02:24→20:21)
[2016-11-23] MEDS: ALBUTEROL FS 2.5 MG/3 ML VIAL.NEB NEB SCH ×4 (02:25→20:21)
[2016-11-23 07:22] LABS: BASOPHILS % (AUTO) 0.3 % (0.0-2.0); EOSINOPHILS # (AUTO) 0.1 /CMM (0.0-0.7); EOSINOPHILS % (AUTO) 1.1 % (0.0-6.0); HEMATOCRIT 36 % (33-45); HEMOGLOBIN 12.1 g/dL (11.5-14.8); LYMPHOCYTES # (AUTO) 3.4 /CMM (0.8-4.8); LYMPHOCYTES % (AUTO) 26.2 % (20.0-44.0); MEAN CORPUSCULAR HEMOGLOBIN 28 PG (26.0-33.0); MEAN CORPUSCULAR HGB CONC 34 g/dl (31.0-36.0); MEAN CORPUSCULAR VOLUME 82 fL (82-100); MONOCYTES # (AUTO) 0.8 /CMM (0.1-1.30); MONOCYTES % (AUTO) 6.1 % (2.0-12.0); NEUTROPHILS # (AUTO) 8.7 /CMM (1.8-8.9); NEUTROPHILS % (AUTO) 66.3 % (43.0-81.0); PLATELET COUNT (AUTO) 317 /CMM (150-450); RDW COEFFICIENT OF VARIATION 15.5 (11.5-15.0); RED BLOOD CELL COUNT(AUTO) 4.38 MIL/uL (4.0-5.2); WHITE BLOOD COUNT (AUTO) 13.1 K/uL (4.3-11.0)
[2016-11-23 08:00] VITALS: BP 169/101
[2016-11-23 08:20] VITALS: BP 169/101
[2016-11-23] MEDS: HYDROCODONE/APAP 5/325MG 1 EACH TABLET PO PRN ×2 (09:00→19:54)
[2016-11-23] MEDS: predniSONE 20 MG TABLET PO SCH (09:53)
[2016-11-23] MEDS: hydrALAZINE HCL 25 MG TABLET PO SCH ×2 (09:53→20:49)
[2016-11-23] MEDS: CHOLECALCIFEROL 1,000 UNIT TABLET (VIT D3) PO SCH (09:53)
[2016-11-23] MEDS: ALISKIREN HEMIFUMARATE 150 MG TABLET PO SCH (09:53)
[2016-11-23] MEDS: METOPROLOL SUCCINATE 25 MG TAB.SR.24H PO SCH (09:53)
[2016-11-23] MEDS: Z GUARD REMEDY 2 OZ OINT TP SCH ×2 (09:53→20:50)
[2016-11-23] MEDS: SENNOSIDES 8.6 MG TABLET PO SCH (09:53)
[2016-11-23] MEDS: HYDROGEN PEROXIDE 480 ML BOTTLE TP SCH ×2 (09:53→20:49)
[2016-11-23] MEDS: TRAMADOL HCL 50 MG TABLET PO PRN ×2 (12:00→23:49)
--- NOTE | 2016-11-23 12:27 | NUR ---
Pt. refused to go to the activity room this morning. States she is "afraid" because she no longer has oxygen support and prefers to stay in bed. Will endorse to dayshift nurse to try again tomorrow.
[2016-11-23 14:33] VITALS: BP 169/101
[2016-11-23] MEDS: LIDOCAINE 5% (PATCH) 1 EA PATCH TP SCH (16:54)
[2016-11-23 19:58] VITALS: BP 151/86
[2016-11-23] MEDS: ZOLPIDEM TARTRATE 5 MG TABLET PO PRN (21:04)
[2016-11-23] MEDS: LORAZEPAM 0.5 MG TABLET PO PRN (21:04)
--- NOTE | 2016-11-24 00:34 | NUR ---
Resident woke up, and complaining she could not sleep d/t administrator cleaning another resident next to her and that it's too much noise from ventilator to every moves the administrator does, despite administrator and staff being cautious not to be loud and not to make noise , un- avoidable noise from vent alarms and pulse ox monitor still noted d/t pt coughing , and mechanical alarms set for pt's safety, attended resp needs, explained to resident that it is necessary and it's safety measures and right of every patient to be cleaned and be repositioned every 2 hours, thus frequent turning on neighbor's light and routine care will be done, assured pt that staff will be as quiet as possible every time will do rounds. Continue to monitor and anticipate pt's needs.
[2016-11-24] MEDS: IPRATROPIUM NEB FS 0.5 MG/2.5 ML AMPUL.NEB NEB SCH ×4 (02:18→19:59)
[2016-11-24] MEDS: ALBUTEROL FS 2.5 MG/3 ML VIAL.NEB NEB SCH ×4 (02:19→19:59)
[2016-11-24 07:39] VITALS: BP 145/86
[2016-11-24] MEDS: HYDROCODONE/APAP 5/325MG 1 EACH TABLET PO PRN ×2 (08:30→19:55)
--- NOTE | 2016-11-24 08:58 | NUR ---
Late entry for 11/22/16 Merrem was administered on 11/22/16 at 1200.
--- NOTE | 2016-11-24 09:48 | NUR ---
Spoke to resident regarding discharge planning. She stated that she is happy that she is no longer on oxygen but still feels scared. SW assisted resident in processing her feelings. Resident stated that she is hopeful about discharging sometime this year and that her friends are awaiting her arrival. Resident noted she is slowly starting to make progress and was happy about particular staff members being very helpful.
[2016-11-24] MEDS: hydrALAZINE HCL 25 MG TABLET PO SCH ×2 (09:51→20:09)
[2016-11-24] MEDS: predniSONE 20 MG TABLET PO SCH (09:51)
[2016-11-24] MEDS: SENNOSIDES 8.6 MG TABLET PO SCH (09:51)
[2016-11-24] MEDS: ALISKIREN HEMIFUMARATE 150 MG TABLET PO SCH (09:51)
[2016-11-24] MEDS: CHOLECALCIFEROL 1,000 UNIT TABLET (VIT D3) PO SCH (09:52)
[2016-11-24] MEDS: METOPROLOL SUCCINATE 25 MG TAB.SR.24H PO SCH (09:52)
[2016-11-24] MEDS: Z GUARD REMEDY 2 OZ OINT TP SCH ×2 (11:45→20:09)
[2016-11-24] MEDS: HYDROGEN PEROXIDE 480 ML BOTTLE TP SCH ×2 (11:45→20:09)
[2016-11-24] MEDS: TRAMADOL HCL 50 MG TABLET PO PRN (12:15)
--- NOTE | 2016-11-24 13:00 | NUR ---
Seen by Dr. Marino. No new order.
--- NOTE | 2016-11-24 14:30 | NUR ---
Seen by GRAPHIC DESIGN PROFESSOR Savi Nunez. Pt told her that she has some vaginal itching. Received order to give Diflucan 150 mg po x 1 for vaginal itching. Pt aware of new order.
[2016-11-24] MEDS ORDERED: FLUCONAZOLE (100 MG) 100 MG TABLET PO ONE (15:30)
[2016-11-24] MEDS: LIDOCAINE 5% (PATCH) 1 EA PATCH TP SCH (17:21)
[2016-11-24 19:52] VITALS: BP 157/87
[2016-11-24] MEDS: ZOLPIDEM TARTRATE 5 MG TABLET PO PRN (21:22)
[2016-11-24] MEDS: LORAZEPAM 0.5 MG TABLET PO PRN (21:22)
[2016-11-25] MEDS: IPRATROPIUM NEB FS 0.5 MG/2.5 ML AMPUL.NEB NEB SCH ×4 (00:52→20:02)
[2016-11-25 07:45] VITALS: BP 148/76
[2016-11-25] MEDS: ALBUTEROL FS 2.5 MG/3 ML VIAL.NEB NEB SCH ×3 (08:41→20:02)
[2016-11-25] MEDS: hydrALAZINE HCL 25 MG TABLET PO SCH ×2 (09:28→20:08)
[2016-11-25] MEDS: predniSONE 20 MG TABLET PO SCH (09:28)
[2016-11-25] MEDS: SENNOSIDES 8.6 MG TABLET PO SCH (09:28)
[2016-11-25] MEDS: ALISKIREN HEMIFUMARATE 150 MG TABLET PO SCH (09:28)
[2016-11-25] MEDS: METOPROLOL SUCCINATE 25 MG TAB.SR.24H PO SCH (09:29)
[2016-11-25] MEDS: CHOLECALCIFEROL 1,000 UNIT TABLET (VIT D3) PO SCH (09:29)
[2016-11-25] MEDS: Z GUARD REMEDY 2 OZ OINT TP SCH ×2 (09:29→20:09)
[2016-11-25] MEDS: HYDROGEN PEROXIDE 480 ML BOTTLE TP SCH ×2 (09:29→20:08)
[2016-11-25] MEDS: HYDROCODONE/APAP 5/325MG 1 EACH TABLET PO PRN ×2 (09:54→20:09)
[2016-11-25] MEDS: TRAMADOL HCL 50 MG TABLET PO PRN (12:43)
[2016-11-25] MEDS: LIDOCAINE 5% (PATCH) 1 EA PATCH TP SCH (16:35)
[2016-11-25 20:11] VITALS: BP 158/83
[2016-11-25] MEDS: ZOLPIDEM TARTRATE 5 MG TABLET PO PRN (21:08)
[2016-11-25] MEDS: LORAZEPAM 0.5 MG TABLET PO PRN (21:08)
[2016-11-26] MEDS: ALBUTEROL FS 2.5 MG/3 ML VIAL.NEB NEB SCH ×4 (00:41→19:30)
[2016-11-26] MEDS: IPRATROPIUM NEB FS 0.5 MG/2.5 ML AMPUL.NEB NEB SCH ×4 (00:41→19:30)
[2016-11-26 07:31] VITALS: BP 147/84
[2016-11-26] MEDS: CHOLECALCIFEROL 1,000 UNIT TABLET (VIT D3) PO SCH (09:00)
[2016-11-26] MEDS: hydrALAZINE HCL 25 MG TABLET PO SCH ×2 (09:00→20:02)
[2016-11-26] MEDS: SENNOSIDES 8.6 MG TABLET PO SCH (09:00)
[2016-11-26] MEDS: HYDROGEN PEROXIDE 480 ML BOTTLE TP SCH ×2 (09:00→20:02)
[2016-11-26] MEDS: Z GUARD REMEDY 2 OZ OINT TP SCH ×2 (09:00→20:02)
[2016-11-26] MEDS: METOPROLOL SUCCINATE 25 MG TAB.SR.24H PO SCH (09:00)
[2016-11-26] MEDS: predniSONE 20 MG TABLET PO SCH (09:00)
[2016-11-26] MEDS: ALISKIREN HEMIFUMARATE 150 MG TABLET PO SCH (09:00)
[2016-11-26] MEDS: HYDROCODONE/APAP 5/325MG 1 EACH TABLET PO PRN ×2 (10:22→20:03)
[2016-11-26] MEDS: TRAMADOL HCL 50 MG TABLET PO PRN (13:56)
[2016-11-26] MEDS: LIDOCAINE 5% (PATCH) 1 EA PATCH TP SCH (16:51)
[2016-11-26 20:13] VITALS: BP 153/57
[2016-11-26] MEDS: ZOLPIDEM TARTRATE 5 MG TABLET PO PRN (21:18)
[2016-11-26] MEDS: LORAZEPAM 0.5 MG TABLET PO PRN (21:18)
[2016-11-27] MEDS: ALBUTEROL FS 2.5 MG/3 ML VIAL.NEB NEB SCH ×5 (01:30→19:37)
[2016-11-27] MEDS: IPRATROPIUM NEB FS 0.5 MG/2.5 ML AMPUL.NEB NEB SCH ×5 (01:30→19:37)
[2016-11-27 08:01] VITALS: BP 112/70
[2016-11-27] MEDS: HYDROCODONE/APAP 5/325MG 1 EACH TABLET PO PRN ×2 (09:00→21:35)
[2016-11-27] MEDS: predniSONE 20 MG TABLET PO SCH (09:55)
[2016-11-27] MEDS: SENNOSIDES 8.6 MG TABLET PO SCH (09:55)
[2016-11-27] MEDS: hydrALAZINE HCL 25 MG TABLET PO SCH ×2 (09:55→20:39)
[2016-11-27] MEDS: ALISKIREN HEMIFUMARATE 150 MG TABLET PO SCH (09:55)
[2016-11-27] MEDS: HYDROGEN PEROXIDE 480 ML BOTTLE TP SCH ×2 (09:56→21:34)
[2016-11-27] MEDS: CHOLECALCIFEROL 1,000 UNIT TABLET (VIT D3) PO SCH (09:56)
[2016-11-27] MEDS: METOPROLOL SUCCINATE 25 MG TAB.SR.24H PO SCH (09:56)
[2016-11-27] MEDS: Z GUARD REMEDY 2 OZ OINT TP SCH ×2 (09:56→21:34)
[2016-11-27] MEDS: TRAMADOL HCL 50 MG TABLET PO PRN (13:37)
[2016-11-27] MEDS: LIDOCAINE 5% (PATCH) 1 EA PATCH TP SCH (17:29)
[2016-11-27 19:55] VITALS: BP 138/79
[2016-11-27] MEDS: LORAZEPAM 0.5 MG TABLET PO PRN (20:38)
[2016-11-27] MEDS: ZOLPIDEM TARTRATE 5 MG TABLET PO PRN (23:40)
[2016-11-28] MEDS: IPRATROPIUM NEB FS 0.5 MG/2.5 ML AMPUL.NEB NEB SCH ×4 (01:09→19:48)
[2016-11-28] MEDS: ALBUTEROL FS 2.5 MG/3 ML VIAL.NEB NEB SCH ×4 (01:09→19:48)
[2016-11-28] MEDS: Z GUARD REMEDY 2 OZ OINT TP SCH ×2 (07:30→20:32)
[2016-11-28] MEDS: HYDROGEN PEROXIDE 480 ML BOTTLE TP SCH ×2 (07:30→20:32)
[2016-11-28] MEDS: HYDROCODONE/APAP 5/325MG 1 EACH TABLET PO PRN ×2 (08:00→20:33)
[2016-11-28 08:04] VITALS: BP 147/81
[2016-11-28] MEDS: predniSONE 20 MG TABLET PO SCH (08:11)
[2016-11-28] MEDS: SENNOSIDES 8.6 MG TABLET PO SCH (08:11)
[2016-11-28] MEDS: ALISKIREN HEMIFUMARATE 150 MG TABLET PO SCH (08:11)
[2016-11-28] MEDS: hydrALAZINE HCL 25 MG TABLET PO SCH ×2 (08:11→20:32)
[2016-11-28] MEDS: METOPROLOL SUCCINATE 25 MG TAB.SR.24H PO SCH (08:12)
[2016-11-28] MEDS: CHOLECALCIFEROL 1,000 UNIT TABLET (VIT D3) PO SCH (08:12)
[2016-11-28] MEDS: LIDOCAINE 5% (PATCH) 1 EA PATCH TP SCH (17:26)
[2016-11-28 19:46] VITALS: BP 168/86
[2016-11-28] MEDS: ZOLPIDEM TARTRATE 5 MG TABLET PO PRN (20:33)
[2016-11-28] MEDS: LORAZEPAM 0.5 MG TABLET PO PRN (20:33)
[2016-11-29] MEDS: ALBUTEROL FS 2.5 MG/3 ML VIAL.NEB NEB SCH ×4 (02:20→19:38)
[2016-11-29] MEDS: IPRATROPIUM NEB FS 0.5 MG/2.5 ML AMPUL.NEB NEB SCH ×4 (02:20→19:38)
[2016-11-29 07:46] VITALS: BP 153/97
[2016-11-29] MEDS: predniSONE 20 MG TABLET PO SCH (09:17)
[2016-11-29] MEDS: SENNOSIDES 8.6 MG TABLET PO SCH (09:17)
[2016-11-29] MEDS: hydrALAZINE HCL 25 MG TABLET PO SCH ×2 (09:17→20:35)
[2016-11-29] MEDS: ALISKIREN HEMIFUMARATE 150 MG TABLET PO SCH (09:17)
[2016-11-29] MEDS: METOPROLOL SUCCINATE 25 MG TAB.SR.24H PO SCH (09:17)
[2016-11-29] MEDS: Z GUARD REMEDY 2 OZ OINT TP SCH ×2 (09:18→20:35)
[2016-11-29] MEDS: CHOLECALCIFEROL 1,000 UNIT TABLET (VIT D3) PO SCH (09:18)
[2016-11-29] MEDS: HYDROGEN PEROXIDE 480 ML BOTTLE TP SCH ×2 (09:18→20:35)
[2016-11-29] MEDS: HYDROCODONE/APAP 5/325MG 1 EACH TABLET PO PRN ×2 (09:22→20:36)
--- NOTE | 2016-11-29 12:45 | NUR ---
Seen by JAREK Nunez. Pt showed JAREK Hou her left forearm petechia. JAREK Hou has seen it before and no new order was made at that time. Received order for dermatology consult. Notified oncology social work Maude. She said to have Dr. Chu see the pt. Notified Dr. Vlad Cruz.
--- NOTE | 2016-11-29 17:23 | NUR ---
Dr. Vlad Cruz came to see pt. He examined pt's left forearm and explained to pt that it is nothing dangerous, that it looks like broken capillaries. He informed pt that he will follow up on it next week. No new order.
[2016-11-29] MEDS: LIDOCAINE 5% (PATCH) 1 EA PATCH TP SCH (17:29)
--- NOTE | 2016-11-29 18:41 | NUR ---
Pt refused to eat dinner. She saved the fruits to eat later. She said the dinner was not good. Offered to order her a sandwich or an alternative dinner tray, but she refused.
[2016-11-29 19:44] VITALS: BP 126/76
[2016-11-29] MEDS: ZOLPIDEM TARTRATE 5 MG TABLET PO PRN (20:36)
[2016-11-29] MEDS: LORAZEPAM 0.5 MG TABLET PO PRN (20:36)
[2016-11-30] MEDS: ALBUTEROL FS 2.5 MG/3 ML VIAL.NEB NEB SCH ×4 (01:08→19:47)
[2016-11-30] MEDS: IPRATROPIUM NEB FS 0.5 MG/2.5 ML AMPUL.NEB NEB SCH ×4 (01:08→19:47)
[2016-11-30 07:49] VITALS: BP 122/76
[2016-11-30] MEDS: SENNOSIDES 8.6 MG TABLET PO SCH (09:00)
[2016-11-30] MEDS: hydrALAZINE HCL 25 MG TABLET PO SCH ×2 (09:46→20:32)
[2016-11-30] MEDS: predniSONE 20 MG TABLET PO SCH (09:46)
[2016-11-30] MEDS: ALISKIREN HEMIFUMARATE 150 MG TABLET PO SCH (09:47)
[2016-11-30] MEDS: CHOLECALCIFEROL 1,000 UNIT TABLET (VIT D3) PO SCH (09:48)
[2016-11-30] MEDS: METOPROLOL SUCCINATE 25 MG TAB.SR.24H PO SCH (09:48)
[2016-11-30] MEDS: Z GUARD REMEDY 2 OZ OINT TP SCH ×2 (09:54→20:32)
[2016-11-30] MEDS: HYDROGEN PEROXIDE 480 ML BOTTLE TP SCH ×2 (09:54→20:32)
[2016-11-30] MEDS: HYDROCODONE/APAP 5/325MG 1 EACH TABLET PO PRN ×2 (09:55→20:33)
[2016-11-30] MEDS: LIDOCAINE 5% (PATCH) 1 EA PATCH TP SCH (16:48)
[2016-11-30 19:44] VITALS: BP 160/88
[2016-11-30] MEDS: ZOLPIDEM TARTRATE 5 MG TABLET PO PRN (20:32)
[2016-11-30] MEDS: LORAZEPAM 0.5 MG TABLET PO PRN (20:33)
[2016-12-01] MEDS: IPRATROPIUM NEB FS 0.5 MG/2.5 ML AMPUL.NEB NEB SCH ×4 (00:38→19:56)
[2016-12-01] MEDS: ALBUTEROL FS 2.5 MG/3 ML VIAL.NEB NEB SCH ×4 (00:38→19:56)
[2016-12-01 07:38] VITALS: BP 141/62
[2016-12-01] MEDS: METOPROLOL SUCCINATE 25 MG TAB.SR.24H PO SCH (09:00)
[2016-12-01] MEDS: Z GUARD REMEDY 2 OZ OINT TP SCH ×2 (09:00→20:20)
[2016-12-01] MEDS: predniSONE 20 MG TABLET PO SCH (09:00)
[2016-12-01] MEDS: HYDROGEN PEROXIDE 480 ML BOTTLE TP SCH ×2 (09:00→20:20)
[2016-12-01] MEDS: CHOLECALCIFEROL 1,000 UNIT TABLET (VIT D3) PO SCH (09:00)
[2016-12-01] MEDS: SENNOSIDES 8.6 MG TABLET PO SCH (09:00)
[2016-12-01] MEDS: hydrALAZINE HCL 25 MG TABLET PO SCH ×2 (09:00→20:20)
[2016-12-01] MEDS: ALISKIREN HEMIFUMARATE 150 MG TABLET PO SCH (09:00)
[2016-12-01] MEDS: HYDROCODONE/APAP 5/325MG 1 EACH TABLET PO PRN ×2 (13:44→19:46)
[2016-12-01] MEDS: TRAMADOL HCL 50 MG TABLET PO PRN (17:54)
[2016-12-01] MEDS: LIDOCAINE 5% (PATCH) 1 EA PATCH TP SCH (17:54)
--- NOTE | 2016-12-01 20:00 | NUR ---
SUCTIONED TOLERATED AND INNER CANNULA REPLACED NO ADVERSE REACTION NOTED Addendum: 12/01/16 at 2000 by ANA LANDERS RT Amended: Links added.
[2016-12-01 21:06] VITALS: BP 124/57
[2016-12-01] MEDS: ZOLPIDEM TARTRATE 5 MG TABLET PO PRN (21:17)
[2016-12-01] MEDS: LORAZEPAM 0.5 MG TABLET PO PRN (21:17)
[2016-12-02] MEDS: IPRATROPIUM NEB FS 0.5 MG/2.5 ML AMPUL.NEB NEB SCH ×4 (01:46→20:13)
[2016-12-02] MEDS: ALBUTEROL FS 2.5 MG/3 ML VIAL.NEB NEB SCH ×4 (01:46→20:13)
[2016-12-02 08:44] VITALS: BP 152/79
[2016-12-02] MEDS: hydrALAZINE HCL 25 MG TABLET PO SCH ×2 (09:27→20:35)
[2016-12-02] MEDS: CHOLECALCIFEROL 1,000 UNIT TABLET (VIT D3) PO SCH (09:28)
[2016-12-02] MEDS: SENNOSIDES 8.6 MG TABLET PO SCH (09:28)
[2016-12-02] MEDS: ALISKIREN HEMIFUMARATE 150 MG TABLET PO SCH (09:28)
[2016-12-02] MEDS: predniSONE 20 MG TABLET PO SCH (09:28)
[2016-12-02] MEDS: METOPROLOL SUCCINATE 25 MG TAB.SR.24H PO SCH (09:28)
[2016-12-02] MEDS: HYDROGEN PEROXIDE 480 ML BOTTLE TP SCH ×2 (09:29→20:35)
[2016-12-02] MEDS: Z GUARD REMEDY 2 OZ OINT TP SCH ×2 (09:29→20:35)
[2016-12-02] MEDS: HYDROCODONE/APAP 5/325MG 1 EACH TABLET PO PRN ×2 (09:30→21:42)
[2016-12-02] MEDS: TRAMADOL HCL 50 MG TABLET PO PRN (12:14)
--- NOTE | 2016-12-02 13:48 | NUR ---
IDT meeting held, resident did not attend the meeting. IDT team reviewed current orders medications and treatments. Resident tolerating room air for 12 hours without any episode of SOB reported. Patient is staying in activity room for longer period of time. She ambulate to and from activity room to her room alone with staff supervision only. She showed significant improvement in her physical activity.
[2016-12-02] MEDS: LIDOCAINE 5% (PATCH) 1 EA PATCH TP SCH (17:00)
[2016-12-02 19:54] VITALS: BP 146/76
[2016-12-02] MEDS: LORAZEPAM 0.5 MG TABLET PO PRN (20:36)
[2016-12-02] MEDS: ZOLPIDEM TARTRATE 5 MG TABLET PO PRN (20:36)
[2016-12-03] MEDS: ALBUTEROL FS 2.5 MG/3 ML VIAL.NEB NEB SCH ×4 (00:54→19:35)
[2016-12-03] MEDS: IPRATROPIUM NEB FS 0.5 MG/2.5 ML AMPUL.NEB NEB SCH ×4 (00:54→19:35)
[2016-12-03 07:41] VITALS: BP 149/75
[2016-12-03] MEDS: predniSONE 20 MG TABLET PO SCH (08:26)
[2016-12-03] MEDS: hydrALAZINE HCL 25 MG TABLET PO SCH ×2 (08:26→20:27)
[2016-12-03] MEDS: SENNOSIDES 8.6 MG TABLET PO SCH (08:26)
[2016-12-03] MEDS: METOPROLOL SUCCINATE 25 MG TAB.SR.24H PO SCH (08:28)
[2016-12-03] MEDS: ALISKIREN HEMIFUMARATE 150 MG TABLET PO SCH (08:28)
[2016-12-03] MEDS: CHOLECALCIFEROL 1,000 UNIT TABLET (VIT D3) PO SCH (08:28)
[2016-12-03] MEDS: HYDROGEN PEROXIDE 480 ML BOTTLE TP SCH ×2 (09:00→20:28)
[2016-12-03] MEDS: HYDROCODONE/APAP 5/325MG 1 EACH TABLET PO PRN ×2 (09:00→21:04)
[2016-12-03] MEDS: Z GUARD REMEDY 2 OZ OINT TP SCH ×2 (09:00→20:28)
[2016-12-03] MEDS: TRAMADOL HCL 50 MG TABLET PO PRN ×2 (14:29→22:58)
[2016-12-03] MEDS: LIDOCAINE 5% (PATCH) 1 EA PATCH TP SCH (16:55)
[2016-12-03 20:23] VITALS: BP 145/78
[2016-12-03] MEDS: ZOLPIDEM TARTRATE 5 MG TABLET PO PRN (20:28)
[2016-12-03] MEDS: LORAZEPAM 0.5 MG TABLET PO PRN (20:28)
[2016-12-04] MEDS: IPRATROPIUM NEB FS 0.5 MG/2.5 ML AMPUL.NEB NEB SCH ×4 (00:58→19:50)
[2016-12-04] MEDS: ALBUTEROL FS 2.5 MG/3 ML VIAL.NEB NEB SCH ×4 (00:58→19:50)
[2016-12-04 07:37] VITALS: BP 143/71
[2016-12-04] MEDS: SENNOSIDES 8.6 MG TABLET PO SCH (09:00)
[2016-12-04] MEDS: HYDROGEN PEROXIDE 480 ML BOTTLE TP SCH ×2 (09:00→20:47)
[2016-12-04] MEDS: METOPROLOL SUCCINATE 25 MG TAB.SR.24H PO SCH (09:00)
[2016-12-04] MEDS: Z GUARD REMEDY 2 OZ OINT TP SCH ×2 (09:00→20:47)
[2016-12-04] MEDS: predniSONE 20 MG TABLET PO SCH (09:00)
[2016-12-04] MEDS: hydrALAZINE HCL 25 MG TABLET PO SCH ×2 (09:00→20:47)
[2016-12-04] MEDS: CHOLECALCIFEROL 1,000 UNIT TABLET (VIT D3) PO SCH (09:00)
[2016-12-04] MEDS: ALISKIREN HEMIFUMARATE 150 MG TABLET PO SCH (09:00)
[2016-12-04] MEDS: HYDROCODONE/APAP 5/325MG 1 EACH TABLET PO PRN (10:13)
[2016-12-04] MEDS: TRAMADOL HCL 50 MG TABLET PO PRN (13:20)
[2016-12-04] MEDS: LIDOCAINE 5% (PATCH) 1 EA PATCH TP SCH (17:18)
[2016-12-04 20:04] VITALS: BP 140/94
[2016-12-04] MEDS: ZOLPIDEM TARTRATE 5 MG TABLET PO PRN (20:47)
[2016-12-04] MEDS: LORAZEPAM 0.5 MG TABLET PO PRN (20:48)
[2016-12-05] MEDS: ALBUTEROL FS 2.5 MG/3 ML VIAL.NEB NEB SCH ×4 (00:53→20:00)
[2016-12-05] MEDS: IPRATROPIUM NEB FS 0.5 MG/2.5 ML AMPUL.NEB NEB SCH ×5 (00:53→20:00)
[2016-12-05 08:00] VITALS: BP 143/75
[2016-12-05] MEDS: HYDROCODONE/APAP 5/325MG 1 EACH TABLET PO PRN (08:00)
[2016-12-05] MEDS: predniSONE 20 MG TABLET PO SCH (09:59)
[2016-12-05] MEDS: SENNOSIDES 8.6 MG TABLET PO SCH (09:59)
[2016-12-05] MEDS: ALISKIREN HEMIFUMARATE 150 MG TABLET PO SCH (09:59)
[2016-12-05] MEDS: hydrALAZINE HCL 25 MG TABLET PO SCH ×2 (09:59→21:33)
[2016-12-05] MEDS: CHOLECALCIFEROL 1,000 UNIT TABLET (VIT D3) PO SCH (09:59)
[2016-12-05] MEDS: METOPROLOL SUCCINATE 25 MG TAB.SR.24H PO SCH (09:59)
[2016-12-05] MEDS: Z GUARD REMEDY 2 OZ OINT TP SCH ×2 (13:00→21:33)
[2016-12-05] MEDS: HYDROGEN PEROXIDE 480 ML BOTTLE TP SCH ×2 (13:00→21:33)
[2016-12-05] MEDS: LIDOCAINE 5% (PATCH) 1 EA PATCH TP SCH (17:42)
--- NOTE | 2016-12-05 18:30 | NUR ---
Patient agitated, noted sob, suctioned small amount of pale yellow secretions, RT came and gave breathing treatment. PATIENTS' HR elevated 135. Approached patient calmly, HOB elevated, she requested ativan given 0.25 mg po, given. VISUAL MERCHANDISING ASSOCIATE Hellen Nunez came, patients' temp 102.8, B/P 158/70, rechecked HR 128. Tylenol 2 tabs po given for fever. JAREK Macedo ordered stat labs, CBC, BMP, UA C AND S, BLOOD CULTURE X 2, PORTABLE chest X RAY. She also ordered to start IV 0.9 NS at 100 ml/hr x 24 hrs, once x ray done and labs start zosyn 2.25 mg IVPB Q 6 HRS x 7 days , vanco 1 gm then phar to dose. NOTED AND CARRIED OUT.
--- NOTE | 2016-12-05 18:32 | NUR ---
ATROVENT GIVEN ONLY DUE TO HIGH HR. Addendum: 12/05/16 at 1832 by DEE GRANT RT Amended: Links added.
[2016-12-05] MEDS: LORAZEPAM 0.5 MG TABLET PO PRN (18:49)
[2016-12-05 19:53] LABS: BASOPHILS # (AUTO) 0.2 /CMM (0.0-0.2); BASOPHILS % (AUTO) 1.6 % (0.0-2.0); EOSINOPHILS % (AUTO) 0.1 % (0.0-6.0); HEMATOCRIT 38 % (33-45); HEMOGLOBIN 12.6 g/dL (11.5-14.8); LYMPHOCYTES # (AUTO) 0.8 /CMM (0.8-4.8); LYMPHOCYTES % (AUTO) 4.9 % (20.0-44.0); MEAN CORPUSCULAR HEMOGLOBIN 28 PG (26.0-33.0); MEAN CORPUSCULAR HGB CONC 34 g/dl (31.0-36.0); MEAN CORPUSCULAR VOLUME 83 fL (82-100); MONOCYTES # (AUTO) 0.6 /CMM (0.1-1.30); MONOCYTES % (AUTO) 3.9 % (2.0-12.0); NEUTROPHILS % (AUTO) 89.5 % (43.0-81.0); PLATELET COUNT (AUTO) 273 /CMM (150-450); RDW COEFFICIENT OF VARIATION 14.2 (11.5-15.0); RED BLOOD CELL COUNT(AUTO) 4.53 MIL/uL (4.0-5.2); WHITE BLOOD COUNT (AUTO) 15.6 K/uL (4.3-11.0)
[2016-12-05] MEDS: IV NS 0.9% 1,000 ML IV PRN (20:00)
--- NOTE | 2016-12-05 20:00 | NUR ---
RN NOTES Pt noted with flushed face and verbalized not feeling well. Peripheral line started to left forearm. Started pt on NS IV @100ml/hr as ordered. Blood was drawn by chemical laboratory tester and CXR done at this time. Collected urine for UA and sent to lab. Will continue to monitor closely.
[2016-12-05 20:01] LABS: CALCIUM, SERUM 9.2 mg/dL (8.5-10.1); POTASSIUM 4.2 mmol/L (3.5-5.1)
[2016-12-05 20:08] VITALS: BP 147/75
[2016-12-05] MEDS ORDERED: FEE PK DOSING 1 MIN EA MC ONE (20:36)
[2016-12-05] MEDS: ZOSYN IVPB 2.25 G in IV D5W 50ml IV SCH (21:00)
--- NOTE | 2016-12-05 21:00 | NUR ---
RN NOTES Started pt on zosyn 2.25gm, as ordered, with no A/R noted. Will continue to monitor.
[2016-12-05] MEDS ORDERED: VANCOMYCIN 1 GM in IV D5W 250ml IV ONE (21:30)
--- NOTE | 2016-12-05 21:30 | NUR ---
RN NOTES Started pt on Vancomycin 1gm, as ordered, with no A/R noted. Pharmacy recommendation to continue on Vancomycin 1gm q24hr x 7 days. Will continue to monitor.
[2016-12-05] MEDS: ZOLPIDEM TARTRATE 5 MG TABLET PO PRN (21:33)
--- NOTE | 2016-12-05 21:45 | NUR ---
RN NOTES Relayed lab results and CXR results to Savi Nunez and ordered for pharmacy to dose zosyn for pneumonia. Will notify pharmacy in am.
[2016-12-05 21:58] LABS: APPEARANCE,URINE SL CLOUDY (CLEAR); BILIRUBIN,URINE NEGATIVE (NEGATIVE); BLOOD, URINE 1+ Ery/uL (NEGATIVE); COLOR,URINE YELLOW (YELLOW); KETONES,URINE NEGATIVE (NEGATIVE); LEUKOCYTE ESTERASE ,URINE 1+ (NEGATIVE); NITRITE, URINE POSITIVE (NEGATIVE); PROTEIN,URINE 1+ mg/dl (NEGATIVE); UGLUCOSE NEGATIVE (NEGATIVE); UROBILINOGEN,URINE 0.2 EU/dL (0.2)
[2016-12-05 22:12] LABS: BACTERIA,URINE Moderate /HPF (None Seen); SQUAMOUS EPITHELIAL CELL,UR Few /HPF (None Seen); WBC,URINE 21-50 /HPF (0-3)
[2016-12-05] MEDS: TRAMADOL HCL 50 MG TABLET PO PRN (22:29)
[2016-12-06] MEDS: IPRATROPIUM NEB FS 0.5 MG/2.5 ML AMPUL.NEB NEB SCH ×4 (00:50→20:02)
[2016-12-06] MEDS: ALBUTEROL FS 2.5 MG/3 ML VIAL.NEB NEB SCH ×4 (00:50→20:02)
[2016-12-06] MEDS: ZOSYN IVPB 2.25 G in IV D5W 50ml IV SCH ×2 (02:05→09:11)
[2016-12-06] MEDS: IV NS 0.9% 1,000 ML IV PRN (06:27)
[2016-12-06 08:08] VITALS: BP 134/74
[2016-12-06 08:32] LABS: CALCIUM, SERUM 8.5 mg/dL (8.5-10.1); CREATININE 2.3 mg/dL (0.6-1.3); POTASSIUM 3.8 mmol/L (3.5-5.1)
[2016-12-06] MEDS: SENNOSIDES 8.6 MG TABLET PO SCH (09:00)
[2016-12-06] MEDS: hydrALAZINE HCL 25 MG TABLET PO SCH ×2 (09:00→21:09)
[2016-12-06] MEDS: METOPROLOL SUCCINATE 25 MG TAB.SR.24H PO SCH (09:00)
[2016-12-06] MEDS: ALISKIREN HEMIFUMARATE 150 MG TABLET PO SCH (09:00)
[2016-12-06] MEDS: predniSONE 20 MG TABLET PO SCH (09:00)
[2016-12-06] MEDS: CHOLECALCIFEROL 1,000 UNIT TABLET (VIT D3) PO SCH (09:00)
--- NOTE | 2016-12-06 09:43 | NUR ---
Spoke with Lorenza from [facility] pharmacy. Notified her that CHEMICAL APPLICATOR Savi Nunez said for them to dose pt's Zosyn for pneumonia. Per Lorenza, pt will continue on the same dose of Zosyn.
--- NOTE | 2016-12-06 10:00 | NUR ---
Seen and examined by Dr. Yen. Relayed urine culture to him. No new order. Pt currently on Zosyn and Vancomycin for pneumonia. Dr. Yen said he will look at pt's CXR.
[2016-12-06] MEDS: HYDROCODONE/APAP 5/325MG 1 EACH TABLET PO PRN (10:05)
--- NOTE | 2016-12-06 10:23 | NUR ---
Received order to change Zosyn 2.25 gm to Zosyn 3.375 gm IV q 6 hours for 7 days for pneumonia.
--- NOTE | 2016-12-06 12:19 | NUR ---
Resident received a notice for forms/documents needed from public assistance (for medi-shantanu application) . Per resident's permission, BERNARDINO contacted her daughter Francine who stated that she maybe only has an old identification card that she can send to SW email. She stated her friend Yusef should have her bank related statements and information. Per resident, her friends Soy and Daylin [place] and may not be able to currently help. Resident agitated and BERNARDINO stated to her that she can come back later and to see if she wants to call them together. Addendum: 12/06/16 at 1231 by JEAN CARLOS LEBRON Resident was also noted with some confusion and asked "do you understand what I am saying?" and had a puzzled look on her face. However, resident oriented x3 when asked questions by BERNARDINO and continued talking about her medi-shantanu application and her documents. Charge nurse informed.
[2016-12-06] MEDS: TRAMADOL HCL 50 MG TABLET PO PRN (12:30)
[2016-12-06] MEDS: HYDROGEN PEROXIDE 480 ML BOTTLE TP SCH ×2 (13:00→21:09)
[2016-12-06] MEDS: Z GUARD REMEDY 2 OZ OINT TP SCH ×2 (13:00→21:09)
--- NOTE | 2016-12-06 14:35 | NUR ---
Received order to decrease Vancomycin from 1 gm to 0.75 gm IV q 24 hours for pneumonia until 12/11/16.
[2016-12-06] MEDS ORDERED: PIPERACILLIN /TAZOBACTAM 3.375 G in IV D5W 50 ML IV SCH (15:00)
[2016-12-06] MEDS: LIDOCAINE 5% (PATCH) 1 EA PATCH TP SCH (16:49)
[2016-12-06] MEDS: PIPERACILLIN /TAZOBACTAM 3.375 G in IV D5W 50 ML IV SCH (18:10)
--- NOTE | 2016-12-06 18:17 | NUR ---
Notified WATERPROOF COATING MACHINE TENDER Savi Nunez that only 1 set of blood culture was done yesterday. Also notified her that pt was on cool aerosol the whole day. According to the pt, she feels scared to be on room air because she has pneumonia.
[2016-12-06 19:46] VITALS: BP 130/59
--- NOTE | 2016-12-06 20:03 | NUR ---
inner canula replaced with no adverse reactions Addendum: 12/06/16 at 2006 by ANA LANDERS RT Amended: Links added.
[2016-12-06] MEDS: ZOLPIDEM TARTRATE 5 MG TABLET PO PRN (21:10)
[2016-12-06] MEDS: LORAZEPAM 0.5 MG TABLET PO PRN (21:10)
[2016-12-06] MEDS ORDERED: VANCOMYCIN 1 GM in IV D5W 250 ML IV SCH (22:00)
[2016-12-06] MEDS ORDERED: VANCOMYCIN 0.75 GM in IV D5W 250 ML IV SCH (22:00)
[2016-12-07] MEDS: ALBUTEROL FS 2.5 MG/3 ML VIAL.NEB NEB SCH ×4 (01:42→20:05)
[2016-12-07] MEDS: IPRATROPIUM NEB FS 0.5 MG/2.5 ML AMPUL.NEB NEB SCH ×4 (01:42→20:05)
[2016-12-07] MEDS: PIPERACILLIN /TAZOBACTAM 3.375 G in IV D5W 50 ML IV SCH ×3 (05:31)
[2016-12-07 06:59] LABS: CALCIUM, SERUM 8.5 mg/dL (8.5-10.1)
[2016-12-07 07:47] VITALS: BP 132/72
[2016-12-07] MEDS: hydrALAZINE HCL 25 MG TABLET PO SCH ×2 (08:04→20:56)
[2016-12-07] MEDS: METOPROLOL SUCCINATE 25 MG TAB.SR.24H PO SCH (08:04)
[2016-12-07] MEDS: ALISKIREN HEMIFUMARATE 150 MG TABLET PO SCH (08:04)
[2016-12-07] MEDS: CHOLECALCIFEROL 1,000 UNIT TABLET (VIT D3) PO SCH (08:04)
[2016-12-07] MEDS: predniSONE 20 MG TABLET PO SCH (08:04)
[2016-12-07] MEDS: SENNOSIDES 8.6 MG TABLET PO SCH (08:04)
[2016-12-07] MEDS: HYDROCODONE/APAP 5/325MG 1 EACH TABLET PO PRN ×2 (08:05→22:08)
[2016-12-07] MEDS: LORAZEPAM 0.5 MG TABLET PO PRN ×2 (13:16→20:33)
--- NOTE | 2016-12-07 13:30 | NUR ---
Notified Dr. Yen that resident's IV line got infiltrated and patient adamantly refusing to reinsert another IV access. She stated "I don't want this, I don't want you to insert another one". Dr. Yen ordered to change ATB to Nitrofurantoin based on urine sensitivity result. Order faxed to pharmacy for dosing. Resident made aware of new order.
[2016-12-07] MEDS: CEPHALEXIN MONOHYDRATE 250 MG CAPSULE PO SCH ×2 (14:00→20:55)
--- NOTE | 2016-12-07 14:15 | NUR ---
[facility] stated that she spoke with Dr. Yen and changed Macrobid order to Keflex due to her creatine clearance.
[2016-12-07] MEDS: LIDOCAINE 5% (PATCH) 1 EA PATCH TP SCH (17:00)
[2016-12-07] MEDS: HYDROGEN PEROXIDE 480 ML BOTTLE TP SCH ×2 (18:05→21:00)
[2016-12-07] MEDS: Z GUARD REMEDY 2 OZ OINT TP SCH ×2 (18:06→21:00)
[2016-12-07] MEDS: ZOLPIDEM TARTRATE 5 MG TABLET PO PRN (20:55)
[2016-12-08] MEDS: ALBUTEROL FS 2.5 MG/3 ML VIAL.NEB NEB SCH ×4 (01:01→20:15)
[2016-12-08] MEDS: IPRATROPIUM NEB FS 0.5 MG/2.5 ML AMPUL.NEB NEB SCH ×4 (01:01→20:15)
[2016-12-08] MEDS: TRAMADOL HCL 50 MG TABLET PO PRN ×2 (01:43→13:33)
[2016-12-08] MEDS: CEPHALEXIN MONOHYDRATE 250 MG CAPSULE PO SCH ×4 (02:00→20:59)
[2016-12-08 07:56] VITALS: BP 114/80
[2016-12-08] MEDS: hydrALAZINE HCL 25 MG TABLET PO SCH ×2 (08:45→20:59)
[2016-12-08] MEDS: METOPROLOL SUCCINATE 25 MG TAB.SR.24H PO SCH (08:45)
[2016-12-08] MEDS: SENNOSIDES 8.6 MG TABLET PO SCH (08:45)
[2016-12-08] MEDS: HYDROGEN PEROXIDE 480 ML BOTTLE TP SCH ×2 (08:45→21:00)
[2016-12-08] MEDS: CHOLECALCIFEROL 1,000 UNIT TABLET (VIT D3) PO SCH (08:45)
[2016-12-08] MEDS: predniSONE 20 MG TABLET PO SCH (08:45)
[2016-12-08] MEDS: ALISKIREN HEMIFUMARATE 150 MG TABLET PO SCH (08:45)
[2016-12-08] MEDS: HYDROCODONE/APAP 5/325MG 1 EACH TABLET PO PRN ×2 (08:45→21:43)
[2016-12-08] MEDS: Z GUARD REMEDY 2 OZ OINT TP SCH ×2 (08:45→21:01)
[2016-12-08] MEDS: LIDOCAINE 5% (PATCH) 1 EA PATCH TP SCH (16:59)
--- NOTE | 2016-12-08 18:58 | NUR ---
Seen by JAREK Nunez. She said she will discuss pt's Keflex with Dr. Yen and will give orders once she talks with Dr. Yen. Addendum: 12/08/16 at 1901 by SARAVANAN VAUGHN RN Urine C/S seen by JAREK Nunez.
[2016-12-08] MEDS: LORAZEPAM 0.5 MG TABLET PO PRN (19:28)
[2016-12-08] MEDS: ZOLPIDEM TARTRATE 5 MG TABLET PO PRN (21:00)
[2016-12-09] MEDS: ALBUTEROL FS 2.5 MG/3 ML VIAL.NEB NEB SCH ×4 (01:30→20:01)
[2016-12-09] MEDS: IPRATROPIUM NEB FS 0.5 MG/2.5 ML AMPUL.NEB NEB SCH ×4 (01:30→20:01)
[2016-12-09 01:32] VITALS: BP 150/76
[2016-12-09] MEDS: CEPHALEXIN MONOHYDRATE 250 MG CAPSULE PO SCH ×4 (02:38→20:30)
[2016-12-09] MEDS: TRAMADOL HCL 50 MG TABLET PO PRN ×2 (04:03→12:30)
[2016-12-09 07:47] VITALS: BP 130/75
[2016-12-09] MEDS: hydrALAZINE HCL 25 MG TABLET PO SCH ×2 (08:36→20:42)
[2016-12-09] MEDS: SENNOSIDES 8.6 MG TABLET PO SCH (08:36)
[2016-12-09] MEDS: predniSONE 20 MG TABLET PO SCH (08:36)
[2016-12-09] MEDS: METOPROLOL SUCCINATE 25 MG TAB.SR.24H PO SCH (08:37)
[2016-12-09] MEDS: CHOLECALCIFEROL 1,000 UNIT TABLET (VIT D3) PO SCH (08:37)
[2016-12-09] MEDS: ALISKIREN HEMIFUMARATE 150 MG TABLET PO SCH (08:37)
[2016-12-09] MEDS: HYDROCODONE/APAP 5/325MG 1 EACH TABLET PO PRN ×2 (08:45→21:52)
--- NOTE | 2016-12-09 09:03 | NUR ---
SW spoke to the resident, as resident needs to obtain several documents for her medi-shantanu application. She stated that she is not able to obtain her bank statements from [employer] as she is locked out of her account and she tried calling her friends Soy and Daylin and they informed her that they do not have any of her bank statements or log in information. Left a voicemail to Sofie, the [facility] rep who is helping her with the application and left call back details.
[2016-12-09] MEDS: HYDROGEN PEROXIDE 480 ML BOTTLE TP SCH ×2 (11:30→20:41)
[2016-12-09] MEDS: Z GUARD REMEDY 2 OZ OINT TP SCH ×2 (11:30→20:41)
--- NOTE | 2016-12-09 13:56 | NUR ---
Asked Dr. Yen if Savi Nunez NP discussed patient's medication, Keflex with him, gave an order to extend ATB therapy to total of 8 days. Orders noted and carried out. Patient informed.
[2016-12-09] MEDS: LIDOCAINE 5% (PATCH) 1 EA PATCH TP SCH (17:00)
[2016-12-09 20:21] VITALS: BP 164/84
[2016-12-09] MEDS: LORAZEPAM 0.5 MG TABLET PO PRN (20:42)
[2016-12-09] MEDS: ZOLPIDEM TARTRATE 5 MG TABLET PO PRN (20:59)
[2016-12-10] MEDS: TRAMADOL HCL 50 MG TABLET PO PRN ×2 (01:41→12:26)
[2016-12-10] MEDS: CEPHALEXIN MONOHYDRATE 250 MG CAPSULE PO SCH ×4 (01:41→20:30)
[2016-12-10] MEDS: IPRATROPIUM NEB FS 0.5 MG/2.5 ML AMPUL.NEB NEB SCH ×4 (02:13→20:16)
[2016-12-10] MEDS: ALBUTEROL FS 2.5 MG/3 ML VIAL.NEB NEB SCH ×4 (02:13→20:16)
[2016-12-10 07:48] VITALS: BP 143/78
[2016-12-10] MEDS: hydrALAZINE HCL 25 MG TABLET PO SCH ×2 (08:57→20:31)
[2016-12-10] MEDS: Z GUARD REMEDY 2 OZ OINT TP SCH ×2 (08:58→20:31)
[2016-12-10] MEDS: SENNOSIDES 8.6 MG TABLET PO SCH (08:58)
[2016-12-10] MEDS: CHOLECALCIFEROL 1,000 UNIT TABLET (VIT D3) PO SCH (08:58)
[2016-12-10] MEDS: HYDROCODONE/APAP 5/325MG 1 EACH TABLET PO PRN ×2 (08:58→21:03)
[2016-12-10] MEDS: ALISKIREN HEMIFUMARATE 150 MG TABLET PO SCH (08:58)
[2016-12-10] MEDS: predniSONE 20 MG TABLET PO SCH (08:58)
[2016-12-10] MEDS: METOPROLOL SUCCINATE 25 MG TAB.SR.24H PO SCH (08:58)
[2016-12-10] MEDS: HYDROGEN PEROXIDE 480 ML BOTTLE TP SCH ×2 (08:58→20:31)
[2016-12-10] MEDS: LIDOCAINE 5% (PATCH) 1 EA PATCH TP SCH (17:31)
[2016-12-10 20:03] VITALS: BP 142/76
[2016-12-10] MEDS: ZOLPIDEM TARTRATE 5 MG TABLET PO PRN (20:31)
[2016-12-10] MEDS: LORAZEPAM 0.5 MG TABLET PO PRN (20:31)
[2016-12-11] MEDS: CEPHALEXIN MONOHYDRATE 250 MG CAPSULE PO SCH ×5 (02:00→22:40)
[2016-12-11] MEDS: IPRATROPIUM NEB FS 0.5 MG/2.5 ML AMPUL.NEB NEB SCH ×4 (02:14→20:55)
[2016-12-11] MEDS: ALBUTEROL FS 2.5 MG/3 ML VIAL.NEB NEB SCH ×4 (02:14→20:55)
[2016-12-11 08:04] VITALS: BP 130/71
[2016-12-11] MEDS: ALISKIREN HEMIFUMARATE 150 MG TABLET PO SCH (09:06)
[2016-12-11] MEDS: CHOLECALCIFEROL 1,000 UNIT TABLET (VIT D3) PO SCH (09:06)
[2016-12-11] MEDS: SENNOSIDES 8.6 MG TABLET PO SCH (09:06)
[2016-12-11] MEDS: predniSONE 20 MG TABLET PO SCH (09:06)
[2016-12-11] MEDS: Z GUARD REMEDY 2 OZ OINT TP SCH ×2 (09:06→21:04)
[2016-12-11] MEDS: METOPROLOL SUCCINATE 25 MG TAB.SR.24H PO SCH (09:06)
[2016-12-11] MEDS: HYDROGEN PEROXIDE 480 ML BOTTLE TP SCH ×2 (09:06→21:04)
[2016-12-11] MEDS: hydrALAZINE HCL 25 MG TABLET PO SCH ×2 (09:06→21:04)
[2016-12-11] MEDS: TRAMADOL HCL 50 MG TABLET PO PRN (14:00)
[2016-12-11] MEDS: LIDOCAINE 5% (PATCH) 1 EA PATCH TP SCH (16:11)
[2016-12-11 20:13] VITALS: BP 147/86
[2016-12-11] MEDS: LORAZEPAM 0.5 MG TABLET PO PRN (21:04)
[2016-12-11] MEDS: HYDROCODONE/APAP 5/325MG 1 EACH TABLET PO PRN (21:56)
[2016-12-11] MEDS ORDERED: CEPHALEXIN MONOHYDRATE 250 MG CAPSULE PO ONE (22:30)
[2016-12-11] MEDS: ZOLPIDEM TARTRATE 5 MG TABLET PO PRN (23:40)
[2016-12-12] MEDS: ALBUTEROL FS 2.5 MG/3 ML VIAL.NEB NEB SCH ×4 (01:29→19:30)
[2016-12-12] MEDS: IPRATROPIUM NEB FS 0.5 MG/2.5 ML AMPUL.NEB NEB SCH ×4 (01:29→19:30)
[2016-12-12] MEDS: TRAMADOL HCL 50 MG TABLET PO PRN (01:48)
[2016-12-12] MEDS ORDERED: CEPHALEXIN MONOHYDRATE 250 MG CAPSULE PO ONE (02:50)
[2016-12-12] MEDS: CEPHALEXIN MONOHYDRATE 250 MG CAPSULE PO SCH ×4 (02:57→20:32)
[2016-12-12 07:37] VITALS: BP 164/93
[2016-12-12] MEDS: METOPROLOL SUCCINATE 25 MG TAB.SR.24H PO SCH (09:20)
[2016-12-12] MEDS: hydrALAZINE HCL 25 MG TABLET PO SCH ×2 (09:20→20:32)
[2016-12-12] MEDS: ALISKIREN HEMIFUMARATE 150 MG TABLET PO SCH (09:20)
[2016-12-12] MEDS: predniSONE 20 MG TABLET PO SCH (09:20)
[2016-12-12] MEDS: SENNOSIDES 8.6 MG TABLET PO SCH (09:20)
[2016-12-12] MEDS: HYDROGEN PEROXIDE 480 ML BOTTLE TP SCH ×2 (09:21→20:32)
[2016-12-12] MEDS: Z GUARD REMEDY 2 OZ OINT TP SCH ×2 (09:21→20:32)
[2016-12-12] MEDS: CHOLECALCIFEROL 1,000 UNIT TABLET (VIT D3) PO SCH (09:22)
[2016-12-12] MEDS: HYDROCODONE/APAP 5/325MG 1 EACH TABLET PO PRN ×2 (09:23→21:23)
[2016-12-12] MEDS: LIDOCAINE 5% (PATCH) 1 EA PATCH TP SCH (17:00)
[2016-12-12 20:12] VITALS: BP 160/94
[2016-12-12] MEDS: ZOLPIDEM TARTRATE 5 MG TABLET PO PRN (20:33)
[2016-12-12] MEDS: LORAZEPAM 0.5 MG TABLET PO PRN (20:33)
[2016-12-13] MEDS: CEPHALEXIN MONOHYDRATE 250 MG CAPSULE PO SCH ×4 (01:08→20:29)
[2016-12-13] MEDS: ALBUTEROL FS 2.5 MG/3 ML VIAL.NEB NEB SCH ×4 (01:57→19:30)
[2016-12-13] MEDS: IPRATROPIUM NEB FS 0.5 MG/2.5 ML AMPUL.NEB NEB SCH ×4 (01:57→19:30)
[2016-12-13 07:56] VITALS: BP 138/74
[2016-12-13] MEDS: SENNOSIDES 8.6 MG TABLET PO SCH (08:46)
[2016-12-13] MEDS: hydrALAZINE HCL 25 MG TABLET PO SCH ×2 (08:46→20:31)
[2016-12-13] MEDS: predniSONE 20 MG TABLET PO SCH (08:46)
[2016-12-13] MEDS: ALISKIREN HEMIFUMARATE 150 MG TABLET PO SCH (08:46)
[2016-12-13] MEDS: CHOLECALCIFEROL 1,000 UNIT TABLET (VIT D3) PO SCH (08:47)
[2016-12-13] MEDS: HYDROGEN PEROXIDE 480 ML BOTTLE TP SCH ×2 (08:47→20:31)
[2016-12-13] MEDS: METOPROLOL SUCCINATE 25 MG TAB.SR.24H PO SCH (08:47)
[2016-12-13] MEDS: Z GUARD REMEDY 2 OZ OINT TP SCH ×2 (08:47→20:31)
--- NOTE | 2016-12-13 14:00 | NUR ---
Called Dr. Gill's office and left message for Dr. Gill to do routine trach tube change.
--- NOTE | 2016-12-13 15:00 | NUR ---
Resident met with the subacute director Marivel Angulo to address some of her concerns. It was decided that resident will not be allowed to be in the activity room from 12-2pm and resident stated that this was okay. Director gave resident some ideas about what to do, such as going to the patio and engaging in other activities. Director discussed resident's goals of leaving the subacute unit and resident stated she was trying to leave in about 2-3 months. Resident discussed her goal of getting trach removed. Resident was anxious but reassured by both the SW and director.
[2016-12-13] MEDS: LIDOCAINE 5% (PATCH) 1 EA PATCH TP SCH (17:00)
[2016-12-13 19:45] VITALS: BP 142/69
[2016-12-13] MEDS: LORAZEPAM 0.5 MG TABLET PO PRN (20:31)
[2016-12-13] MEDS: ZOLPIDEM TARTRATE 5 MG TABLET PO PRN (20:32)
[2016-12-13] MEDS: HYDROCODONE/APAP 5/325MG 1 EACH TABLET PO PRN (21:12)
[2016-12-13] MEDS: TRAMADOL HCL 50 MG TABLET PO PRN (23:59)
[2016-12-14] MEDS: CEPHALEXIN MONOHYDRATE 250 MG CAPSULE PO SCH ×4 (01:13→20:39)
[2016-12-14] MEDS: IPRATROPIUM NEB FS 0.5 MG/2.5 ML AMPUL.NEB NEB SCH ×4 (01:33→19:22)
[2016-12-14] MEDS: ALBUTEROL FS 2.5 MG/3 ML VIAL.NEB NEB SCH ×4 (01:33→19:22)
[2016-12-14] MEDS: HYDROCODONE/APAP 5/325MG 1 EACH TABLET PO PRN ×3 (04:03→22:14)
[2016-12-14 07:52] VITALS: BP 158/75
[2016-12-14] MEDS: hydrALAZINE HCL 25 MG TABLET PO SCH ×2 (09:00→20:39)
[2016-12-14] MEDS: HYDROGEN PEROXIDE 480 ML BOTTLE TP SCH ×2 (09:00→20:39)
[2016-12-14] MEDS: Z GUARD REMEDY 2 OZ OINT TP SCH ×2 (09:00→20:40)
[2016-12-14] MEDS: ALISKIREN HEMIFUMARATE 150 MG TABLET PO SCH (09:00)
[2016-12-14] MEDS ORDERED: predniSONE 10 MG TABLET PO SCH (09:00)
[2016-12-14] MEDS: SENNOSIDES 8.6 MG TABLET PO SCH (09:00)
[2016-12-14] MEDS: CHOLECALCIFEROL 1,000 UNIT TABLET (VIT D3) PO SCH (09:00)
[2016-12-14] MEDS: METOPROLOL SUCCINATE 25 MG TAB.SR.24H PO SCH (09:00)
[2016-12-14] MEDS: LIDOCAINE 5% (PATCH) 1 EA PATCH TP SCH (17:09)
[2016-12-14 19:25] VITALS: BP 148/74
[2016-12-14] MEDS: ZOLPIDEM TARTRATE 5 MG TABLET PO PRN (20:40)
[2016-12-14] MEDS: LORAZEPAM 0.5 MG TABLET PO PRN (20:40)
[2016-12-15] MEDS: IPRATROPIUM NEB FS 0.5 MG/2.5 ML AMPUL.NEB NEB SCH ×4 (02:19→19:15)
[2016-12-15] MEDS: ALBUTEROL FS 2.5 MG/3 ML VIAL.NEB NEB SCH ×4 (02:19→19:15)
[2016-12-15] MEDS: CEPHALEXIN MONOHYDRATE 250 MG CAPSULE PO SCH ×2 (02:46→08:00)
[2016-12-15] MEDS: SENNOSIDES 8.6 MG TABLET PO SCH (09:00)
[2016-12-15] MEDS: ALISKIREN HEMIFUMARATE 150 MG TABLET PO SCH (09:00)
[2016-12-15] MEDS: METOPROLOL SUCCINATE 25 MG TAB.SR.24H PO SCH (09:00)
[2016-12-15] MEDS: CHOLECALCIFEROL 1,000 UNIT TABLET (VIT D3) PO SCH (09:00)
[2016-12-15] MEDS: HYDROGEN PEROXIDE 480 ML BOTTLE TP SCH ×2 (09:00→21:37)
[2016-12-15] MEDS: Z GUARD REMEDY 2 OZ OINT TP SCH ×2 (09:00→21:37)
[2016-12-15] MEDS: hydrALAZINE HCL 25 MG TABLET PO SCH ×2 (09:00→21:09)
[2016-12-15] MEDS: HYDROCODONE/APAP 5/325MG 1 EACH TABLET PO PRN ×2 (10:22→22:25)
--- NOTE | 2016-12-15 15:55 | NUR ---
SW spoke to the resident regarding concerns from the staff over her taking staff food in the activity room. Per several staff members, resident has been taking food from the activity room and several staff members have witnessed the resident doing this several times. Resident herself stated that in the past, she has been able to get the food left on the table. SW brought resident back to the present and stated that going forward, resident must be offered the food from staff members and cannot expect to take the food if it is there on the table. Resident became angry and began walking away from the subacute unit. She stated she was being falsely accused of stealing food. Security was called and charge nurse and RN in charge of the patient's care followed the patient along with the SW. Resident was in the waiting room talking to security and agreed to come back to the unit. Charge Nurse to monitor the patient.
--- NOTE | 2016-12-15 16:25 | NUR ---
SW and charge nurse spoke to the resident again, as resident closed the door to her room and began changing. Charge nurse informed her that she cannot close the door. Resident stated to charge nurse that she wants to leave and wants to walk to the bus stop. Resident stating she is being falsely accused and SW spoke to the resident regarding her feelings of anger. BERNARDINO deescalated the situation with the charge nurse, reminded her of her goals to get her trach removed, and move in with her friends Soy and Daylin. Resident able to agree to stay in the unit to get better and reach her goal of leaving the unit when she is ready. SW helped resident consider what would happen if she left the unit on her own will (no meds, no treatments, no pre-planned assisted) and resident promised SW and charge nurse that she will continue to get better and leave when she is ready (trach is taken out). Resident agreed to stay in the unit. Subacute director informed of the situation and charge nurse will notify CNO if any issues arise.
--- NOTE | 2016-12-15 16:57 | NUR ---
meat counter worker spoke with the pt regarding staff's concerns about the pt taking their food in the activity room several times, which were witnessed by several other staff. Pt denied it and was very upset. She walked out of the unit and was followed closely by clinical social work aide, charge nurse, and RN assigned to her care. Security was called and they helped convince the pt to walk back to her room. After a while, the pt closed the door of her room. meat counter worker and charge nurse went in the room to see how the pt is doing and to let the pt know that the door should not be closed especially since there are two other pts in the room with her. Pt started changing into her personal pants and shirt, said she is going to leave and go to the bus stop. meat counter worker and charge nurse talked to pt to calm her down and help her realize that leaving and going to the bus stop is not the best thing to do at this time. Pt realized she is not ready to leave and she promised that she will work at getting better so she can get her life back at the right time. Pt then asked the charge nurse to help her change back into her hospital gown. Charge nurse encouraged her to wear her personal clothes if that will make her feel good about herself, but pt refused. Charge nurse helped her back into her hospital gown and pt started to calm down. Charge nurse gave her a cup of water. Pt went to sit in the activity room and watched tv.
[2016-12-15] MEDS: LIDOCAINE 5% (PATCH) 1 EA PATCH TP SCH (17:37)
--- NOTE | 2016-12-15 18:35 | NUR ---
Pt was seen by JAREK Nunez. Received order to do UA C/S on 12/19/16 to follow-up on pt's UTI. Pt aware of new order.
[2016-12-15] MEDS: LORAZEPAM 0.5 MG TABLET PO PRN (19:53)
[2016-12-15 20:00] VITALS: BP 136/86
[2016-12-15] MEDS: ZOLPIDEM TARTRATE 5 MG TABLET PO PRN (21:08)
[2016-12-15] MEDS: HYDROCORTISONE 1% CREAM 30 GM TUBE TP SCH (21:37)
[2016-12-16] MEDS: IPRATROPIUM NEB FS 0.5 MG/2.5 ML AMPUL.NEB NEB SCH ×4 (01:44→19:25)
[2016-12-16] MEDS: ALBUTEROL FS 2.5 MG/3 ML VIAL.NEB NEB SCH ×4 (01:44→19:25)
[2016-12-16 08:07] VITALS: BP 144/89
[2016-12-16] MEDS: predniSONE 10 MG TABLET PO SCH (09:00)
[2016-12-16] MEDS: Z GUARD REMEDY 2 OZ OINT TP SCH ×2 (09:00→21:12)
[2016-12-16] MEDS: ALISKIREN HEMIFUMARATE 150 MG TABLET PO SCH (09:15)
[2016-12-16] MEDS: SENNOSIDES 8.6 MG TABLET PO SCH (09:15)
[2016-12-16] MEDS: hydrALAZINE HCL 25 MG TABLET PO SCH ×2 (09:15→21:12)
[2016-12-16] MEDS: HYDROCODONE/APAP 5/325MG 1 EACH TABLET PO PRN (09:16)
[2016-12-16] MEDS: METOPROLOL SUCCINATE 25 MG TAB.SR.24H PO SCH (09:16)
[2016-12-16] MEDS: CHOLECALCIFEROL 1,000 UNIT TABLET (VIT D3) PO SCH (09:16)
--- NOTE | 2016-12-16 12:20 | NUR ---
Monthly trach change done by Dr. Gill ENT, no bleeding, patient tolerated procedure well.
--- NOTE | 2016-12-16 12:20 | NUR ---
Monthly trach change done by Dr. Gill ENT. No complications noted. Pt did not have any bleeding around trach area. Procedure tolerated well. Airway patent and secure. Ambu bag and spare trach at bedside. Will continue to monitor patient.
[2016-12-16] MEDS: HYDROGEN PEROXIDE 480 ML BOTTLE TP SCH ×2 (14:51→21:12)
[2016-12-16] MEDS: HYDROCORTISONE 1% CREAM 30 GM TUBE TP SCH ×2 (14:51→21:12)
[2016-12-16] MEDS: TRAMADOL HCL 50 MG TABLET PO PRN (14:52)
[2016-12-16] MEDS: LIDOCAINE 5% (PATCH) 1 EA PATCH TP SCH (17:26)
[2016-12-16] MEDS: LORAZEPAM 0.5 MG TABLET PO PRN (20:00)
[2016-12-16 20:43] VITALS: BP 154/96
[2016-12-16] MEDS: ZOLPIDEM TARTRATE 5 MG TABLET PO PRN (21:11)
[2016-12-17] MEDS: TRAMADOL HCL 50 MG TABLET PO PRN (01:10)
[2016-12-17] MEDS: IPRATROPIUM NEB FS 0.5 MG/2.5 ML AMPUL.NEB NEB SCH ×4 (02:02→19:30)
[2016-12-17] MEDS: ALBUTEROL FS 2.5 MG/3 ML VIAL.NEB NEB SCH ×4 (02:02→19:30)
[2016-12-17 08:12] VITALS: BP 152/82
[2016-12-17] MEDS: HYDROCORTISONE 1% CREAM 30 GM TUBE TP SCH ×2 (09:00→20:33)
[2016-12-17] MEDS: ALISKIREN HEMIFUMARATE 150 MG TABLET PO SCH (09:00)
[2016-12-17] MEDS: CHOLECALCIFEROL 1,000 UNIT TABLET (VIT D3) PO SCH (09:00)
[2016-12-17] MEDS: hydrALAZINE HCL 25 MG TABLET PO SCH ×2 (09:59→20:33)
[2016-12-17] MEDS: SENNOSIDES 8.6 MG TABLET PO SCH (09:59)
[2016-12-17] MEDS: HYDROCODONE/APAP 5/325MG 1 EACH TABLET PO PRN (10:00)
[2016-12-17] MEDS: METOPROLOL SUCCINATE 25 MG TAB.SR.24H PO SCH (10:00)
[2016-12-17] MEDS: LIDOCAINE 5% (PATCH) 1 EA PATCH TP SCH (17:01)
[2016-12-17] MEDS: Z GUARD REMEDY 2 OZ OINT TP SCH ×2 (17:01→20:33)
[2016-12-17] MEDS: HYDROGEN PEROXIDE 480 ML BOTTLE TP SCH ×2 (17:01→20:33)
[2016-12-17] MEDS: ZOLPIDEM TARTRATE 5 MG TABLET PO PRN (20:34)
[2016-12-17] MEDS: LORAZEPAM 0.5 MG TABLET PO PRN (20:34)
[2016-12-17 21:16] VITALS: BP 129/72
[2016-12-18] MEDS: IPRATROPIUM NEB FS 0.5 MG/2.5 ML AMPUL.NEB NEB SCH ×4 (01:30→20:15)
[2016-12-18] MEDS: ALBUTEROL FS 2.5 MG/3 ML VIAL.NEB NEB SCH ×4 (01:30→20:15)
[2016-12-18 07:46] VITALS: BP 116/56
[2016-12-18] MEDS: HYDROCODONE/APAP 5/325MG 1 EACH TABLET PO PRN ×2 (09:00→21:47)
[2016-12-18] MEDS: predniSONE 10 MG TABLET PO SCH (09:39)
[2016-12-18] MEDS: METOPROLOL SUCCINATE 25 MG TAB.SR.24H PO SCH (09:39)
[2016-12-18] MEDS: SENNOSIDES 8.6 MG TABLET PO SCH (09:39)
[2016-12-18] MEDS: HYDROCORTISONE 1% CREAM 30 GM TUBE TP SCH ×2 (09:39→20:34)
[2016-12-18] MEDS: hydrALAZINE HCL 25 MG TABLET PO SCH ×2 (09:39→20:34)
[2016-12-18] MEDS: CHOLECALCIFEROL 1,000 UNIT TABLET (VIT D3) PO SCH (09:39)
[2016-12-18] MEDS: ALISKIREN HEMIFUMARATE 150 MG TABLET PO SCH (09:39)
[2016-12-18] MEDS: Z GUARD REMEDY 2 OZ OINT TP SCH ×2 (09:40→20:34)
[2016-12-18] MEDS: HYDROGEN PEROXIDE 480 ML BOTTLE TP SCH ×2 (09:40→20:34)
[2016-12-18] MEDS: TRAMADOL HCL 50 MG TABLET PO PRN (12:30)
[2016-12-18] MEDS: LIDOCAINE 5% (PATCH) 1 EA PATCH TP SCH (16:55)
[2016-12-18 20:00] VITALS: BP 144/86
[2016-12-18] MEDS: LORAZEPAM 0.5 MG TABLET PO PRN (20:34)
[2016-12-18] MEDS: ZOLPIDEM TARTRATE 5 MG TABLET PO PRN (23:39)
[2016-12-19] MEDS: IPRATROPIUM NEB FS 0.5 MG/2.5 ML AMPUL.NEB NEB SCH ×4 (01:38→20:21)
[2016-12-19] MEDS: ALBUTEROL FS 2.5 MG/3 ML VIAL.NEB NEB SCH ×4 (01:38→20:21)
[2016-12-19 07:23] LABS: CREATININE 1.8 mg/dL (0.6-1.3); POTASSIUM 3.7 mmol/L (3.5-5.1)
[2016-12-19 07:57] VITALS: BP 154/73
[2016-12-19 08:26] LABS: APPEARANCE,URINE SL CLOUDY (CLEAR); BILIRUBIN,URINE NEGATIVE (NEGATIVE); BLOOD, URINE NEGATIVE Ery/uL (NEGATIVE); COLOR,URINE YELLOW (YELLOW); KETONES,URINE NEGATIVE (NEGATIVE); LEUKOCYTE ESTERASE ,URINE 3+ (NEGATIVE); NITRITE, URINE NEGATIVE (NEGATIVE); PH,URINE 5.5 (5.0-8.0); PROTEIN,URINE NEGATIVE (NEGATIVE); UGLUCOSE NEGATIVE (NEGATIVE); UROBILINOGEN,URINE 0.2 EU/dL (0.2)
[2016-12-19 09:13] LABS: BACTERIA,URINE Rare /HPF (None Seen); RBC,URINE 0-2 /HPF (0-2); SQUAMOUS EPITHELIAL CELL,UR Few /HPF (None Seen); WBC,URINE 21-50 /HPF (0-3)
[2016-12-19] MEDS: HYDROGEN PEROXIDE 480 ML BOTTLE TP SCH ×2 (10:00→20:36)
[2016-12-19] MEDS: ALISKIREN HEMIFUMARATE 150 MG TABLET PO SCH (10:00)
[2016-12-19] MEDS: Z GUARD REMEDY 2 OZ OINT TP SCH ×2 (10:00→20:36)
[2016-12-19] MEDS: HYDROCORTISONE 1% CREAM 30 GM TUBE TP SCH ×2 (10:00→20:36)
[2016-12-19] MEDS: SENNOSIDES 8.6 MG TABLET PO SCH (10:00)
[2016-12-19] MEDS: hydrALAZINE HCL 25 MG TABLET PO SCH ×2 (10:00→20:34)
[2016-12-19] MEDS: CHOLECALCIFEROL 1,000 UNIT TABLET (VIT D3) PO SCH (10:00)
[2016-12-19] MEDS: METOPROLOL SUCCINATE 25 MG TAB.SR.24H PO SCH (10:00)
[2016-12-19] MEDS: HYDROCODONE/APAP 5/325MG 1 EACH TABLET PO PRN ×2 (10:29→21:06)
--- NOTE | 2016-12-19 10:30 | NUR ---
Seen and examined by Dr. Soraya Mcqueen, NNO given.
[2016-12-19] MEDS: LIDOCAINE 5% (PATCH) 1 EA PATCH TP SCH (17:00)
[2016-12-19 20:19] VITALS: BP 134/60
[2016-12-19] MEDS: METOPROLOL TARTRATE 50 MG TABLET PO SCH (20:36)
[2016-12-19] MEDS: ZOLPIDEM TARTRATE 5 MG TABLET PO PRN (20:36)
[2016-12-19] MEDS: LORAZEPAM 0.5 MG TABLET PO PRN (20:36)
[2016-12-19] MEDS: TRAMADOL HCL 50 MG TABLET PO PRN (22:48)
[2016-12-20] MEDS: ALBUTEROL FS 2.5 MG/3 ML VIAL.NEB NEB SCH ×4 (01:23→19:30)
[2016-12-20] MEDS: IPRATROPIUM NEB FS 0.5 MG/2.5 ML AMPUL.NEB NEB SCH ×4 (01:23→19:30)
[2016-12-20 08:02] VITALS: BP 122/70
[2016-12-20] MEDS: hydrALAZINE HCL 25 MG TABLET PO SCH ×2 (09:10→20:29)
[2016-12-20] MEDS: CHOLECALCIFEROL 1,000 UNIT TABLET (VIT D3) PO SCH (09:10)
[2016-12-20] MEDS: predniSONE 10 MG TABLET PO SCH (09:10)
[2016-12-20] MEDS: HYDROCODONE/APAP 5/325MG 1 EACH TABLET PO PRN ×2 (09:10→21:18)
[2016-12-20] MEDS: METOPROLOL TARTRATE 50 MG TABLET PO SCH ×2 (09:10→20:29)
[2016-12-20] MEDS: SENNOSIDES 8.6 MG TABLET PO SCH (09:10)
[2016-12-20] MEDS: ALISKIREN HEMIFUMARATE 150 MG TABLET PO SCH (09:10)
--- NOTE | 2016-12-20 10:13 | NUR ---
Seen and examined by Dr Yen, stable on room air, patient did not bring up any concerns at this time. NNO given.
[2016-12-20] MEDS: HYDROCORTISONE 1% CREAM 30 GM TUBE TP SCH ×2 (10:45→20:29)
[2016-12-20] MEDS: HYDROGEN PEROXIDE 480 ML BOTTLE TP SCH ×2 (10:45→20:29)
[2016-12-20] MEDS: Z GUARD REMEDY 2 OZ OINT TP SCH ×2 (10:45→20:30)
[2016-12-20] MEDS: LIDOCAINE 5% (PATCH) 1 EA PATCH TP SCH (16:49)
[2016-12-20 20:02] VITALS: BP 146/77
[2016-12-20] MEDS: LORAZEPAM 0.5 MG TABLET PO PRN (20:30)
[2016-12-20] MEDS: ZOLPIDEM TARTRATE 5 MG TABLET PO PRN (20:31)
[2016-12-21] MEDS: ALBUTEROL FS 2.5 MG/3 ML VIAL.NEB NEB SCH ×4 (01:39→20:22)
[2016-12-21] MEDS: IPRATROPIUM NEB FS 0.5 MG/2.5 ML AMPUL.NEB NEB SCH ×4 (01:39→20:22)
[2016-12-21 08:18] VITALS: BP 128/87
[2016-12-21] MEDS: HYDROGEN PEROXIDE 480 ML BOTTLE TP SCH ×2 (09:00→20:47)
[2016-12-21] MEDS: CHOLECALCIFEROL 1,000 UNIT TABLET (VIT D3) PO SCH (09:00)
[2016-12-21] MEDS: Z GUARD REMEDY 2 OZ OINT TP SCH ×2 (09:00→20:47)
[2016-12-21] MEDS: METOPROLOL TARTRATE 50 MG TABLET PO SCH ×2 (09:00→20:47)
[2016-12-21] MEDS: hydrALAZINE HCL 25 MG TABLET PO SCH ×2 (09:00→20:46)
[2016-12-21] MEDS: SENNOSIDES 8.6 MG TABLET PO SCH (09:00)
[2016-12-21] MEDS: ALISKIREN HEMIFUMARATE 150 MG TABLET PO SCH (09:00)
[2016-12-21] MEDS: HYDROCORTISONE 1% CREAM 30 GM TUBE TP SCH ×2 (09:00→20:47)
[2016-12-21] MEDS: TRAMADOL HCL 50 MG TABLET PO PRN ×2 (14:00→23:21)
--- NOTE | 2016-12-21 15:10 | NUR ---
Relayed follow-up urine C/S result to JAREK Nunez. Urine C/S showed 50,000 cfu/mL mixed contaminants and >100,000 cfu/mL Proteus mirabilis. Pt has been treated for UTI.
[2016-12-21] MEDS: LIDOCAINE 5% (PATCH) 1 EA PATCH TP SCH (16:38)
[2016-12-21] MEDS: ZOLPIDEM TARTRATE 5 MG TABLET PO PRN (20:48)
[2016-12-21] MEDS: LORAZEPAM 0.5 MG TABLET PO PRN (20:48)
[2016-12-21 21:56] VITALS: BP 131/69
[2016-12-22] MEDS: ALBUTEROL FS 2.5 MG/3 ML VIAL.NEB NEB SCH ×4 (01:45→19:42)
[2016-12-22] MEDS: IPRATROPIUM NEB FS 0.5 MG/2.5 ML AMPUL.NEB NEB SCH ×4 (01:45→19:42)
[2016-12-22] MEDS: hydrALAZINE HCL 25 MG TABLET PO SCH ×2 (09:57→20:40)
[2016-12-22] MEDS: SENNOSIDES 8.6 MG TABLET PO SCH (09:58)
[2016-12-22] MEDS: METOPROLOL TARTRATE 50 MG TABLET PO SCH ×2 (09:58→20:40)
[2016-12-22] MEDS: ALISKIREN HEMIFUMARATE 150 MG TABLET PO SCH (09:58)
[2016-12-22] MEDS: Z GUARD REMEDY 2 OZ OINT TP SCH ×2 (09:58→20:41)
[2016-12-22] MEDS: HYDROGEN PEROXIDE 480 ML BOTTLE TP SCH ×2 (09:58→20:41)
[2016-12-22] MEDS: predniSONE 10 MG TABLET PO SCH (09:58)
[2016-12-22] MEDS: CHOLECALCIFEROL 1,000 UNIT TABLET (VIT D3) PO SCH (09:58)
[2016-12-22] MEDS: HYDROCORTISONE 1% CREAM 30 GM TUBE TP SCH (09:58)
[2016-12-22] MEDS: HYDROCODONE/APAP 5/325MG 1 EACH TABLET PO PRN ×2 (12:02→22:08)
--- NOTE | 2016-12-22 14:20 | NUR ---
Seen and examined by Dr Palacios urine culture result reviewed with no new order.Resident no c/o abdominal discomfort,voiding without difficulty and no fever.Encouraged fluids po as tolerated.
--- NOTE | 2016-12-22 15:40 | NUR ---
Seen and examined by Savi TILLEY with no new order.
[2016-12-22] MEDS: LIDOCAINE 5% (PATCH) 1 EA PATCH TP SCH (17:33)
[2016-12-22] MEDS: LORAZEPAM 0.5 MG TABLET PO PRN (20:41)
[2016-12-22] MEDS: ZOLPIDEM TARTRATE 5 MG TABLET PO PRN (20:41)
[2016-12-22 21:18] VITALS: BP 143/78
[2016-12-23] MEDS: IPRATROPIUM NEB FS 0.5 MG/2.5 ML AMPUL.NEB NEB SCH ×4 (01:47→19:30)
[2016-12-23] MEDS: ALBUTEROL FS 2.5 MG/3 ML VIAL.NEB NEB SCH ×4 (01:48→19:30)
[2016-12-23 07:44] VITALS: BP 129/62
[2016-12-23] MEDS: SENNOSIDES 8.6 MG TABLET PO SCH (09:00)
[2016-12-23] MEDS: hydrALAZINE HCL 25 MG TABLET PO SCH ×2 (09:00→20:32)
[2016-12-23] MEDS: Z GUARD REMEDY 2 OZ OINT TP SCH ×2 (09:00→20:32)
[2016-12-23] MEDS: HYDROGEN PEROXIDE 480 ML BOTTLE TP SCH ×2 (09:00→20:32)
[2016-12-23] MEDS: METOPROLOL TARTRATE 50 MG TABLET PO SCH ×2 (09:00→20:32)
[2016-12-23] MEDS: CHOLECALCIFEROL 1,000 UNIT TABLET (VIT D3) PO SCH (09:00)
[2016-12-23] MEDS: ALISKIREN HEMIFUMARATE 150 MG TABLET PO SCH (09:00)
[2016-12-23] MEDS: HYDROCODONE/APAP 5/325MG 1 EACH TABLET PO PRN ×2 (10:14→22:34)
[2016-12-23] MEDS: LIDOCAINE 5% (PATCH) 1 EA PATCH TP SCH (13:00)
--- NOTE | 2016-12-23 14:10 | NUR ---
Pt complaining of back pain and asking to get Lidoderm patch earlier than scheduled. She was requesting to get Lidoderm patch at 1 pm everyday instead of at [address] Palacios and received order to give Lidoderm patch at 1 pm everyday, and that pt may get the Lidoderm patch earlier than 5 pm today. Notified pt. Addendum: 12/23/16 at 1413 by SARAVANAN VAUGHN RN Pt refusing Tramadol and [place] for pain. According to her she is trying not to take any pain tablets in preparation to be discharged home. She said she does not want to be on several oral medications when she gets discharged.
[2016-12-23] MEDS: TRAMADOL HCL 50 MG TABLET PO PRN (14:53)
[2016-12-23 19:56] VITALS: BP 143/73
[2016-12-23] MEDS: ZOLPIDEM TARTRATE 5 MG TABLET PO PRN (20:33)
[2016-12-23] MEDS: LORAZEPAM 0.5 MG TABLET PO PRN (20:33)
[2016-12-23] MEDS: ONDANSETRON 4 MG TAB.RAPDIS PO PRN (20:41)
[2016-12-24] MEDS: IPRATROPIUM NEB FS 0.5 MG/2.5 ML AMPUL.NEB NEB SCH ×4 (01:53→19:09)
[2016-12-24] MEDS: ALBUTEROL FS 2.5 MG/3 ML VIAL.NEB NEB SCH ×4 (01:53→19:09)
[2016-12-24 07:48] VITALS: BP 145/74
[2016-12-24] MEDS: CHOLECALCIFEROL 1,000 UNIT TABLET (VIT D3) PO SCH (09:00)
[2016-12-24] MEDS: Z GUARD REMEDY 2 OZ OINT TP SCH ×2 (09:00→21:00)
[2016-12-24] MEDS: predniSONE 10 MG TABLET PO SCH (09:00)
[2016-12-24] MEDS: SENNOSIDES 8.6 MG TABLET PO SCH (09:00)
[2016-12-24] MEDS: METOPROLOL TARTRATE 50 MG TABLET PO SCH ×2 (09:00→20:56)
[2016-12-24] MEDS: ALISKIREN HEMIFUMARATE 150 MG TABLET PO SCH (09:00)
[2016-12-24] MEDS: HYDROGEN PEROXIDE 480 ML BOTTLE TP SCH ×2 (09:00→21:00)
[2016-12-24] MEDS: hydrALAZINE HCL 25 MG TABLET PO SCH ×2 (09:00→20:51)
[2016-12-24] MEDS: HYDROCODONE/APAP 5/325MG 1 EACH TABLET PO PRN ×2 (10:05→21:11)
[2016-12-24] MEDS: LIDOCAINE 5% (PATCH) 1 EA PATCH TP SCH (13:41)
[2016-12-24 20:01] VITALS: BP 136/77
[2016-12-24] MEDS: LORAZEPAM 0.5 MG TABLET PO PRN (20:57)
[2016-12-24] MEDS: ZOLPIDEM TARTRATE 5 MG TABLET PO PRN (21:33)
--- NOTE | 2016-12-24 22:05 | NUR ---
Pt reported that she took Ativan whole tablet instead of half tablet.She told me she only realized after she took it.Pt supposed to get 1/2 tablet (0.25mg)instead she took 0.5mg.Dr. Palacios notified regarding the incident.Will continue to monitor pt for sedation and drowsiness.
[2016-12-25] MEDS: IPRATROPIUM NEB FS 0.5 MG/2.5 ML AMPUL.NEB NEB SCH ×4 (01:12→19:21)
[2016-12-25] MEDS: ALBUTEROL FS 2.5 MG/3 ML VIAL.NEB NEB SCH ×4 (01:13→19:21)
[2016-12-25] MEDS: TRAMADOL HCL 50 MG TABLET PO PRN (02:42)
--- NOTE | 2016-12-25 06:29 | NUR ---
Pt remained stable,no complaint of drowsiness and sedation.Pt awake and alert.
[2016-12-25 07:33] VITALS: BP 140/72
[2016-12-25] MEDS: hydrALAZINE HCL 25 MG TABLET PO SCH ×2 (09:27→20:35)
[2016-12-25] MEDS: SENNOSIDES 8.6 MG TABLET PO SCH (09:28)
[2016-12-25] MEDS: CHOLECALCIFEROL 1,000 UNIT TABLET (VIT D3) PO SCH (09:28)
[2016-12-25] MEDS: ALISKIREN HEMIFUMARATE 150 MG TABLET PO SCH (09:28)
[2016-12-25] MEDS: HYDROGEN PEROXIDE 480 ML BOTTLE TP SCH ×2 (09:28→21:37)
[2016-12-25] MEDS: Z GUARD REMEDY 2 OZ OINT TP SCH ×2 (09:28→21:37)
[2016-12-25] MEDS: METOPROLOL TARTRATE 50 MG TABLET PO SCH ×2 (09:28→20:36)
[2016-12-25] MEDS: LIDOCAINE 5% (PATCH) 1 EA PATCH TP SCH (12:26)
[2016-12-25 19:58] VITALS: BP 133/73
[2016-12-25] MEDS: LORAZEPAM 0.5 MG TABLET PO PRN (20:36)
[2016-12-25] MEDS: ZOLPIDEM TARTRATE 5 MG TABLET PO PRN ×2 (20:57→21:37)
[2016-12-25] MEDS: HYDROCODONE/APAP 5/325MG 1 EACH TABLET PO PRN (21:04)
[2016-12-26] MEDS: TRAMADOL HCL 50 MG TABLET PO PRN ×2 (01:11→14:08)
[2016-12-26] MEDS: IPRATROPIUM NEB FS 0.5 MG/2.5 ML AMPUL.NEB NEB SCH ×4 (01:13→19:18)
[2016-12-26] MEDS: ALBUTEROL FS 2.5 MG/3 ML VIAL.NEB NEB SCH ×4 (01:13→19:18)
[2016-12-26 08:43] VITALS: BP 155/81
[2016-12-26] MEDS: METOPROLOL TARTRATE 50 MG TABLET PO SCH ×2 (09:54→20:28)
[2016-12-26] MEDS: hydrALAZINE HCL 25 MG TABLET PO SCH ×2 (09:54→20:28)
[2016-12-26] MEDS: Z GUARD REMEDY 2 OZ OINT TP SCH ×2 (09:54→20:30)
[2016-12-26] MEDS: SENNOSIDES 8.6 MG TABLET PO SCH (09:54)
[2016-12-26] MEDS: ALISKIREN HEMIFUMARATE 150 MG TABLET PO SCH (09:54)
[2016-12-26] MEDS: predniSONE 10 MG TABLET PO SCH (09:54)
[2016-12-26] MEDS: CHOLECALCIFEROL 1,000 UNIT TABLET (VIT D3) PO SCH (09:54)
[2016-12-26] MEDS: HYDROGEN PEROXIDE 480 ML BOTTLE TP SCH ×2 (09:54→20:30)
[2016-12-26] MEDS: LIDOCAINE 5% (PATCH) 1 EA PATCH TP SCH (13:00)
--- NOTE | 2016-12-26 13:00 | NUR ---
Pt was seen by JAREK Nunez. Pt complained that she feels dizzy. Notified JAREK Nunez that pt has thick secretions. JAREK Nunez explained to pt that she might be feeling dizzy because of congestion. Pt's blood pressure was checked, BP 122/65 HR 90. JAREK Nunez examined pt and she said pt's lungs sound clear. Received order to give Mucinex 600 mg po BID for 7 days and Meclizine 12.5 mg po q 8 hours PRN for dizziness.
[2016-12-26] MEDS ORDERED: MECLIZINE HCL 12.5 MG TABLET PO PRN (16:30)
[2016-12-26 20:09] VITALS: BP 124/58
[2016-12-26] MEDS: LORAZEPAM 0.5 MG TABLET PO PRN (20:30)
[2016-12-26] MEDS: ZOLPIDEM TARTRATE 5 MG TABLET PO PRN (20:30)
[2016-12-26] MEDS: GUAIFENESIN LA 600 MG TABLET.SA PO SCH (20:39)
[2016-12-26] MEDS: HYDROCODONE/APAP 5/325MG 1 EACH TABLET PO PRN (21:12)
[2016-12-27] MEDS: IPRATROPIUM NEB FS 0.5 MG/2.5 ML AMPUL.NEB NEB SCH ×4 (01:44→19:47)
[2016-12-27] MEDS: ALBUTEROL FS 2.5 MG/3 ML VIAL.NEB NEB SCH ×4 (01:44→19:47)
[2016-12-27 08:09] VITALS: BP 134/68
[2016-12-27] MEDS: hydrALAZINE HCL 25 MG TABLET PO SCH ×2 (08:57→20:27)
[2016-12-27] MEDS: GUAIFENESIN LA 600 MG TABLET.SA PO SCH ×2 (08:57→20:27)
[2016-12-27] MEDS: METOPROLOL TARTRATE 50 MG TABLET PO SCH ×2 (08:57→20:27)
[2016-12-27] MEDS: ALISKIREN HEMIFUMARATE 150 MG TABLET PO SCH (08:58)
[2016-12-27] MEDS: Z GUARD REMEDY 2 OZ OINT TP SCH ×2 (08:58→20:27)
[2016-12-27] MEDS: CHOLECALCIFEROL 1,000 UNIT TABLET (VIT D3) PO SCH (08:58)
[2016-12-27] MEDS: HYDROGEN PEROXIDE 480 ML BOTTLE TP SCH ×2 (08:58→20:27)
[2016-12-27] MEDS: SENNOSIDES 8.6 MG TABLET PO SCH (08:58)
[2016-12-27] MEDS: HYDROCODONE/APAP 5/325MG 1 EACH TABLET PO PRN ×2 (08:59→17:10)
--- NOTE | 2016-12-27 10:00 | NUR ---
Pt was seen by Dr. Yen. Notified him that pt has thick secretions and SALES PROGRAM MANAGER Savi Nunez ordered Mucinex. Also informed him that according to night charge nurse, pt was having difficulty breathing so they placed her on supplemental O2. Dr. Yen examined pt. Asked him if he thinks pt's previous pneumonia has resolved, and he said he thinks that it has.
--- NOTE | 2016-12-27 11:22 | NUR ---
BERNARDINO spoke to the resident as resident has been expecting other resident's family members to obtain food for her. BERNARDINO informed her that she cannot expect them to carry out these tasks for her especially since they would have to leave the hospital and current diet order is mechanical soft diet. Resident became agitated and stated that she wants to leave the hospital and feels that it's "ridiculous that there are so many rules." BERNARDINO explained to her that she is still in the subacute unit and cannot leave the unit to buy food and then come back. BERNARDINO spoke with resident about her goals and she stated that she is almost ready to leave but often times feels like leaving when she feels that everyone is against her. Sw helped resident see the reality of this decision and resident noted that she was still trying to get off of some of her medications and wants the trach removed when she is ready. Resident agreed to stay in the unit until that time. She also wanted to know about getting partial dentures, as she used to have them in the past. BERNARDINO called the office of Dr. Driscoll- [phone] to inquire about this and they stated that it would require an exam fee and an impression to be taken. BERNARDINO informed the resident who stated that she had to confirm with management prior to making appt, as resident does not want to pay. BERNARDINO stated she will follow up with management later next week. Charge nurse was informed.
[2016-12-27] MEDS: TRAMADOL HCL 50 MG TABLET PO PRN (11:58)
[2016-12-27] MEDS: LIDOCAINE 5% (PATCH) 1 EA PATCH TP SCH (13:09)
--- NOTE | 2016-12-27 18:04 | NUR ---
Pt verbalized she does not feel good. Charge nurse asked her in what way is she not feeling good, and the pt said she feels sick. Charge nurse noticed that pt is taking quick shallow breaths. Vitals signs were checked, and O2 sat was 84-85%. Charge nurse told pt that she needs to be back on oxygen, but pt refused at first then agreed. Charge nurse placed pt back on cool aerosol. Notified RT Pola and he came right away to check on the pt. Pt was suctioned and was given a breathing treatment. O2 sat improved to 95% and pt verbalized that she feels better. Notified PATENT PROSECUTION PARALEGAL Savi Nunez.
[2016-12-27 20:17] VITALS: BP 135/77
[2016-12-27] MEDS: ZOLPIDEM TARTRATE 5 MG TABLET PO PRN (20:28)
[2016-12-27] MEDS: LORAZEPAM 0.5 MG TABLET PO PRN (20:28)
[2016-12-27] MEDS: MAG HYDROX/AL HYDROX/SIMETH 30 ML UDC PO PRN (23:00)
[2016-12-28] MEDS: HYDROCODONE/APAP 5/325MG 1 EACH TABLET PO PRN ×3 (00:10→18:29)
[2016-12-28] MEDS: IPRATROPIUM NEB FS 0.5 MG/2.5 ML AMPUL.NEB NEB SCH ×4 (02:18→19:53)
[2016-12-28] MEDS: ALBUTEROL FS 2.5 MG/3 ML VIAL.NEB NEB SCH ×4 (02:18→19:53)
[2016-12-28 07:58] VITALS: BP 130/75
[2016-12-28] MEDS: METOPROLOL TARTRATE 50 MG TABLET PO SCH ×2 (09:37→20:28)
[2016-12-28] MEDS: hydrALAZINE HCL 25 MG TABLET PO SCH ×2 (09:37→20:28)
[2016-12-28] MEDS: GUAIFENESIN LA 600 MG TABLET.SA PO SCH ×2 (09:37→20:28)
[2016-12-28] MEDS: predniSONE 10 MG TABLET PO SCH (09:39)
[2016-12-28] MEDS: SENNOSIDES 8.6 MG TABLET PO SCH (09:39)
[2016-12-28] MEDS: Z GUARD REMEDY 2 OZ OINT TP SCH ×2 (09:40→20:28)
[2016-12-28] MEDS: ALISKIREN HEMIFUMARATE 150 MG TABLET PO SCH (09:40)
[2016-12-28] MEDS: CHOLECALCIFEROL 1,000 UNIT TABLET (VIT D3) PO SCH (09:40)
[2016-12-28] MEDS: HYDROGEN PEROXIDE 480 ML BOTTLE TP SCH ×2 (09:40→20:28)
--- NOTE | 2016-12-28 09:54 | NUR ---
SW informed by business unit leader that resident is upset about her GIZZARD PEELER assignment and that she had given the middle finger to the charge nurse. SW attempted to speak to the resident but resident told the SW to go away. Will attempt again at a later time.
[2016-12-28] MEDS: LIDOCAINE 5% (PATCH) 1 EA PATCH TP SCH (12:10)
[2016-12-28 20:20] VITALS: BP 124/66
[2016-12-28] MEDS: ZOLPIDEM TARTRATE 5 MG TABLET PO PRN (20:29)
[2016-12-28] MEDS: LORAZEPAM 0.5 MG TABLET PO PRN (20:29)
[2016-12-28] MEDS: TRAMADOL HCL 50 MG TABLET PO PRN (20:49)
[2016-12-29] MEDS: IPRATROPIUM NEB FS 0.5 MG/2.5 ML AMPUL.NEB NEB SCH ×4 (01:43→19:33)
[2016-12-29] MEDS: ALBUTEROL FS 2.5 MG/3 ML VIAL.NEB NEB SCH ×4 (01:43→19:33)
[2016-12-29] MEDS: HYDROCODONE/APAP 5/325MG 1 EACH TABLET PO PRN ×3 (01:44→17:49)
--- NOTE | 2016-12-29 05:11 | NUR ---
Pt woke up and asked to be suctioned.COMMUNITY PLANNER suctioned her and asking /insisting to change her inner cannula is not necessary,it's only needs to be clean and it's only needs to be change during the day.I went to the room and tell her it's doesn't need to be changed,I already explained it to you many times and "she told me to SHUT UP ".I stopped talking and left the room.
[2016-12-29 08:59] VITALS: BP 109/55
[2016-12-29] MEDS: CHOLECALCIFEROL 1,000 UNIT TABLET (VIT D3) PO SCH (09:00)
[2016-12-29] MEDS: GUAIFENESIN LA 600 MG TABLET.SA PO SCH ×2 (09:00→20:31)
[2016-12-29] MEDS: HYDROGEN PEROXIDE 480 ML BOTTLE TP SCH ×2 (09:00→20:31)
[2016-12-29] MEDS: ALISKIREN HEMIFUMARATE 150 MG TABLET PO SCH (09:00)
[2016-12-29] MEDS: SENNOSIDES 8.6 MG TABLET PO SCH (09:00)
[2016-12-29] MEDS: hydrALAZINE HCL 25 MG TABLET PO SCH ×2 (09:00→20:30)
[2016-12-29] MEDS: Z GUARD REMEDY 2 OZ OINT TP SCH ×2 (09:00→20:31)
[2016-12-29] MEDS: METOPROLOL TARTRATE 50 MG TABLET PO SCH ×2 (09:00→20:30)
--- NOTE | 2016-12-29 11:28 | NUR ---
Informed by Sofie Obrien, [employer] fundraising sale representative, that she received a notice from the resident's [employer] worker stating that the application was denied because the bank statements were not received. She reported that she will appeal the case and she will visit with resident and call resident's financial institutions to request her bank statements. Sofie stated she will keep the SW posted.
[2016-12-29] MEDS: LIDOCAINE 5% (PATCH) 1 EA PATCH TP SCH (12:21)
[2016-12-29] MEDS: TRAMADOL HCL 50 MG TABLET PO PRN ×2 (12:23→20:32)
--- NOTE | 2016-12-29 15:20 | NUR ---
Pt was seen by LINE LEADER Savi Nunez. Pt's eyes are red. Received order to apply cold compresses to eyes q 6 hours for 3 minutes for 7 days and Erythromycin ophthalmic ointment 1/4 inch to both eyes QID for 7 days. Also received order to give Mucomyst 20% BID for 5 days via nebulizer for thick secretions.
[2016-12-29] MEDS: ACETYLCYSTEINE 20% SOLN 800 MG/4 ML VIAL NEB SCH (18:01)
[2016-12-29 20:18] VITALS: BP 129/82
[2016-12-29] MEDS: ZOLPIDEM TARTRATE 5 MG TABLET PO PRN (20:31)
[2016-12-29] MEDS: LORAZEPAM 0.5 MG TABLET PO PRN (21:00)
[2016-12-29] MEDS: ERYTHROMYCIN BASE OPHTH 3.5 GM TUBE EACHEYE SCH (21:00)
[2016-12-30] MEDS: ALBUTEROL FS 2.5 MG/3 ML VIAL.NEB NEB SCH ×4 (00:46→20:14)
[2016-12-30] MEDS: IPRATROPIUM NEB FS 0.5 MG/2.5 ML AMPUL.NEB NEB SCH ×4 (00:46→20:14)
[2016-12-30] MEDS: TRAMADOL HCL 50 MG TABLET PO PRN ×2 (05:08→12:55)
[2016-12-30] MEDS: ACETYLCYSTEINE 20% SOLN 800 MG/4 ML VIAL NEB SCH ×2 (07:28→17:47)
[2016-12-30 07:43] VITALS: BP 138/71
[2016-12-30] MEDS: ERYTHROMYCIN BASE OPHTH 3.5 GM TUBE EACHEYE SCH ×4 (09:08→20:36)
[2016-12-30] MEDS: hydrALAZINE HCL 25 MG TABLET PO SCH ×2 (09:09→20:36)
[2016-12-30] MEDS: SENNOSIDES 8.6 MG TABLET PO SCH (09:09)
[2016-12-30] MEDS: predniSONE 10 MG TABLET PO SCH (09:09)
[2016-12-30] MEDS: GUAIFENESIN LA 600 MG TABLET.SA PO SCH ×2 (09:09→20:37)
[2016-12-30] MEDS: METOPROLOL TARTRATE 50 MG TABLET PO SCH ×2 (09:09→20:37)
[2016-12-30] MEDS: CHOLECALCIFEROL 1,000 UNIT TABLET (VIT D3) PO SCH (09:21)
[2016-12-30] MEDS: HYDROGEN PEROXIDE 480 ML BOTTLE TP SCH ×2 (09:21→20:37)
[2016-12-30] MEDS: Z GUARD REMEDY 2 OZ OINT TP SCH ×2 (09:21→20:37)
[2016-12-30] MEDS: ALISKIREN HEMIFUMARATE 150 MG TABLET PO SCH (09:21)
[2016-12-30] MEDS: HYDROCODONE/APAP 5/325MG 1 EACH TABLET PO PRN ×2 (09:21→19:39)
--- NOTE | 2016-12-30 12:08 | NUR ---
SW spoke to the resident and informed her that in terms of discharge planning, SW has to speak to her friends Soy and Daylin to confirm discharge plan, as resident constantly states that she will discharge to their home once she is ready. Resident stated that SW can call next week. Later some time, resident asked to speak to the SW again. She stated "I'm dying because I'm on oxygen. I can't go home." SW informed resident that discharge plan was not set in stone and that resident needs to be medically cleared prior to discharge and informed her that if she needs more time, that is okay. Resident stated okay and went back to sleep after eating her lunch.
[2016-12-30] MEDS: LIDOCAINE 5% (PATCH) 1 EA PATCH TP SCH (12:48)
--- NOTE | 2016-12-30 15:00 | NUR ---
Went to pt's room d/t pt requesting to have her inner cannula changed. Inner cannula was changed this AM by RT also d/t pt's request. Notified pt that inner cannula is changed daily and only as needed if there are any noted plugs or if inner cannula dirty. Assessed current inner cannula that pt has on, clear, no plugs noted. Showed inner cannula to patient but pt insisted on changing it even if it's clean. Notified pt that constantly changing it if not needed will be a waste of supply and that she is being charged every time staff changes it. Pt smiled and said not worry about her being charged for the inner cannulas. Pt unable to comprehend rationale at this time and continued to ask to have it changed. Inner cannula changed per pt request. RT and primary nurse were notified.
--- NOTE | 2016-12-30 16:20 | NUR ---
Seen and examined by Dr. Palacios. with order to do chest xray in AM. Order noted and carried out. Pt notified.
[2016-12-30 20:37] VITALS: BP 148/82
[2016-12-30] MEDS: ZOLPIDEM TARTRATE 5 MG TABLET PO PRN (21:04)
[2016-12-30] MEDS: LORAZEPAM 0.5 MG TABLET PO PRN (21:04)
[2016-12-31] MEDS: IPRATROPIUM NEB FS 0.5 MG/2.5 ML AMPUL.NEB NEB SCH ×5 (01:38→20:07)
[2016-12-31] MEDS: ALBUTEROL FS 2.5 MG/3 ML VIAL.NEB NEB SCH ×5 (01:38→20:07)
[2016-12-31] MEDS: TRAMADOL HCL 50 MG TABLET PO PRN ×3 (04:14→23:18)
[2016-12-31 07:39] VITALS: BP 142/74
[2016-12-31] MEDS: ACETYLCYSTEINE 20% SOLN 800 MG/4 ML VIAL NEB SCH ×2 (09:00→17:58)
--- NOTE | 2016-12-31 09:00 | NUR ---
RT RT UNABLE TO GIVE MUCOMYST TREATMENT DUE TO BROKEN VIAL. RN NOTIFIED AND AWARE. PHARMACY CALLED AND NOTIFIED. NO SIGNS OF DISTRESS NOTED AT THIS TIME. PATIENT IS AWAKE AND RESPONSIVE. WILL CONTINUE TO MONITOR FOR ANY CHANGES.
[2016-12-31] MEDS: SENNOSIDES 8.6 MG TABLET PO SCH (09:48)
[2016-12-31] MEDS: CHOLECALCIFEROL 1,000 UNIT TABLET (VIT D3) PO SCH (09:48)
[2016-12-31] MEDS: GUAIFENESIN LA 600 MG TABLET.SA PO SCH ×2 (09:48→20:16)
[2016-12-31] MEDS: ALISKIREN HEMIFUMARATE 150 MG TABLET PO SCH (09:48)
[2016-12-31] MEDS: ERYTHROMYCIN BASE OPHTH 3.5 GM TUBE EACHEYE SCH ×4 (09:48→20:16)
[2016-12-31] MEDS: METOPROLOL TARTRATE 50 MG TABLET PO SCH ×2 (09:48→20:16)
[2016-12-31] MEDS: hydrALAZINE HCL 25 MG TABLET PO SCH ×2 (09:48→20:16)
[2016-12-31] MEDS: HYDROGEN PEROXIDE 480 ML BOTTLE TP SCH ×2 (09:49→20:16)
[2016-12-31] MEDS: Z GUARD REMEDY 2 OZ OINT TP SCH ×2 (09:49→20:16)
--- NOTE | 2016-12-31 10:45 | NUR ---
Relayed CXR result to Dr. Yen. He said he will view the CXR image and will notify charge nurse if there is any new order.
--- NOTE | 2016-12-31 11:23 | NUR ---
Dr. Yen ordered to give Levaquin 500 mg po q 24 hours for 7 days for pneumonia, pharmacy to dose. Notified pt.
--- NOTE | 2016-12-31 11:42 | NUR ---
Notified Dr. Palacios that pt's CXR is available, seen by Dr. Yen, and that Dr. Yen ordered Levaquin for 7 days for pneumonia.
[2016-12-31] MEDS: LEVOFLOXACIN (500MG) 500 MG TABLET PO SCH (12:00)
[2016-12-31] MEDS: LIDOCAINE 5% (PATCH) 1 EA PATCH TP SCH (12:52)
--- NOTE | 2016-12-31 14:06 | NUR ---
pt refused cool compress on both eyes.offered x3.explained health benefits.
--- NOTE | 2016-12-31 14:25 | NUR ---
ACACIA Bartlett reported to charge nurse that pt said she wants to go to the hospital. Charge nurse went to see pt and asked pt how she is feeling. Pt verbalized that she is sick, she feels terrible and weak. Pt said she has not eaten in 3 days. BP 106/65 HR 86 T 97.6 R 20 O2 sat 94%. No respiratory distress noted. Explained to pt she probably feels terrible and weak because she is sick with pneumonia, but reminded her that Dr. Yne already started her on Levaquin. Charge nurse explained to pt that her vital signs are stable, she is not in any distress, and there is no emergency that would need her to be transferred to the hospital, and pt agreed that she does not need to be transferred to acute care. Reminded pt that her nurses are taking care of her and if there is anything urgent that needs to be addressed then it will be addressed. Encouraged pt to eat and drink lots of fluids. Explained to her that not eating well also contributes to feeling weak. She said the food that is being served to her is always the same and she does not want to eat them. Charge nurse asked her if she wanted her to ask the kitchen to make her a sandwich or anything to eat, but pt refused. Charge nurse asked if she might be interested to eat some pudding, and pt said yes. Charge nurse got her a cup of cranberry juice with ice since it is the pt's preferred drink, a chocolate and a vanilla pudding. When the charge nurse brought her the juice and 2 puddings, pt told the charge nurse to take them away and refused to eat even after charge nurse encouraged her.
--- NOTE | 2016-12-31 14:42 | NUR ---
SOLE STITCHER HANDVictoria Alejo informed charge nurse that pt asked him to buy her food across the street. Charge nurse asked the pt what type of food she asked the SOLE STITCHER HAND to get for her, she said chicken and rice. Reminded her that her diet order is mechanical soft diet for meals. Pt is on regular diet for snacks only. She said the chicken is cut up in small pieces. Addendum: 12/31/16 at 1800 by SARAVANAN VAUGHN RN Charge nurse emphasized to pt that she is reminding her of what her diet is for safety reasons.
--- NOTE | 2016-12-31 16:33 | NUR ---
Pt asked to see charge nurse because she said she wants to talk with Dr. Yen about the inner cannula. Charge nurse went to see pt, pt verbalized she wants to have the inner cannula changed. Charge nurse checked pt's inner cannula and it was very clean. Showed inner cannula to pt and explained to her that there is no need to change it. Pt said she wants it changed because she says so and just wants it to be changed. Pt said she tried to call Dr. Yen but was unable to reach him, it was his answering service that picked up her call. Explained to pt that it is a weekend, and probably Dr. Yen is not on anymore. She said she wants Dr. Yen to tell the charge nurse that her inner cannula needs to be changed. Explained to her that it is not an emergency and charge nurse will discuss it with Dr. Yen on Monday. Pt insisted on having the inner cannula changed just because she wants it. Explained to her that the inner cannula is clean and does not even need to be cleaned because it is very clean. RT Oconnor, ACACIA Eugene, and ACACIA Bartlett already checked on pt's inner cannula 10 minutes ago and showed the clean inner cannula to the pt. Addendum: 12/31/16 at 1643 by SARAVANAN VAUGHN RN Pt's inner cannula was changed by RT Oconnor earlier today.
--- NOTE | 2016-12-31 17:44 | NUR ---
Pt complained to charge nurse that "Marivel did not change my diaper." Charge nurse told SHERRILL Orta that pt is complaining she has not changed her diaper and to please attend to the pt once she is done with the pt she is currently working with. SHERRILL Orta said she changed her earlier, but will come to see pt to change her again. After SHERRILL Orta changed her, pt clarified with her that she was not complaining about her not changing her diaper. Pt told SHERRILL Orta that she only said she needed to be changed. It was not what she told the charge nurse earlier. SHERRILL Orta notified charge nurse that pt wanted to speak with her. Charge nurse came to see pt and pt told her, "I feel like you are on my case the whole day." Charge nurse asked what made her say that. Pt said it was because she does not want to change the inner cannula and that SHERRILL Alejo offered to buy her food. Charge nurse reminded her that they have already discussed these issues earlier and that they have gone over it again and again.
--- NOTE | 2016-12-31 18:10 | NUR ---
RT 1757 - MUCOMYST TREATMENT GIVEN ORDERED. PT SUCTIONED, SMALL AMOUNTS OF THICK, YELLOW SECRETIONS NOTED. 1809 - PATIENT STATES THAT SHE CANNOT BREATHE. SpO2 100%, HR 102. AND REFUSES TO BE SUCTIONED BY ME. RAKESH COE CALLED TO BEDSIDE AND PT STATES THAT SHE CANNOT BREATHE. PT REMOVES BREATHING TX ALONG WITH TRACH COLLAR AND OXYGEN. PT IS AGITATED AND STATES WANTING HER INNER CANNULA CHANGED MULTIPLE TIMES. RN EXPLAINED TO THE PATIENT THE ORDER OF THE INNER CANNULA TO BE CHANGED DAILY. PT TOLD ME "I HATE YOU" AND THAT I DO NOT KNOW ANYTHING AND REFUSES TO HAVE ME HER RT. RAKESH COE AT BEDSIDE AND AWARE OF PATIENTS STATEMENTS. PT STATES AGAIN THAT SHE CANNOT BREATHE AND KEEPS REMOVING HER TRACH MASK. RN AND RT AT BEDSIDE TO ASSESS THE PATIENT. SpO2 100%, HR 103. WILL CONTINUE TO MONITOR THE PATIENT CLOSELY FOR ANY CHANGE OF CONDITION.
--- NOTE | 2016-12-31 18:40 | NUR ---
Pt complained that she cannot breathe, but refused for RT to suction her. Prior to complaining that she cannot breathe, she told the RT "I hate you" twice because the RT explained to her that her inner cannula is clean and does not need to be changed. She told RT Oconnor that she does not know anything and that she does not want her to be her RT. When pt complained that she cannot breathe, RT Oconnor and charge nurse assessed the pt. Pt said she wants another RT. Charge nurse explained that if she cannot breathe, then let RT Oconnor help her instead of getting another RT which will take some time. Pt's O2 sat 100% HR 104. Pt not wheezing. Checked inner cannula and it is still very clean. Pt refused to be suctioned. She removed her oxygen (trach mask) and breathing treatment. Explained to pt that if she cannot breathe, she needs to keep her oxygen and breathing treatment. Charge nurse placed the trach mask back on but pt removed it again. Encouraged pt to take deep breaths but she also refused. RT Oconnor explained to the pt that she will be working until 3am and that she will change the inner cannula on the next shift. Pt lied down on her bed and closed her eyes. Addendum: 12/31/16 at 1855 by SARAVANAN VAUGHN RN Charge nurse asked pt several times if she wanted Ativan if she is feeling anxious, but pt refused.
--- NOTE | 2016-12-31 18:50 | NUR ---
Pt told RT Anastasia that she wants to go home. Charge nurse told pt that she can discuss discharge planning with pt on Monday, but pt said she there is nobody at home who will take care of her and that she is not yet ready. Charge nurse told her then she will not be discharged yet if she is not ready, that it is up to her.
--- NOTE | 2016-12-31 19:58 | NUR ---
Patient called charge nurse. Charge nurse walk inside the room. Member insisted that she wants a new inner cannula. Charge nurse explained to her that the order for inner cannula is to change daily but member insisted that she needs a new one right now. Charge nurse informed her that will give her a new one right now. Charge nurse changed the inner cannula. Charge nurse checked the old inner cannula. cannula is clean with no signs of plug. Charge nurse informed the patient that she needs to talk to social worker aide on Monday so voice her concern regarding changing the inner cannula order. She stated that she wants to talk to Dr. Yen on Monday. Charge nurse informed her that we can set up a meeting with Jig And Fixture Maker, Dr. Yen, and Clyde (Admin) to discuss her concern. Patient stated that she just wants to talk to Dr. Yen. Will let the Morning charge nurse aware.
[2016-12-31] MEDS: LORAZEPAM 0.5 MG TABLET PO PRN (20:17)
[2016-12-31] MEDS: HYDROCODONE/APAP 5/325MG 1 EACH TABLET PO PRN (20:17)
[2016-12-31 20:23] VITALS: BP 143/83
[2016-12-31] MEDS: ZOLPIDEM TARTRATE 5 MG TABLET PO PRN (21:01)
[2017-01-01] MEDS: IPRATROPIUM NEB FS 0.5 MG/2.5 ML AMPUL.NEB NEB SCH ×4 (00:54→19:15)
[2017-01-01] MEDS: ALBUTEROL FS 2.5 MG/3 ML VIAL.NEB NEB SCH ×4 (00:54→19:15)
[2017-01-01] MEDS: HYDROCODONE/APAP 5/325MG 1 EACH TABLET PO PRN ×4 (02:17→22:19)
[2017-01-01 07:50] VITALS: BP 123/63
[2017-01-01] MEDS: ACETYLCYSTEINE 20% SOLN 800 MG/4 ML VIAL NEB SCH ×2 (08:05→17:33)
[2017-01-01] MEDS: ERYTHROMYCIN BASE OPHTH 3.5 GM TUBE EACHEYE SCH ×4 (08:53→21:00)
[2017-01-01] MEDS: hydrALAZINE HCL 25 MG TABLET PO SCH ×2 (08:56→21:00)
[2017-01-01] MEDS: METOPROLOL TARTRATE 50 MG TABLET PO SCH ×2 (08:56→21:00)
[2017-01-01] MEDS: GUAIFENESIN LA 600 MG TABLET.SA PO SCH ×2 (08:56→21:00)
[2017-01-01] MEDS: Z GUARD REMEDY 2 OZ OINT TP SCH ×2 (09:03→21:00)
[2017-01-01] MEDS: HYDROGEN PEROXIDE 480 ML BOTTLE TP SCH ×2 (09:03→21:00)
[2017-01-01] MEDS: CHOLECALCIFEROL 1,000 UNIT TABLET (VIT D3) PO SCH (09:03)
[2017-01-01] MEDS: ALISKIREN HEMIFUMARATE 150 MG TABLET PO SCH (09:03)
[2017-01-01] MEDS: predniSONE 10 MG TABLET PO SCH (09:03)
[2017-01-01] MEDS: SENNOSIDES 8.6 MG TABLET PO SCH (09:03)
[2017-01-01] MEDS: TRAMADOL HCL 50 MG TABLET PO PRN (11:43)
[2017-01-01] MEDS: LEVOFLOXACIN (500MG) 500 MG TABLET PO SCH (12:00)
[2017-01-01] MEDS: LIDOCAINE 5% (PATCH) 1 EA PATCH TP SCH (13:59)
[2017-01-01] MEDS: LORAZEPAM 0.5 MG TABLET PO PRN (20:36)
[2017-01-01] MEDS: ZOLPIDEM TARTRATE 5 MG TABLET PO PRN (21:26)
[2017-01-01 23:11] VITALS: BP 133/65
[2017-01-02] MEDS: ALBUTEROL FS 2.5 MG/3 ML VIAL.NEB NEB SCH ×6 (01:37→23:37)
[2017-01-02] MEDS: IPRATROPIUM NEB FS 0.5 MG/2.5 ML AMPUL.NEB NEB SCH ×6 (01:37→23:37)
[2017-01-02] MEDS: TRAMADOL HCL 50 MG TABLET PO PRN ×3 (02:03→21:30)
[2017-01-02 08:13] VITALS: BP 120/57
--- NOTE | 2017-01-02 08:57 | NUR ---
SW spoke to the resident and resident stated that she has not been feeling good and "someone from the nightshift told me the CNO wants to talk to me about my behavior." SW saw CNO earlier this morning and he did not mention anything. SW spoke with resident about the way she has been treating people and about the way shes always mentioning that she wants to go home. SW notified her that a discharge plan is needed if she wants to go home and (BERNARDINO) stated that she wants to speak to resident's friends Soy and Daylin, since the plan has been to have her go home with them. Resident stated "not now" but SW notified her that hopefully she can speak to them by the end of the week to confirm what the discharge plan is in the case that resident goes home. Resident stated "okay, I will stop saying that (that she wants to go home)" as she says she has pneumonia and cannot go home yet. SW spoke to charge nurse and suggested a psychologist consult and charge nurse stated that she will ask BRINE PROCESS OPERATOR Savi Nunez when she does her rounds.
[2017-01-02] MEDS: hydrALAZINE HCL 25 MG TABLET PO SCH ×2 (09:03→20:16)
[2017-01-02] MEDS: ERYTHROMYCIN BASE OPHTH 3.5 GM TUBE EACHEYE SCH ×4 (09:03→20:59)
[2017-01-02] MEDS: METOPROLOL TARTRATE 50 MG TABLET PO SCH ×2 (09:04→20:16)
[2017-01-02] MEDS: ALISKIREN HEMIFUMARATE 150 MG TABLET PO SCH (09:04)
[2017-01-02] MEDS: Z GUARD REMEDY 2 OZ OINT TP SCH ×2 (09:04→20:17)
[2017-01-02] MEDS: SENNOSIDES 8.6 MG TABLET PO SCH (09:04)
[2017-01-02] MEDS: HYDROGEN PEROXIDE 480 ML BOTTLE TP SCH ×2 (09:04→20:17)
[2017-01-02] MEDS: CHOLECALCIFEROL 1,000 UNIT TABLET (VIT D3) PO SCH (09:04)
[2017-01-02] MEDS: GUAIFENESIN LA 600 MG TABLET.SA PO SCH ×2 (09:04→20:19)
[2017-01-02] MEDS: ACETYLCYSTEINE 20% SOLN 800 MG/4 ML VIAL NEB SCH ×2 (10:34→16:54)
[2017-01-02] MEDS: LIDOCAINE 5% (PATCH) 1 EA PATCH TP SCH (12:45)
[2017-01-02] MEDS: LEVOFLOXACIN (500MG) 500 MG TABLET PO SCH (12:45)
--- NOTE | 2017-01-02 13:17 | NUR ---
Informed Dr. Marino that resident is in need of psychiatrist visit, as she has been more irritable and verbally aggressive towards the staff. Also, SW was informed by the charge nurse that psychologist consult was ordered by JAREK Nunez. BERNARDINO contacted Dr. Kelsy Lo (psychologist) but was notified by her that she will be on vacation for the next three weeks and is not available. Sent referral to Dr. Santos Yanez Phd (psychologist) to see if he is able to see the resident. BERNARDINO will follow up.
--- NOTE | 2017-01-02 14:00 | NUR ---
Seen and examined by JAREK Nunez. Received orders to change Prednisone 10 mg every other day to daily, add Pulmicort to breathing treatments, and to increase frequency of Albuterol and Atrovent to q 4 hours. Also received order for psychology consult to address pt's emotional needs. Pt asked JAREK Nunez to order charge nurse to change her inner cannula more than once a day, but JAREK Nunez said no to her request. JAREK Nunez explained to the pt that the staff can clean the inner cannula and that having the inner cannula changed frequently might cause irritation on her trachea. Pt nodded her head. Addendum: 01/02/17 at 1532 by SARAVANAN VAUGHN RN JAREK Nunez said to have both Dr. Marino and a psychologist see the pt. Notified social and human services assistant Maude.
--- NOTE | 2017-01-02 14:45 | NUR ---
Informed Dr. Aldridge that resident is requesting toe nail cutting. SW will follow up.
[2017-01-02] MEDS: HYDROCODONE/APAP 5/325MG 1 EACH TABLET PO PRN (16:34)
[2017-01-02] MEDS: BUDESONIDE RESPULE INH 0.5 MG/2 ML AMPUL.NEB NEB SCH (17:22)
[2017-01-02 19:54] VITALS: BP 121/65
[2017-01-02] MEDS: LORAZEPAM 0.5 MG TABLET PO PRN (20:59)
[2017-01-02] MEDS: ZOLPIDEM TARTRATE 5 MG TABLET PO PRN (21:00)
[2017-01-03] MEDS: HYDROCODONE/APAP 5/325MG 1 EACH TABLET PO PRN ×3 (00:14→21:30)
[2017-01-03] MEDS: IPRATROPIUM NEB FS 0.5 MG/2.5 ML AMPUL.NEB NEB SCH ×6 (03:51→23:23)
[2017-01-03] MEDS: ALBUTEROL FS 2.5 MG/3 ML VIAL.NEB NEB SCH ×6 (03:51→23:23)
[2017-01-03] MEDS: ACETYLCYSTEINE 20% SOLN 800 MG/4 ML VIAL NEB SCH (08:49)
[2017-01-03] MEDS: BUDESONIDE RESPULE INH 0.5 MG/2 ML AMPUL.NEB NEB SCH ×2 (08:49→17:00)
[2017-01-03] MEDS: LORAZEPAM 0.5 MG TABLET PO PRN ×2 (08:49→20:43)
[2017-01-03] MEDS: CHOLECALCIFEROL 1,000 UNIT TABLET (VIT D3) PO SCH (08:51)
[2017-01-03] MEDS: HYDROGEN PEROXIDE 480 ML BOTTLE TP SCH ×2 (08:51→20:43)
[2017-01-03] MEDS: Z GUARD REMEDY 2 OZ OINT TP SCH ×2 (08:51→20:43)
[2017-01-03] MEDS: SENNOSIDES 8.6 MG TABLET PO SCH (08:52)
[2017-01-03] MEDS: ALISKIREN HEMIFUMARATE 150 MG TABLET PO SCH (08:52)
[2017-01-03] MEDS: ERYTHROMYCIN BASE OPHTH 3.5 GM TUBE EACHEYE SCH ×4 (08:53→20:42)
[2017-01-03] MEDS: hydrALAZINE HCL 25 MG TABLET PO SCH ×2 (08:56→20:42)
[2017-01-03] MEDS: METOPROLOL TARTRATE 50 MG TABLET PO SCH ×2 (08:56→20:43)
[2017-01-03] MEDS ORDERED: predniSONE 10 MG TABLET PO SCH (09:00)
[2017-01-03] MEDS: LIDOCAINE 5% (PATCH) 1 EA PATCH TP SCH (12:04)
[2017-01-03] MEDS: LEVOFLOXACIN (500MG) 500 MG TABLET PO SCH ×2 (12:05→14:40)
[2017-01-03] MEDS: TRAMADOL HCL 50 MG TABLET PO PRN ×2 (14:37→22:50)
[2017-01-03 19:40] VITALS: BP 127/68
[2017-01-03] MEDS: ZOLPIDEM TARTRATE 5 MG TABLET PO PRN (20:43)
[2017-01-04] MEDS: IPRATROPIUM NEB FS 0.5 MG/2.5 ML AMPUL.NEB NEB SCH ×6 (03:34→23:08)
[2017-01-04] MEDS: ALBUTEROL FS 2.5 MG/3 ML VIAL.NEB NEB SCH ×6 (03:34→23:08)
[2017-01-04 07:48] VITALS: BP 153/66
[2017-01-04] MEDS: ERYTHROMYCIN BASE OPHTH 3.5 GM TUBE EACHEYE SCH ×4 (09:00→20:33)
[2017-01-04] MEDS: hydrALAZINE HCL 25 MG TABLET PO SCH ×2 (09:59→20:33)
[2017-01-04] MEDS: HYDROGEN PEROXIDE 480 ML BOTTLE TP SCH ×2 (09:59→20:33)
[2017-01-04] MEDS: predniSONE 20 MG TABLET PO SCH (09:59)
[2017-01-04] MEDS: Z GUARD REMEDY 2 OZ OINT TP SCH ×2 (09:59→20:33)
[2017-01-04] MEDS: SENNOSIDES 8.6 MG TABLET PO SCH (09:59)
[2017-01-04] MEDS: ALISKIREN HEMIFUMARATE 150 MG TABLET PO SCH (09:59)
[2017-01-04] MEDS: CHOLECALCIFEROL 1,000 UNIT TABLET (VIT D3) PO SCH (09:59)
[2017-01-04] MEDS: METOPROLOL TARTRATE 50 MG TABLET PO SCH ×2 (09:59→20:33)
[2017-01-04] MEDS: HYDROCODONE/APAP 5/325MG 1 EACH TABLET PO PRN ×2 (10:00→21:22)
[2017-01-04] MEDS: BUDESONIDE RESPULE INH 0.5 MG/2 ML AMPUL.NEB NEB SCH ×2 (10:00→17:00)
[2017-01-04] MEDS: LEVOFLOXACIN (500MG) 500 MG TABLET PO SCH (12:00)
[2017-01-04] MEDS: TRAMADOL HCL 50 MG TABLET PO PRN ×2 (12:34→22:33)
[2017-01-04] MEDS: LIDOCAINE 5% (PATCH) 1 EA PATCH TP SCH (13:00)
--- NOTE | 2017-01-04 14:03 | NUR ---
Called the office of Dr. Santos Yanez, PhD- Psychologist ([address]. [address] [place] [address] ) to follow up on referral. No one answered and SW left a message with call back details. Will follow up again. Addendum: 01/04/17 at 1417 by JEAN CARLOS LEBRON Received a call back from Dr. Yanez who stated that he is out of town but will be able to come and see the resident on Monday January 09, 2017 in the early afternoon. Charge nurse and resident informed.
--- NOTE | 2017-01-04 15:39 | NUR ---
Faxed referral to office of Dr. Driscoll ([address] [facility]. [address] [place] [address] Fax ) to inquire about dentures mcmahon and if they are able to utilize the resident's insurance. Resident stated she would like to obtain some information on how much they would cost. SW will follow up.
--- NOTE | 2017-01-04 15:45 | NUR ---
Resident informed about [facility] program for when she goes home. Explained program and the income requirements. Resident stated she doesn't have access to her current bank statements and ordered a new password from the bank, which her friend will receive in the mail. Resident stated she will look over the paper and SW will help her apply prior to discharge.
[2017-01-04 20:19] VITALS: BP 136/76
[2017-01-04] MEDS: ZOLPIDEM TARTRATE 5 MG TABLET PO PRN (20:34)
[2017-01-04] MEDS: LORAZEPAM 0.5 MG TABLET PO PRN (20:34)
[2017-01-05] MEDS: IPRATROPIUM NEB FS 0.5 MG/2.5 ML AMPUL.NEB NEB SCH ×6 (03:02→23:07)
[2017-01-05] MEDS: ALBUTEROL FS 2.5 MG/3 ML VIAL.NEB NEB SCH ×6 (03:03→23:07)
[2017-01-05] MEDS: HYDROCODONE/APAP 5/325MG 1 EACH TABLET PO PRN ×3 (03:30→21:30)
[2017-01-05 07:29] VITALS: BP 131/68
[2017-01-05] MEDS: BUDESONIDE RESPULE INH 0.5 MG/2 ML AMPUL.NEB NEB SCH ×2 (09:26→17:24)
[2017-01-05] MEDS: ERYTHROMYCIN BASE OPHTH 3.5 GM TUBE EACHEYE SCH ×3 (09:38→17:00)
[2017-01-05] MEDS: HYDROGEN PEROXIDE 480 ML BOTTLE TP SCH ×2 (09:39→21:29)
[2017-01-05] MEDS: METOPROLOL TARTRATE 50 MG TABLET PO SCH ×2 (09:39→20:49)
[2017-01-05] MEDS: SENNOSIDES 8.6 MG TABLET PO SCH (09:39)
[2017-01-05] MEDS: ALISKIREN HEMIFUMARATE 150 MG TABLET PO SCH (09:39)
[2017-01-05] MEDS: CHOLECALCIFEROL 1,000 UNIT TABLET (VIT D3) PO SCH (09:39)
[2017-01-05] MEDS: Z GUARD REMEDY 2 OZ OINT TP SCH ×2 (09:39→21:29)
[2017-01-05] MEDS: hydrALAZINE HCL 25 MG TABLET PO SCH ×2 (09:39→20:49)
[2017-01-05] MEDS: predniSONE 20 MG TABLET PO SCH (09:39)
--- NOTE | 2017-01-05 11:57 | NUR ---
Received a call back from from the office of Dr. Driscoll (dentist- [address]. [address] [place] [address] ) who stated that she looked into the resident's insurance and costs for dentures will be $3100 for both upper and bottom and that insurance is willing to pay half the cost. Resident would have to pay $1550 out of pocket costs. BERNARDINO informed resident of this and she stated that she is sure she can pay. BERNARDINO encouraged her to speak to her friend, who is handling her finances, and resident told SW that she will pay for any costs as a result of her getting the dentures. BERNARDINO will arrange for the dentist to come and see her in the hospital. Addendum: 01/06/17 at 1048 by JEAN CARLOS LEBRON Per , Dr. Margoth BURGOS will come Monday 9AM to see the resident for dental impressions. Resident informed.
--- NOTE | 2017-01-05 12:22 | NUR ---
Resident stated she is okay to proceed with dentures cost and can pay the fee (~$1550). Spoke to Mystulio at the office of Dr. Driscoll (dentist- [address] [place] [address]. [address] [place] [address] ). Mystery stated that she will notify Dr. Driscoll and will call the SW back with her appt day and time. Resident and charge nurse informed.
[2017-01-05] MEDS: LEVOFLOXACIN (500MG) 500 MG TABLET PO SCH (12:57)
[2017-01-05] MEDS: TRAMADOL HCL 50 MG TABLET PO PRN ×2 (12:57→23:58)
[2017-01-05] MEDS: LIDOCAINE 5% (PATCH) 1 EA PATCH TP SCH (12:58)
[2017-01-05] MEDS: LORAZEPAM 0.5 MG TABLET PO PRN (20:48)
[2017-01-05 20:56] VITALS: BP 150/81
[2017-01-05] MEDS: ZOLPIDEM TARTRATE 5 MG TABLET PO PRN (22:15)
[2017-01-06] MEDS: HYDROCODONE/APAP 5/325MG 1 EACH TABLET PO PRN ×3 (04:22→21:42)
[2017-01-06 07:38] VITALS: BP 143/84
[2017-01-06] MEDS: ALBUTEROL FS 2.5 MG/3 ML VIAL.NEB NEB SCH ×5 (08:00→23:45)
[2017-01-06] MEDS: IPRATROPIUM NEB FS 0.5 MG/2.5 ML AMPUL.NEB NEB SCH ×5 (08:00→23:45)
[2017-01-06] MEDS: BUDESONIDE RESPULE INH 0.5 MG/2 ML AMPUL.NEB NEB SCH ×2 (08:03→17:00)
[2017-01-06] MEDS: hydrALAZINE HCL 25 MG TABLET PO SCH ×2 (09:00→20:40)
[2017-01-06] MEDS: METOPROLOL TARTRATE 50 MG TABLET PO SCH ×2 (09:52→20:40)
[2017-01-06] MEDS: predniSONE 20 MG TABLET PO SCH (09:53)
[2017-01-06] MEDS: SENNOSIDES 8.6 MG TABLET PO SCH (09:54)
[2017-01-06] MEDS: ALISKIREN HEMIFUMARATE 150 MG TABLET PO SCH (09:54)
[2017-01-06] MEDS: HYDROGEN PEROXIDE 480 ML BOTTLE TP SCH ×2 (09:54→20:40)
[2017-01-06] MEDS: Z GUARD REMEDY 2 OZ OINT TP SCH ×2 (09:54→20:40)
[2017-01-06] MEDS: CHOLECALCIFEROL 1,000 UNIT TABLET (VIT D3) PO SCH (09:54)
--- NOTE | 2017-01-06 10:39 | NUR ---
SW called resident's friends Soy and Daylin Harris ([phone]) to talk about discharge plan but they did not answer. SW will call again at a later time and left voicemail with contact information.
--- NOTE | 2017-01-06 10:48 | NUR ---
Dr. Margoth BURGOS will come Monday 9AM to do dental impressions for resident's dentures. Informed Jeremie from the office of Dr. Driscoll that SW will not be available but that Dr. rucker can come and do the dental impressions. Resident informed.
[2017-01-06] MEDS: LEVOFLOXACIN (500MG) 500 MG TABLET PO SCH (12:00)
[2017-01-06] MEDS: TRAMADOL HCL 50 MG TABLET PO PRN ×2 (12:27→23:27)
[2017-01-06] MEDS: LIDOCAINE 5% (PATCH) 1 EA PATCH TP SCH (13:00)
[2017-01-06 19:53] VITALS: BP 107/58
[2017-01-06 20:14] VITALS: BP 132/67
[2017-01-06] MEDS: ZOLPIDEM TARTRATE 5 MG TABLET PO PRN (20:41)
[2017-01-06] MEDS: LORAZEPAM 0.5 MG TABLET PO PRN (20:41)
[2017-01-07] MEDS: ALBUTEROL FS 2.5 MG/3 ML VIAL.NEB NEB SCH ×5 (07:40→23:30)
[2017-01-07] MEDS: IPRATROPIUM NEB FS 0.5 MG/2.5 ML AMPUL.NEB NEB SCH ×5 (07:40→23:30)
[2017-01-07 07:42] VITALS: BP 137/75
[2017-01-07] MEDS: BUDESONIDE RESPULE INH 0.5 MG/2 ML AMPUL.NEB NEB SCH ×2 (09:00→17:27)
[2017-01-07] MEDS: hydrALAZINE HCL 25 MG TABLET PO SCH ×2 (09:09→20:32)
[2017-01-07] MEDS: SENNOSIDES 8.6 MG TABLET PO SCH (09:10)
[2017-01-07] MEDS: CHOLECALCIFEROL 1,000 UNIT TABLET (VIT D3) PO SCH (09:10)
[2017-01-07] MEDS: predniSONE 20 MG TABLET PO SCH (09:10)
[2017-01-07] MEDS: ALISKIREN HEMIFUMARATE 150 MG TABLET PO SCH (09:10)
[2017-01-07] MEDS: METOPROLOL TARTRATE 50 MG TABLET PO SCH ×2 (09:10→20:32)
--- NOTE | 2017-01-07 11:11 | NUR ---
RT NOTE: RECEIVED PULMICORT FROM PHARMACY BUT PATIENT REFUSED TREATMENT. ALSO PATIENT REFUSED ALBUTEROL AND ATROVENT TREATMENT AT THIS TIME. WILL CONTINUE TO MONITOR PATIENT.
[2017-01-07] MEDS: LIDOCAINE 5% (PATCH) 1 EA PATCH TP SCH (12:42)
[2017-01-07] MEDS: TRAMADOL HCL 50 MG TABLET PO PRN (12:50)
[2017-01-07] MEDS: HYDROGEN PEROXIDE 480 ML BOTTLE TP SCH ×2 (14:45→20:33)
[2017-01-07] MEDS: Z GUARD REMEDY 2 OZ OINT TP SCH ×2 (14:45→20:33)
[2017-01-07] MEDS: ZOLPIDEM TARTRATE 5 MG TABLET PO PRN (20:33)
[2017-01-07] MEDS: LORAZEPAM 0.5 MG TABLET PO PRN (20:33)
[2017-01-07 21:39] VITALS: BP 157/79
[2017-01-07] MEDS: HYDROCODONE/APAP 5/325MG 1 EACH TABLET PO PRN (22:02)
[2017-01-08] MEDS: IPRATROPIUM NEB FS 0.5 MG/2.5 ML AMPUL.NEB NEB SCH ×6 (03:35→23:56)
[2017-01-08] MEDS: ALBUTEROL FS 2.5 MG/3 ML VIAL.NEB NEB SCH ×6 (03:36→23:56)
[2017-01-08] MEDS: TRAMADOL HCL 50 MG TABLET PO PRN ×2 (03:56→14:00)
[2017-01-08 07:54] VITALS: BP 148/89
[2017-01-08] MEDS: BUDESONIDE RESPULE INH 0.5 MG/2 ML AMPUL.NEB NEB SCH ×2 (08:43→17:30)
[2017-01-08] MEDS: HYDROCODONE/APAP 5/325MG 1 EACH TABLET PO PRN ×2 (09:00→21:18)
[2017-01-08] MEDS: hydrALAZINE HCL 25 MG TABLET PO SCH ×2 (09:02→21:04)
[2017-01-08] MEDS: METOPROLOL TARTRATE 50 MG TABLET PO SCH ×2 (09:02→21:04)
[2017-01-08] MEDS: predniSONE 20 MG TABLET PO SCH (09:03)
[2017-01-08] MEDS: ALISKIREN HEMIFUMARATE 150 MG TABLET PO SCH (09:03)
[2017-01-08] MEDS: SENNOSIDES 8.6 MG TABLET PO SCH (09:03)
[2017-01-08] MEDS: CHOLECALCIFEROL 1,000 UNIT TABLET (VIT D3) PO SCH (09:04)
[2017-01-08] MEDS: HYDROGEN PEROXIDE 480 ML BOTTLE TP SCH ×2 (09:37→21:04)
[2017-01-08] MEDS: Z GUARD REMEDY 2 OZ OINT TP SCH ×2 (09:37→21:04)
[2017-01-08] MEDS: LIDOCAINE 5% (PATCH) 1 EA PATCH TP SCH (13:00)
[2017-01-08 20:23] VITALS: BP 137/69
[2017-01-08] MEDS: LORAZEPAM 0.5 MG TABLET PO PRN (21:05)
[2017-01-08] MEDS: ZOLPIDEM TARTRATE 5 MG TABLET PO PRN (21:05)
[2017-01-09] MEDS: IPRATROPIUM NEB FS 0.5 MG/2.5 ML AMPUL.NEB NEB SCH ×5 (02:58→23:41)
[2017-01-09] MEDS: ALBUTEROL FS 2.5 MG/3 ML VIAL.NEB NEB SCH ×5 (02:58→23:41)
[2017-01-09] MEDS: BUDESONIDE RESPULE INH 0.5 MG/2 ML AMPUL.NEB NEB SCH (07:45)
[2017-01-09 07:47] VITALS: BP 138/74
--- NOTE | 2017-01-09 09:00 | NUR ---
Pt was seen by Dr. Justin. He did dental impressions. He said pt will need to come to his dental office a couple of times. His office will call social media strategist Maude to make arrangements. He discussed it with the pt and pt agreed.
[2017-01-09] MEDS: hydrALAZINE HCL 25 MG TABLET PO SCH ×2 (09:26→21:04)
[2017-01-09] MEDS: METOPROLOL TARTRATE 50 MG TABLET PO SCH ×2 (09:27→21:04)
[2017-01-09] MEDS: ALISKIREN HEMIFUMARATE 150 MG TABLET PO SCH (09:27)
[2017-01-09] MEDS: predniSONE 10 MG TABLET PO SCH (09:27)
[2017-01-09] MEDS: CHOLECALCIFEROL 1,000 UNIT TABLET (VIT D3) PO SCH (09:27)
[2017-01-09] MEDS: SENNOSIDES 8.6 MG TABLET PO SCH (09:27)
[2017-01-09] MEDS: HYDROCODONE/APAP 5/325MG 1 EACH TABLET PO PRN ×3 (09:30→22:15)
[2017-01-09] MEDS: LIDOCAINE 5% (PATCH) 1 EA PATCH TP SCH (12:26)
[2017-01-09] MEDS: Z GUARD REMEDY 2 OZ OINT TP SCH ×2 (13:30→21:04)
[2017-01-09] MEDS: HYDROGEN PEROXIDE 480 ML BOTTLE TP SCH ×2 (13:30→21:04)
--- NOTE | 2017-01-09 16:45 | NUR ---
Dr. Yanez has not come to see pt. Pt expecting him this afternoon. Left message for Dr. Yanez.
--- NOTE | 2017-01-09 18:39 | NUR ---
Seen by JAREK Nunez. Notified her that pt has has a change in behavior by applying makeup since the weekend, lips and cheeks are very red, and she has been wearing her personal clothes which she refused to wear in the past. Also notified her that the psychologist did not come to see pt yet. JAREK Nunez said it might be because the pt is now on Prednisone everyday but it will be good for the pt to be seen by the psychologist, otherwise the pt is doing well. She examined the pt and said that her lungs sound better. Pt also said she is breathing better but still feeling anxious. Notified pt that message was left for Dr. Yanez.
[2017-01-09 20:12] VITALS: BP 117/71
[2017-01-09] MEDS: LORAZEPAM 0.5 MG TABLET PO PRN (21:05)
[2017-01-09] MEDS: ZOLPIDEM TARTRATE 5 MG TABLET PO PRN (21:05)
[2017-01-10] MEDS: ALBUTEROL FS 2.5 MG/3 ML VIAL.NEB NEB SCH ×5 (02:33→19:57)
[2017-01-10] MEDS: IPRATROPIUM NEB FS 0.5 MG/2.5 ML AMPUL.NEB NEB SCH ×5 (02:33→19:57)
[2017-01-10 07:50] VITALS: BP_SYST 143; BP_SYST 145; BP_DIAS 105; BP_DIAS 107
[2017-01-10] MEDS: BUDESONIDE RESPULE INH 0.5 MG/2 ML AMPUL.NEB NEB SCH ×2 (08:15→17:00)
[2017-01-10] MEDS: predniSONE 10 MG TABLET PO SCH (08:34)
[2017-01-10] MEDS: SENNOSIDES 8.6 MG TABLET PO SCH (08:34)
[2017-01-10] MEDS: hydrALAZINE HCL 25 MG TABLET PO SCH ×2 (08:34→20:43)
[2017-01-10] MEDS: CHOLECALCIFEROL 1,000 UNIT TABLET (VIT D3) PO SCH (08:34)
[2017-01-10] MEDS: ALISKIREN HEMIFUMARATE 150 MG TABLET PO SCH (08:34)
[2017-01-10] MEDS: METOPROLOL TARTRATE 50 MG TABLET PO SCH ×2 (08:34→20:44)
[2017-01-10] MEDS: HYDROCODONE/APAP 5/325MG 1 EACH TABLET PO PRN ×2 (08:35→21:18)
[2017-01-10] MEDS: Z GUARD REMEDY 2 OZ OINT TP SCH ×2 (09:00→20:44)
[2017-01-10] MEDS: HYDROGEN PEROXIDE 480 ML BOTTLE TP SCH ×2 (09:00→20:44)
--- NOTE | 2017-01-10 10:14 | NUR ---
Dr. Yanez Psychologist ([address]. [address] [place] [address] ) came to see the resident. He also stated that he will be back tomorrow to see her since he will be at the hospital.
--- NOTE | 2017-01-10 11:37 | NUR ---
Called the office of Dr. Driscoll/Dr. Margoth BURGOS ([address]. [address] [place] [address] ) and spoke with Chayaterlópez. stated that resident will need to go into the office, as she will need partial dentures and is in need of xrays. Appointment has been set for December at 2:30pm at their office. BERNARDINO will coordinate with chief nursing executive. Resident informed. Addendum: 01/10/17 at 1200 by JEAN CARLOS LEBRON Appointment changed to 2pm December
[2017-01-10] MEDS: TRAMADOL HCL 50 MG TABLET PO PRN ×2 (11:45→23:28)
--- NOTE | 2017-01-10 12:00 | NUR ---
Resident reported tooth pain and stated she did not mention it to the dentist while he was visiting because it was not hurting at that time. print binding and finishing worker asked from the office of Dr Driscoll/Dr Justin ([address] [facility]. [address] [place] [address] who stated that resident can come earlier on January 19, 2017 to do cavity fillings if necessary. Chayagildalópez stated Dr. Driscoll/Dr Justin cannot prescribe anything but recommended Advil or Tylenol and SW informed her that she has an order for [place]. Mystery stated that this will help the resident's pain. Chayagildalópez stated she can call the psychologist social if another patient cancels their appointment and there is something available sooner. print binding and finishing worker called patient's friend Cristopher ([phone]) and asked if she can accompany resident to her appt. 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 SW to call her again on Monday December 19, 2016 to verify if she is able to make the appointment. Nurse will accompany the patient to her appointment. Per patient, her friend Cristopher will need to see an invoice to write a check or if she is unable to make the appt, the office of Dr. Driscoll/Dr Justin can fax invoice to [phone], BERNARDINO will inform the office of Dr. Driscoll/Dr. Justin if her friend Cristopher is unable to make the appt so that they can make payment arrangements. Addendum: 01/10/17 at 1218 by JEAN CARLOS LEBRON informed charge nurse of the resident's tooth pain and resident's comment that Lata is not helping. She stated she will ask the doctor.
--- NOTE | 2017-01-10 12:15 | NUR ---
Pt was complaining to social service manager Maude that her upper and lower teeth are painful, she thinks she has cavities. cargo station worker Maude arranged a dental appointment for her on 01/19/17 which is the earliest possible appointment that she can be seen at the dental office. She told Maude, "It's kind of an emergency." The dental office office advised for pt to take [place] for the pain, but pt said it does not help. She also complained about back pain and said that her pain medicines do not help. When her nurse Erna came to see her and ask about her pain, pt was smiling and did not complain of any severe pain. Pt asked for her Lidoderm patch and Tramadol. A [place]'s delivery staff came to bring her lunch. Pt apparently ordered lunch via phone, the business administration teacher called the station and said a pt from this unit named "Jadon" ordered food, but they figured out that it was for this pt because of the room number. Pt ordered chicken wings and salad with croutons. Pt eating without difficulty or complaint of pain in her teeth.
--- NOTE | 2017-01-10 12:37 | NUR ---
Late entry for 01/09/[address] Haro. Toenails were trimmed. Pt tolerated procedure well.
[2017-01-10] MEDS: LIDOCAINE 5% (PATCH) 1 EA PATCH TP SCH (13:14)
--- NOTE | 2017-01-10 14:05 | NUR ---
Marquita Fermin ([phone]/fax: [phone]) came to see the resident due to her complaint of feeling like the staff hide their food from her and are "rude" to her. Patient met with CNO, BERNARDINO, and marquita. Marquita suggested sensitivity training to address resident's complaints. SW will coordinate with CNO and practical nursing faculty to have a discussion with staff members, as resident feels that staff members change their behaviors when she walks into a room. SW will follow up.
--- NOTE | 2017-01-10 14:42 | NUR ---
Resident was asking for soda. senior internal auditor Kelsy [place] checked with brusher warp who stated soda was okay for the resident to have. SW spoke with nursing service director who stated that a staff member must accompany the resident to the vending machine. BERNARDINO was about to inform the resident of this and she stated that she ordered the soda from [employer].
--- NOTE | 2017-01-10 15:45 | NUR ---
Pt refused at 1100 to have her trach care be done. She stated that she'll take a shower at 1400. Approached again for trach care and again stated after her shower. MARKETING SALES REPRESENTATIVE assigned reported that pt declined to take a shower when offered x3.
--- NOTE | 2017-01-10 16:00 | NUR ---
BERNARDINO spoke to the resident and resident stated that she was upset and did not want her friend to accompany her to her dentist's appointment. She brought up the fact that she will pay for the services and SW informed her that it was never about that and that we usually like to try to have a family member or friend accompany the resident's to their outside appointments. Resident kept insisting that she will pay for the services (as her friend Cristopher is the one that has the checks) and BERNARDINO stated again that it is not about that and that there is no question about whether she will pay or not. SW stated that it is okay if she does not want her friend to go and that she can go to the appointment accompanied by her nurse. BERNARDINO was also told by the charge nurse earlier that resident has refused a shower and that her synthetic staple extruder has been asking several times. BERNARDINO spoke with resident who stated that she was feeling depressed and did not want to shower. She stated that she would consider showering after 1630. Charge nurse informed.
--- NOTE | 2017-01-10 16:04 | NUR ---
Earlier this morning pt said that she has not been showered. Social worder Maude told her to wait for her turn since the STEAM PLANT CONTROL ROOM OPERATOR is with another pt. SHERRILL Cosby reported to charge nurse that pt was offered a shower 3 times today but she refused. NAVJOT Richardson also reported to the charge nurse that pt refused to walk today. experimental worker Maude spoke with the pt and she said that pt wants to be showered at 1630. Notified her STEAM PLANT CONTROL ROOM OPERATOR.
--- NOTE | 2017-01-10 16:23 | NUR ---
Pt asked his nurse Shay to do her trach care. Charge nurse informed Shay to do it after her shower at 1630. Pt said she does not want to have a shower anymore. Shay provided trach care.
[2017-01-10 20:10] VITALS: BP 173/92
[2017-01-10] MEDS: LORAZEPAM 0.5 MG TABLET PO PRN (20:45)
[2017-01-10] MEDS: ZOLPIDEM TARTRATE 5 MG TABLET PO PRN (20:45)
[2017-01-11] MEDS: ALBUTEROL FS 2.5 MG/3 ML VIAL.NEB NEB SCH ×6 (00:28→23:55)
[2017-01-11] MEDS: IPRATROPIUM NEB FS 0.5 MG/2.5 ML AMPUL.NEB NEB SCH ×6 (00:28→23:55)
[2017-01-11 07:46] VITALS: BP 157/79
[2017-01-11] MEDS: BUDESONIDE RESPULE INH 0.5 MG/2 ML AMPUL.NEB NEB SCH ×2 (08:04→16:08)
[2017-01-11] MEDS: SENNOSIDES 8.6 MG TABLET PO SCH (08:43)
[2017-01-11] MEDS: predniSONE 10 MG TABLET PO SCH (08:43)
[2017-01-11] MEDS: ALISKIREN HEMIFUMARATE 150 MG TABLET PO SCH (08:43)
[2017-01-11] MEDS: METOPROLOL TARTRATE 50 MG TABLET PO SCH ×2 (08:43→20:33)
[2017-01-11] MEDS: hydrALAZINE HCL 25 MG TABLET PO SCH ×2 (08:43→20:32)
[2017-01-11] MEDS: CHOLECALCIFEROL 1,000 UNIT TABLET (VIT D3) PO SCH (08:43)
[2017-01-11] MEDS: HYDROCODONE/APAP 5/325MG 1 EACH TABLET PO PRN ×2 (08:44→21:06)
[2017-01-11] MEDS: LIDOCAINE 5% (PATCH) 1 EA PATCH TP SCH (13:22)
[2017-01-11] MEDS: Z GUARD REMEDY 2 OZ OINT TP SCH ×2 (13:22→20:33)
[2017-01-11] MEDS: HYDROGEN PEROXIDE 480 ML BOTTLE TP SCH ×2 (13:22→20:33)
[2017-01-11] MEDS: ZOLPIDEM TARTRATE 5 MG TABLET PO PRN (20:33)
[2017-01-11] MEDS: LORAZEPAM 0.5 MG TABLET PO PRN (20:33)
[2017-01-12] MEDS: TRAMADOL HCL 50 MG TABLET PO PRN (00:02)
[2017-01-12] MEDS: ALBUTEROL FS 2.5 MG/3 ML VIAL.NEB NEB SCH ×6 (04:25→23:59)
[2017-01-12] MEDS: IPRATROPIUM NEB FS 0.5 MG/2.5 ML AMPUL.NEB NEB SCH ×6 (04:25→23:59)
[2017-01-12 07:43] VITALS: BP_SYST 127; BP_SYST 151; BP_DIAS 72; BP_DIAS 80
[2017-01-12] MEDS: BUDESONIDE RESPULE INH 0.5 MG/2 ML AMPUL.NEB NEB SCH ×2 (08:31→17:02)
[2017-01-12] MEDS: hydrALAZINE HCL 25 MG TABLET PO SCH ×2 (09:44→20:02)
[2017-01-12] MEDS: CHOLECALCIFEROL 1,000 UNIT TABLET (VIT D3) PO SCH (09:45)
[2017-01-12] MEDS: METOPROLOL TARTRATE 50 MG TABLET PO SCH ×2 (09:45→20:03)
[2017-01-12] MEDS: Z GUARD REMEDY 2 OZ OINT TP SCH ×2 (09:45→20:03)
[2017-01-12] MEDS: ALISKIREN HEMIFUMARATE 150 MG TABLET PO SCH (09:45)
[2017-01-12] MEDS: HYDROGEN PEROXIDE 480 ML BOTTLE TP SCH ×2 (09:45→20:03)
[2017-01-12] MEDS: predniSONE 10 MG TABLET PO SCH (09:45)
[2017-01-12] MEDS: SENNOSIDES 8.6 MG TABLET PO SCH (09:45)
[2017-01-12] MEDS: HYDROCODONE/APAP 5/325MG 1 EACH TABLET PO PRN ×2 (09:46→19:53)
[2017-01-12] MEDS: LIDOCAINE 5% (PATCH) 1 EA PATCH TP SCH (13:00)
--- NOTE | 2017-01-12 19:00 | NUR ---
PT RECEIVED AWAKE, ALERT, AMBULATORY, AND VERBALLY RESPONSIVE . NO S/SX OF RESP DISTRESS NOTED, SITTING ON HER CHAIR AT BS WATCHING TV, TRACH TUBE IN PLACE, BREATHING @ RA. WILL CONT TO MONITOR, AND ANTICIPATE NEEDS.
--- NOTE | 2017-01-12 19:13 | NUR ---
PT STEPPED OUT OF HER ROOM AND APPROACHED NURSE ASKING FOR HER PRN AMBIEN FOR INSOMNIA, EXPLAINED TO PT THAT IT'S ONLY 1912 , TOO EARLY FOR INSOMNIA MEDICINE , STILL BRIGHT OUTSIDE SHE COULD SEE FROM WINDOWS SUNLIGHT STILL OUT, ALSO EXPLAINED TO PT TO TRY RELAXATION METHODS, WATCH TV, AND WILL PROVIDE QUIET ENVIRONMENT , PT APPEARS AGITATED AFTER BEING TOLD ABOUT HER PRN AMBIEN NOT TO BE GIVEN AT THIS TIME AND THAT NURSE WILL RE-ASSESS HER LATER IF SHE IS STILL AWAKE AND NEEDS HER PRN AMBIEN @ 2100 . PT THEN VERBALIZED " WELL GIVE ME MY NORCO AND ATIVAN 'I AM AGITATED RIGHT NOW AND HAVE BACK PAIN 10", ADVISED PT TO GO BACK TO HER ROOM, SIT DOWN OR LAY DOWN ON HER BED TO RELIEVE BACK PAIN, AND WILL GIVE HER MEDS AFTER SPECTRAL SCIENTIST TAKES HE COMPLETE V/S. PT THEN WENT BACK TO HER ROOM , NO SIGNS OF GRIMACING NOTED AT ALL, WALKING BACK AND FORT FROM HER CLOSET TO HER BATHROOM AND TRYING OUT HER CLOTHES, WITH NO S/SX OF ANY DISCOMFORTS NOTED WHILE AMBULATING AND DOING HER ADLS. WILL CLOSELY MONITOR AND ANTICIPATE NEEDS.
[2017-01-12 19:35] VITALS: BP 155/87
[2017-01-12] MEDS: LORAZEPAM 0.5 MG TABLET PO PRN (19:52)
--- NOTE | 2017-01-12 19:52 | NUR ---
RT PT REFUSED HHN TX AT 1930. DOES NOT CARE IF SHE GETS TX OR NOT. PT SEEMS UPSET. NURSE WAS MADE AWARE OF THE SITUATION. WILL CONTINUE TO MONITOR. Addendum: 01/12/17 at 2012 by YULY THAKUR RT PT REQUESTED FOR INNER CANNULA TO BE CHANGED. INNER CANNULA WAS CHANGED PER PATIENT REQUEST ALTHOUGH IT WAS CLEAN AND DRY. NO SOB OR DISTRESS NOTED. RN MADE AWARE.
--- NOTE | 2017-01-12 19:53 | NUR ---
PRN NORCO AND ATIVAN GIVEN ORDERED, PER PT'S REQUEST AND C/O PAIN 10/10 LOWER BACK, AND VERBALIZING AGITATION AND ANXIETY EPISODE. PT SITTING AND WATCHING TV AT THIS TIME IN HER ROOM. CONT TO MONITOR
--- NOTE | 2017-01-12 21:08 | NUR ---
PRN BARBARAIEN FOR INSOMNIA GIVEN ORDERED , AND PER PT'S REQUEST AND C/O INSOMNIA. DENIES PAIN AT THIS TIME. PT STILL WATCHING TV AT THIS TIME NO S/SX OF ANY DISCOMFORT OR PAIN.
--- NOTE | 2017-01-12 22:30 | NUR ---
Noted pt sleeping at this time,Will cont to monitor.
[2017-01-13] MEDS: IPRATROPIUM NEB FS 0.5 MG/2.5 ML AMPUL.NEB NEB SCH ×6 (04:07→23:30)
[2017-01-13] MEDS: ALBUTEROL FS 2.5 MG/3 ML VIAL.NEB NEB SCH ×6 (04:08→23:30)
[2017-01-13 07:24] VITALS: BP 151/90
[2017-01-13] MEDS: CHOLECALCIFEROL 1,000 UNIT TABLET (VIT D3) PO SCH (08:44)
[2017-01-13] MEDS: HYDROGEN PEROXIDE 480 ML BOTTLE TP SCH ×2 (08:44→20:14)
[2017-01-13] MEDS: hydrALAZINE HCL 25 MG TABLET PO SCH ×2 (08:44→20:14)
[2017-01-13] MEDS: Z GUARD REMEDY 2 OZ OINT TP SCH ×2 (08:44→20:14)
[2017-01-13] MEDS: ALISKIREN HEMIFUMARATE 150 MG TABLET PO SCH (08:44)
[2017-01-13] MEDS: predniSONE 10 MG TABLET PO SCH (08:44)
[2017-01-13] MEDS: METOPROLOL TARTRATE 50 MG TABLET PO SCH ×2 (08:44→20:14)
[2017-01-13] MEDS: SENNOSIDES 8.6 MG TABLET PO SCH (08:44)
[2017-01-13] MEDS: BUDESONIDE RESPULE INH 0.5 MG/2 ML AMPUL.NEB NEB SCH ×2 (09:00→17:00)
[2017-01-13] MEDS: LIDOCAINE 5% (PATCH) 1 EA PATCH TP SCH (13:10)
--- NOTE | 2017-01-13 14:00 | NUR ---
SW spoke to the resident who stated she was upset about the conversation she had with the subacute director. She stated that she feels her feelings are not being heard and is being accused of maltreating the staff. SW has observed the resident saying bad words to staff or asking them to leave her alone. Resident denied this but in the past she has agreed that sometimes she is not in the best mood and can be mean to staff members. SW stated that the director has already spoken with the staff and explained to resident that it is a two way street when it comes to reciprocating positive behaviors. Resident was agitated and SW tried explaining to her that management styles are different and that regardless of this, her issues have been addressed with the staff. Resident then asked SW if she can accompany her downstairs to the cafeteria vending machine and SW accompanied the resident. Resident reported being more calm after speaking with the SW and remained in her room afterwards.
[2017-01-13 19:40] VITALS: BP 166/87
[2017-01-13] MEDS: LORAZEPAM 0.5 MG TABLET PO PRN (20:10)
[2017-01-13] MEDS: ZOLPIDEM TARTRATE 5 MG TABLET PO PRN (20:46)
[2017-01-13] MEDS: HYDROCODONE/APAP 5/325MG 1 EACH TABLET PO PRN (21:08)
[2017-01-13] MEDS: TRAMADOL HCL 50 MG TABLET PO PRN (22:24)
[2017-01-14] MEDS: ALBUTEROL FS 2.5 MG/3 ML VIAL.NEB NEB SCH ×6 (03:32→23:46)
[2017-01-14] MEDS: IPRATROPIUM NEB FS 0.5 MG/2.5 ML AMPUL.NEB NEB SCH ×6 (03:32→23:45)
[2017-01-14] MEDS: HYDROCODONE/APAP 5/325MG 1 EACH TABLET PO PRN ×3 (04:40→21:05)
[2017-01-14 07:27] VITALS: BP 137/77
[2017-01-14] MEDS: predniSONE 10 MG TABLET PO SCH (09:02)
[2017-01-14] MEDS: hydrALAZINE HCL 25 MG TABLET PO SCH ×2 (09:02→20:05)
[2017-01-14] MEDS: METOPROLOL TARTRATE 50 MG TABLET PO SCH ×2 (09:02→20:05)
[2017-01-14] MEDS: ALISKIREN HEMIFUMARATE 150 MG TABLET PO SCH (09:03)
[2017-01-14] MEDS: SENNOSIDES 8.6 MG TABLET PO SCH (09:03)
[2017-01-14] MEDS: CHOLECALCIFEROL 1,000 UNIT TABLET (VIT D3) PO SCH (09:03)
[2017-01-14] MEDS: TRAMADOL HCL 50 MG TABLET PO PRN (09:15)
[2017-01-14] MEDS: BUDESONIDE RESPULE INH 0.5 MG/2 ML AMPUL.NEB NEB SCH ×2 (10:20→17:00)
--- NOTE | 2017-01-14 10:20 | NUR ---
Seen and examined by Dr Palacios with no new order.
[2017-01-14] MEDS: LIDOCAINE 5% (PATCH) 1 EA PATCH TP SCH (12:01)
--- NOTE | 2017-01-14 12:24 | NUR ---
Staff prepared Resident's lunch. Resident said she is hungry so she finished her sandwich, soup and juice.Resident said "thank you". Staff invited Resident to participate in activities. Resident stated does not know if she will go to the Activity Rm. Staff added she be working til 3:30 pm today.
[2017-01-14] MEDS: HYDROGEN PEROXIDE 480 ML BOTTLE TP SCH ×2 (17:00→20:05)
[2017-01-14] MEDS: Z GUARD REMEDY 2 OZ OINT TP SCH ×2 (17:00→20:05)
[2017-01-14 19:40] VITALS: BP 148/95
[2017-01-14] MEDS: LORAZEPAM 0.5 MG TABLET PO PRN (20:28)
[2017-01-14] MEDS: ZOLPIDEM TARTRATE 5 MG TABLET PO PRN (20:29)
[2017-01-15] MEDS: ALBUTEROL FS 2.5 MG/3 ML VIAL.NEB NEB SCH ×6 (03:51→23:10)
[2017-01-15] MEDS: IPRATROPIUM NEB FS 0.5 MG/2.5 ML AMPUL.NEB NEB SCH ×6 (03:51→23:10)
[2017-01-15 07:31] VITALS: BP 138/68
[2017-01-15] MEDS: HYDROCODONE/APAP 5/325MG 1 EACH TABLET PO PRN ×2 (07:43→20:08)
--- NOTE | 2017-01-15 08:30 | NUR ---
Charge nurse and other staff members were in the nurse's station when patient went out of her room and demandingly asked activity personnel to take out her tray now. Activity personnel informed patient that it was not his job to take out her breakfast tray but patient responded "I don't care". Activity personnel was very upset about the manner she asked him to take out the tray. Pt's APPLICATIONS SYSTEM ANALYST was in the nurse's station at that time and took out her tray. Spoke to patient about incident, notified her that activity personnel was offended by the way she said to take out her tray. Per pt, it was always the activity personnel bringing her tray before meals and removing her tray after meals. Notified patient that it was not the activity personnel's responsibility to do that and that her APPLICATIONS SYSTEM ANALYST was also in the station during the time she asked her tray to be brought out of her room. Patient stated she did not see her APPLICATIONS SYSTEM ANALYST at that time.
[2017-01-15] MEDS: BUDESONIDE RESPULE INH 0.5 MG/2 ML AMPUL.NEB NEB SCH ×2 (09:22→16:41)
[2017-01-15] MEDS: METOPROLOL TARTRATE 50 MG TABLET PO SCH ×2 (09:52→20:14)
[2017-01-15] MEDS: hydrALAZINE HCL 25 MG TABLET PO SCH ×2 (09:52→20:14)
[2017-01-15] MEDS: SENNOSIDES 8.6 MG TABLET PO SCH (09:53)
[2017-01-15] MEDS: predniSONE 10 MG TABLET PO SCH (09:53)
[2017-01-15] MEDS: ALISKIREN HEMIFUMARATE 150 MG TABLET PO SCH (09:53)
[2017-01-15] MEDS: Z GUARD REMEDY 2 OZ OINT TP SCH ×2 (09:53→20:14)
[2017-01-15] MEDS: CHOLECALCIFEROL 1,000 UNIT TABLET (VIT D3) PO SCH (09:53)
[2017-01-15] MEDS: HYDROGEN PEROXIDE 480 ML BOTTLE TP SCH ×2 (09:53→20:14)
[2017-01-15] MEDS: LIDOCAINE 5% (PATCH) 1 EA PATCH TP SCH (13:00)
[2017-01-15 20:21] VITALS: BP 140/78
[2017-01-15] MEDS: LORAZEPAM 0.5 MG TABLET PO PRN (20:36)
[2017-01-15] MEDS: ZOLPIDEM TARTRATE 5 MG TABLET PO PRN (21:42)
[2017-01-16] MEDS: TRAMADOL HCL 50 MG TABLET PO PRN ×2 (05:50→12:26)
[2017-01-16 07:52] VITALS: BP 143/75
--- NOTE | 2017-01-16 07:59 | NUR ---
Resident's friend Soy Harris called the SW over the weekend and left a voice message. He indicated that once the resident is discharged, they will be taking the resident with them to their home in [place]. He stated that him and his are going out of town from January 15- January 23, 2017. He indicated that he wanted to let the public health social worker know that it was okay to discharge to his home and that he will speak to the public health social worker when they are back from their vacation.
[2017-01-16] MEDS: IPRATROPIUM NEB FS 0.5 MG/2.5 ML AMPUL.NEB NEB SCH ×5 (08:10→23:36)
[2017-01-16] MEDS: ALBUTEROL FS 2.5 MG/3 ML VIAL.NEB NEB SCH ×5 (08:11→23:36)
[2017-01-16] MEDS: BUDESONIDE RESPULE INH 0.5 MG/2 ML AMPUL.NEB NEB SCH ×2 (08:16→16:02)
--- NOTE | 2017-01-16 09:00 | NUR ---
Patient refused prednisone, she stated " it makes my face big, doctor stopped it already". Explained to patient that prednisone is still ordered by MD and needs to continue. But patient insisted she is not on it anymore. Risks and benefits explained.
[2017-01-16] MEDS: hydrALAZINE HCL 25 MG TABLET PO SCH ×2 (09:18→20:32)
[2017-01-16] MEDS: HYDROGEN PEROXIDE 480 ML BOTTLE TP SCH ×2 (09:19→20:33)
[2017-01-16] MEDS: ALISKIREN HEMIFUMARATE 150 MG TABLET PO SCH (09:19)
[2017-01-16] MEDS: METOPROLOL TARTRATE 50 MG TABLET PO SCH ×2 (09:19→20:33)
[2017-01-16] MEDS: Z GUARD REMEDY 2 OZ OINT TP SCH ×2 (09:19→20:33)
[2017-01-16] MEDS: SENNOSIDES 8.6 MG TABLET PO SCH (09:19)
[2017-01-16] MEDS: CHOLECALCIFEROL 1,000 UNIT TABLET (VIT D3) PO SCH (09:19)
[2017-01-16] MEDS: predniSONE 10 MG TABLET PO SCH (09:19)
--- NOTE | 2017-01-16 09:25 | NUR ---
Called Dr. Gill's office to remind him of pt's routine trach tube change. Left message with Brandon.
--- NOTE | 2017-01-16 09:30 | NUR ---
Resident asked to speak to the social media manager and she stated that she did not have anyone to help her with the menu. She reported that she got into a situation over the past weekend with the technical coordinator. Per technical coordinator, resident was demanding for him to take her tray out of her room. SW explained that it is the SENIOR CONSUMER INSIGHTS CONSULTANT's job not the activity coordinators and that he may have done it in the past out of courtesy. Resident admitted to SW that she does not like the technical coordinator and SW explained to her that that is no reason to treat him negatively. SW witnessed resident filling out her menu by herself and asked SW for minimal assistance. Resident did have a hard time writing, as it was not a flat surface, and SW provided a hard surface for her to write on. Resident requesting to speak to subacute director and director notified.
[2017-01-16] MEDS: HYDROCODONE/APAP 5/325MG 1 EACH TABLET PO PRN ×2 (09:37→12:24)
--- NOTE | 2017-01-16 12:04 | NUR ---
SW went to speak to the resident and noticed that the other resident in the room was looking at the resident's food, other resident is not able to eat food and has a gtube. SW explained to the resident that we have to consider the feelings of the other resident, especially if she is eating in front of them (resident had her tray on the side of her bed closes to the other resident). Resident became upset and agitated and stated "this is crazy, I always eat here." SW has observed the resident eating her food in the activity room in the past and never in front of the other resident. Resident usually has the tray over her bed. Resident stated "take my tray away then." SW indicated that she has not finished her lunch yet and suggested that she finish her food and the tray can be taken away when she is done. SW closed the curtain surrounding her tray and curtain could not be closed fully due to her tray being in the way. Resident remained in her room eating with the SW left. Subacute director notified of the incident. Addendum: 01/16/17 at 1227 by JEAN CARLOS LEBRON Resident called BERNARDINO. SW went into her room stating she was still upset about the curtain. She stated that she wants her tray to be taken away and SW informed the charge nurse who will arrange for INDUSTRIAL CONTROLS TECHNICIAN to take her tray from the room. Informed her that emerging technologies director called to speak to her, as she had requested in the morning, but resident stated that she was not feeling well and would call her later. emerging technologies director was notified that resident will be calling her later.
--- NOTE | 2017-01-16 12:26 | NUR ---
CALLED AND LEFT MESSAGE ON PATIENT'S CELLPHONE #. INFORMED ASSEMBLER MOTOR VEHICLE ABOUT THIS. SW INFORMED ME THAT PATIENT IS NOT FEELING WELL AT THIS TIME AND WILL CALL ME LATER.
[2017-01-16] MEDS: LIDOCAINE 5% (PATCH) 1 EA PATCH TP SCH (13:23)
--- NOTE | 2017-01-16 16:49 | NUR ---
Pt called smita nurse into her room and said she wanted to talk to her. She asked charge nurse if she is upset with her and charge nurse replied no. Pt said she feels like smita nurse has changed her attitude towards her. Charge nurse asked pt what she means by that, charge nurse told her that she knows she is doing whatever she needs to be done for the pt and is not neglecting her. Pt said she does not mean that smita nurse is not professional, but that charge nurse used to be "friendly." Smita nurse clarified with pt that she has her nurses and RTs taking primary care of her and that smita nurse comes in to do her job if needed. Pt agreed that smita nurse is doing her job. Charge nurse told the pt she is keeping a professional relationship with her since pt accused her of being "on her case." Charge nurse said she does not want to aggravate it and upset the pt. Pt also verbalized to smita nurse that she feels the member services coordinator Dakotah does not like her. Smita nurse asked her what makes her say that and pt said she just feels it. Smita nurse reminded the pt that there are instances when she has observed how Dakotah relates to her and she has not found Dakotah to be rude or mean to her, that Dakotah always asks her what she needs and takes her of her needs in a kind professional manner. Pt said she agrees but is "not talking about that." Pt said she just cannot say how Dakotah makes her feel like she does not like her because it is already being taken care of in a "different way." She also brought up the incident with Dakotah yesterday when Dakotah thought she was being rude when she asked him to get her tray, but she said sometimes she is just "rough." Smita nurse told the pt that she has told Dakotah last week when they had a miscommunication not to say anything mean to her so that things between them will not get worse. Pt insisted that Dakotah does not like her. She also told smita nurse that she got dressed on her own (pt wearing a shirt and a pair of shorts, she is also wearing makeup) and that her trach will be removed, then she has a place to go to, and that she will be out of here in a couple of months. Smita nurse told pt she can see that. Pt then asked the charge nurse for a "tranquilizer." Smita nurse reminded the pt that she already told her RN Norma to give it to her right before she spoke with the charge nurse and charge nurse was right beside Norma when she asked for it, and that Norma is already taking care of it.
[2017-01-16] MEDS: LORAZEPAM 0.5 MG TABLET PO PRN ×2 (16:52→20:33)
--- NOTE | 2017-01-16 18:43 | NUR ---
Seen by JAREK Nunez. Notified JAREK Hou that pt refused Prednisone and said she does not want to take it anymore because it makes her face big. JAREK Nunez explained to her why she needs to be on Prednisone for now and it will be tapered off later on. Pt also asked JAREK Nunez if she can give her more tranquilizers since her friends killed each other today. Received order from JAREK Nunez to give an additional dose of Ativan 0.25 mg x 1 now, pt was already given a dose of Ativan not too long ago. JAREK Nunez said to have Dr. Marino review pt's medication. Called Dr. Marion' office and left message with Koffi.
[2017-01-16] MEDS ORDERED: LORAZEPAM 0.5 MG TABLET PO ONE (19:00)
[2017-01-16 20:22] VITALS: BP 132/73
[2017-01-16] MEDS: ZOLPIDEM TARTRATE 5 MG TABLET PO PRN (20:34)
[2017-01-17] MEDS: HYDROCODONE/APAP 5/325MG 1 EACH TABLET PO PRN ×3 (01:02→21:25)
[2017-01-17] MEDS: IPRATROPIUM NEB FS 0.5 MG/2.5 ML AMPUL.NEB NEB SCH ×4 (03:34→19:28)
[2017-01-17] MEDS: ALBUTEROL FS 2.5 MG/3 ML VIAL.NEB NEB SCH ×4 (03:34→19:28)
[2017-01-17] MEDS: TRAMADOL HCL 50 MG TABLET PO PRN (05:58)
[2017-01-17 07:57] VITALS: BP 122/64
--- NOTE | 2017-01-17 08:00 | NUR ---
Late entry for 01/16/17 CORPORATE QUALITY MANAGER Savi Nunez ordered to change Albuterol and Atrovent from q 4 hours to q 6 hours.
[2017-01-17] MEDS: BUDESONIDE RESPULE INH 0.5 MG/2 ML AMPUL.NEB NEB SCH ×2 (08:10→17:00)
[2017-01-17] MEDS: METOPROLOL TARTRATE 50 MG TABLET PO SCH ×2 (08:39→20:38)
[2017-01-17] MEDS: hydrALAZINE HCL 25 MG TABLET PO SCH ×2 (08:39→20:37)
[2017-01-17] MEDS: predniSONE 10 MG TABLET PO SCH (08:40)
[2017-01-17] MEDS: SENNOSIDES 8.6 MG TABLET PO SCH (08:40)
[2017-01-17] MEDS: ALISKIREN HEMIFUMARATE 150 MG TABLET PO SCH (08:40)
[2017-01-17] MEDS: CHOLECALCIFEROL 1,000 UNIT TABLET (VIT D3) PO SCH (08:40)
[2017-01-17] MEDS ORDERED: IPRATROPIUM NEB FS 0.5 MG/2.5 ML AMPUL.NEB NEB PRN (12:00)
[2017-01-17] MEDS ORDERED: ALBUTEROL FS 2.5 MG/3 ML VIAL.NEB NEB PRN (12:00)
[2017-01-17] MEDS: LIDOCAINE 5% (PATCH) 1 EA PATCH TP SCH (13:00)
[2017-01-17] MEDS: Z GUARD REMEDY 2 OZ OINT TP SCH ×2 (14:30→20:38)
[2017-01-17] MEDS: HYDROGEN PEROXIDE 480 ML BOTTLE TP SCH ×2 (14:30→20:38)
--- NOTE | 2017-01-17 15:31 | NUR ---
SPOKE WITH SHERRELL WITH REGARDS TO HER ISSUES. I TOLD HER THAT I ALREADY SPOKE WITH NERY. SHE WAS HAPPY THAT I TOOK CARE OF IT AND SHE FEELS BETTER NOW. SHE WAS HAPPY WITH KENIA WHO WAS THE ACTIVITY STAFF FOR TODAY. I TOLD HER THAT IF THERE'S ANY ISSUES THAT WILL COME UP TO JUST GIVE ME A CALL.
--- NOTE | 2017-01-17 19:07 | NUR ---
Pt was seen by Dr. Marino. According to Dr. Marnio, pt does not want any new medications. He said pt asked him if she can have Ambien routinely and Ativan routinely, but Dr. Marino said no, she can only have them PRN, and pt agreed.
[2017-01-17 20:07] VITALS: BP 113/43
[2017-01-17] MEDS: ZOLPIDEM TARTRATE 5 MG TABLET PO PRN (20:39)
[2017-01-17] MEDS: LORAZEPAM 0.5 MG TABLET PO PRN (20:39)
[2017-01-18] MEDS: IPRATROPIUM NEB FS 0.5 MG/2.5 ML AMPUL.NEB NEB SCH ×4 (00:54→20:08)
[2017-01-18] MEDS: ALBUTEROL FS 2.5 MG/3 ML VIAL.NEB NEB SCH ×4 (00:54→20:08)
[2017-01-18 08:12] VITALS: BP 139/79
--- NOTE | 2017-01-18 08:23 | NUR ---
BERNARDINO received call from [facility] from the office of Dr. Driscoll ([address] [place] [address] ) and confirmed the resident's appt for 2pm tomorrow January 19, 2017. Patient's nurse will accompany the resident to her appt. Charge nurse was informed.
[2017-01-18] MEDS: ALISKIREN HEMIFUMARATE 150 MG TABLET PO SCH (09:00)
[2017-01-18] MEDS: hydrALAZINE HCL 25 MG TABLET PO SCH ×2 (09:00→20:31)
[2017-01-18] MEDS: SENNOSIDES 8.6 MG TABLET PO SCH (09:00)
[2017-01-18] MEDS: METOPROLOL TARTRATE 50 MG TABLET PO SCH ×2 (09:00→20:31)
[2017-01-18] MEDS: predniSONE 10 MG TABLET PO SCH (09:00)
[2017-01-18] MEDS: Z GUARD REMEDY 2 OZ OINT TP SCH ×2 (09:00→20:31)
[2017-01-18] MEDS: CHOLECALCIFEROL 1,000 UNIT TABLET (VIT D3) PO SCH (09:00)
[2017-01-18] MEDS: HYDROGEN PEROXIDE 480 ML BOTTLE TP SCH ×2 (09:00→20:31)
[2017-01-18] MEDS: BUDESONIDE RESPULE INH 0.5 MG/2 ML AMPUL.NEB NEB SCH ×2 (09:18→17:46)
[2017-01-18] MEDS: HYDROCODONE/APAP 5/325MG 1 EACH TABLET PO PRN ×2 (10:40→20:36)
[2017-01-18] MEDS: LIDOCAINE 5% (PATCH) 1 EA PATCH TP SCH (13:00)
[2017-01-18 20:13] VITALS: BP 142/79
[2017-01-18] MEDS: ZOLPIDEM TARTRATE 5 MG TABLET PO PRN (20:32)
[2017-01-18] MEDS: LORAZEPAM 0.5 MG TABLET PO PRN (22:30)
[2017-01-19] MEDS: ALBUTEROL FS 2.5 MG/3 ML VIAL.NEB NEB SCH ×5 (01:16→20:10)
[2017-01-19] MEDS: IPRATROPIUM NEB FS 0.5 MG/2.5 ML AMPUL.NEB NEB SCH ×5 (01:16→20:10)
[2017-01-19] MEDS: TRAMADOL HCL 50 MG TABLET PO PRN ×2 (01:31→15:06)
[2017-01-19 07:46] VITALS: BP 141/67
[2017-01-19] MEDS: BUDESONIDE RESPULE INH 0.5 MG/2 ML AMPUL.NEB NEB SCH ×2 (08:35→16:57)
[2017-01-19] MEDS: METOPROLOL TARTRATE 50 MG TABLET PO SCH ×2 (09:16→20:37)
[2017-01-19] MEDS: predniSONE 10 MG TABLET PO SCH (09:16)
[2017-01-19] MEDS: hydrALAZINE HCL 25 MG TABLET PO SCH ×2 (09:16→20:37)
[2017-01-19] MEDS: SENNOSIDES 8.6 MG TABLET PO SCH (09:16)
[2017-01-19] MEDS: ALISKIREN HEMIFUMARATE 150 MG TABLET PO SCH (09:18)
[2017-01-19] MEDS: CHOLECALCIFEROL 1,000 UNIT TABLET (VIT D3) PO SCH (09:19)
[2017-01-19] MEDS: HYDROGEN PEROXIDE 480 ML BOTTLE TP SCH ×2 (09:19→20:37)
[2017-01-19] MEDS: Z GUARD REMEDY 2 OZ OINT TP SCH ×2 (09:19→20:37)
[2017-01-19] MEDS: HYDROCODONE/APAP 5/325MG 1 EACH TABLET PO PRN ×2 (09:26→19:52)
[2017-01-19] MEDS ORDERED: HYDROGEN PEROXIDE 480 ML BOTTLE TP PRN (11:00)
[2017-01-19] MEDS ORDERED: ACETAMINOPHEN 650 MG/20 ML UDC- FOR SA PATIENTS ONLY PO PRN (11:00)
[2017-01-19] MEDS ORDERED: MAG HYDROX/AL HYDROX/SIMETH 30 ML UDC PO PRN (11:00)
[2017-01-19] MEDS ORDERED: NITROGLYCERIN 0.4 MG/TAB BOTTLE SL PRN (11:00)
[2017-01-19] MEDS ORDERED: IPRATROPIUM NEB FS 0.5 MG/2.5 ML AMPUL.NEB NEB PRN ×2 (11:00)
[2017-01-19] MEDS ORDERED: ALBUTEROL FS 2.5 MG/3 ML VIAL.NEB NEB PRN ×2 (11:00)
[2017-01-19] MEDS ORDERED: MECLIZINE HCL 12.5 MG TABLET PO PRN (11:00)
[2017-01-19] MEDS ORDERED: MENTHOL/CETYLPYRD (CEPACOL) 1 LOZ LOZENGE PO PRN (11:00)
[2017-01-19] MEDS: LIDOCAINE 5% (PATCH) 1 EA PATCH TP SCH (12:25)
--- NOTE | 2017-01-19 13:46 | NUR ---
Pt went to dental office with ACACIA Gottlieb. Pt in stable condition.
--- NOTE | 2017-01-19 14:35 | NUR ---
Pt came back from dental appointment with Dr. Driscoll. According to ACACIA Gottlieb, dental office will e-mail social worker assistant Maude for further instructions or appointments. Dental x-ray was done. No dental fillings were done.
--- NOTE | 2017-01-19 16:02 | NUR ---
Ethel received call from at the office of Dr. Driscoll ([phone]) who stated patient will need to return to their office again,as patient needs extractions, dental feelings, and further work for partial dentures. ETHEL checked with subacute director and patient can return with a nurse for Monday at 3pm, as this is when the next available appt is. Per mystery, patient will have three extractions done and stated patient requested nitrous oxide and they also want to know if patient is on any blood thinners. ETHEL checked with charge nurse who stated patient is not on any blood thinners and SW relayed this information. ETHEL can fax medication list prior to patient's extraction. ETHEL will address nitrous oxide during IDT meeting tomorrow and will have charge nurse obtain order for extractions. Patient stated that she will be paying for all of the work that is done herself.
--- NOTE | 2017-01-19 19:52 | NUR ---
transfer coordinator/notes c/o lower back pain norco tablet given as ordered. will continue to monitor.
[2017-01-19 20:00] VITALS: BP 135/75
[2017-01-19] MEDS: LORAZEPAM 0.5 MG TABLET PO PRN (20:38)
[2017-01-19] MEDS ORDERED: ZOLPIDEM TARTRATE 5 MG TABLET ONE (20:53)
[2017-01-20] MEDS: IPRATROPIUM NEB FS 0.5 MG/2.5 ML AMPUL.NEB NEB SCH ×4 (01:30→19:30)
[2017-01-20] MEDS: ALBUTEROL FS 2.5 MG/3 ML VIAL.NEB NEB SCH ×4 (01:30→19:30)
[2017-01-20 07:35] VITALS: BP 130/69
[2017-01-20] MEDS: BUDESONIDE RESPULE INH 0.5 MG/2 ML AMPUL.NEB NEB SCH ×2 (08:08→18:00)
--- NOTE | 2017-01-20 08:43 | NUR ---
BERNARDINO faxed current medlist to office of Dr. Driscoll- dentist ( ). Resident has an appt on Monday and will require soft diet food for four days after that (no soup). Dr. Yen and charge nurse will be informed during IDT meeting.
[2017-01-20] MEDS: hydrALAZINE HCL 25 MG TABLET PO SCH ×2 (09:48→20:44)
[2017-01-20] MEDS: METOPROLOL TARTRATE 50 MG TABLET PO SCH ×2 (09:48→20:44)
[2017-01-20] MEDS: predniSONE 10 MG TABLET PO SCH (09:48)
[2017-01-20] MEDS: CHOLECALCIFEROL 1,000 UNIT TABLET (VIT D3) PO SCH (09:49)
[2017-01-20] MEDS: SENNOSIDES 8.6 MG TABLET PO SCH (09:49)
[2017-01-20] MEDS: ALISKIREN HEMIFUMARATE 150 MG TABLET PO SCH (09:49)
[2017-01-20] MEDS: HYDROGEN PEROXIDE 480 ML BOTTLE TP SCH ×2 (09:50→20:44)
[2017-01-20] MEDS: HYDROCORTISONE 1% CREAM 30 GM TUBE TP SCH ×2 (09:50→20:44)
[2017-01-20] MEDS: Z GUARD REMEDY 2 OZ OINT TP SCH ×2 (09:51→20:44)
--- NOTE | 2017-01-20 11:15 | NUR ---
Bernardino informed by charge nurse that resident in need of a dermatology consult. BERNARDINO faxed referral packet to the office of Dr. Tr Mills [address] [place], [place] [address] TEL: FAX: . PER tanna ABBASI to schedule general farmer consult for the resident Spoke to Olivia informed her about the referral. BERNARDINO will follow up.
[2017-01-20] MEDS: HYDROCODONE/APAP 5/325MG 1 EACH TABLET PO PRN ×2 (11:44→19:52)
[2017-01-20] MEDS: LIDOCAINE 5% (PATCH) 1 EA PATCH TP SCH (13:24)
--- NOTE | 2017-01-20 15:00 | NUR ---
INTERDISCIPLINARY PLAN OF CARE CONFERENCE was held today. Resident was invited but did not want to attend. Dr. Yen and the Interdisciplinary Team reviewed the current plan of care in detail. Resident was seen by Dr. Chu for skin rashes and SW informed by charge nurse that resident is in need of a cnc milling machinist consult. SW faxed referral packet to the office of Dr. Tr Mills. Resident's discharge plan was discussed with the team. No new orders were given.
[2017-01-20 19:52] VITALS: BP 133/69
[2017-01-21] MEDS: ALBUTEROL FS 2.5 MG/3 ML VIAL.NEB NEB SCH ×4 (01:30→19:30)
[2017-01-21] MEDS: IPRATROPIUM NEB FS 0.5 MG/2.5 ML AMPUL.NEB NEB SCH ×4 (01:30→19:30)
[2017-01-21 07:34] VITALS: BP 128/67
[2017-01-21] MEDS ORDERED: hydrALAZINE HCL 10 MG TABLET ONE (07:44)
[2017-01-21] MEDS: BUDESONIDE RESPULE INH 0.5 MG/2 ML AMPUL.NEB NEB SCH ×2 (08:09→17:45)
[2017-01-21] MEDS: predniSONE 10 MG TABLET PO SCH (08:18)
[2017-01-21] MEDS: CHOLECALCIFEROL 1,000 UNIT TABLET (VIT D3) PO SCH (08:18)
[2017-01-21] MEDS: ALISKIREN HEMIFUMARATE 150 MG TABLET PO SCH (08:18)
[2017-01-21] MEDS: hydrALAZINE HCL 25 MG TABLET PO SCH ×2 (08:18→21:12)
[2017-01-21] MEDS: SENNOSIDES 8.6 MG TABLET PO SCH (08:18)
[2017-01-21] MEDS: METOPROLOL TARTRATE 50 MG TABLET PO SCH ×2 (08:18→21:12)
[2017-01-21] MEDS: HYDROCODONE/APAP 5/325MG 1 EACH TABLET PO PRN (08:19)
[2017-01-21] MEDS: HYDROCORTISONE 1% CREAM 30 GM TUBE TP SCH ×2 (12:30→21:12)
[2017-01-21] MEDS: Z GUARD REMEDY 2 OZ OINT TP SCH ×2 (12:30→21:12)
[2017-01-21] MEDS: HYDROGEN PEROXIDE 480 ML BOTTLE TP SCH ×2 (12:30→21:12)
[2017-01-21] MEDS: LIDOCAINE 5% (PATCH) 1 EA PATCH TP SCH (13:33)
[2017-01-21 19:51] VITALS: BP 155/83
[2017-01-21] MEDS: LORAZEPAM 0.5 MG TABLET PO PRN (21:13)
[2017-01-21] MEDS: ZOLPIDEM TARTRATE 5 MG TABLET PO PRN (21:55)
[2017-01-22] MEDS: ALBUTEROL FS 2.5 MG/3 ML VIAL.NEB NEB SCH ×5 (01:30→19:52)
[2017-01-22] MEDS: IPRATROPIUM NEB FS 0.5 MG/2.5 ML AMPUL.NEB NEB SCH ×5 (01:30→19:52)
[2017-01-22] MEDS: TRAMADOL HCL 50 MG TABLET PO PRN ×2 (01:32→15:57)
[2017-01-22] MEDS: HYDROCODONE/APAP 5/325MG 1 EACH TABLET PO PRN ×2 (03:44→12:00)
[2017-01-22] MEDS: BUDESONIDE RESPULE INH 0.5 MG/2 ML AMPUL.NEB NEB SCH ×2 (07:47→17:00)
[2017-01-22 08:00] VITALS: BP 132/72
[2017-01-22] MEDS: predniSONE 10 MG TABLET PO SCH (09:26)
[2017-01-22] MEDS: ALISKIREN HEMIFUMARATE 150 MG TABLET PO SCH (09:26)
[2017-01-22] MEDS: SENNOSIDES 8.6 MG TABLET PO SCH (09:26)
[2017-01-22] MEDS: METOPROLOL TARTRATE 50 MG TABLET PO SCH ×2 (09:26→20:54)
[2017-01-22] MEDS: HYDROGEN PEROXIDE 480 ML BOTTLE TP SCH ×2 (09:26→20:54)
[2017-01-22] MEDS: CHOLECALCIFEROL 1,000 UNIT TABLET (VIT D3) PO SCH (09:26)
[2017-01-22] MEDS: HYDROCORTISONE 1% CREAM 30 GM TUBE TP SCH ×2 (09:26→20:54)
[2017-01-22] MEDS: hydrALAZINE HCL 25 MG TABLET PO SCH ×2 (09:26→20:53)
[2017-01-22] MEDS: Z GUARD REMEDY 2 OZ OINT TP SCH ×2 (09:27→20:54)
[2017-01-22] MEDS: LIDOCAINE 5% (PATCH) 1 EA PATCH TP SCH (12:01)
[2017-01-22 20:00] VITALS: BP 134/70
[2017-01-23] MEDS: ALBUTEROL FS 2.5 MG/3 ML VIAL.NEB NEB SCH ×4 (01:48→19:30)
[2017-01-23] MEDS: IPRATROPIUM NEB FS 0.5 MG/2.5 ML AMPUL.NEB NEB SCH ×4 (01:48→19:30)
[2017-01-23] MEDS: BUDESONIDE RESPULE INH 0.5 MG/2 ML AMPUL.NEB NEB SCH (07:30)
[2017-01-23 07:43] VITALS: BP 142/64
[2017-01-23] MEDS: HYDROGEN PEROXIDE 480 ML BOTTLE TP SCH ×2 (08:17→20:36)
[2017-01-23] MEDS: predniSONE 10 MG TABLET PO SCH (08:17)
[2017-01-23] MEDS: ALISKIREN HEMIFUMARATE 150 MG TABLET PO SCH (08:17)
[2017-01-23] MEDS: hydrALAZINE HCL 25 MG TABLET PO SCH ×2 (08:17→20:35)
[2017-01-23] MEDS: METOPROLOL TARTRATE 50 MG TABLET PO SCH ×2 (08:17→20:36)
[2017-01-23] MEDS: SENNOSIDES 8.6 MG TABLET PO SCH (08:17)
[2017-01-23] MEDS: HYDROCORTISONE 1% CREAM 30 GM TUBE TP SCH ×2 (08:17→20:36)
[2017-01-23] MEDS: CHOLECALCIFEROL 1,000 UNIT TABLET (VIT D3) PO SCH (08:17)
[2017-01-23] MEDS: Z GUARD REMEDY 2 OZ OINT TP SCH ×2 (08:17→20:36)
--- NOTE | 2017-01-23 08:30 | NUR ---
BERNARDINO called the office of Dr Driscoll ([phone]) to inquire about what type of anesthesia the dentist would be using. BERNARDINO spoke with Dr. Margoth BURGOS who would be performing the extractions. He stated that he can use either 2% lidocaine with 1 to 100,000 k epi OR 3% carbocaine with no epi. Dr. Yen noted that he can use 3% carbocaine with no epi and charge nurse was informed so that she can obtain the order.
--- NOTE | 2017-01-23 08:35 | NUR ---
Received order from Dr. Yen for pt to have 3% carbocaine no epi per dentist prior to teeth extractions. Pt has a dental appointment with Dr. Driscoll today at 3 pm for three teeth extractions, nurse will accompany pt.
--- NOTE | 2017-01-23 08:45 | NUR ---
Informed Mystery at the office of Dr. Americo LEBRON ([phone]) that Dr. Yen noted that resident can receive 3% carbocaine with no epi and NO nitrous oxide. Informed the resident who stated she is not too happy but that "the doctor knows what he is doing." Resident also stated she feels her pain medication is not enough and BERNARDINO informed charge nurse. Also informed resident that after the extractions, resident has to modify her diet to include soft foods. Mystery stated that they will send resident back with after care instructions and that their office will further explain it to the resident when she comes in. SUPERVISOR LAST MODEL DEPARTMENT will accompany the resident to her appt.
--- NOTE | 2017-01-23 09:33 | NUR ---
Pt was seen by Dr. Yanez. No new order. Called Dr. Gill's office to remind him of routine trach change. Left message with Indra.
[2017-01-23] MEDS: LIDOCAINE 5% (PATCH) 1 EA PATCH TP SCH (12:26)
--- NOTE | 2017-01-23 14:47 | NUR ---
Pt left for dental appointment with Dr. Driscoll for [address] teeth extractions[address] Szymanski that pt is asking for a strong pain medication that she can have after the teeth extractions. Reminded him of pt's current pain medications. Received order to give Percocet 10/325 mg po q 4 hours x 6 doses for tooth/oral pain S/P teeth extractions. Addendum: 01/23/17 at 1457 by SARAVANAN VAUGHN RN Pt accompanied by ACACIA Will. Pt in stable condition. Pt ambulating but ACACIA Will brought a wheelchair per pt's request. Portable suction machine was also brought for pt.
--- NOTE | 2017-01-23 17:00 | NUR ---
Pt came back from dental appointment. Pt was seen by Dr. Justin. According to ACACIA Will, 3 of pt's teeth were extracted. Charge nurse reminded pt of the instructions for care that the dental office gave the pt. Pt verbalized understanding.
[2017-01-23] MEDS: oxyCODONE/APAP (5/325 MG) 1 UDTAB TABLET PO PRN ×2 (17:55→22:04)
--- NOTE | 2017-01-23 18:48 | NUR ---
Seen by JAREK Nunez. She asked JAREK Hou to DC Prednisone and complained that she is wheezing. JAREK Nunez explained to her that Prednisone helps with wheezing. JAREK Nunez examined her and told her that she is not wheezing. Received order to decrease Prednisone to 10 mg po every other day. Pt aware of new order. Addendum: 01/23/17 at 1851 by SARAVANAN VAUGHN RN JAREK Nunez examined pt's redness on the chest (petechia). Pt told her that the hand scudder is coming to take a look at it. No new order.
[2017-01-23 20:10] VITALS: BP 116/68
[2017-01-23] MEDS: ZOLPIDEM TARTRATE 5 MG TABLET PO PRN (20:36)
[2017-01-23] MEDS: LORAZEPAM 0.5 MG TABLET PO PRN (20:36)
[2017-01-23] MEDS: TRAMADOL HCL 50 MG TABLET PO PRN (20:37)
[2017-01-24] MEDS: ALBUTEROL FS 2.5 MG/3 ML VIAL.NEB NEB SCH ×4 (01:30→19:30)
[2017-01-24] MEDS: IPRATROPIUM NEB FS 0.5 MG/2.5 ML AMPUL.NEB NEB SCH ×4 (01:30→19:30)
[2017-01-24 08:05] VITALS: BP 146/74
[2017-01-24] MEDS: oxyCODONE/APAP (5/325 MG) 1 UDTAB TABLET PO PRN ×4 (08:14→23:43)
--- NOTE | 2017-01-24 08:15 | NUR ---
SW was told by charge nurse that resident wants to change her code status back to full code. SW checked the resident's room and resident was sleeping. SW went back to see the resident when she was awake and she stated she wants to change her code status back to full code but if they can complete the paperwork a bit later. SW notified her that this was okay and that SW will come back a bit later to see if she is ready. Informed her that charge nurse also had to be present as a witness and SW will follow up with the resident before the end of the day .Charge nurse informed.
[2017-01-24] MEDS: BUDESONIDE RESPULE INH 0.5 MG/2 ML AMPUL.NEB NEB SCH ×2 (08:55→16:25)
[2017-01-24] MEDS: predniSONE 10 MG TABLET PO SCH ×2 (09:00→09:43)
--- NOTE | 2017-01-24 09:00 | NUR ---
AM RN NOTE Pt refused Prednisone, offfered x3. Explained risks and benefits but pt still refused. CN made aware.
[2017-01-24] MEDS: hydrALAZINE HCL 25 MG TABLET PO SCH ×2 (09:44→21:10)
[2017-01-24] MEDS: METOPROLOL TARTRATE 50 MG TABLET PO SCH ×2 (09:44→21:11)
[2017-01-24] MEDS: CHOLECALCIFEROL 1,000 UNIT TABLET (VIT D3) PO SCH (09:44)
[2017-01-24] MEDS: ALISKIREN HEMIFUMARATE 150 MG TABLET PO SCH (09:44)
[2017-01-24] MEDS: SENNOSIDES 8.6 MG TABLET PO SCH (09:44)
[2017-01-24] MEDS: Z GUARD REMEDY 2 OZ OINT TP SCH ×2 (09:45→21:11)
[2017-01-24] MEDS: HYDROCORTISONE 1% CREAM 30 GM TUBE TP SCH ×2 (09:45→21:11)
[2017-01-24] MEDS: HYDROGEN PEROXIDE 480 ML BOTTLE TP SCH ×2 (09:45→21:11)
--- NOTE | 2017-01-24 10:50 | NUR ---
Spoke to Mystery at the office of Dr. Driscoll ([address] [facility] [facility] [place] [address] ) and she notified the SW that Dr. Justin will come to the hospital 01/30/2017 around 9AM to remove the resident's sutures from her extractions. She stated that SW will then be able to schedule another appt at their office if necessary and that Dr. Justin will let the SW know on that day. Resident informed.
[2017-01-24] MEDS: ONDANSETRON 4 MG TAB.RAPDIS PO PRN (11:39)
--- NOTE | 2017-01-24 12:15 | NUR ---
SW and charge nurse met with the resident who requested to change her code status from DNR to full code. SW explained full code to the resident and resident stated she wants CPR and maximum treatment (which includes blood transfusions, antibiotics, iv fluids, hydration/nutrition tubes, transfer to acute hospital, oxygen, ventilator, and dialysis). Resident signed Documentation of Preferred Intensity of Care with BERNARDINO and charge nurse as witness. Resident also stated she wanted to change her advanced mona care directive contacts and SW informed her that the [facility] would need to come and do a revised advanced directive with the resident. SW to contact [facility] to make an appt for the resident.
[2017-01-24] MEDS: LIDOCAINE 5% (PATCH) 1 EA PATCH TP SCH (12:25)
--- NOTE | 2017-01-24 13:36 | NUR ---
BERNARDINO attempted to contact [facility] Jevon Fermin ([phone]/fax: [phone]) to notify him that the resident wants to re-do her Advanced Healthcare Directive Form. BERNARDINO was directed to voicemail of the exterminator helper [facility] office and left message with the above details. BERNARDINO left her contact information. BERNARDINO will follow up.
--- NOTE | 2017-01-24 16:18 | NUR ---
RT note: Patient suctioned and demanded to change inner trach cannula. She was persistent in her demand. I told her I would change it this one time but that it was clean and did not need changing. She later apologized.
[2017-01-24 19:32] VITALS: BP 131/68
[2017-01-24] MEDS: LORAZEPAM 0.5 MG TABLET PO PRN (21:11)
[2017-01-24] MEDS: ZOLPIDEM TARTRATE 5 MG TABLET PO PRN (21:11)
[2017-01-25] MEDS: ALBUTEROL FS 2.5 MG/3 ML VIAL.NEB NEB SCH ×4 (01:30→19:30)
[2017-01-25] MEDS: IPRATROPIUM NEB FS 0.5 MG/2.5 ML AMPUL.NEB NEB SCH ×4 (01:30→19:30)
[2017-01-25] MEDS: TRAMADOL HCL 50 MG TABLET PO PRN (06:28)
--- NOTE | 2017-01-25 07:28 | NUR ---
Pain reassessment for ultram: While making rounds patient asleep and comfortable with no distress noted at 0715. Patient woke up at 0730 requesting to call the doctor because she wants: "whatever the other med name she was taking for tooth pain." "I Know I already took my six doses but I want more." Asked patient how much pain does she have from 1-10, patient did now answer just looked at me and said: "I want the pain med I was taking for toothache" "I cannot eat" "I am not going to eat" Patient refused breakfast. Patient made aware the pain medication percocet is not active at this time, asked if she wants something else like norco and patient said "NO" "I want the percocet." Explained to patient Rn supervisor microfilm duplicating unit will be notified. Patient smiled and said: "OK." and went back to sleep. Rn supervisor microfilm duplicating unit notified.
[2017-01-25 07:54] VITALS: BP 124/71
[2017-01-25] MEDS: hydrALAZINE HCL 25 MG TABLET PO SCH ×2 (09:19→20:47)
[2017-01-25] MEDS: CHOLECALCIFEROL 1,000 UNIT TABLET (VIT D3) PO SCH (09:20)
[2017-01-25] MEDS: METOPROLOL TARTRATE 50 MG TABLET PO SCH ×2 (09:20→20:48)
[2017-01-25] MEDS: ALISKIREN HEMIFUMARATE 150 MG TABLET PO SCH (09:20)
[2017-01-25] MEDS: HYDROCODONE/APAP 5/325MG 1 EACH TABLET PO PRN (09:20)
[2017-01-25] MEDS: SENNOSIDES 8.6 MG TABLET PO SCH (09:20)
--- NOTE | 2017-01-25 09:35 | NUR ---
Dr. Yen notified patient requesting pain medication Percocet for tooth ache. Percocet was ordered PRN X 6 doses only S/P tooth extraction. SENIOR SHAREPOINT DEVELOPER offered [place] but said "No". Patient claims she still have tooth ache. New order received for PRN Percocet. Resident notified of new order.
[2017-01-25] MEDS: BUDESONIDE RESPULE INH 0.5 MG/2 ML AMPUL.NEB NEB SCH ×2 (09:49→17:48)
[2017-01-25] MEDS: oxyCODONE/APAP (5/325 MG) 1 UDTAB TABLET PO PRN ×2 (12:33→18:29)
[2017-01-25] MEDS: LIDOCAINE 5% (PATCH) 1 EA PATCH TP SCH (12:33)
--- NOTE | 2017-01-25 13:12 | NUR ---
Spoke with Dr. Gill reminded him of monthly trach change, stated he will be in tomorrow, 01/26/17 or Monday01/27/17. Endorsed.
--- NOTE | 2017-01-25 13:33 | NUR ---
Pain reassessment for percocet: Awake alert responsive. Asked patient from the scale 1-10 how much pain does she have now. Patient looked at me smiling stated: "I am stoned." "I feel good, at least I don't have pain." Patient teaching provided regarding safety, fall precautions, since she has taken norco at 0921 am for back pain, pt verbalized understanding. RN supervisor billposting notified. No acute distress noted.
--- NOTE | 2017-01-25 13:55 | NUR ---
SW called the resident's friends Soy and Daylin Grant ([phone]). They were both on speaker phone. SW informed them that resident wants to re-do her advanced directive and merrick wants to come tomorrow to fill out the paperwork with her. Resident reported to SW that she wants to appoint her friends as her agents to make medical decisions on her behalf. They said that they are "absolutely on board" and agreed to be the resident's primary agents. SW also followed up on discharge plan for the resident and notified them that resident has a discharge plan of 2-3 months. They stated that they are okay for the patient to go to their home with the trach as long as she can take care of her daily needs and will not require a 24 hour caregiver. SW to touch bases with them prior to discharge to make necessary arrangements. Resident still stating that she wants to get the trach taken out. SW endorsed for Dr. Yen to have a conversation with resident in terms of keeping the trach in vs. taking the trach out.
--- NOTE | 2017-01-25 14:12 | NUR ---
Marquita Fermin ([phone]/fax: [phone]) stated he will come and see the resident to complete a new advanced healthcare directive form tomorrow January 26, 2017 afternoon. Resident was notified.
[2017-01-25] MEDS: HYDROGEN PEROXIDE 480 ML BOTTLE TP SCH ×2 (16:02→20:48)
[2017-01-25] MEDS: Z GUARD REMEDY 2 OZ OINT TP SCH ×2 (16:02→20:48)
[2017-01-25] MEDS: HYDROCORTISONE 1% CREAM 30 GM TUBE TP SCH ×2 (16:02→20:48)
--- NOTE | 2017-01-25 19:25 | NUR ---
pt requested prn ativan and ambien to be given at 2030. pt sitting calmly and on the telephone talking to someone. no agitation, no pain noted. pt teaching provided regarding pain management, antianxiety and hypnotic medication and that medication to be taken only as needed, when manifestation of symptoms occur. pt verbalized understanding.
--- NOTE | 2017-01-25 19:29 | NUR ---
Pain reassessment for percocet: Patient had approached nurse ambulate with steady gait and no visible acute distress noted requested for percocet, smiling stated she had a 10/10 pain in mouth secondary toothache at 1829. Now patient states "I have no pain." Noted with left upper gum area with no bleeding noted per patient cannot open all the way to assess mouth. Patient verbalized she know how to do oral care not brushing mouth only rinse to avoid trauma on gums. Patient smiling.
[2017-01-25 19:36] VITALS: BP 106/65
[2017-01-25] MEDS: ZOLPIDEM TARTRATE 5 MG TABLET PO PRN (20:48)
[2017-01-25] MEDS: LORAZEPAM 0.5 MG TABLET PO PRN (20:48)
[2017-01-26] MEDS: IPRATROPIUM NEB FS 0.5 MG/2.5 ML AMPUL.NEB NEB SCH ×4 (01:30→19:33)
[2017-01-26] MEDS: ALBUTEROL FS 2.5 MG/3 ML VIAL.NEB NEB SCH ×4 (01:30→19:33)
[2017-01-26 07:29] VITALS: BP 118/68
[2017-01-26] MEDS: predniSONE 10 MG TABLET PO SCH (09:00)
[2017-01-26] MEDS: BUDESONIDE RESPULE INH 0.5 MG/2 ML AMPUL.NEB NEB SCH ×2 (09:00→16:57)
[2017-01-26] MEDS: POLYETHYLENE GLYCOL 3350 17 GM POWD.PACK PO PRN (09:33)
[2017-01-26] MEDS: hydrALAZINE HCL 25 MG TABLET PO SCH ×2 (09:40→21:00)
[2017-01-26] MEDS: METOPROLOL TARTRATE 50 MG TABLET PO SCH ×2 (09:40→21:15)
[2017-01-26] MEDS: ALISKIREN HEMIFUMARATE 150 MG TABLET PO SCH (09:40)
[2017-01-26] MEDS: Z GUARD REMEDY 2 OZ OINT TP SCH ×2 (09:41→21:16)
[2017-01-26] MEDS: CHOLECALCIFEROL 1,000 UNIT TABLET (VIT D3) PO SCH (09:41)
[2017-01-26] MEDS: HYDROGEN PEROXIDE 480 ML BOTTLE TP SCH ×2 (09:41→21:15)
[2017-01-26] MEDS: SENNOSIDES 8.6 MG TABLET PO SCH (09:43)
--- NOTE | 2017-01-26 10:10 | NUR ---
SW spoke to the resident's friend Arturo Rose ([phone]) who agreed to be the resident's second alternate agent for her advanced health care directive. SW obtained information (home address/alternate numbers) to fill out form. Jevon ([facility]) also called and stated he would be here around 1pm to meet with the resident. Resident notified.
[2017-01-26] MEDS: oxyCODONE/APAP (5/325 MG) 1 UDTAB TABLET PO PRN ×3 (10:25→20:26)
[2017-01-26] MEDS: LIDOCAINE 5% (PATCH) 1 EA PATCH TP SCH (12:52)
--- NOTE | 2017-01-26 13:31 | NUR ---
Marylisy Jevon and his co-worker came to meet with the resident. Resident expressed that she has been taking pain medication for her three tooth extractions. He stated that resident told her it was making her feel "woozy" and expressed that if the resident is not all there, he may not be able to complete the form with her. He went back into the room to speak with the resident and Jevon came back out and told SW that they could complete the form with her. Resident asked to be suctioned during this process and RT Malcolm was there to attend to the resident. Jevon came out a second time and stated that the volume on her tv is not working and wants someone to fix it. SW went into the room and asked resident if it was okay to test her tv. SW found no problems with her tv volume and was able to change her tv volume using the remote. Resident stated "oh okay. thank you." Resident also asked for her pain medication, which was not yet due and SW stated that she will notify her nurse. Jevon and his co-worker were able to complete advanced directive paperwork. Placed original in the resident's chart. Resident refused a copy for herself. Jevon was given first page of resident's advanced directive which designates her designation of agents. Addendum: 01/26/17 at 1414 by JEAN CARLOS LEBRON Jevon also stated that resident said airport operations coordinator Dakotah was not providing her with a food menu. BERANRDINO informed him that while he may not be giving her the menu, resident is always given a menu beginning of day by subacute staff or dietary. He stated okay.
--- NOTE | 2017-01-26 14:40 | NUR ---
Resident complaining of toothache. BERNARDINO contacted the office of Dr. Driscoll/Dr Justin ([phone]) and spoke to Mystery. BERNARDINO and charge nurse were present with the resident. Mystulio explained over speaker phone that it is normal for the area to feel sore afterwards for 7-10 days. Resident stated she did not know that. Mystery once again went over the types of foods that resident can eat. Mysterlópez stated that Dr. Justin will be at the hospital Monday morning to come and see her.
[2017-01-26 20:01] VITALS: BP 93/60
[2017-01-26] MEDS: LORAZEPAM 0.5 MG TABLET PO PRN (21:13)
[2017-01-26] MEDS: HYDROCORTISONE 1% CREAM 30 GM TUBE TP SCH (21:15)
[2017-01-26] MEDS: ZOLPIDEM TARTRATE 5 MG TABLET PO PRN (21:46)
--- NOTE | 2017-01-26 23:00 | NUR ---
Pt told charge nurse that she call the Dentist office because she felt that there some fragments left after her tooth extraction.Ask her the clinic is close at this time but she said she left voicemail and give our number in the station for call back.There no bleeding noted.Pain medicines given as patient requested for tooth pain.will continue to monitor.
[2017-01-27] MEDS: IPRATROPIUM NEB FS 0.5 MG/2.5 ML AMPUL.NEB NEB SCH ×4 (01:53→19:30)
[2017-01-27] MEDS: ALBUTEROL FS 2.5 MG/3 ML VIAL.NEB NEB SCH ×4 (01:53→19:30)
[2017-01-27] MEDS: ONDANSETRON 4 MG TAB.RAPDIS PO PRN (04:18)
[2017-01-27] MEDS: oxyCODONE/APAP (5/325 MG) 1 UDTAB TABLET PO PRN ×3 (04:23→15:47)
[2017-01-27 08:10] VITALS: BP 110/78
--- NOTE | 2017-01-27 08:17 | NUR ---
Received a call from from the office of Dr. Americo BURGOS. She stated that the resident called 4x and left several messages for their office. Mystulio stated that resident is concerned that there is a piece of tooth fragment left over. Mystulio stated that she is 100% positive that there is no bone fragment left over as the nurse Jeremie was present during the tooth extractions and dentist made sure the entire tooth (and roots) were extracted. She stated that what she is probably feeling is the stitches and Mystulio stated to her to please remind her that he will come on Monday to remove them. BERNARDINO then went to resident's room to inform her of this. Resident stated she called them because she can feel something and BERNARDINO explained to her that she was probably feeling the stitches. Resident said "whoopeee" and reminded her that Dr. Justin was coming on Monday to see her. She stated "I know, I just spoke to him."
[2017-01-27] MEDS: SENNOSIDES 8.6 MG TABLET PO SCH (08:18)
[2017-01-27] MEDS: ALISKIREN HEMIFUMARATE 150 MG TABLET PO SCH (08:18)
[2017-01-27] MEDS: CHOLECALCIFEROL 1,000 UNIT TABLET (VIT D3) PO SCH (08:18)
[2017-01-27] MEDS: POLYETHYLENE GLYCOL 3350 17 GM POWD.PACK PO PRN (08:18)
[2017-01-27] MEDS: hydrALAZINE HCL 25 MG TABLET PO SCH ×2 (08:18→20:47)
[2017-01-27] MEDS: METOPROLOL TARTRATE 50 MG TABLET PO SCH ×2 (08:18→20:48)
[2017-01-27] MEDS: BUDESONIDE RESPULE INH 0.5 MG/2 ML AMPUL.NEB NEB SCH ×2 (08:51→17:48)
[2017-01-27] MEDS: HYDROGEN PEROXIDE 480 ML BOTTLE TP SCH ×2 (09:00→20:46)
[2017-01-27] MEDS: Z GUARD REMEDY 2 OZ OINT TP SCH ×2 (09:00→20:46)
[2017-01-27] MEDS: HYDROCORTISONE 1% CREAM 30 GM TUBE TP SCH ×2 (09:00→20:46)
--- NOTE | 2017-01-27 12:10 | NUR ---
RT MONTHLY TRACH CHANGE DONE BY WITH NEW PORTEX 6 UNCUFFED. TRACH CHANGE DONE WITH NO COMPLICATIONS. EQUAL BILATERAL BREATHE SOUDNS AND CHEST RISE. NO RESPIRATORY DISTRESS NOTED AT THIS TIME, WILL CONTINUE TO MONITOR. Addendum: 01/27/17 at 1716 by BEBA PRUITT RT Amended: Links added.
[2017-01-27] MEDS: LIDOCAINE 5% (PATCH) 1 EA PATCH TP SCH (12:42)
--- NOTE | 2017-01-27 15:40 | NUR ---
Resident complain of not having bowel movement for 4 days. OPERATIONS SUPPORT COORDINATOR has given her PRN Miralax for constipation but not effective. New order obtain from Dr. Yen to give PRN Dulcolax suppository and enema PRN if Dulcolax supp. ineffective. Resident notified of new order.
[2017-01-27] MEDS ORDERED: BISACODYL SUPP (10 MG) 10 MG/SUPP.RECT SUPP.RECT RC PRN (17:00)
[2017-01-27] MEDS ORDERED: NA PHOS,M-B/NA PHOS,DI-BA 1 EA ENEMA RC PRN (17:00)
[2017-01-27] MEDS: LORAZEPAM 0.5 MG TABLET PO PRN (20:46)
[2017-01-27] MEDS: ZOLPIDEM TARTRATE 5 MG TABLET PO PRN (20:47)
[2017-01-27 23:17] VITALS: BP 108/67
[2017-01-28] MEDS: IPRATROPIUM NEB FS 0.5 MG/2.5 ML AMPUL.NEB NEB SCH ×4 (00:59→19:13)
[2017-01-28] MEDS: ALBUTEROL FS 2.5 MG/3 ML VIAL.NEB NEB SCH ×4 (00:59→19:13)
[2017-01-28] MEDS: TRAMADOL HCL 50 MG TABLET PO PRN (03:34)
[2017-01-28 07:38] VITALS: BP 127/70
[2017-01-28] MEDS: BUDESONIDE RESPULE INH 0.5 MG/2 ML AMPUL.NEB NEB SCH ×2 (08:35→16:35)
[2017-01-28] MEDS: predniSONE 10 MG TABLET PO SCH (09:00)
[2017-01-28] MEDS: SENNOSIDES 8.6 MG TABLET PO SCH (09:12)
[2017-01-28] MEDS: HYDROCORTISONE 1% CREAM 30 GM TUBE TP SCH ×2 (09:12→20:14)
[2017-01-28] MEDS: METOPROLOL TARTRATE 50 MG TABLET PO SCH ×2 (09:12→20:14)
[2017-01-28] MEDS: CHOLECALCIFEROL 1,000 UNIT TABLET (VIT D3) PO SCH (09:12)
[2017-01-28] MEDS: hydrALAZINE HCL 25 MG TABLET PO SCH ×2 (09:12→20:13)
[2017-01-28] MEDS: ALISKIREN HEMIFUMARATE 150 MG TABLET PO SCH (09:12)
[2017-01-28] MEDS: Z GUARD REMEDY 2 OZ OINT TP SCH ×2 (09:12→20:14)
[2017-01-28] MEDS: HYDROGEN PEROXIDE 480 ML BOTTLE TP SCH ×2 (09:12→20:14)
[2017-01-28] MEDS: ONDANSETRON 4 MG TAB.RAPDIS PO PRN (10:06)
[2017-01-28] MEDS: LIDOCAINE 5% (PATCH) 1 EA PATCH TP SCH (12:29)
[2017-01-28] MEDS: oxyCODONE/APAP (5/325 MG) 1 UDTAB TABLET PO PRN ×2 (13:47→21:42)
[2017-01-28 19:42] VITALS: BP 122/70
[2017-01-28] MEDS: ZOLPIDEM TARTRATE 5 MG TABLET PO PRN (20:34)
[2017-01-28] MEDS: LORAZEPAM 0.5 MG TABLET PO PRN (20:34)
[2017-01-29] MEDS: ALBUTEROL FS 2.5 MG/3 ML VIAL.NEB NEB SCH ×4 (01:15→19:30)
[2017-01-29] MEDS: IPRATROPIUM NEB FS 0.5 MG/2.5 ML AMPUL.NEB NEB SCH ×4 (01:15→19:30)
[2017-01-29 08:00] VITALS: BP 125/65
[2017-01-29] MEDS: BUDESONIDE RESPULE INH 0.5 MG/2 ML AMPUL.NEB NEB SCH ×2 (08:10→16:29)
[2017-01-29] MEDS: SENNOSIDES 8.6 MG TABLET PO SCH (08:33)
[2017-01-29] MEDS: METOPROLOL TARTRATE 50 MG TABLET PO SCH ×2 (08:33→20:55)
[2017-01-29] MEDS: hydrALAZINE HCL 25 MG TABLET PO SCH ×2 (08:33→20:55)
[2017-01-29] MEDS: ALISKIREN HEMIFUMARATE 150 MG TABLET PO SCH (08:33)
[2017-01-29] MEDS: CHOLECALCIFEROL 1,000 UNIT TABLET (VIT D3) PO SCH (08:33)
[2017-01-29] MEDS: oxyCODONE/APAP (5/325 MG) 1 UDTAB TABLET PO PRN (09:00)
[2017-01-29] MEDS: Z GUARD REMEDY 2 OZ OINT TP SCH ×2 (09:00→20:56)
[2017-01-29] MEDS: HYDROCORTISONE 1% CREAM 30 GM TUBE TP SCH ×2 (09:00→20:55)
[2017-01-29] MEDS: HYDROGEN PEROXIDE 480 ML BOTTLE TP SCH ×2 (09:00→20:56)
[2017-01-29] MEDS: LIDOCAINE 5% (PATCH) 1 EA PATCH TP SCH (13:16)
[2017-01-29] MEDS: TRAMADOL HCL 50 MG TABLET PO PRN ×2 (13:16→21:13)
[2017-01-29 20:27] VITALS: BP 104/58
[2017-01-29] MEDS: LORAZEPAM 0.5 MG TABLET PO PRN (20:56)
[2017-01-29] MEDS: ZOLPIDEM TARTRATE 5 MG TABLET PO PRN (20:56)
[2017-01-30] MEDS: ALBUTEROL FS 2.5 MG/3 ML VIAL.NEB NEB SCH ×4 (01:10→19:30)
[2017-01-30] MEDS: IPRATROPIUM NEB FS 0.5 MG/2.5 ML AMPUL.NEB NEB SCH ×4 (01:10→19:30)
[2017-01-30] MEDS: BUDESONIDE RESPULE INH 0.5 MG/2 ML AMPUL.NEB NEB SCH (07:46)
[2017-01-30] MEDS: ONDANSETRON 4 MG TAB.RAPDIS PO PRN (07:54)
[2017-01-30 08:00] VITALS: BP 130/79
[2017-01-30] MEDS: HYDROCORTISONE 1% CREAM 30 GM TUBE TP SCH ×2 (09:00→21:28)
[2017-01-30] MEDS: Z GUARD REMEDY 2 OZ OINT TP SCH ×2 (09:00→21:29)
[2017-01-30] MEDS: HYDROGEN PEROXIDE 480 ML BOTTLE TP SCH ×2 (09:00→21:28)
--- NOTE | 2017-01-30 09:05 | NUR ---
Resident was seen by Dr. Margoth BURGOS and had her stitches removed. He stated that next visit will be dental impressions and he stated that Mystery from the office will call the SW. He noted dentist can come to the hospital for the visit.
[2017-01-30] MEDS: SENNOSIDES 8.6 MG TABLET PO SCH (09:16)
[2017-01-30] MEDS: hydrALAZINE HCL 25 MG TABLET PO SCH ×2 (09:16→21:28)
[2017-01-30] MEDS: CHOLECALCIFEROL 1,000 UNIT TABLET (VIT D3) PO SCH (09:16)
[2017-01-30] MEDS: predniSONE 10 MG TABLET PO SCH (09:16)
[2017-01-30] MEDS: ALISKIREN HEMIFUMARATE 150 MG TABLET PO SCH (09:16)
[2017-01-30] MEDS: METOPROLOL TARTRATE 50 MG TABLET PO SCH ×2 (09:16→21:28)
[2017-01-30] MEDS: oxyCODONE/APAP (5/325 MG) 1 UDTAB TABLET PO PRN ×2 (09:44→14:38)
[2017-01-30] MEDS: LIDOCAINE 5% (PATCH) 1 EA PATCH TP SCH (13:00)
--- NOTE | 2017-01-30 13:00 | NUR ---
Seen by JAREK Nunez. Notified her that pt has been refusing Prednisone. JAREK Nunez explained to pt why she still needs to be on Prednisone and pt agreed to it.
--- NOTE | 2017-01-30 14:00 | NUR ---
Received order from JAREK Nunez that pt may ambulate ad lisa/PRN.
--- NOTE | 2017-01-30 14:20 | NUR ---
SW informed by resident that she no longer wants to see Dr. Yanez (psychologist). SW asked if there was a particular reason and resident stated "because everything is fine." SW explained to the resident that psychologist can be useful even if she feels she is doing good and may help for when she is ready to be discharged. Resident stating "that's okay" and to please let the psychologist know. SW will inform psychologist that resident no longer wants to see him and SW stated to the resident that he may want to come and check on her one last time. SW to follow up.
--- NOTE | 2017-01-30 14:25 | NUR ---
Resident stated she was upset because she wanted SW to take her to get her chips. Spoke to the resident with the charge nurse. Prior to this, SW saw RNA entering the room to walk her and asked him if he was going to be able to take her. RNA stated he didn't want to take her downstairs but in the past has agreed to take her to the vending machine. SW had witnessed resident walking out of her room with the RNA behind her. SW explained to resident that if RNA was not going to be able to take her, SW was going to take her. Resident appeared to think that charge nurse did not allow SW to take her but this was not the case and this was explained to the resident. Resident had her two bag of chips on her bed prior to SW and charge nurse walking into the room. Resident indicated no further problems.
[2017-01-30 19:41] VITALS: BP 118/72
[2017-01-30] MEDS: ZOLPIDEM TARTRATE 5 MG TABLET PO PRN (21:29)
[2017-01-30] MEDS: LORAZEPAM 0.5 MG TABLET PO PRN (21:29)
[2017-01-30] MEDS: TRAMADOL HCL 50 MG TABLET PO PRN (23:54)
[2017-01-31] MEDS: ALBUTEROL FS 2.5 MG/3 ML VIAL.NEB NEB SCH ×4 (01:30→19:30)
[2017-01-31] MEDS: IPRATROPIUM NEB FS 0.5 MG/2.5 ML AMPUL.NEB NEB SCH ×4 (01:30→19:30)
[2017-01-31] MEDS: oxyCODONE/APAP (5/325 MG) 1 UDTAB TABLET PO PRN ×2 (03:39→10:40)
[2017-01-31] MEDS: SENNOSIDES 8.6 MG TABLET PO SCH (08:03)
[2017-01-31] MEDS: ALISKIREN HEMIFUMARATE 150 MG TABLET PO SCH (08:03)
[2017-01-31] MEDS: METOPROLOL TARTRATE 50 MG TABLET PO SCH ×2 (08:03→20:11)
[2017-01-31] MEDS: hydrALAZINE HCL 25 MG TABLET PO SCH ×2 (08:03→20:11)
[2017-01-31] MEDS: CHOLECALCIFEROL 1,000 UNIT TABLET (VIT D3) PO SCH (08:03)
[2017-01-31] MEDS: BUDESONIDE RESPULE INH 0.5 MG/2 ML AMPUL.NEB NEB SCH ×2 (08:10→17:00)
--- NOTE | 2017-01-31 08:40 | NUR ---
Called the office of Dr. Driscoll/Dr. Justin DDBobby ([phone]) and spoke to Mystery. Mystery stated that Dr. Justin will come and see the resident on Monday02/06/2017 to do the dental impressions. She stated that he will first look to see if the area is healed and if not, Dr. Driscoll will return on a later day to finish the impressions as Dr. Justin will be going on vacation. Resident informed.
[2017-01-31] MEDS: Z GUARD REMEDY 2 OZ OINT TP SCH ×2 (09:00→20:12)
[2017-01-31] MEDS: HYDROCORTISONE 1% CREAM 30 GM TUBE TP SCH ×2 (09:00→20:12)
[2017-01-31] MEDS: HYDROGEN PEROXIDE 480 ML BOTTLE TP SCH ×2 (09:00→20:12)
--- NOTE | 2017-01-31 13:12 | NUR ---
BERNARDINO informed Dr. Yanez (psychologist) that resident no longer wants to meet with him for sessions. He stated that this does not surprise him, as resident has been very guarded and suspicious of him (believes that he wants to obtain information from her for hospital's benefit). He appreciated the information.
[2017-01-31] MEDS: LIDOCAINE 5% (PATCH) 1 EA PATCH TP SCH (14:20)
[2017-01-31 20:05] VITALS: BP 118/69
[2017-01-31] MEDS: ZOLPIDEM TARTRATE 5 MG TABLET PO PRN (20:13)
[2017-01-31] MEDS: LORAZEPAM 0.5 MG TABLET PO PRN (20:13)
[2017-02-01] MEDS: IPRATROPIUM NEB FS 0.5 MG/2.5 ML AMPUL.NEB NEB SCH ×4 (01:30→20:03)
[2017-02-01] MEDS: ALBUTEROL FS 2.5 MG/3 ML VIAL.NEB NEB SCH ×4 (01:30→20:03)
[2017-02-01] MEDS: TRAMADOL HCL 50 MG TABLET PO PRN ×2 (04:19→22:51)
[2017-02-01] MEDS: BUDESONIDE RESPULE INH 0.5 MG/2 ML AMPUL.NEB NEB SCH ×2 (08:00→17:17)
[2017-02-01] MEDS: Z GUARD REMEDY 2 OZ OINT TP SCH ×2 (09:00→21:02)
[2017-02-01] MEDS: HYDROGEN PEROXIDE 480 ML BOTTLE TP SCH ×2 (09:00→21:02)
--- NOTE | 2017-02-01 09:00 | NUR ---
TRIM SETTER HELPER Called the office of Dr. Driscoll/Dr. Justin DDBobby ([phone]), PT WANTED TO KNOW IF THEY STILL NEED SALTWATER ORAL SWISH REGARDING TOOTH EXTRACTION, STATED NO NEED FOR ORAL SWISH THE WOUND IS HEALING FINE. PATIENT AWARE OF THE DECISION AND NO NEW ORDERS.
[2017-02-01] MEDS: METOPROLOL TARTRATE 50 MG TABLET PO SCH ×2 (09:44→21:02)
[2017-02-01] MEDS: hydrALAZINE HCL 25 MG TABLET PO SCH ×2 (09:44→21:01)
[2017-02-01] MEDS: oxyCODONE/APAP (5/325 MG) 1 UDTAB TABLET PO PRN (09:45)
[2017-02-01] MEDS: ALISKIREN HEMIFUMARATE 150 MG TABLET PO SCH (09:45)
[2017-02-01] MEDS: predniSONE 10 MG TABLET PO SCH (09:45)
[2017-02-01] MEDS: SENNOSIDES 8.6 MG TABLET PO SCH (09:45)
[2017-02-01] MEDS: CHOLECALCIFEROL 1,000 UNIT TABLET (VIT D3) PO SCH (09:45)
[2017-02-01 09:47] VITALS: BP 141/78
[2017-02-01] MEDS: ONDANSETRON 4 MG TAB.RAPDIS PO PRN (11:42)
[2017-02-01] MEDS: LIDOCAINE 5% (PATCH) 1 EA PATCH TP SCH (12:03)
[2017-02-01] MEDS: POLYETHYLENE GLYCOL 3350 17 GM POWD.PACK PO PRN (13:59)
--- NOTE | 2017-02-01 14:28 | NUR ---
Resident called the SW and asked the clinical social work therapist "have you talked to my friend Cristopher." SW stated no and that the last time was for her initial dentist appt which she was already aware. Resident stated "okay, I don't know if you know this but I pay her everytime she talks to you and I am trying to keep it at a minimum." BERNARDINO asked for resident to clarify and resident stated that her friend Cristopher helps her out with a lot of things and so she pays her to help her. BERNARDINO informed her that she has not spoken to her friend. Addendum: 02/01/17 at 1432 by JEAN CARLOS LEBRON resident called back after and she stated "can we have an agreement where you tell me who you will talk to. because I keep a record of it." BERNARDINO stated that she always informs her of when she will contact her responsible parties and she stated "okay, thank you."
--- NOTE | 2017-02-01 15:42 | NUR ---
Resident gave SW $290.00 to put in her money envelope for safe keeping. Resident stated she will notify the administrator social welfare when she needs it. Resident signed for putting the money into her envelope.
[2017-02-01] MEDS: HYDROCORTISONE 1% CREAM 30 GM TUBE TP SCH ×2 (17:32→21:02)
[2017-02-01 19:31] VITALS: BP 121/69
[2017-02-01] MEDS: LORAZEPAM 0.5 MG TABLET PO PRN (20:10)
[2017-02-01] MEDS: ZOLPIDEM TARTRATE 5 MG TABLET PO PRN (21:02)
[2017-02-02] MEDS: HYDROCODONE/APAP 5/325MG 1 EACH TABLET PO PRN ×2 (00:32→20:21)
--- NOTE | 2017-02-02 01:23 | NUR ---
Pt called charge nurse that she has the skin redness on her left arm it's look like a "petechiae" and according to her before it was on her chest but it's disappeared after a while.She said that it was from taking Prednisone.CN asked her if she show it to the MACHINE TANK OPERATOR when she rounded during the day and said yes,but she did not order anything.She said she told the MACHINE TANK OPERATOR to stop her Prednisone but MACHINE TANK OPERATOR said we cannot stop it right a way there is a process.She told CN nurse to report again her concerned and maybe a need for dermatology consult.CN told her will report to in the morning.
[2017-02-02] MEDS: IPRATROPIUM NEB FS 0.5 MG/2.5 ML AMPUL.NEB NEB SCH ×4 (01:30→19:30)
[2017-02-02] MEDS: ALBUTEROL FS 2.5 MG/3 ML VIAL.NEB NEB SCH ×4 (01:30→19:30)
[2017-02-02 07:51] VITALS: BP 146/75
[2017-02-02] MEDS: BUDESONIDE RESPULE INH 0.5 MG/2 ML AMPUL.NEB NEB SCH ×2 (07:56→17:00)
[2017-02-02 08:16] LABS: BASOPHILS % (AUTO) 0.4 % (0.0-2.0); EOSINOPHILS # (AUTO) 0.2 /CMM (0.0-0.7); EOSINOPHILS % (AUTO) 1.7 % (0.0-6.0); HEMATOCRIT 36 % (33-45); HEMOGLOBIN 12.1 g/dL (11.5-14.8); LYMPHOCYTES # (AUTO) 3.2 /CMM (0.8-4.8); LYMPHOCYTES % (AUTO) 33.7 % (20.0-44.0); MEAN CORPUSCULAR HEMOGLOBIN 28 PG (26.0-33.0); MEAN CORPUSCULAR HGB CONC 34 g/dl (31.0-36.0); MEAN CORPUSCULAR VOLUME 83 fL (82-100); MONOCYTES # (AUTO) 0.8 /CMM (0.1-1.30); MONOCYTES % (AUTO) 8.9 % (2.0-12.0); NEUTROPHILS # (AUTO) 5.2 /CMM (1.8-8.9); NEUTROPHILS % (AUTO) 55.3 % (43.0-81.0); PLATELET COUNT (AUTO) 294 /CMM (150-450); RDW COEFFICIENT OF VARIATION 15.9 (11.5-15.0); RED BLOOD CELL COUNT(AUTO) 4.31 MIL/uL (4.0-5.2); WHITE BLOOD COUNT (AUTO) 9.5 K/uL (4.3-11.0)
[2017-02-02 08:30] LABS: CALCIUM, SERUM 8.9 mg/dL (8.5-10.1); MAGNESIUM 1.8 mg/dL (1.8-2.4); PHOSPHORUS 3.6 mg/dL (2.5-4.9); POTASSIUM 3.8 mmol/L (3.5-5.1)
--- NOTE | 2017-02-02 08:49 | NUR ---
Sw informed by charge nurse that resident in need of a dermatology consult. BERNARDINO faxed referral packet to the office of Dr. Tr Mills [facility] [place], [place] [address] TEL: FAX: . BERNARDINO will follow up. Terminal Make Up Operator never came for the previous referral that was sent to them.
[2017-02-02] MEDS: ALISKIREN HEMIFUMARATE 150 MG TABLET PO SCH (09:00)
[2017-02-02] MEDS: hydrALAZINE HCL 25 MG TABLET PO SCH ×2 (09:00→20:49)
[2017-02-02] MEDS: Z GUARD REMEDY 2 OZ OINT TP SCH ×2 (09:00→20:55)
[2017-02-02] MEDS: SENNOSIDES 8.6 MG TABLET PO SCH (09:00)
[2017-02-02] MEDS: HYDROGEN PEROXIDE 480 ML BOTTLE TP SCH ×2 (09:00→20:55)
[2017-02-02] MEDS: HYDROCORTISONE 1% CREAM 30 GM TUBE TP SCH ×2 (09:00→20:53)
[2017-02-02] MEDS: METOPROLOL TARTRATE 50 MG TABLET PO SCH ×2 (09:00→20:49)
[2017-02-02] MEDS: CHOLECALCIFEROL 1,000 UNIT TABLET (VIT D3) PO SCH (09:00)
--- NOTE | 2017-02-02 09:30 | NUR ---
Order obtained for dermatology consult per pt request d/t petechiae on left arm. Maude LEBRON started process of contacting injection molding technician to see pt at bedside.
--- NOTE | 2017-02-02 12:37 | NUR ---
Resident stated to sw that she would like for Dr. Yanez (psychologist) to come back. She stated she has changed her mind and is working on her discharge plan. Acknowledged he could be a sense of support for her. Called his office and left him a voicemail message.
[2017-02-02] MEDS: LIDOCAINE 5% (PATCH) 1 EA PATCH TP SCH (13:23)
--- NOTE | 2017-02-02 15:40 | NUR ---
Faxed referral to Dr. Stewart dairy equipment mechanic ( ) for regular eye check up appt, as the resident is due for her yearly checkup. SW will follow up.
[2017-02-02 19:40] VITALS: BP 135/66
[2017-02-02] MEDS: LORAZEPAM 0.5 MG TABLET PO PRN (20:50)
[2017-02-02] MEDS: ZOLPIDEM TARTRATE 5 MG TABLET PO PRN (21:49)
[2017-02-03] MEDS: ALBUTEROL FS 2.5 MG/3 ML VIAL.NEB NEB SCH ×4 (00:50→19:30)
[2017-02-03] MEDS: IPRATROPIUM NEB FS 0.5 MG/2.5 ML AMPUL.NEB NEB SCH ×4 (00:50→19:30)
[2017-02-03] MEDS: TRAMADOL HCL 50 MG TABLET PO PRN ×3 (04:55→22:16)
[2017-02-03 07:37] VITALS: BP 153/83
[2017-02-03] MEDS: BUDESONIDE RESPULE INH 0.5 MG/2 ML AMPUL.NEB NEB SCH ×2 (08:06→17:00)
[2017-02-03] MEDS: HYDROCORTISONE 1% CREAM 30 GM TUBE TP SCH ×2 (09:00→21:20)
[2017-02-03] MEDS: CHOLECALCIFEROL 1,000 UNIT TABLET (VIT D3) PO SCH (09:00)
[2017-02-03] MEDS: METOPROLOL TARTRATE 50 MG TABLET PO SCH ×2 (09:00→20:35)
[2017-02-03] MEDS: Z GUARD REMEDY 2 OZ OINT TP SCH ×2 (09:00→21:20)
[2017-02-03] MEDS: hydrALAZINE HCL 25 MG TABLET PO SCH ×2 (09:00→20:35)
[2017-02-03] MEDS: ALISKIREN HEMIFUMARATE 150 MG TABLET PO SCH (09:00)
[2017-02-03] MEDS: HYDROGEN PEROXIDE 480 ML BOTTLE TP SCH ×2 (09:00→21:20)
[2017-02-03] MEDS: predniSONE 10 MG TABLET PO SCH (09:00)
[2017-02-03] MEDS: SENNOSIDES 8.6 MG TABLET PO SCH (09:00)
--- NOTE | 2017-02-03 11:31 | NUR ---
Called office of Dr. Tr Mills ([address] [place] [place] [place], [place] [address] TEL: FAX: ) and spoke to Caren. She stated she never received referral. She asked for SW to please fax referral packet to same fax # and BERNARDINO did so. Caren stated she was next to the fax machine and will follow up with the SW.
[2017-02-03] MEDS: LIDOCAINE 5% (PATCH) 1 EA PATCH TP SCH (13:55)
[2017-02-03 19:39] VITALS: BP 144/92
[2017-02-03] MEDS: LORAZEPAM 0.5 MG TABLET PO PRN (20:09)
[2017-02-03] MEDS: ZOLPIDEM TARTRATE 5 MG TABLET PO PRN (21:21)
[2017-02-04] MEDS: IPRATROPIUM NEB FS 0.5 MG/2.5 ML AMPUL.NEB NEB SCH ×4 (01:07→19:30)
[2017-02-04] MEDS: ALBUTEROL FS 2.5 MG/3 ML VIAL.NEB NEB SCH ×4 (01:07→19:30)
[2017-02-04] MEDS: HYDROCODONE/APAP 5/325MG 1 EACH TABLET PO PRN (03:39)
--- NOTE | 2017-02-04 03:42 | NUR ---
Pt came to the nurses station and stating that she cannot sleep because of noise.She said that people are keep coming back to her room and making noise.I explained to her that we need to check the other to patients at that room to change diaper and repositioned them,suctioned and answer their ventilator alarms.We tried our best to minimize the noise when we enter the room and do patient care.She also said that she is paying money so she can stay here and she also have the right like others.CN explained to her that we know that and respect her.WE suggest maybe she can request for a room change that with less patient and away from nurses station,but she said "NO".We told her try to go back to bed and sleep she NO I can"t anymore.PULMONOLOGY TECHNICIAN went with her to the room to talk to her and tried to calm her down.She told PULMONOLOGY TECHNICIAN she will E mail the about her concerns and PULMONOLOGY TECHNICIAN replied to her YES that's your right.Finally she calm down and lied in her bed.Will continue to monitor and address her need as necessary.
[2017-02-04 08:13] VITALS: BP 141/78
[2017-02-04] MEDS: BUDESONIDE RESPULE INH 0.5 MG/2 ML AMPUL.NEB NEB SCH ×2 (08:34→17:27)
[2017-02-04] MEDS: SENNOSIDES 8.6 MG TABLET PO SCH (09:33)
[2017-02-04] MEDS: HYDROGEN PEROXIDE 480 ML BOTTLE TP SCH ×2 (09:33→21:06)
[2017-02-04] MEDS: METOPROLOL TARTRATE 50 MG TABLET PO SCH ×2 (09:33→21:05)
[2017-02-04] MEDS: Z GUARD REMEDY 2 OZ OINT TP SCH ×2 (09:33→21:06)
[2017-02-04] MEDS: ALISKIREN HEMIFUMARATE 150 MG TABLET PO SCH (09:33)
[2017-02-04] MEDS: HYDROCORTISONE 1% CREAM 30 GM TUBE TP SCH ×2 (09:33→21:06)
[2017-02-04] MEDS: CHOLECALCIFEROL 1,000 UNIT TABLET (VIT D3) PO SCH (09:33)
[2017-02-04] MEDS: hydrALAZINE HCL 25 MG TABLET PO SCH ×2 (09:33→21:05)
[2017-02-04] MEDS: oxyCODONE/APAP (5/325 MG) 1 UDTAB TABLET PO PRN ×2 (11:44→21:31)
[2017-02-04] MEDS: LIDOCAINE 5% (PATCH) 1 EA PATCH TP SCH (12:47)
[2017-02-04 19:44] VITALS: BP 123/59
[2017-02-04] MEDS: LORAZEPAM 0.5 MG TABLET PO PRN (20:07)
[2017-02-04] MEDS: ZOLPIDEM TARTRATE 5 MG TABLET PO PRN (21:06)
[2017-02-05] MEDS: ALBUTEROL FS 2.5 MG/3 ML VIAL.NEB NEB SCH ×4 (01:30→19:30)
[2017-02-05] MEDS: IPRATROPIUM NEB FS 0.5 MG/2.5 ML AMPUL.NEB NEB SCH ×4 (01:30→19:30)
[2017-02-05 07:48] VITALS: BP 124/62
[2017-02-05] MEDS: BUDESONIDE RESPULE INH 0.5 MG/2 ML AMPUL.NEB NEB SCH ×2 (08:43→17:00)
[2017-02-05] MEDS: HYDROGEN PEROXIDE 480 ML BOTTLE TP SCH ×2 (09:45→20:52)
[2017-02-05] MEDS: CHOLECALCIFEROL 1,000 UNIT TABLET (VIT D3) PO SCH (09:45)
[2017-02-05] MEDS: METOPROLOL TARTRATE 50 MG TABLET PO SCH ×2 (09:45→20:52)
[2017-02-05] MEDS: ALISKIREN HEMIFUMARATE 150 MG TABLET PO SCH (09:45)
[2017-02-05] MEDS: HYDROCORTISONE 1% CREAM 30 GM TUBE TP SCH ×2 (09:45→20:52)
[2017-02-05] MEDS: hydrALAZINE HCL 25 MG TABLET PO SCH ×2 (09:45→20:52)
[2017-02-05] MEDS: predniSONE 10 MG TABLET PO SCH (09:45)
[2017-02-05] MEDS: SENNOSIDES 8.6 MG TABLET PO SCH (09:45)
[2017-02-05] MEDS: Z GUARD REMEDY 2 OZ OINT TP SCH ×2 (09:45→20:52)
[2017-02-05] MEDS: oxyCODONE/APAP (5/325 MG) 1 UDTAB TABLET PO PRN (12:00)
[2017-02-05] MEDS: LIDOCAINE 5% (PATCH) 1 EA PATCH TP SCH (12:30)
[2017-02-05 19:40] VITALS: BP 111/80
[2017-02-05] MEDS: LORAZEPAM 0.5 MG TABLET PO PRN (20:52)
[2017-02-05] MEDS: ZOLPIDEM TARTRATE 5 MG TABLET PO PRN (21:26)
[2017-02-05] MEDS: TRAMADOL HCL 50 MG TABLET PO PRN (23:27)
[2017-02-06] MEDS: IPRATROPIUM NEB FS 0.5 MG/2.5 ML AMPUL.NEB NEB SCH ×4 (01:30→19:30)
[2017-02-06] MEDS: ALBUTEROL FS 2.5 MG/3 ML VIAL.NEB NEB SCH ×4 (01:30→19:30)
--- NOTE | 2017-02-06 04:51 | NUR ---
RT PT REFUSED HHN TX ON SHIFT. SHE STATES SHE DOES NOT WANT THEM AND NOT TO BE WOKEN UP IF SLEEPING. RN MADE AWARE. NO SOB OR RESP DISTRESS NOTED ON SHIFT. WILL ENDORSE TO DAY SHIT.
[2017-02-06 07:52] VITALS: BP 143/75
[2017-02-06] MEDS: BUDESONIDE RESPULE INH 0.5 MG/2 ML AMPUL.NEB NEB SCH ×2 (08:14→17:47)
[2017-02-06] MEDS: SENNOSIDES 8.6 MG TABLET PO SCH (09:00)
[2017-02-06] MEDS: METOPROLOL TARTRATE 50 MG TABLET PO SCH ×2 (09:00→20:33)
[2017-02-06] MEDS: ALISKIREN HEMIFUMARATE 150 MG TABLET PO SCH (09:00)
[2017-02-06] MEDS: hydrALAZINE HCL 25 MG TABLET PO SCH ×2 (09:00→20:33)
[2017-02-06] MEDS: CHOLECALCIFEROL 1,000 UNIT TABLET (VIT D3) PO SCH (09:00)
[2017-02-06] MEDS: LIDOCAINE 5% (PATCH) 1 EA PATCH TP SCH (12:39)
[2017-02-06] MEDS: HYDROCORTISONE 1% CREAM 30 GM TUBE TP SCH ×2 (13:00→20:33)
[2017-02-06] MEDS: Z GUARD REMEDY 2 OZ OINT TP SCH ×2 (13:00→20:34)
[2017-02-06] MEDS: HYDROGEN PEROXIDE 480 ML BOTTLE TP SCH ×2 (13:00→20:34)
--- NOTE | 2017-02-06 15:06 | NUR ---
Informed by resident that she still has rash on her arm. Informed resident that she will check with the charge nurse again, as referral was sent to leather finisher last week. Resident stated that LUCRECIA Garay-- Nurse Practitioner told her she thinks she knows what it is and might be caused by her taking Prednisone . Informed the charge nurse who will follow up with the Sw.
--- NOTE | 2017-02-06 18:01 | NUR ---
Pt was seen by Dr. Justin today. He brought 2 small bottles of Peridex solution for the pt to use as needed. He instructed the pt to swab her sore gums with Peridex solution using a cotton swab as needed, whenever she feels her gums are sore. Pt refused to give the Peridex solution to the charge nurse for safekeeping in the medication cart and pt insisted on keeping it at bedside. Dr. Justin told the charge nurse that he is giving the Peridex solution to the pt so that the pt can swab her gums on her own without bothering the nurses. Pt was able to repeat to charge nurse what Dr. Justin's instructions, pt may either swish and spit, or she can use a cotton swab. Pt asks the staff for assistance in opening the Peridex solution bottle.
--- NOTE | 2017-02-06 18:06 | NUR ---
Pt was seen by Dr. Palacios. She showed him the reddish discoloration on her left forearm. She said she keeps on getting them and that Dr. Chu has already seen it. She also mentioned a dermatology consult to Dr. Palacios. He said he is fine with a dermatology consult, but he thinks it is nothing serious, that it is just her blood vessels that popped up. He told the pt to monitor if it is getting bigger or not, that if it is getting bigger, then it might be something serious. He also told her that maybe she bumped her arm on something and since her blood vessels are frail and her skin is fragile, then they easily pop up and it shows on her skin. Will have social media intern contact Dr. Mills for dermatology consult. Dr. Palacios also explained pt's recent lab results to her in detail. He answered all of her questions.
--- NOTE | 2017-02-06 19:03 | NUR ---
Seen by JAREK Nunez. Pt asked for PRN order to change inner cannula. JAREK Nunez explained that the order is only once a day and that it can be cleaned PRN.
[2017-02-06 19:50] VITALS: BP 149/94
[2017-02-06] MEDS: LORAZEPAM 0.5 MG TABLET PO PRN (20:34)
[2017-02-06] MEDS: ZOLPIDEM TARTRATE 5 MG TABLET PO PRN (20:34)
[2017-02-07] MEDS: ALBUTEROL FS 2.5 MG/3 ML VIAL.NEB NEB SCH ×4 (01:30→19:30)
[2017-02-07] MEDS: IPRATROPIUM NEB FS 0.5 MG/2.5 ML AMPUL.NEB NEB SCH ×4 (01:30→19:30)
[2017-02-07] MEDS: TRAMADOL HCL 50 MG TABLET PO PRN ×2 (02:02→23:29)
[2017-02-07 07:34] VITALS: BP 152/79
[2017-02-07] MEDS: BUDESONIDE RESPULE INH 0.5 MG/2 ML AMPUL.NEB NEB SCH ×2 (08:03→17:00)
[2017-02-07] MEDS: hydrALAZINE HCL 25 MG TABLET PO SCH ×2 (09:39→20:48)
[2017-02-07] MEDS: CHOLECALCIFEROL 1,000 UNIT TABLET (VIT D3) PO SCH (09:40)
[2017-02-07] MEDS: SENNOSIDES 8.6 MG TABLET PO SCH (09:40)
[2017-02-07] MEDS: ALISKIREN HEMIFUMARATE 150 MG TABLET PO SCH (09:40)
[2017-02-07] MEDS: predniSONE 10 MG TABLET PO SCH (09:40)
[2017-02-07] MEDS: METOPROLOL TARTRATE 50 MG TABLET PO SCH ×2 (09:40→20:48)
--- NOTE | 2017-02-07 10:31 | NUR ---
Called office of Dr. Tr Mills and spoke to Lore. She stated that they did not get the packet and BERNARDINO stated she sent it again last Monday. She stated the fax number is [phone]. BERNARDINO stated that she sent the referral to this number but Lore explained that resident is not in their system. BERNARDINO also has confirmation page stating fax was sent okay. BERNARDINO stated she will send the referral again. BERNARDINO sent fax from subacute fax machine and received confirmation page. BERNARDINO will follow up.
--- NOTE | 2017-02-07 11:05 | NUR ---
Spoke to mystulio at office of Dr. Driscoll ([phone]) who stated that she will check with Dr. Driscoll to see when he can come to the hospital next week. Also stated that she called resident's friend Cristopher to inquire about payment, as that is what the resident instructed her to do but she did not answer or return her call. She stated that she needs the friend's address to send the co-payment bill. She states that resident's copayment will be $228 for the x-rays and extractions. Informed resident and she stated she will call her friend and remind her to call back the dentist's office. Obtained her friend's address of where the bill can be sent and provided this information to . Appreciated the info.
[2017-02-07] MEDS: HYDROGEN PEROXIDE 480 ML BOTTLE TP SCH ×2 (11:30→20:49)
[2017-02-07] MEDS: HYDROCORTISONE 1% CREAM 30 GM TUBE TP SCH ×2 (11:30→20:49)
[2017-02-07] MEDS: Z GUARD REMEDY 2 OZ OINT TP SCH ×2 (11:30→20:49)
--- NOTE | 2017-02-07 11:48 | NUR ---
Received a call from Laney from Dr. Mills's office who stated that Anila the correction officer reformatory is out for a week and a half. She stated that usually when the referrals come in from the hospital, they hand those directly to Dr. Mills. She stated that Dr. Mills should know about the consult but will remind him again. She stated she cannot give an exact date and time of when Dr. Mills will come to the hospital but will remind him.
[2017-02-07] MEDS: LIDOCAINE 5% (PATCH) 1 EA PATCH TP SCH (13:38)
[2017-02-07 19:45] VITALS: BP 139/64
[2017-02-07] MEDS: ZOLPIDEM TARTRATE 5 MG TABLET PO PRN (20:49)
[2017-02-07] MEDS: LORAZEPAM 0.5 MG TABLET PO PRN (20:49)
[2017-02-08] MEDS: IPRATROPIUM NEB FS 0.5 MG/2.5 ML AMPUL.NEB NEB SCH ×4 (02:30→19:30)
[2017-02-08] MEDS: ALBUTEROL FS 2.5 MG/3 ML VIAL.NEB NEB SCH ×4 (02:30→19:30)
[2017-02-08 07:35] VITALS: BP 137/77
[2017-02-08] MEDS: BUDESONIDE RESPULE INH 0.5 MG/2 ML AMPUL.NEB NEB SCH ×2 (08:56→16:57)
[2017-02-08] MEDS: HYDROGEN PEROXIDE 480 ML BOTTLE TP SCH ×2 (09:31→21:23)
[2017-02-08] MEDS: METOPROLOL TARTRATE 50 MG TABLET PO SCH ×2 (09:31→21:21)
[2017-02-08] MEDS: CHOLECALCIFEROL 1,000 UNIT TABLET (VIT D3) PO SCH (09:31)
[2017-02-08] MEDS: HYDROCORTISONE 1% CREAM 30 GM TUBE TP SCH ×2 (09:31→21:22)
[2017-02-08] MEDS: ALISKIREN HEMIFUMARATE 150 MG TABLET PO SCH (09:31)
[2017-02-08] MEDS: Z GUARD REMEDY 2 OZ OINT TP SCH ×2 (09:31→21:23)
[2017-02-08] MEDS: SENNOSIDES 8.6 MG TABLET PO SCH (09:31)
[2017-02-08] MEDS: hydrALAZINE HCL 25 MG TABLET PO SCH ×2 (09:31→21:21)
[2017-02-08] MEDS: LIDOCAINE 5% (PATCH) 1 EA PATCH TP SCH (13:19)
[2017-02-08] MEDS: TRAMADOL HCL 50 MG TABLET PO PRN (15:01)
--- NOTE | 2017-02-08 16:40 | NUR ---
Deep tracheal suction done to obtain small amout of thick secretions. Inner cannula was cleaned and placed back on. As I cleaned up, patient became visibly upset and states she will pull her whole trach out and walked away to patient activity room. This was reported to weigher and charger (Tania).
[2017-02-08] MEDS: LORAZEPAM 0.5 MG TABLET PO PRN (19:59)
[2017-02-08 20:08] VITALS: BP 145/75
[2017-02-08] MEDS: ZOLPIDEM TARTRATE 5 MG TABLET PO PRN (21:23)
[2017-02-09] MEDS: ALBUTEROL FS 2.5 MG/3 ML VIAL.NEB NEB SCH ×4 (01:30→19:30)
[2017-02-09] MEDS: IPRATROPIUM NEB FS 0.5 MG/2.5 ML AMPUL.NEB NEB SCH ×4 (01:30→19:30)
[2017-02-09] MEDS: TRAMADOL HCL 50 MG TABLET PO PRN ×2 (02:26→14:13)
[2017-02-09] MEDS: BUDESONIDE RESPULE INH 0.5 MG/2 ML AMPUL.NEB NEB SCH ×2 (08:39→17:00)
[2017-02-09] MEDS: HYDROCORTISONE 1% CREAM 30 GM TUBE TP SCH (09:00)
[2017-02-09] MEDS: ALISKIREN HEMIFUMARATE 150 MG TABLET PO SCH (09:00)
[2017-02-09] MEDS: predniSONE 10 MG TABLET PO SCH (09:00)
[2017-02-09] MEDS: hydrALAZINE HCL 25 MG TABLET PO SCH ×2 (09:00→21:24)
[2017-02-09] MEDS: HYDROGEN PEROXIDE 480 ML BOTTLE TP SCH ×2 (09:00→21:25)
[2017-02-09] MEDS: SENNOSIDES 8.6 MG TABLET PO SCH (09:00)
[2017-02-09] MEDS: Z GUARD REMEDY 2 OZ OINT TP SCH ×2 (09:00→21:25)
[2017-02-09] MEDS: METOPROLOL TARTRATE 50 MG TABLET PO SCH ×2 (09:00→21:24)
[2017-02-09] MEDS: CHOLECALCIFEROL 1,000 UNIT TABLET (VIT D3) PO SCH (09:00)
[2017-02-09] MEDS: LIDOCAINE 5% (PATCH) 1 EA PATCH TP SCH (13:00)
--- NOTE | 2017-02-09 15:51 | NUR ---
received a call from the office of Dr. Driscoll ([facility]) who stated that Dr. Driscoll can come on January at 11:45AM to do dental impressions. Resident and the charge nurse were informed.
--- NOTE | 2017-02-09 17:03 | NUR ---
Notified Dr. Palacios that pt has been refusing TLSO brace, pt also said she does not want the Lidoderm patch anymore. Received orders from Dr. Palacios to DC TLSO brace and Lidoderm patch.
[2017-02-09 19:48] VITALS: BP 126/62
[2017-02-09] MEDS: ZOLPIDEM TARTRATE 5 MG TABLET PO PRN (21:23)
[2017-02-10] MEDS: IPRATROPIUM NEB FS 0.5 MG/2.5 ML AMPUL.NEB NEB SCH ×4 (01:28→19:30)
[2017-02-10] MEDS: ALBUTEROL FS 2.5 MG/3 ML VIAL.NEB NEB SCH ×4 (01:29→19:30)
[2017-02-10] MEDS: TRAMADOL HCL 50 MG TABLET PO PRN ×3 (01:30→23:02)
[2017-02-10 07:37] VITALS: BP 130/77
[2017-02-10] MEDS: BUDESONIDE RESPULE INH 0.5 MG/2 ML AMPUL.NEB NEB SCH ×2 (08:10→17:00)
[2017-02-10] MEDS: hydrALAZINE HCL 25 MG TABLET PO SCH ×2 (08:52→21:24)
[2017-02-10] MEDS: METOPROLOL TARTRATE 50 MG TABLET PO SCH ×2 (08:53→21:24)
[2017-02-10] MEDS: ALISKIREN HEMIFUMARATE 150 MG TABLET PO SCH (08:53)
[2017-02-10] MEDS: SENNOSIDES 8.6 MG TABLET PO SCH (08:53)
[2017-02-10] MEDS: HYDROGEN PEROXIDE 480 ML BOTTLE TP SCH ×2 (08:53→21:24)
[2017-02-10] MEDS: CHOLECALCIFEROL 1,000 UNIT TABLET (VIT D3) PO SCH (08:53)
[2017-02-10] MEDS: Z GUARD REMEDY 2 OZ OINT TP SCH ×2 (08:54→21:24)
--- NOTE | 2017-02-10 11:40 | NUR ---
Resident was seen by Dr. Stewart (case manager specialist). He stated he will see about ordering glasses for resident and resident told him that she will assume the cost if her insurance does not pay for it and to send her the bill. Recommended a follow up in 6-9 months.
--- NOTE | 2017-02-10 15:27 | NUR ---
ETHEL received a fax from the office of Dr. Stewart (plumber maintenance) which states that resident is not covered by new eye glasses from her insurance. The total cost of eye glasses will be $143.00. ETHEL communicated this to resident who stated she was okay with assuming the cost. She stated to please let the office know to contact her friend Cristopher to arrange for payment. Ethel called the office of Dr. Stewart ([phone]) and spoke with Kimberly who stated she can send it to resident's friends address. She stated that once they receive the payment, they can work on making her eye glasses. Resident notified.
[2017-02-10 19:45] VITALS: BP 123/70
[2017-02-10] MEDS: LORAZEPAM 0.5 MG TABLET PO PRN (19:59)
[2017-02-10] MEDS: ZOLPIDEM TARTRATE 5 MG TABLET PO PRN (21:25)
[2017-02-11] MEDS: ALBUTEROL FS 2.5 MG/3 ML VIAL.NEB NEB SCH ×4 (00:55→19:30)
[2017-02-11] MEDS: IPRATROPIUM NEB FS 0.5 MG/2.5 ML AMPUL.NEB NEB SCH ×4 (00:55→19:30)
[2017-02-11 08:00] VITALS: BP 136/75
[2017-02-11] MEDS: BUDESONIDE RESPULE INH 0.5 MG/2 ML AMPUL.NEB NEB SCH ×2 (08:38→17:07)
[2017-02-11] MEDS: SENNOSIDES 8.6 MG TABLET PO SCH (09:51)
[2017-02-11] MEDS: CHOLECALCIFEROL 1,000 UNIT TABLET (VIT D3) PO SCH (09:51)
[2017-02-11] MEDS: predniSONE 10 MG TABLET PO SCH (09:51)
[2017-02-11] MEDS: HYDROGEN PEROXIDE 480 ML BOTTLE TP SCH ×2 (09:51→20:53)
[2017-02-11] MEDS: ALISKIREN HEMIFUMARATE 150 MG TABLET PO SCH (09:51)
[2017-02-11] MEDS: hydrALAZINE HCL 25 MG TABLET PO SCH ×2 (09:51→20:53)
[2017-02-11] MEDS: METOPROLOL TARTRATE 50 MG TABLET PO SCH ×2 (09:51→20:53)
[2017-02-11] MEDS: Z GUARD REMEDY 2 OZ OINT TP SCH ×2 (09:51→20:54)
[2017-02-11] MEDS: TRAMADOL HCL 50 MG TABLET PO PRN ×2 (12:53→23:40)
[2017-02-11 20:04] VITALS: BP 127/72
[2017-02-11] MEDS: LORAZEPAM 0.5 MG TABLET PO PRN (20:53)
[2017-02-11] MEDS: ZOLPIDEM TARTRATE 5 MG TABLET PO PRN (22:00)
[2017-02-12] MEDS: ALBUTEROL FS 2.5 MG/3 ML VIAL.NEB NEB SCH ×4 (01:30→19:30)
[2017-02-12] MEDS: IPRATROPIUM NEB FS 0.5 MG/2.5 ML AMPUL.NEB NEB SCH ×4 (01:30→19:30)
[2017-02-12 08:03] VITALS: BP 152/88
[2017-02-12] MEDS: BUDESONIDE RESPULE INH 0.5 MG/2 ML AMPUL.NEB NEB SCH ×2 (09:00→17:00)
[2017-02-12] MEDS: hydrALAZINE HCL 25 MG TABLET PO SCH ×2 (09:00→20:39)
[2017-02-12] MEDS: SENNOSIDES 8.6 MG TABLET PO SCH (09:00)
[2017-02-12] MEDS: ALISKIREN HEMIFUMARATE 150 MG TABLET PO SCH (09:00)
[2017-02-12] MEDS: CHOLECALCIFEROL 1,000 UNIT TABLET (VIT D3) PO SCH (09:00)
[2017-02-12] MEDS: HYDROGEN PEROXIDE 480 ML BOTTLE TP SCH ×2 (09:00→20:39)
[2017-02-12] MEDS: METOPROLOL TARTRATE 50 MG TABLET PO SCH ×2 (09:00→20:39)
[2017-02-12] MEDS: Z GUARD REMEDY 2 OZ OINT TP SCH ×2 (09:00→20:39)
[2017-02-12] MEDS: TRAMADOL HCL 50 MG TABLET PO PRN (12:21)
[2017-02-12 19:52] VITALS: BP 128/71
[2017-02-12] MEDS: ZOLPIDEM TARTRATE 5 MG TABLET PO PRN (20:59)
[2017-02-12] MEDS: LORAZEPAM 0.5 MG TABLET PO PRN (20:59)
[2017-02-13] MEDS: TRAMADOL HCL 50 MG TABLET PO PRN ×3 (00:48→23:40)
[2017-02-13] MEDS: IPRATROPIUM NEB FS 0.5 MG/2.5 ML AMPUL.NEB NEB SCH ×4 (01:14→19:30)
[2017-02-13] MEDS: ALBUTEROL FS 2.5 MG/3 ML VIAL.NEB NEB SCH ×4 (01:14→19:30)
[2017-02-13 08:00] VITALS: BP 150/80
[2017-02-13] MEDS: BUDESONIDE RESPULE INH 0.5 MG/2 ML AMPUL.NEB NEB SCH ×2 (08:07→17:00)
[2017-02-13] MEDS: CHOLECALCIFEROL 1,000 UNIT TABLET (VIT D3) PO SCH (08:21)
[2017-02-13] MEDS: hydrALAZINE HCL 25 MG TABLET PO SCH ×2 (08:21→20:40)
[2017-02-13] MEDS: SENNOSIDES 8.6 MG TABLET PO SCH (08:21)
[2017-02-13] MEDS: METOPROLOL TARTRATE 50 MG TABLET PO SCH ×2 (08:21→20:40)
[2017-02-13] MEDS: predniSONE 10 MG TABLET PO SCH (08:21)
[2017-02-13] MEDS: ALISKIREN HEMIFUMARATE 150 MG TABLET PO SCH (08:21)
--- NOTE | 2017-02-13 12:30 | NUR ---
Nurse Practitioner Savi Nunez did her rounds today, patient verbalized to her that she does not want to take her prednisone. Prednisone 10 mg po every other day discontinued. Noted and carried out.
[2017-02-13] MEDS: Z GUARD REMEDY 2 OZ OINT TP SCH ×2 (14:00→20:40)
[2017-02-13] MEDS: HYDROGEN PEROXIDE 480 ML BOTTLE TP SCH ×2 (14:00→20:40)
--- NOTE | 2017-02-13 14:36 | NUR ---
Received a call from Dr. Yanez (psychologist) who stated that he tried to see resident today but she was receiving a breathing treatment and resident could not speak. He stated that he will come by and see her the next time he is in the hospital. Resident stated that Dr. Yanez did come and try to see her but she was getting her treatment done and stated she will see him the next time he comes by. Resident also stated she called the under seal operator's office and spoke to Jenny and asked her to please fax the invoice for the glasses directly to her friend.
[2017-02-13 19:56] VITALS: BP 143/93
[2017-02-13] MEDS: LORAZEPAM 0.5 MG TABLET PO PRN (20:40)
[2017-02-13] MEDS: ZOLPIDEM TARTRATE 5 MG TABLET PO PRN (20:40)
[2017-02-14] MEDS: IPRATROPIUM NEB FS 0.5 MG/2.5 ML AMPUL.NEB NEB SCH ×4 (00:43→19:30)
[2017-02-14] MEDS: ALBUTEROL FS 2.5 MG/3 ML VIAL.NEB NEB SCH ×4 (00:43→19:30)
[2017-02-14 08:04] VITALS: BP 140/87
[2017-02-14] MEDS: BUDESONIDE RESPULE INH 0.5 MG/2 ML AMPUL.NEB NEB SCH ×2 (09:00→17:26)
[2017-02-14] MEDS: SENNOSIDES 8.6 MG TABLET PO SCH (09:28)
[2017-02-14] MEDS: CHOLECALCIFEROL 1,000 UNIT TABLET (VIT D3) PO SCH (09:28)
[2017-02-14] MEDS: hydrALAZINE HCL 25 MG TABLET PO SCH ×2 (09:28→20:28)
[2017-02-14] MEDS: METOPROLOL TARTRATE 50 MG TABLET PO SCH ×2 (09:28→20:28)
[2017-02-14] MEDS: ALISKIREN HEMIFUMARATE 150 MG TABLET PO SCH (09:28)
[2017-02-14] MEDS: HYDROGEN PEROXIDE 480 ML BOTTLE TP SCH ×2 (14:30→20:28)
[2017-02-14] MEDS: Z GUARD REMEDY 2 OZ OINT TP SCH ×2 (14:30→20:28)
[2017-02-14 19:45] VITALS: BP 151/98
[2017-02-14] MEDS: ZOLPIDEM TARTRATE 5 MG TABLET PO PRN (20:29)
[2017-02-14] MEDS: LORAZEPAM 0.5 MG TABLET PO PRN (20:29)
[2017-02-15] MEDS: ALBUTEROL FS 2.5 MG/3 ML VIAL.NEB NEB SCH ×4 (01:30→19:30)
[2017-02-15] MEDS: IPRATROPIUM NEB FS 0.5 MG/2.5 ML AMPUL.NEB NEB SCH ×4 (01:30→19:30)
--- NOTE | 2017-02-15 07:42 | NUR ---
RT PT REQUESTED TO BE SX, INNER CANNULA WAS TAKEN OUT AND CLEANED WITH STERILE WATER. INNER CANNULA WAS CLEANED AND PATENT BEFORE PLACING BACK. PT PUSHED RT's HAND AWAY FROM PUTTING INNER CANNULA BACK AND REQUESTED FOR A NEW ONE. PT WAS SHOWN AND EXPLAINED THAT INNER CANNULA WAS CLEANED AND PATENT. PT REQUESTED TO SEE INNER CANNULA BE CLEANED AGAIN, PT WAS SHOWN AND THEN PT ALLOWED RT TO PLACE INNER CANNULA BACK. PT THEN REQUESTED TO SPEAK WITH CHARGE NURSE. CHARGE NURSE ANDER NOTIFIED AND AWARE OF SITUATION.
[2017-02-15 07:57] VITALS: BP 140/85
--- NOTE | 2017-02-15 08:58 | NUR ---
Resident stated she was mad about the way the RT interacted with her. She stated that he continuously tried to put her inner canula on even when she tried to slap his hand away. She continues to state that she has a right to a new inner canula and that CORE FINISHER Savi Nunez told her that she can request another one if it is not clean. Resident asking to speak to subacute press department manager to file a complaint and press department manager was notified.
[2017-02-15] MEDS: METOPROLOL TARTRATE 50 MG TABLET PO SCH ×2 (09:20→20:52)
[2017-02-15] MEDS: hydrALAZINE HCL 25 MG TABLET PO SCH ×2 (09:20→20:52)
[2017-02-15] MEDS: ALISKIREN HEMIFUMARATE 150 MG TABLET PO SCH (09:20)
[2017-02-15] MEDS: HYDROGEN PEROXIDE 480 ML BOTTLE TP SCH ×2 (09:20→20:52)
[2017-02-15] MEDS: Z GUARD REMEDY 2 OZ OINT TP SCH ×2 (09:20→20:52)
[2017-02-15] MEDS: SENNOSIDES 8.6 MG TABLET PO SCH (09:20)
[2017-02-15] MEDS: CHOLECALCIFEROL 1,000 UNIT TABLET (VIT D3) PO SCH (09:20)
[2017-02-15] MEDS: BUDESONIDE RESPULE INH 0.5 MG/2 ML AMPUL.NEB NEB SCH ×2 (09:55→17:00)
[2017-02-15 19:37] VITALS: BP 127/76
[2017-02-15] MEDS: ZOLPIDEM TARTRATE 5 MG TABLET PO PRN (20:53)
[2017-02-15] MEDS: LORAZEPAM 0.5 MG TABLET PO PRN (20:53)
[2017-02-16] MEDS: TRAMADOL HCL 50 MG TABLET PO PRN ×3 (00:54→21:26)
[2017-02-16] MEDS: IPRATROPIUM NEB FS 0.5 MG/2.5 ML AMPUL.NEB NEB SCH ×4 (01:30→19:30)
[2017-02-16] MEDS: ALBUTEROL FS 2.5 MG/3 ML VIAL.NEB NEB SCH ×4 (01:30→19:30)
[2017-02-16 08:00] VITALS: BP 128/71
[2017-02-16] MEDS: BUDESONIDE RESPULE INH 0.5 MG/2 ML AMPUL.NEB NEB SCH ×2 (08:37→17:00)
[2017-02-16] MEDS: SENNOSIDES 8.6 MG TABLET PO SCH (09:00)
[2017-02-16] MEDS: hydrALAZINE HCL 25 MG TABLET PO SCH ×2 (09:57→20:32)
[2017-02-16] MEDS: METOPROLOL TARTRATE 50 MG TABLET PO SCH ×2 (09:57→20:32)
[2017-02-16] MEDS: ALISKIREN HEMIFUMARATE 150 MG TABLET PO SCH (09:58)
[2017-02-16] MEDS: CHOLECALCIFEROL 1,000 UNIT TABLET (VIT D3) PO SCH (09:58)
[2017-02-16] MEDS: HYDROGEN PEROXIDE 480 ML BOTTLE TP SCH ×2 (09:58→20:32)
[2017-02-16] MEDS: Z GUARD REMEDY 2 OZ OINT TP SCH ×2 (09:58→20:32)
--- NOTE | 2017-02-16 12:28 | NUR ---
SW asked resident if she wanted to meet with RT in order to address her concerns. She stated "absolutely" and SW contacted RT department to see if the RT that attended to her yesterday was at the hospital today. SW was informed by Pola RT that he was not and that he will notify him to call the director social service tomorrow morning. consulting technical manager was notified. SW was also told by subacute staff that they and RT have some concerns regarding the resident's behaviors and they want to meet with ELROY Tang. Informed by staff member that she called CNO's office and left a message with the medical records secretary and SW informed her that she will follow up.
--- NOTE | 2017-02-16 12:40 | NUR ---
Dr. Americo BURGOS came to see the resident to do the upper dentures impressions. He stated that SW can check in with his office at the end of next week to schedule another appointment for her.
--- NOTE | 2017-02-16 13:54 | NUR ---
SW and CNO Clyde went to speak to the resident regarding her discharge plans. Pesticide Chemist Dr. Yen communicated with Clyde prior to CNO speaking with resident. CNO communicated to her that brick burner head does not recommend taking the trach out and that safest option is to keep the trach in when discharged. Resident was upset and she reported that she does not want to go home with the trach and wants it to be taken out. Resident mentioned she is still waiting for her glasses and dentures and SW informed that she can call the respective offices for them to expedite it. CNO explained to her again the benefits of keeping trach in. CNO left room and she stated that she wanted to speak to SW. SW repeated what was said by CNO. As SW was leaving the room, she saw resident walking out of her room towards the elevators and she was holding her trach. A subacute nurse and the charge nurse were following her and resident had taken her trach out. She refused to have it put back in even while the nurse explained to her the risks. Resident refusing to place the trach back in. RT, charge nurse, BERNARDINO, nursing services manager, in the room with her. Dr. Yen notified and spoke with charge nurse. BERNARDINO informed that with no trach, resident has a timeline for discharge planning (2 weeks). Resident asked SW to call her friends Soy and Daylin to see if they are able to accommodate her. Called the house number for Soy and Daylin ([phone]) and left a message with call back details and stated it was regarding discharge planning, as resident pulled out her trach. Also called cell phone of Soy ([phone]) who did not answer and well as the cell phone of Daylin ([phone]) who also did not answer. SW left messages and will follow up with making discharge plans with the resident.
--- NOTE | 2017-02-16 14:02 | NUR ---
Pt pulled out her own trach tube and walked out of her room towards the hallway looking upset RAKESH Green saw the pt, tried to comfort her and convince her to have the trach tube replaced. Charge nurse spoke with the pt, explained the risks of not having the trach tube including the stoma closing, but pt still refused to have it replaced. RT Pola also spoke with the pt and pt was firm on not letting the RT replace the trach tube. O2 sat 91-92% HR 95. No respiratory distress/SOB noted. Charge nurse spoke with Dr. Yen on the phone. Dr. Yen said he thinks the pt will be able to tolerate being without the trach short term and he will speak with the pt once he gets to the hospital. Called [facility] Win[facility], left a message for them. Addendum: 02/16/17 at 1737 by SARAVANAN VAUGHN RN Pt's O2 sat 95% HR 91-92.
--- NOTE | 2017-02-16 14:35 | NUR ---
BERNARDINO called the office of Dr. Driscoll/Dr Margoth BURGOS ([phone]) and informed them that resident will be staying at our facility for two more weeks. Mystery noted that there are about four follow up appointments left and dentures need to be made and adjusted. She stated she does not think two weeks is enough time to finish the dentures but will ask Dr. Driscoll. Mystery stated she will let the social media project manager know.
--- NOTE | 2017-02-16 14:42 | NUR ---
Notified Sofie Obrien, HCFS worker, [phone], that resident will be leaving within two weeks and SW and patient requesting status of medi-shantanu appeal. Left message with call back details.
--- NOTE | 2017-02-16 15:15 | NUR ---
SW and charge nurse met with the resident and her friend Amelia, who resident provided an authorization for use or disclosure of health information to allow subacute staff to speak to her. Resident stated that she did not want to put the trach back in, even after her friend continued to suggest that it might be the better option for her and might allow her more time for discharge planning. Resident stated "I would rather than put the trach back in." SW asked the resident if she was feeling suicidal and resident stated "why would you ask that." SW explained to resident that it was because of what she was saying (would rather be than put the trach back in) and resident stated that she did not want to harm herself. Did not have a plan, means, or intent. Resident denied suicidal ideations and will inform psychologist Dr. Yanez to come and see her. Called Dr. Yanez ( and left a message for him to come and see the resident. Charge nurse was present during conversation with resident. SW worked with resident and her friend to come up with discharge plan and resident agreed to be placed into a board and care while her friends make necessary adjustments. However, Amelia saw social science manager near nurses station after discussion with resident and stated she spoke with Daylin and she stated that they were not taking the resident without her trach, as she went against medical advice and pulled it out. Amelia stated that Daylin does not really want to speak about it right now until she is back from her vacation. BERNARDINO will follow up with resident's friends Soy and Daylin to confirm. Per Amelia, resident is unaware and it will be her friend's responsibility to inform the resident.
--- NOTE | 2017-02-16 16:20 | NUR ---
Dr. Yen came to see pt and had a long conversation with her. Dr. Yen informed charge nurse that pt wants to be DNR/DNI. Charge nurse notified socially responsible investment adviser Maude. Pt signed DNR/DNI as witnessed by socially responsible investment adviser and charge nurse.
--- NOTE | 2017-02-16 16:22 | NUR ---
Informed by charge nurse that resident requesting to change her status to DNI/DNR code status. Charge nurse and resident went to the resident's room to complete DOCUMENTATION OF PREFERRED INTENSITY OF CARE to change resident's code status to DNI/DNR. Code status changed to DNI/DNR. Per resident's wishes, no hydration tube, no nutrition tube, no ventilator, no dialysis. Form placed in resident's chart for doctor's signature.
--- NOTE | 2017-02-16 16:30 | NUR ---
Pt's friend Solomon brought food for pt. Pt walked to the activity room to eat. No respiratory distress noted since pt pulled out her trach tube. Pt able to talk audibly without any difficulty.
--- NOTE | 2017-02-16 19:00 | NUR ---
PATIENT IN HER BEDROOM , SITTING ON HER CHAIR, ON TELEPHONE CONVERSATION AT THIS TIME, NOTED BREATHING EVEN AND UNLABORED AT ROOM AIR, S/P TRACH TUBE DECANNULATION , TRACH STOMA APPEARS CLEAN WITH NO S/SX OF INFECTION , NO BLEEDING NOTED, STOMA COVERED WITH CLEAN GAUZE. WILL CONT TO MONITOR PT.
[2017-02-16 19:35] VITALS: BP 123/70
[2017-02-16] MEDS: LORAZEPAM 0.5 MG TABLET PO PRN (19:56)
[2017-02-16] MEDS: ZOLPIDEM TARTRATE 5 MG TABLET PO PRN (20:33)
[2017-02-17 00:06] VITALS: BP 135/72
[2017-02-17] MEDS: IPRATROPIUM NEB FS 0.5 MG/2.5 ML AMPUL.NEB NEB SCH ×4 (01:30→19:30)
[2017-02-17] MEDS: ALBUTEROL FS 2.5 MG/3 ML VIAL.NEB NEB SCH ×4 (01:30→19:30)
[2017-02-17] MEDS: HYDROCODONE/APAP 5/325MG 1 EACH TABLET PO PRN (02:42)
[2017-02-17 05:05] VITALS: BP 138/82
[2017-02-17 07:37] VITALS: BP 146/77
--- NOTE | 2017-02-17 07:47 | NUR ---
Received voicemail message from the resident's friend Soy Grant. He stated that they are not willing to take the resident as resident pulled out her trach against medical advice. He stated that he does not feel comfortable looking after her especially when she did not listen to the doctors and perhaps compromised her own health. He stated they will have to talk to the resident when they return back from their vacation on February 26 and will have to notify her. The discharge plan, with resident's approval, is to find her a board and care or an assisted living facility for her to go to once she is discharged from the hospital.
[2017-02-17] MEDS: BUDESONIDE RESPULE INH 0.5 MG/2 ML AMPUL.NEB NEB SCH ×2 (07:49→17:00)
--- NOTE | 2017-02-17 08:22 | NUR ---
Resident called the social science professor stating that her friend Arturo spoke to her friends Soy and Daylin Valerojewel. She noted that her friends are really upset with her and afraid of taking her in. She stated that her friends are upset that she took the trach out against medical advice and they may not take her to live with them. Resident understood that placement in a b&c or assisted living facility will most likely be permanent.
--- NOTE | 2017-02-17 08:43 | NUR ---
Called Andrea, placement agent, in order to inquire about b&c and assisted living facility placements for the resident. Left a message with call back details.
--- NOTE | 2017-02-17 08:50 | NUR ---
Spoke with the resident again to remind her that she will be asking the RT to come and speak to her regarding her feelings as to trach care, as she had stated it was okay. However, resident stated she changed her mind and does not want to speak to him anymore. Informed RT that resident is refusing to meet with him and will let him know if resident changes her mind again. Subacute procedure manager informed.
[2017-02-17] MEDS: HYDROGEN PEROXIDE 480 ML BOTTLE TP SCH ×2 (09:00→20:26)
[2017-02-17] MEDS: SENNOSIDES 8.6 MG TABLET PO SCH (09:00)
[2017-02-17] MEDS: Z GUARD REMEDY 2 OZ OINT TP SCH ×2 (09:00→20:26)
[2017-02-17] MEDS: hydrALAZINE HCL 25 MG TABLET PO SCH ×2 (09:12→20:26)
[2017-02-17] MEDS: METOPROLOL TARTRATE 50 MG TABLET PO SCH ×2 (09:13→20:26)
[2017-02-17] MEDS: ALISKIREN HEMIFUMARATE 150 MG TABLET PO SCH (09:13)
[2017-02-17] MEDS: CHOLECALCIFEROL 1,000 UNIT TABLET (VIT D3) PO SCH (09:13)
--- NOTE | 2017-02-17 09:36 | NUR ---
Called the office of Dr. Driscoll DDDS. Addendum: 02/17/17 at 0939 by JEAN CARLOS LEBRON Incomplete note: Called the office of Dr. Driscoll DDS and spoke to Mystery. She stated that Dr. Driscoll is not working today but that he will be calling the lab to see if the partial dentures are able to be expedited. She stated that it will require several more visits but that she can call the social science analyst next week when she speaks with the dentist to see if he is able to come prior to her leaving. BERNARDINO will follow up.
[2017-02-17] MEDS: TRAMADOL HCL 50 MG TABLET PO PRN ×2 (10:18→18:16)
--- NOTE | 2017-02-17 10:43 | NUR ---
Assisted resident in calling [employer] transportation services to complete application and obtain identification number. Resident will need ID number ([id number]) to fill out the application. SW to provide updated address prior to departure. Resident will need to attend an evaluation session after leaving the hospital which SW will provide her with detailed instructions on how to follow up. Sw filled out the application with the resident, obtained her signatures, and faxed form to access eligibility center ([phone]). SW to call in 7 days to schedule an evaluation appt for the resident.
--- NOTE | 2017-02-17 11:31 | NUR ---
Spoke with Andrea, placement agent, who stated that he will be here around 3:15 pm to access the resident for placement. Informed resident and charge nurse. Addendum: 02/17/17 at 1138 by JEAN CARLOS LEBRON Andrea stated his appt got cancelled and will be visiting resident at 12pm. Informed charge nurse and resident.
[2017-02-17] MEDS: ONDANSETRON 4 MG TAB.RAPDIS PO PRN (11:35)
--- NOTE | 2017-02-17 12:10 | NUR ---
Andrea, placement agent, came to speak with the resident regarding assisted living placements. Resident communicated to him what she looks for in a place and the cost that she is able to afford per month. He stated that he will begin looking for facilities and will update the SW next Monday or Monday. Resident appreciated the information.
--- NOTE | 2017-02-17 14:00 | NUR ---
IDT meeting held, patient invited by SSD but did not attend the meeting. Reviewed current medication orders, treatment and labs and discharge plan. Pharmacy recommended to d/c Percocet due to non usage and Senakot changed to PRN per patient's request. Home health eval order obtain from Dr. Yen in preparation for patient's discharge. Code status DNR. Patient requested this nurse to cover trach stoma which is healing very well. Trach stoma opening approximately 0.5 cm in diameter. Patient tolerating room air, no SOB, O2 sat 95%, she said she is able to cough off her secretions. Resident remain ambulatory with supervision from staff.
--- NOTE | 2017-02-17 14:22 | NUR ---
Received a call from Soy and Daylin Winters and they stated they are on vacation in [place]. They are aware that the resident pulled out her trach against medical advice and they stated that they are not able to have the resident come and live with them anymore. Daylin noted that resident texted them asking Soy to come back home to pick her up. They stated that they are not able to put their lives on hold especially when resident had agreed to follow recommendations of the doctor's. SW informed them that resident has an idea that she cannot go home to live with them, as her friend Arturo communicated this to her. They stated an assisted living facility would work well for the resident and SW informed them that a placement agent was working on finding a place for her. SW to keep them posted as to the resident's discharge location and they appreciated the information.
[2017-02-17 19:29] VITALS: BP 120/72
[2017-02-17] MEDS: LORAZEPAM 0.5 MG TABLET PO PRN (19:46)
[2017-02-17] MEDS: ZOLPIDEM TARTRATE 5 MG TABLET PO PRN (20:25)
[2017-02-18] MEDS: IPRATROPIUM NEB FS 0.5 MG/2.5 ML AMPUL.NEB NEB SCH ×4 (01:30→19:30)
[2017-02-18] MEDS: ALBUTEROL FS 2.5 MG/3 ML VIAL.NEB NEB SCH ×4 (01:30→19:30)
[2017-02-18 07:38] VITALS: BP 135/65
[2017-02-18] MEDS: TRAMADOL HCL 50 MG TABLET PO PRN (07:41)
[2017-02-18] MEDS: BUDESONIDE RESPULE INH 0.5 MG/2 ML AMPUL.NEB NEB SCH ×2 (09:00→17:00)
[2017-02-18] MEDS: hydrALAZINE HCL 25 MG TABLET PO SCH ×2 (09:31→20:42)
[2017-02-18] MEDS: METOPROLOL TARTRATE 50 MG TABLET PO SCH ×2 (09:31→20:43)
[2017-02-18] MEDS: HYDROGEN PEROXIDE 480 ML BOTTLE TP SCH ×2 (09:32→20:46)
[2017-02-18] MEDS: Z GUARD REMEDY 2 OZ OINT TP SCH ×2 (09:32→20:46)
[2017-02-18] MEDS: ALISKIREN HEMIFUMARATE 150 MG TABLET PO SCH (09:32)
[2017-02-18] MEDS: CHOLECALCIFEROL 1,000 UNIT TABLET (VIT D3) PO SCH (09:32)
[2017-02-18] MEDS: HYDROCODONE/APAP 5/325MG 1 EACH TABLET PO PRN (12:25)
[2017-02-18 19:33] VITALS: BP 113/63
[2017-02-18] MEDS: LORAZEPAM 0.5 MG TABLET PO PRN (20:38)
[2017-02-18] MEDS: ZOLPIDEM TARTRATE 5 MG TABLET PO PRN (20:38)
[2017-02-19] MEDS: ALBUTEROL FS 2.5 MG/3 ML VIAL.NEB NEB SCH ×4 (01:30→19:27)
[2017-02-19] MEDS: IPRATROPIUM NEB FS 0.5 MG/2.5 ML AMPUL.NEB NEB SCH ×4 (01:30→19:27)
[2017-02-19] MEDS: TRAMADOL HCL 50 MG TABLET PO PRN ×3 (01:32→17:29)
[2017-02-19] MEDS: HYDROCODONE/APAP 5/325MG 1 EACH TABLET PO PRN ×2 (05:41→13:00)
[2017-02-19 08:00] VITALS: BP 110/52
[2017-02-19] MEDS: BUDESONIDE RESPULE INH 0.5 MG/2 ML AMPUL.NEB NEB SCH ×2 (08:07→17:00)
[2017-02-19] MEDS: hydrALAZINE HCL 25 MG TABLET PO SCH ×2 (09:00→20:56)
[2017-02-19] MEDS: ALISKIREN HEMIFUMARATE 150 MG TABLET PO SCH (09:00)
[2017-02-19] MEDS: METOPROLOL TARTRATE 50 MG TABLET PO SCH ×2 (09:00→20:57)
[2017-02-19] MEDS: CHOLECALCIFEROL 1,000 UNIT TABLET (VIT D3) PO SCH (09:00)
[2017-02-19] MEDS: HYDROGEN PEROXIDE 480 ML BOTTLE TP SCH ×2 (09:00→21:29)
[2017-02-19] MEDS: Z GUARD REMEDY 2 OZ OINT TP SCH ×2 (09:00→21:29)
[2017-02-19] MEDS: SENNOSIDES 8.6 MG TABLET PO PRN (10:07)
[2017-02-19 19:45] VITALS: BP 131/69
[2017-02-19] MEDS: LORAZEPAM 0.5 MG TABLET PO PRN (20:57)
[2017-02-19] MEDS: ZOLPIDEM TARTRATE 5 MG TABLET PO PRN (21:29)
[2017-02-20] MEDS: IPRATROPIUM NEB FS 0.5 MG/2.5 ML AMPUL.NEB NEB SCH ×4 (01:29→19:56)
[2017-02-20] MEDS: ALBUTEROL FS 2.5 MG/3 ML VIAL.NEB NEB SCH ×4 (01:30→19:56)
[2017-02-20] MEDS: TRAMADOL HCL 50 MG TABLET PO PRN ×4 (01:41→23:00)
[2017-02-20] MEDS: HYDROCODONE/APAP 5/325MG 1 EACH TABLET PO PRN ×2 (05:21→11:24)
[2017-02-20 08:03] VITALS: BP 152/85
[2017-02-20] MEDS: hydrALAZINE HCL 25 MG TABLET PO SCH ×2 (08:19→20:32)
[2017-02-20] MEDS: METOPROLOL TARTRATE 50 MG TABLET PO SCH ×2 (08:19→20:32)
[2017-02-20] MEDS: CHOLECALCIFEROL 1,000 UNIT TABLET (VIT D3) PO SCH (08:19)
[2017-02-20] MEDS: SENNOSIDES 8.6 MG TABLET PO PRN (08:19)
[2017-02-20] MEDS: ALISKIREN HEMIFUMARATE 150 MG TABLET PO SCH (08:19)
--- NOTE | 2017-02-20 08:20 | NUR ---
Resident asked director social service to not inform her friends Soy and Daylin of where she was going to be discharged to. Resident stated "they don't care where I'm going to be discharged to and they said that they will not take me in without my trach." SW explained to her that her friends had communicated with the director social service and asked to be notified of where she was going to and asked questions about different placement options. Resident stated "no they don't care" and still requesting for director social service not to disclose discharge location. Charge nurse informed.
[2017-02-20] MEDS: BUDESONIDE RESPULE INH 0.5 MG/2 ML AMPUL.NEB NEB SCH ×2 (08:41→09:00)
--- NOTE | 2017-02-20 14:45 | NUR ---
Patient alert and oriented x4, able to express needs, thoughts and feelings clearly without difficulty. Able to make her own independent decisions. Aware of events and her surroundings. Watches TV and able to discuss any topics as she desires. Able to call and receive phone calls on a daily basis.
[2017-02-20] MEDS: Z GUARD REMEDY 2 OZ OINT TP SCH ×2 (15:00→20:32)
[2017-02-20] MEDS: HYDROGEN PEROXIDE 480 ML BOTTLE TP SCH ×2 (15:00→20:32)
--- NOTE | 2017-02-20 15:40 | NUR ---
SW spoke to resident who is now stating that staff can provide information to her friends. (She listed Arturo Rose, Toni Calhoun, Stephany Berry, Yusef Harris, Simon Rubio, Rajesh Coe, Jeaneth Cesarkesha, Jeaneth Freeman, Jeaneth Gomez, Francine Hook, Patrick Littlejohn, and Angelica Cloud). SW had resident fill out authorization for use or disclosure of health information. Per resident, any information can only be given ONLY if they call with the exception of Yusef Harris, her emergency contacts.
--- NOTE | 2017-02-20 15:49 | NUR ---
In preparation for discharge planning, sw informed by charge nurse that resident receiving medication via nebulizer and mask. SW asked if medications can be given via inhaler and she will ask the doctor. Per resident, she does not want to receive medications via nebulizer and she stated "oh no." SW will follow up
[2017-02-20 19:53] VITALS: BP 139/83
[2017-02-20] MEDS: ZOLPIDEM TARTRATE 5 MG TABLET PO PRN (20:32)
[2017-02-20] MEDS: LORAZEPAM 0.5 MG TABLET PO PRN (20:32)
[2017-02-21] MEDS: HYDROCODONE/APAP 5/325MG 1 EACH TABLET PO PRN ×3 (01:28→16:30)
[2017-02-21] MEDS: ALBUTEROL FS 2.5 MG/3 ML VIAL.NEB NEB SCH ×2 (01:30→08:24)
[2017-02-21] MEDS: IPRATROPIUM NEB FS 0.5 MG/2.5 ML AMPUL.NEB NEB SCH ×2 (01:30→08:24)
[2017-02-21 07:40] VITALS: BP 141/92
[2017-02-21] MEDS: ALISKIREN HEMIFUMARATE 150 MG TABLET PO SCH (08:14)
[2017-02-21] MEDS: CHOLECALCIFEROL 1,000 UNIT TABLET (VIT D3) PO SCH (08:14)
[2017-02-21] MEDS: METOPROLOL TARTRATE 50 MG TABLET PO SCH ×2 (08:14→20:36)
[2017-02-21] MEDS: hydrALAZINE HCL 25 MG TABLET PO SCH ×2 (08:14→20:35)
[2017-02-21] MEDS: SENNOSIDES 8.6 MG TABLET PO PRN (08:15)
--- NOTE | 2017-02-21 08:24 | NUR ---
"Called financial counselors number (Zachary Jason: [phone] (Direct) | and also sent an email regarding resident's pending discharge. Asked if he can come and talk to her prior to her discharge for discussion about payment plan. Left contact information. SW will attempt again."
--- NOTE | 2017-02-21 09:16 | NUR ---
Per the request of resident, SW called resident's friend Cristopher. Resident stated she was going to be taking a shower and will not be available if her friend comes to drop off her check. Per resident, if she is not available, her friend Cristopher is to meet with the social media developer. Left message for Cristopher and left contact information.
--- NOTE | 2017-02-21 09:50 | NUR ---
Pt was seen by Dr. Yen. Pt concerned about her breathing treatments when she gets discharged, she wanted to know if she can have inhalers. Dr. Yen ordered to change Albuterol and Atrovent from q 6 to q 6 PRN, DC Pulmicort, and to start pt on Advair and Spiriva. Addendum: 02/21/17 at 1412 by SARAVANAN VAUGHN RN Dr. Yen looked at pt's trach stoma. He said it is closing. Pt asked how long it will take to completely close and he told her in a few days or in a week.
--- NOTE | 2017-02-21 10:00 | NUR ---
BERNARDINO contacted [facility] ([address] [place] [address] and spoke with Mamta. Mamta stated that their mcmahon range starts at $2200 and this is not within the resident's budget.
--- NOTE | 2017-02-21 10:27 | NUR ---
Faxed home health referral to [facility] (tel: [phone] fax: [phone]) mirna Corrales. BERNARDINO will follow up.
--- NOTE | 2017-02-21 10:34 | NUR ---
Spoke to Andrea, placement agent, who stated that he has been speaking to the employee relations representative from [facility] ([address] [place] [address] ) and that she can come and assess the resident. He stated that the employee relations representative usually gets in later in the day and will touch bases with her and will notify director social service of when she can come. He stated that facility will cost the resident around $1300-$1400/month and resident will be able to save some money, as her budget was a bit higher. SW will follow up.
--- NOTE | 2017-02-21 10:47 | NUR ---
Called Angel from [facility] [phone] and left a voice message to inquire about nebulizer order. SW will follow up. Addendum: 02/21/17 at 1517 by JEAN CARLOS LEBRON Spoke to Dorie who stated that they are not contracted to provide nebulizers/mask under medicare. To please try [facility] [employer] ([phone]/fax: [phone]) or [employer] ([phone]). SW to try these.
--- NOTE | 2017-02-21 11:15 | NUR ---
Notified Dr. Yen that according to [facility] pharmacist, Advair and Spiriva are not available, but Breo is available. Dr. Yen ordered to DC Advair and Spiriva, and start pt on Breo dosed by pharmacy. Received order to give Breo 100/25 mcg 1 puff daily. Pt asked if she can go out on a day pass to see board and care facilities with her friend. Notified Dr. Yen and he said it is fine.
--- NOTE | 2017-02-21 11:26 | NUR ---
SW spoke to resident. Resident informed her that her friend Arturo is the only person that can take her to see the facility. SW was unaware that resident wanted to see facility and resident seemed to be bothered by this. She stated that she had informed the placement agent about this. SW stated she would have to inquire if it was okay for resident to leave on a day pass. Asked charge nurse who relayed it to Dr. Yen. Per Dr. Yen, it is okay for resident to leave on a day pass to see the facility. Charge nurse also asked resident if she was comfortable using the nebulizer as physician changed order to PRN and she agreed to have RT train her to use the machine. She asked geriatric social worker to have her call her friend Jeaneth ([phone]) and ask her to bring her her suitcase and leave it at the nurses station. SW asked resident if she wanted her to come in to visit her and she stated "you ask so many questions" and began to get agitated and upset. Resident aware that she is fully capable of calling her friend but stated "no, you do it" while smiling. She then stated she has no friends. SW informed Andrea of the resident's plans to visit the facility, possibly next week, and stated he is also looking at other facilities for her. Resident asked geriatric social worker what would happen if she surpasses the allotted time and informed her that stay would begin to be private pay ($879.43). SW will follow up with resident.
[2017-02-21] MEDS: HYDROGEN PEROXIDE 480 ML BOTTLE TP SCH ×2 (11:30→20:36)
[2017-02-21] MEDS: Z GUARD REMEDY 2 OZ OINT TP SCH ×2 (11:30→20:36)
[2017-02-21] MEDS ORDERED: ALBUTEROL FS 2.5 MG/3 ML VIAL.NEB NEB PRN (11:31)
--- NOTE | 2017-02-21 11:45 | NUR ---
Social Service section of [facility] (annual) was completed. Resident is alert and oriented x4 and was able to answer all questions asked. Resident no longer has a trach and self-decannulated 02/16/2017. Resident's initial discharge plan to discharge home with her friends is no longer feasible, as her friends informed her that they will not take her as she pulled out the trach against medical advice. Resident is okay with discharging to an assisted living. Home health to be set up for the resident.
[2017-02-21] MEDS: TRAMADOL HCL 50 MG TABLET PO PRN (11:56)
[2017-02-21] MEDS ORDERED: IPRATROPIUM NEB FS 0.5 MG/2.5 ML AMPUL.NEB NEB PRN (12:00)
--- NOTE | 2017-02-21 13:15 | NUR ---
Received a call from resident's friend Arturo. She stated she looked up the facility ([facility]) on the internet and the reviews are not favorable. She stated resident will most likely not want to stay there. Informed her that Bobbi was also looking at other facilities and that resident is also able to go out on a day pass to see the facilities. Arturo stated she tried to ask at [facility] and assisted living is a 6-10 month waitlist. She stated that resident can get into an independent living much sooner however, vasiliy expressed to her that resident is in need of assistance and that resident expressed a need for this (as she needs help showering, etc). Arturo stated that she already called bobbi and left him a message about the facility and her belief that it will not work out for the resident. VASILIY spoke to resident and informed her that her friend Arturo called her. SHe wanted to know why she thinks it might not be a good fit and appreciated the information that the vp digital marketing social media and crm gave her.
--- NOTE | 2017-02-21 13:26 | NUR ---
Bernardino called [facility] ([phone]; [address] [place] [address]) and left a message for Bessy to inquire about pricing and availability. left a message with call back details. BERNARDINO will attempt again at a later time. Addendum: 02/21/17 at 1406 by JEAN CARLOS LEBRON Spoke to Bessy and she stated that semi-private rooms start at $2850. This is not within the resident's budget.
--- NOTE | 2017-02-21 13:39 | NUR ---
Called [facility] ([address] [place] [address] ) and spoke to Deneen. Deneen stated a private room is $4500 and a shared room is $3900. This is not within the resident's budget.
--- NOTE | 2017-02-21 13:45 | NUR ---
Received a call from Connie ([phone] fax: [phone]) from [facility]. She stated that everything looks good and they can begin services once resident is discharged from the hospital. BERNARDINO faxed updated progress notes to Connie and will inform her of discharge prior to the resident leaving so they can follow up.
--- NOTE | 2017-02-21 14:16 | NUR ---
Faxed referral to Chery from [facility] ([address] [place] [address] FAX: [phone]). She stated that rooms start at $1700 which is in the resident's budget. She stated that she will review the resident's paperwork and will call the director of social services back either later today or tomorrow morning to see if resident is being considered and whether they can come and assess her if necessary. Addendum: 02/23/17 at 1252 by JEAN CARLOS LEBRON Called facility twice (yesterday and today) and Tahir front office help stated that Chery is on a tour and no one else is available. Front office staff also rude when responding to telephone call when BERNARDINO asked if she can remind her to give a call to follow up on referral. He stated "I already did and she will call back when she can."
--- NOTE | 2017-02-21 14:37 | NUR ---
Resident does not qualify for Assisted Living Waiver (ALW) due to no medi-shantanu benefits. Called Sofie FS rep, to inquire about any updates to resident's medi-shantanu status. Left a message. BERNARDINO will follow up.
--- NOTE | 2017-02-21 14:39 | NUR ---
BERNARDINO called [facility] [address] [place], [place] [phone] and spoke to Livia. She stated that facility is a dementia unit and this is not appropriate for the resident. BERNARDINO called [facility] ([address] [place], [place]; [phone]) and spoke to Diana. She stated that there is availability and that shared rooms start at $1500. BERNARDINO faxed referral packet to [phone] and will follow up. Addendum: 02/21/17 at 1559 by JEAN CARLOS LEBRON [facility] before 4:30PM. Resident and charge nurse informed.
--- NOTE | 2017-02-21 14:47 | NUR ---
Notified Dr. Szymanski that discharge planning is being done for the pt, that pt self decannulated on 02/16/17.
--- NOTE | 2017-02-21 14:50 | NUR ---
Informed Dr. Marino of the resident's pending discharge to an [facility]. Stated he will see her.
--- NOTE | 2017-02-21 15:00 | NUR ---
Pt was seen by Dr. Marino. Dr. Marino is aware that pt is in the process of discharge planning. No new order.
--- NOTE | 2017-02-21 15:33 | NUR ---
Spoke to Andrea, placement agent, who stated that she spoke to the resident's friend Arturo and is aware that she does not like the facility. Informed Andrea that ultimately it is the resident's decision and that resident is able to go out on a day pass to see the facilities. He stated that because of the resident's budget, an assisted living is difficult and that he will begin to look for independent livings. SW informed Dr. Yen. Per Dr. Yen, resident is also medically cleared to be discharged at any time.
--- NOTE | 2017-02-21 15:59 | NUR ---
Spoke to resident about discharge planning. She is agitated and stating she has no one to take her to see the facilities. demolition worker trying to ask her questions and she is raising her voice, stating the high school social science teacher is not understanding her. Informed her that Brennan from [facility] ([address] [place], [place]; [phone]) is coming to assess her before 4:30PM and once again stated that there is no one to take her to see the facility and all her friends are working. ETHEL informed her that this is only an evaluation to see if resident is a good fit for the facility and that they can address the facility visit once she is accepted. Her friend Arturo called her at this time and resident asked SW to speak to her. Informed her that someone was coming to assess her from [facility]. She also stated that she is in [place] and will take a look at an assisted living facility there. Appreciated the information. As Ethel was going to tell the resident something, she stated "stop" and became agitated. SW left room and will return when the water proofer is here to assess the resident.
--- NOTE | 2017-02-21 16:18 | NUR ---
Spoke to resident , as she called the social sciences research scientist. Resident stated "I'm so anxious I feel like jumping out of the window." SW assessed for suicidal ideation and she denied plan, means, intent to harm self. She stated that "I am just anxious and I can't stop screaming at you Maude." SW explained to resident that being anxious is expected, as resident has been living here for two years and she will soon be transitioning to another living facility. SW stated that she will give her some time and will return when the associate professor physician is here to evaluate her. Resident stated that she found someone to take her to see the facility but they need one day advanced notice. Charge nurse informed about this visit with resident.
--- NOTE | 2017-02-21 16:55 | NUR ---
Brennan from [facility] ([address], [place]; [phone]) came to assess the resident. Resident asked questions and inquired how much it would be for an individual room. He stated it would cost her around $2000 or she can get a shared room for $1500. Brennan asked resident what she looks for in an assisted living and answered questions related to transportation, hair salon, parking, etc. Brennan stated resident is a good fit for the facility and can come in for a tour. Resident stated she will notify her friend Stephany and will update the SW as to when her friend can pick her up for a tour. Charge nurse and subacute restaurant area manager informed. CNO informed.
[2017-02-21 20:14] VITALS: BP 122/73
[2017-02-21] MEDS: LORAZEPAM 0.5 MG TABLET PO PRN (20:36)
[2017-02-21] MEDS: ZOLPIDEM TARTRATE 5 MG TABLET PO PRN (20:37)
[2017-02-22] MEDS: TRAMADOL HCL 50 MG TABLET PO PRN ×3 (00:09→21:26)
[2017-02-22] MEDS: HYDROCODONE/APAP 5/325MG 1 EACH TABLET PO PRN ×3 (03:37→16:42)
[2017-02-22 08:06] VITALS: BP 101/47
[2017-02-22] MEDS: hydrALAZINE HCL 25 MG TABLET PO SCH ×2 (08:53→20:33)
[2017-02-22] MEDS: METOPROLOL TARTRATE 50 MG TABLET PO SCH ×2 (08:54→20:33)
[2017-02-22] MEDS: ALISKIREN HEMIFUMARATE 150 MG TABLET PO SCH (08:54)
[2017-02-22] MEDS: CHOLECALCIFEROL 1,000 UNIT TABLET (VIT D3) PO SCH (08:54)
[2017-02-22] MEDS: HYDROGEN PEROXIDE 480 ML BOTTLE TP SCH ×2 (08:55→20:33)
[2017-02-22] MEDS: Z GUARD REMEDY 2 OZ OINT TP SCH ×2 (08:55→20:33)
[2017-02-22] MEDS: SENNOSIDES 8.6 MG TABLET PO PRN (09:05)
--- NOTE | 2017-02-22 09:24 | NUR ---
Diana from [facility] called the SW ([phone]) and inquired if resident would be visiting their facility. Informed her that SW was waiting for resident to tell her when her friend can take her to see the place. Diana stated that resident would need a TB test and a physicians report if she decides to go there. She indicated resident would need a TB test for any facility she chooses to go to. BERNARDINO informed charge nurse who stated that resident has gotten a TB test before and will check her records. BERNARDINO will keep Diana posted.
--- NOTE | 2017-02-22 11:09 | NUR ---
"Called financial counselors number again (Zachary Jason: [phone] (Direct) | . He did not answer and Sw left another message. He also did not reply to BERNARDINO's previous email and phone call. Called Ellen at the business office to see if she is aware of any other financial counselors that can come and talk to the resident. She said she will look into it and get back to the social service coordinator."
[2017-02-22] MEDS: ONDANSETRON 4 MG TAB.RAPDIS PO PRN (11:47)
--- NOTE | 2017-02-22 12:01 | NUR ---
Spoke to Keshia ( fax: [phone]) from [facility] [employer]. Stated resident is in need of a nebulizer and mask for PRN medications for when she is discharged. BERNARDINO faxed referral packet (face sheet, progress note, medication list) and she stated she will check eligibility and will follow up with the social media developer.
--- NOTE | 2017-02-22 12:20 | NUR ---
Seen and examined by Rani Nunez NP for Dr. Yen, patient complaining that she feels nauseated, CLINICAL TECHNICIAN gave her Zofran, patient also complaining that she feels dizzy, B/P 129/60, P 83. Advised to rest for now. Resident in bed with call light within reach. No s/s of acute respiratory distress. NNO given at this time.
--- NOTE | 2017-02-22 12:30 | NUR ---
Obtain an order from Savi Nunez NP to give PPD test, because admitting facility wants a most recent TB skin test. Order noted and carried out.
--- NOTE | 2017-02-22 13:13 | NUR ---
Spoke to Brennan from [facility] and inquired if there is availability at [facility] ([address], [place] [address] ). He stated there was and that a shared room would cost $1800/month. Vj stated resident is able to visit facility to see if it is a good fit. Informed resident. She is open to touring facility to consider options. SW waiting for resident to state when her friend can take her to visit facility.
--- NOTE | 2017-02-22 13:32 | NUR ---
Zachary, the financial counselor, responded and stated that he will have the business office look into the resident's account regarding her balance and will find out what options they can provide to the resident. SW will follow up.
--- NOTE | 2017-02-22 13:34 | NUR ---
Called [facility] (Address: [address] [place] [address] ) and they have no availability. Called [facility] ([address] ) and spoke to Carla. She stated prices start from $3400/month and up. Called [facility] and spoke to Rafa ([address] [phone]). She stated that with $1700/month resident is able to get a shared room. SW faxed referral packet and they will review and send evaluators if resident is a good fit. Called [facility] ([address] [place] [address] ) and spoke to Regla. He stated resident is able to come and take a tour of the facility. Faxed referral packet.
--- NOTE | 2017-02-22 14:29 | NUR ---
Informed by Andrea, placement agent, that Kiara from [facility] (several facilities) was coming to access the resident. Informed resident who was packing her clothes with her friend. She stated "you are interrupting me." SW will speak to resident at a later time. Zachary, the financial counselor, emailed SW and stated that Sofie, FS rep, was out today and that he will follow up tomorrow to see about the status of resident's medi-shantanu. Informed him that last SW spoke with her, medi-shantanu termination was under appeal. SW will follow up.
--- NOTE | 2017-02-22 14:46 | NUR ---
Kiara from [facility] came to access resident. Resident stated independent living is not a good fit for her and that she can get an individual room at [facility] for $2000. Resident would not accept brochures.
[2017-02-22] MEDS ORDERED: TUBERCULIN,PURIF.PROT.DERIV. 5 TU/0.1 ML VIAL ID ONE (15:30)
[2017-02-22] MEDS: FLUTICASONE/VILANTEROL 1 EACH BLST.W.DEV IH SCH (17:00)
--- NOTE | 2017-02-22 18:00 | NUR ---
Patient refused PPD skin test. she said " I am in so much pain and I don't want to talk". Resident very firm that she does not want to us to administer the skin test. Explained to patient that any facility that she goes to requires a recent skin test. She said "There is no facility!". She is up in the chair sitting non wanting to speak anymore. Not in any s/s of sacute distress or discomfort, breathing regularly in room air & unlabored.
[2017-02-22 20:25] VITALS: BP 117/75
[2017-02-22] MEDS: LORAZEPAM 0.5 MG TABLET PO PRN (20:34)
[2017-02-22] MEDS: ZOLPIDEM TARTRATE 5 MG TABLET PO PRN (20:34)
[2017-02-23] MEDS: HYDROCODONE/APAP 5/325MG 1 EACH TABLET PO PRN ×3 (05:19→18:09)
[2017-02-23 07:42] VITALS: BP 114/67
--- NOTE | 2017-02-23 09:34 | NUR ---
Pt refused PPD test yesterday, notified Dr. Yen. Received order to do CXR. Notified pt.
[2017-02-23] MEDS: hydrALAZINE HCL 25 MG TABLET PO SCH ×2 (09:35→20:39)
[2017-02-23] MEDS: Z GUARD REMEDY 2 OZ OINT TP SCH ×2 (09:35→20:39)
[2017-02-23] MEDS: CHOLECALCIFEROL 1,000 UNIT TABLET (VIT D3) PO SCH (09:35)
[2017-02-23] MEDS: HYDROGEN PEROXIDE 480 ML BOTTLE TP SCH ×2 (09:35→20:40)
[2017-02-23] MEDS: METOPROLOL TARTRATE 50 MG TABLET PO SCH ×2 (09:35→20:39)
[2017-02-23] MEDS: ALISKIREN HEMIFUMARATE 150 MG TABLET PO SCH (09:35)
[2017-02-23] MEDS: FLUTICASONE/VILANTEROL 1 EACH BLST.W.DEV IH SCH (09:35)
[2017-02-23] MEDS: SENNOSIDES 8.6 MG TABLET PO PRN (09:36)
[2017-02-23] MEDS: TRAMADOL HCL 50 MG TABLET PO PRN ×3 (09:36→22:30)
--- NOTE | 2017-02-23 09:58 | NUR ---
Received fax from Keshia Gomez from [employer] requesting physician to fill out forms for resident's nebulizer. BERNARDINO spoke to Dr. Yen who completed form and provided signature. Faxed back forms to Keshia (fax: [phone], tel : [phone]).
--- NOTE | 2017-02-23 11:28 | NUR ---
SW asked resident if she has spoken to her friend so she can take her to go tour facilities. Resident stated that she has not been feeling well but that she has talked to her friend and she stated that she will take her when she is feeling well. Informed charge nurse and CNO.
--- NOTE | 2017-02-23 11:47 | NUR ---
Called Zachary @ [phone], financial counselor, informed him that resident discharging tomorrow. He stated that they have to wait for outcome of medi-shantanu appeal, as they may pay. He stated that he will check again but if anything, they will follow up with her after her discharge from the hospital. He noted he may come and talk to her if it is necessary.
--- NOTE | 2017-02-23 12:15 | NUR ---
CNO spoke to resident, who no longer qualifies to stay in subacute. Informed her that she has three facilities that have accepted her. Resident is delaying process of discharge. Resident stated three facilities is not enough and that she also needs to go visit them. Resident was informed that she has until tomorrow to visit the facilities to make her choice.
--- NOTE | 2017-02-23 12:16 | NUR ---
Resident upset after CNO spoke with her. She stated "put me out on the street then." Resident informed her that because resident is medically cleared, she does not qualify for subacute but that CNO is giving her until tomorrow to make her choice. Resident stated that she was going to find a magistrate judge. SW once again informed her that she has choices of where she can be discharged to. Charge nurse present and also told her that if she does not like the facility, they can always work on transferring her to a different liam. Resident called her friend Toni, and as resident previously signed an authorization to speak to her, sw informed her that resident has been accepted to three facilities. Toni asked SW to notify resident to call channel 4. SW passed the phone back to the resident so she can finish speaking with her friend. Charge nurse present.
--- NOTE | 2017-02-23 12:21 | NUR ---
Received a call from [facility] ([address] [place] [address]) who stated that resident has been accepted to their facility and that she will come and access the resident. BERNARDINO stated she spoke to Regla yesterday and he also informed her that she has been accepted. Kiara also informed BERNARDINO that she is an RN and can help out in emergencies. Resident informed.
--- NOTE | 2017-02-23 13:03 | NUR ---
Spoke to Imelda from [facility] ([address] [place] [address], [place] [phone]) who stated that they reviewed the resident's paperwork and will need to come and assess the resident. She stated she will call the social work msw back. Addendum: 02/23/17 at 1338 by JEAN CARLOS LEBRON Received a call from Imelda and she stated Angela will come and assess the resident. Addendum: 02/23/17 at 1616 by JEAN CARLOS LEBRON Called [facility] and spoke to Jean Carlos. Asked her if she can notify Angela not to come and see resident and she stated that she will.
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
--- NOTE | 2017-02-23 13:07 | NUR ---
Called [facility] ([address], [place] [phone]) and spoke with front window cashier to be transferred to admissions. She stated admissions is on hold as they are currently renovating rooms and not accepting new patients.
--- NOTE | 2017-02-23 13:12 | NUR ---
Sent referral to [facility] ([address] [place] [phone]; fax: [phone]) after speaking with Moni who stated that rooms start at $1800. BERNARDINO informed her that the resident's budget is $1700 but was okay with $1800 if she is able to receive information about what services they can provide. She stated she will review referral packet. BERNARDINO will follow up. Addendum: 02/23/17 at 1508 by JEAN CARLOS LEBRON BERNARDINO called Moni to follow up and she stated her boss Reagan SALAS or the medical office secretary Dave can come and assess resident tomorrow at 11AM. She stated she will call BERNARDINO if they can come earlier. BERNARDINO informed her to please call her ahead of time before coming.
--- NOTE | 2017-02-23 13:30 | NUR ---
Spoke to resident with community health counselor present. Resident passed the phone to BERNARDINO and on the other line was her friend Arturo. She wanted to know what was going and BERNARDINO explained to her that BERNARDINO has given a list of facilities to the resident about which facilities she has been accepted to. Arturo asked BERNARDINO if she can show her pictures of the facilities and BERNARDINO stated that yes she can but was currently working on finding alternative facilities for her as well. SW to show resident pictures of facilities that have accepted her.
--- NOTE | 2017-02-23 13:38 | NUR ---
Kiara Payne RN BSN from [facility] ([address] [facility] [place] [address]- [phone]) came to assess the resident. She stated her facility was in [place] and resident stated "oh I can't go there." Resident stated she needed to use the bathroom and once she was done, resident asked her "how much is it." She stated it starts from $4624-8269/month. Resident became suddenly upset and stated "you know what they can throw me out and call the police." Resident laid down in her bed and SW spoke with Kiara outside of resident's room. Kiara provided the SW with brochures and business cards of her facility. SW asked Kiara if resident is able to tour facility if she has someone to take her and she stated that because of resident's behavior, it does not seem to be a good fit for the resident.
--- NOTE | 2017-02-23 14:00 | NUR ---
Pt walked out of her room and continued walking to the hallway out of the unit. ACACIA Gottlieb and charge nurse followed the pt to the hallway, pt seemed upset and said that she is getting kicked out to the streets. Staff reminded her that there are three facilities that have accepted her and it is up to her to choose which one to go to. Pt verbalized that she has not seen any of the facilities and that she is unable to go out to see them because she is dizzy. Charge nurse told her that if she is dizzy then she should go back to bed and not walk around. Pt walked back to her room. She made some phone calls and charge nurse left her in the room for privacy. When pt was done with her phone calls, charge nurse offered to check her vital signs but she refused, also offered if she wanted Meclizine but she also refused. Notified Dr. Yen. He said to have psych doctor see the pt.
--- NOTE | 2017-02-23 14:02 | NUR ---
Faxed referral to [facility] (fax- [phone] tel: [phone]; [address], [place], [place]). Sw will follow up.
--- NOTE | 2017-02-23 14:08 | NUR ---
BERNARDINO called [facility]- [address], [place] [phone]- and spoke to All. She stated they have no availability.
--- NOTE | 2017-02-23 14:43 | NUR ---
Called and left a message for Dr. Yanez ([address] [facility] [place] [address] ) asking him if he can come and see the resident. Charge nurse informed. Called Dr. Marino ([phone]) and spoke with him. He stated he saw her two days ago and that resident is not on any meds and is ready to be discharged. He stated he will try to stop by this week but not today. Charge nurse informed.
--- NOTE | 2017-02-23 14:56 | NUR ---
Asked resident if she wanted to look at pictures of the facility. She stated "I have an emergency. My friend had a stroke." Resident was in the process of sending a message, per her account. She initially asked SW to get the in shop service technician to plug in her phone and when SW asked if it was okay to open her top drawer (which is where resident indicated her in shop service technician was) she stated "not now." music coordinator present during this conversation. Resident stated she will look at pictures later.
--- NOTE | 2017-02-23 15:00 | NUR ---
Charge nurse spoke with Dr. Szymanski, he said he will do pt's discharge summary/orders. Pt locked herself in her restroom as reported by SHERRILL Orta. Charge nurse immediately went to the pt's room, found that restroom door was locked. Charge nurse knocked on the door, pt said she is having a bowel movement and cannot get up to open the door. Charge nurse had asked for staff to call security to help unlock the door. Charge nurse reminded pt not to lock the restroom door and that she will be staying by the door until the pt comes out. Pt opened the door just as security came. Emphasized to the pt the importance of not locking the restroom door, charge nurse emphasized safety reasons. Pt usually keeps the restroom door ajar when she is inside the restroom.
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
--- NOTE | 2017-02-23 15:40 | NUR ---
Sitter was provided to stay with the pt.
--- NOTE | 2017-02-23 15:55 | NUR ---
Sw came to see the resident and brought her money envelope with her. ACACIA Gottlieb in the room and present during conversation. She stated that she does not want her money and asked where she would keep it. SW informed her that she can give her an envelope and she can place it in her drawer. Asked resident again if she wanted her money envelope and resident refusing at this time.
--- NOTE | 2017-02-23 16:01 | NUR ---
Per Mamadou ([facility] admitting) crisis packaging design engineer Aimee will come and evaluate the resident. Mamadou stated she was able to obtain authorization for [facility].
--- NOTE | 2017-02-23 16:45 | NUR ---
Pt ordered pizza from her phone. Pt went to the activity room to eat. Sheri went with the pt.
--- NOTE | 2017-02-23 18:25 | NUR ---
Crisis marble supervisor RAKESH Deutsch came to see pt and talk with her. According to RAKESH Yu, pt does not really want to hurt herself or jump out of the window, pt is being manipulative because she does not want to leave this unit. RAKESH Yu said pt is not fit for psych unit. She still recommended for pt to have a 1:1 sitter until pt is discharged. Addendum: 02/23/17 at 184 by SARAVANAN VAUGHN RN Notified healthcare social worker Dr. Nessa Santoro, community health advocate Alba, and nursing supervisor operations Drea. Addendum: 02/23/17 at 190 by SARAVANAN VAUGHN RN RAKESH Yu spoke with Dr. Marino on the phone.
[2017-02-23 19:31] VITALS: BP 127/64
[2017-02-23] MEDS: LORAZEPAM 0.5 MG TABLET PO PRN (20:40)
[2017-02-23] MEDS: ZOLPIDEM TARTRATE 5 MG TABLET PO PRN (20:40)
[2017-02-24] MEDS: HYDROCODONE/APAP 5/325MG 1 EACH TABLET PO PRN ×2 (04:54→12:42)
[2017-02-24] MEDS: TRAMADOL HCL 50 MG TABLET PO PRN (07:36)
--- NOTE | 2017-02-24 08:10 | NUR ---
Attempted to speak to resident regarding discharge planning. She did not speak to social security assessor and turned around and covered her face with her bed sheet. She remained laying in her bed.
--- NOTE | 2017-02-24 08:51 | NUR ---
SW met with resident and charge nurse. Charge nurse explained to resident what the plan for today was (d/c today) and sw explained to resident about the facilities that have accepted her. Resident stated that she cannot afford the previously agreed amount of $1700-$2000/month. SW asked resident if anyone knows how much she is getting monthly and she stated "no." SW asked resident if they can call her bank together and she stated "no we are not going to do that."
--- NOTE | 2017-02-24 08:55 | NUR ---
Resident in bed with curtain pulled. Sitter at the bedside. She told this nurse during rounds that she does not need a sitter and she wants her curtain closed. Explained to patient that it is OK to keep the curtain pulled but she cannot lock herself when goes to the bathroom. CNO agreed that patient does not need a sitter and order obtain to d/c the order for 1:1 sitter. Order also obtain from Ho Szymanski to discharge patient with same order. MD Yen cleared her from pulmonary perspective. V/S 155/89, 115, 98% on room air, no SOB, T 97.6. SSD continue to talk to resident as to patient's final decision for placement.
[2017-02-24] MEDS: FLUTICASONE/VILANTEROL 1 EACH BLST.W.DEV IH SCH (09:00)
[2017-02-24] MEDS: Z GUARD REMEDY 2 OZ OINT TP SCH (09:00)
[2017-02-24] MEDS: HYDROGEN PEROXIDE 480 ML BOTTLE TP SCH (09:00)
--- NOTE | 2017-02-24 09:16 | NUR ---
Received call from from the office of Dr. Americo BURGOS. She asked if Dr. Driscoll can come and see her today at 11:30AM to finish her dentures. Asked resident who stated it was okay. Mystulio stated Dr. Driscoll will come at this time.
[2017-02-24] MEDS: CHOLECALCIFEROL 1,000 UNIT TABLET (VIT D3) PO SCH (09:23)
[2017-02-24] MEDS: METOPROLOL TARTRATE 50 MG TABLET PO SCH ×2 (09:24→16:02)
[2017-02-24] MEDS: ALISKIREN HEMIFUMARATE 150 MG TABLET PO SCH (09:24)
[2017-02-24] MEDS: hydrALAZINE HCL 25 MG TABLET PO SCH ×2 (09:25→16:01)
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
--- NOTE | 2017-02-24 10:44 | NUR ---
Spoke to Keshia ( fax: [phone]) from [employer]. SW provided personal phone number of resident ([phone]) and she stated they can follow up with resident for delivery today. She stated technicians will be there until 1-2pm today but she can follow up with resident. Will inform her of discharge address.
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
[2017-02-24] MEDS: SENNOSIDES 8.6 MG TABLET PO PRN (11:27)
--- NOTE | 2017-02-24 11:43 | NUR ---
Spoke to resident's friend Soy Harris. Informed him of the situation and he asked "what is it that I can do.. I'm done." He stated that they will not be able to take in the resident as she pulled the trach out and went against medical advice. He stated if SW can just please keep him posted as to where she was going to be discharged to. Will update as soon as discharge location is known.
--- NOTE | 2017-02-24 11:45 | NUR ---
Called the office of Dr. Yen ([address] [place] [address] or [phone] and spoke with social secretary. She stated resident must call to make her appt. Informed resident and provided contact information.
--- NOTE | 2017-02-24 12:16 | NUR ---
Dr. Driscoll came to see resident. He stated that he started making the upper dentures and lower partial denture. He stated he also took a bite registration. He stated he will follow up with the resident by contacting her on her personal phone number. SW to provide number to his office.
--- NOTE | 2017-02-24 14:04 | NUR ---
Resident's friend Stephany ([phone]) came to see resident. Resident spoke to her and Stephany stated she can take the resident home and take her to look at assisted livings tomorrow. Informed stephany that most likely, resident will be able to move into any place on Monday as admissions is usually closed over the weekend. She understood this. Resident will be discharged home to [address] [place] [address].
--- NOTE | 2017-02-24 14:19 | NUR ---
Spoke to Connie from [facility] (tel: [phone] fax: [phone]). Informed her that resident is discharging today to following address: [address] [place] [address] with her friend Stephany ([phone]). Informed her that resident is here temporarily. She stated they will call Stephany later today so they can schedule for them to come out tomorrow.
--- NOTE | 2017-02-24 14:35 | NUR ---
Provided medicare physician list from medicare.gov to resident and her friend Stephany. Informed Stephany that resident has to follow up with a primary doctor and she can contact those provided to follow up.
[2017-02-24 16:02] VITALS: BP 114/63
[2017-02-24] MEDS ORDERED: TRAM50TA92 PO (16:14)
[2017-02-24] MEDS ORDERED: LORA1TAB82 PO (16:14)
[2017-02-24] MEDS ORDERED: HYDR-552 PO (16:14)
[2017-02-24] MEDS ORDERED: ZOLP5TAB2 PO (16:14)
--- NOTE | 2017-02-24 16:17 | NUR ---
Discharge Note: Patient discharged home with her friend Stephany ([phone]) to [address] [place] [address]. Per her friend Stephany, she decided that resident will be able to live with her for 10 months. Resident and her friend given information for Assisted Living Facilities. Home health ([facility] tel: [phone] fax: [phone]) informed of resident's location and they will follow up with friend. [facility] ([phone]) [facility] informed of resident's discharge location and they will follow up with resident's friend Stephany for delivery on Monday. Friends Soy and Daylin Harris informed of discharge via voicemail as they did not answer. Resident and friend aware that they must schedule follow up appt with Dr. Yen and primary physician of their choosing. Prescription sent electronically to [facility] pharmacy: [address] [place] [phone]; [id number] and her friend will take resident to turkey picker her prescriptions tonight. Per Resident, she will contact her daughter to inform her of where she is discharged to. Resident excited and nervous about going home. Happy to leave the hospital.
--- NOTE | 2017-02-24 16:20 | NUR ---
Patient refused MRSA swab. Explained to patient the importance of testing for MRSA but still refused saying " NO WAY!"
--- NOTE | 2017-02-24 16:39 | NUR ---
Discharge patient in stable condition accompanied by friend, Stephany. Discharge teaching and instructions given to patient, medication prescription given and explained, nebulizer treatment teaching and explained by RT, patient verbalized understanding of discharge instructions, teaching, and medications. All belongings and discharge paperwork given to patient.
--- NOTE | 2017-02-27 14:40 | NUR ---
Informed Dr. Driscoll's office (D[facility]) and office of Dr. Stewart (geographic information systems engineer) that resident was discharged and provided contact information for resident. They will follow up to deliver resident's glasses and to complete denture fitting.
--- NOTE | 2017-03-02 12:11 | NUR ---
senior clinical data coordinator called the resident to inquire about her belongings that were left and SW was present during conversation. Resident had a pair of glasses with her belongings (books and personal cards). Resident was notified about her left belongings and she indicated that she did not need her glasses (as they were an old pair) and did not want her books or personal cards. Belongings will be discarded and received resident's approval.
--- NOTE | 2017-03-03 09:41 | NUR ---
Received a message from the unit stating that patient requesting call back to her cell phone. They stated that they informed her that they must follow up with her own physician for medication refills. SW had also given pt and her friend a list of medicare approved physicians near the pt's area. SW called pt's cell phone but phone was off. SW left a message indicating that she must follow up with her own primary care physician to obtain medication refills and that she was given a list of medicare approved physicians on the day of her discharge.
[2017-04-22] MEDS ORDERED: TUBERCULIN,PURIF.PROT.DERIV. 5 TU/0.1 ML VIAL ID SCH (09:00)
== END 2017-02-24 19:31 | disposition home or self-care (01) | DRG 189 ==
LOC: SA
PROVIDERS: ADMIT Internal Medicine; ATTEND Internal Medicine
PROC: 0HDRXZZ Extraction of Toe Nail, External Approach (ICD-10-PCS; principal; 2016-07-25)
DX: J96.11 Chronic respiratory failure with hypoxia (principal); I50.33 Acute on chronic diastolic (congestive) heart failure; N17.9 Acute kidney failure, unspecified; Z93.0 Tracheostomy status; R53.2 Functional quadriplegia; I13.0 Hypertensive heart and chronic kidney disease with heart failure and stage 1 through stage 4 chronic kidney disease, or unspecified chronic kidney disease; N39.0 Urinary tract infection, site not specified; N13.30 Unspecified hydronephrosis; E87.1 Hypo-osmolality and hyponatremia; F33.2 Major depressive disorder, recurrent severe without psychotic features; K74.60 Unspecified cirrhosis of liver; E11.22 Type 2 diabetes mellitus with diabetic chronic kidney disease; N18.3 Chronic kidney disease, stage 3 (moderate); R13.10 Dysphagia, unspecified; Z93.1 Gastrostomy status; N20.0 Calculus of kidney; E11.9 Type 2 diabetes mellitus without complications; F42.9 Obsessive-compulsive disorder, unspecified; K80.20 Calculus of gallbladder without cholecystitis without obstruction; E78.5 Hyperlipidemia, unspecified; I25.10 Atherosclerotic heart disease of native coronary artery without angina pectoris; Z90.2 Acquired absence of lung [part of]; Z87.440 Personal history of urinary (tract) infections; Z85.118 Personal history of other malignant neoplasm of bronchus and lung; Z66 Do not resuscitate; L60.0 Ingrowing nail; G89.29 Other chronic pain; G47.00 Insomnia, unspecified; F41.9 Anxiety disorder, unspecified; E55.9 Vitamin D deficiency, unspecified; D63.8 Anemia in other chronic diseases classified elsewhere; F39 Unspecified mood [affective] disorder; F43.23 Adjustment disorder with mixed anxiety and depressed mood; J44.9 Chronic obstructive pulmonary disease, unspecified; T38.0X5A Adverse effect of glucocorticoids and synthetic analogues, initial encounter; Y92.099 Unspecified place in other non-institutional residence as the place of occurrence of the external cause; D72.829 Elevated white blood cell count, unspecified; L92.9 Granulomatous disorder of the skin and subcutaneous tissue, unspecified; Z87.311 Personal history of (healed) other pathological fracture; L60.2 Onychogryphosis
CPT/HCPCS: 31720; 36415; 36600; 71010-TC; 72100-TC; 80048-TC; 80053-TC; 81000-TC; 82306; 82570-TC; 82652; 83735-TC; 83970; 84100-TC; 84300-TC; 85025-TC; 86580-TC; 87040-TC; 87086-TC; 87186-TC; 92521; 94640-TC; 94762-TC; 94799-TC; 97001-TC; A4623; A6253; A6402; A7526; J2185; J2543; J3370; J3490; J7030; J7060; L8501; Q0162; Z7610

== ENCOUNTER 2016-07-26 14:33 | Outpatient (CLI) | payer MEDICARE, BC, MEDICAID | END 2016-07-26 23:59 | disposition home or self-care (01) | LOC: CT 14:33 | PROVIDERS: ATTEND Internal Medicine Hematology & Oncology | DX: I70.0 Atherosclerosis of aorta (principal) ==

== ENCOUNTER 2016-07-30 15:14 | Outpatient (CLI) | payer MEDICARE, BC, MEDICAID | END 2016-07-30 23:59 | LOC: CT 15:14 | PROVIDERS: ATTEND Internal Medicine Hematology & Oncology | DX: I70.0 Atherosclerosis of aorta (principal); D71 Functional disorders of polymorphonuclear neutrophils; N13.39 Other hydronephrosis; Z85.118 Personal history of other malignant neoplasm of bronchus and lung | CPT/HCPCS: 71250-TC ==